=== PATIENT | male | born 1955 | race Caucasian/White ===

== ENCOUNTER 2017-02-09 19:27 | Emergency (ER) | payer BC, OTHER ==
[~2017-02-09] VITALS: Ht 180.3 cm; Wt 70.7 kg
[~2017-02-09 19:27] MED LIST: DEXL60CA4 PO; LEVO75TA5 PO; MULT-513 PO; NIFE1TAB53 PO; RANI300T2 PO
[2017-02-09 19:31] VITALS: TEMP 36.4; Ht 180.3 cm; Wt 70.7 kg
--- NOTE | 2017-02-09 20:29 | DIAGNOSTIC IMAGING REPORT ---
LEFT LOWER EXTREMITY VENOUS DOPPLER HISTORY: L leg numbness/varicosities - R/O DVT COMPARISON STUDY: None. FINDINGS: There is normal compressibility, flow, and augmentation within the left lower extremity deep venous system. IMPRESSION: No DVT within the left lower extremity. Electronically signed by: Chalino Edmondson M.D. 02/09/2017 8:27 PM Dictated Date/Time: 02/09/2017 8:27 PM
--- NOTE | 2017-02-09 20:30 | DIAGNOSTIC IMAGING REPORT ---
LUMBAR SPINE 5 VIEWS HISTORY: L leg numbness - h/o chronic back pain COMPARISON: None. FINDINGS: There is no fracture. No subluxation. Cholecystectomy. The sacrum is intact. Mild disc space are at L1-L2. Moderate disc space narrowing at L5-S1. Mild facet degenerative changes within the lower lumbar spine. IMPRESSION: No fracture or subluxation within the lumbar spine. Degenerative changes as described above. Electronically signed by: Chalino Edmondson M.D. 02/09/2017 8:29 PM Dictated Date/Time: 02/09/2017 8:27 PM
[2017-02-09] MEDS ORDERED: LEVO200T6 PO (20:47)
[2017-02-09] MEDS ORDERED: LEVO175T3 PO (20:47)
[2017-02-09] MEDS ORDERED: ACETAMINOPHEN 500 MG TAB PO STA (20:55)
[2017-02-09] MEDS ORDERED: TRAMADOL HCL 50 MG TAB PO STA (20:55)
[2017-02-09 21:11] VITALS: BP 133/81; PULSE 70; O2SAT 95
[2017-02-09 21:21] LABS: ISTAT CREATININE 1.1 mg/dl (0.6-1.3); ISTAT HEMOGLOBIN 14.6 g/dl (14.0-18.0); ISTAT IONIZED CALCIUM 1.1 mmol/l (1.12-1.32)
[2017-02-09] MEDS ORDERED: TRAMADOL HCL 50 MG HOME PACK PO ONE (21:30)
[2017-02-09] MEDS ORDERED: TRAM-10 PO (21:33)
[2017-02-09] MEDS ORDERED: METH4PAK PO (21:33)
--- NOTE | 2017-02-09 21:47 | EMERGENCY ROOM VISIT NOTE ---
History First contact with patient: 19:33 Chief Complaint: LEG PAIN,LEG INJURY Stated Complaint: L LEG NUMBNESS History of Present Illness The patient is a 61 year old male who presents to the Emergency Room with complaints of left leg numbness. He reports that the numbness started today. He denies any recent trauma to the leg. The patient reports that he has noticed larger veins in his legs. He currently denies any lower back pain, but does report a history of chronic back pain and sees a chiropractor. He has never had similar numbness in either leg, and has had no numbness of the upper extremities. With his chronic back pain, he has never had sciatica or tingling/ numbness into the lower extremities. He is under a lot of stress with the passing of his before . He is in the process of collecting all of her goods in the house. The patient is to drinking a significant amount of alcohol today. He rates his discomfort a 6 out of 10. He denies weakness of the left lower extremity or sensation like his leg is going to collapse on him. Review of Systems 10 system review was performed and was negative except for pertinent positives and negatives as indicated in history of present illness Past Medical/Surgical History Medical Problems: (1) Autoimmune Thyroiditis (2) Diverticulosis Colon (W/O Ment Of Hemorrhage) (3) Enlarged Prostate With Lower Urinary Tract Symptoms (4) Esophageal Reflux (5) Hypertension Nos (6) Hypothyroidism Nos (7) Irritable Bowel Syndrome (8) Tobacco Use Disorder Surgical Problems: (1) History of cholecystectomy Family History FH: diabetes mellitus FH: prostate cancer Social History Smoking Status: Never Smoker Alcohol Use: heavy Marital Status: Occupation Status: employed Current/Historical Medications Scheduled Levothyroxine Sodium (Levothyroxine Sodium), 175 MCG PO Q2D Levothyroxine Sodium (Levothyroxine Sodium), 200 MCG PO Q2D Methylprednisolone (Medrol Dosepak), 0 PO DAILY Scheduled PRN Tramadol (Ultram), 1-2 TAB PO Q4H PRN for Pain Allergies Coded Allergies: No Known Allergies (Unverified , 06/14/15) Physical Exam Vital Signs Date Time Temp Pulse Resp B/P (MAP) Pulse Ox O2 Delivery O2 Flow Rate FiO2 02/09/17 21:11 70 16 133/81 95 Room Air 02/09/17 19:31 36.4 67 18 127/88 97 Room Air Physical Exam CONSTITUTIONAL: Healthy and well nourished. Alert and oriented X 3 with positive affect. Strong smell of EtOH is present. The patient is somewhat confrontational on exam. HEENT: Normocephalic, atraumatic. Pupils equal, round and reactive. No scleral icterus or conjunctival injection/pallor. NECK: Full active range of motion without discomfort. RESPIRATORY: Clear to auscultation bilaterally with no wheezing, crackles, rhonchi or stridor. CARDIOVASCULAR: Regular rate and rhythm with no murmurs, rubs or gallops. GASTROINTESTINAL: Bowel sounds present in all quadrants. Soft and nontender to palpation. MUSCULOSKELETAL: Examination shows no tenderness to palpation through the central lumbar spine, paraspinous muscles or SI joints. Negative sitting straight leg raise. Negative logroll. Patient walks across the examination room without any evidence of foot drop or antalgic gait. Pedal pulses are less than 2 seconds. The patient does have mild varicosities of bilateral lower extremities. No left popliteal masses or tenderness to palpation about the knee. INTEGUMENTARY: No rash or other significant dermatologic conditions noted. NEUROLOGIC: No focal neurologic deficits noted. Left leg, foot and toes are grossly sensory intact. Deep tendon reflexes 2+ and symmetric bilaterally. Medical Decision & Procedures ER Provider Diagnostic Interpretation: My interpretation of lumbar spine x-rays shows degenerative changes at the L5- S1 level. Otherwise no acute fractures or spondylolisthesis noted. Radiologist report is as follows: LUMBAR SPINE 5 VIEWS HISTORY: L leg numbness - h/o chronic back pain COMPARISON: None. FINDINGS: There is no fracture. No subluxation. Cholecystectomy. The sacrum is intact. Mild disc space are at L1-L2. Moderate disc space narrowing at L5-S1. Mild facet degenerative changes within the lower lumbar spine. IMPRESSION: No fracture or subluxation within the lumbar spine. Degenerative changes as described above. Venous ultrasound of the left lower extremity is negative for deep vein thrombosis. Radiologist report is as follows: LEFT LOWER EXTREMITY VENOUS DOPPLER HISTORY: L leg numbness/varicosities - R/O DVT COMPARISON STUDY: None. FINDINGS: There is normal compressibility, flow, and augmentation within the left lower extremity deep venous system. IMPRESSION: No DVT within the left lower extremity. Laboratory Results Test 02/09/17 21:08 Bedside Hemoglobin 14.6 g/dl (14.0-18.0) Bedside Hematocrit 43 % (42-52) Bedside Sodium 136 mEq/L (135-144) Bedside Potassium 3.8 mEq/L (3.3-5.0) Bedside Chloride 102 mEq/L (101-112) Bedside Total CO2 20 mEq/l (24-31) Anion Gap 19.0 mmol/L (16-25) Bedside Blood Urea Nitrogen 8 mg/dl (7-18) Bedside Creatinine 1.1 mg/dl (0.6-1.3) Bedside Glucose (other) 79 mg/dl (70-99) Bedside Ionized Calcium (Lon) 1.10 mmol/l (1.12-1.32) I-STAT labs were ordered, reviewed and normal. Medications Administered Medications (Trade) Dose Ordered Sig/Genaro Route Start Time Stop Time Status Last Admin Dose Admin Acetaminophen (Tylenol Tab) 1,000 mg NOW STAT PO 02/09/17 20:55 02/09/17 20:56 DC 02/09/17 21:08 1,000 MG Tramadol HCl (Ultram Tab) 50 mg ONE STAT PO 02/09/17 20:55 02/09/17 20:56 DC 02/09/17 21:08 50 MG Prednisone (PredniSONE TAB) 50 mg ONE STAT PO 02/09/17 20:58 02/09/17 21:00 DC 02/09/17 20:58 50 MG ED Course Patient history and physical exam were performed. Nurse's notes were reviewed. Vital signs were reviewed and normal. As indicated in the physical exam section, the patient smells strongly of alcohol. He was somewhat confrontational but not belligerent. His son was also with him. The patient immediately started to complain about a $14,000 bill that he got from the hospital for his 's . He reports that he is under a lot of stress, and wants to know if that is what is causing his leg numbness. I indicated to the patient that I would expect global paresthesias instead of just isolated to one leg. I did discuss several different possibilities, including lumbar radiculitis, perineal nerve palsies, deep vein thrombosis and other such etiologies. Patient reports that his chiropractor has done an x-ray of his back likely within the past year. I did suggest that we repeat the x-ray and perform an ultrasound of the left lower extremity. The patient did not verbalize any refusal for these imaging studies. She was of the lumbar spine shows degenerative changes at L5-S1. Venous ultrasound of the left extremity was normal. Whenever back into speak with the patient, he was reporting lower back pain. He did not seem to be worsening the numbness in the left leg. He rated his pain an 8 out of 10. The patient wanted to know if this could be his kidneys. The patient denies any prior history of kidney disease, and denies any recent problems with urination. He was also getting a patient and wanting to leave the emergency department. I offer to perform an i-STAT study which would check a creatinine level, and the patient then stated "It's up to you doc". I did elect to order an i-STAT which was complete normal. I reviewed these results with the patient. The patient was advised that this is likely a nerve pain that we call lumbar radiculitis. I did suggest treatment with a corticosteroid, Tylenol, ibuprofen and Ultram as needed for breakthrough pain. He was administered prednisone 50 mg, Tylenol 1 g and Ultram 50 mg while in the emergency department. He received home packs for Ultram, and prescriptions for Ultram and a Medrol Dosepak. He was instructed to follow-up with his family doctor, Dr. Tao Benitez, for further reevaluation and management. The patient was advised that this workup today is certainly not extensive, and that additional testing such as EMG studies or CT of the back may be warranted. The patient reports that he cannot undergo MRI studies because he has a metal plate in his face. The patient was in agreement to follow-up with his family doctor, was happy with plan of care, and rated his discomfort a 7 out of 10 at the time of discharge. He just received his medications prior to leaving with his son. Medical Decision See previous section Impression Primary Impression: Left lumbar radiculitis Departure Information Prescriptions Tramadol (Ultram) 50 Mg Tab 1-2 TAB PO Q4H Y for Pain, #20 TAB For Initial Treatment Prov: Tu López PA 02/09/17 Methylprednisolone (MEDROL DOSEPAK) 4 Mg Michele 0 PO DAILY, #1 PKT Prov: Tu López PA 02/09/17 Referrals No Doctor, Assigned (PCP) Patient Instructions [facility]
== END 2017-02-09 21:41 | disposition home or self-care (01) ==
LOC: C.EDB 19:28 → C.EDC 21:41
DX: M54.16 Radiculopathy, lumbar region (principal); I10 Essential (primary) hypertension; E03.9 Hypothyroidism, unspecified; N40.0 Benign prostatic hyperplasia without lower urinary tract symptoms; K58.9 Irritable bowel syndrome, unspecified; F17.210 Nicotine dependence, cigarettes, uncomplicated; Z83.3 Family history of diabetes mellitus; Z80.42 Family history of malignant neoplasm of prostate

== ENCOUNTER 2017-04-06 18:42 | Emergency (ER) | payer OTHER ==
[~2017-04-06] VITALS: Ht 180.3 cm; Wt 79.1 kg
[~2017-04-06 18:42] MED LIST changes: -DEXL60CA4 PO; +LEVO175T3 PO; +LEVO200T6 PO; -LEVO75TA5 PO; -MULT-513 PO; -NIFE1TAB53 PO; -RANI300T2 PO; +TRAM-10 PO
[2017-04-06 18:52] VITALS: BP 144/102; PULSE 66; TEMP 36.4; O2SAT 95; Ht 180.3 cm; Wt 79.1 kg
[2017-04-06] MEDS ORDERED: XYLOCAINE 1%/SOD BICARB 20 ML VIAL INFIL ONE (18:57)
--- NOTE | 2017-04-06 19:09 | EMERGENCY ROOM VISIT NOTE ---
ED Visit Note First contact with patient: 18:56 CHIEF COMPLAINT: Finger laceration HISTORY OF PRESENT ILLNESS: This 61-year-old male patient presents to the emergency department proximally one half hours after cutting the right index finger with a steak knife. The patient states he was preparing dinner, when he cut his finger with a knife. The patient states he was unable to stop the bleeding, which is why he presents now to the ED. The bleeding has stopped at this time. Denies weakness or numbness of the finger. The patient has full range of motion of the fingers. The patient rates the pain as constant, throbbing and 8/10. The patient denies any other injuries. The patient's tetanus shot is up to date. The patient initially states he drank 2 beers prior to his arrival, however then states he drank 3 beers. The patient does not take blood thinners or aspirin. REVIEW OF SYSTEMS: A 6 system review of systems was completed with positives and pertinent negatives listed in the HPI. ALLERGIES: None MEDICATIONS: Levothyroxine PMH: Hypothyroidism SOCIAL HISTORY: She lives locally alone. The patient denies smoking or drug use. The patient admits to drinking 3 beers on the weekends. PHYSICAL EXAM: Vital Signs: Reviewed Nurse's notes, vital signs stable. GENERAL : This is a pleasant 61-year-old male, in no acute distress, well developed, well nourished. The patient is slurring his words, and is having difficulty forming sentences. He does admit to alcohol use today. SKIN: There is a 1 cm long laceration on the lateral aspect of the right second finger. The edges gape apart with traction. There is no foreign material in the wound and it looks clean. There is no active bleeding. No deep structures such as tendons, bones, or significant blood vessels are seen in the base of the wound. Extension and flexion of the finger is full and strong. Full range of motion of the wrist and other fingers. Capillary refill less than 2 seconds. Normal sensation to light and sharp touch. EMERGENCY DEPARTMENT COURSE: I examined the patient. Verbal consent was obtained to perform the procedure. Using sterile technique the wound was cleansed with Betadine. 6 ml of 1% buffered lidocaine was used to perform a digital block to anesthetize the patient. The area was sterilely draped. Once the patient was anesthetized, the wound was copiously irrigated under pressure with sterile saline. The wound was explored and there were no deep structures injured. The laceration was repaired using 4 simple interrupted 5-0 proline sutures. The patient tolerated the procedure well. Hemostasis was achieved. The area was cleaned with sterile saline and dressed with bacitracin ointment and bandage. The patient was discharged home in good condition. DIFFERENTIAL DIAGNOSIS: Finger laceration, finger fracture, contusion, and others. DIAGNOSIS: Finger laceration DISCHARGE INSTRUCTIONS & TREATMENT: You have received 4 sutures on your right index finger. These sutures are NOT dissolvable and WILL need to be removed by a health care provider in 8-10 days. You can return to the Emergency Department or contact your Primary Care Provider to have the sutures removed. You were prescribed Keflex to be taken 4 times daily. This is an antibiotic. All antibiotics have the potential to cause diarrhea. Stop this medication and contact a medical provider if you were to develop any significant adverse side effects including: wheezing, shortness of breath, passing out, vomiting, or a diffuse rash. Always take antibiotics as directed and COMPLETE the ENTIRE course regardless of the improvement of your symptoms. Proper wound care is essential for adequate wound healing and infection prevention. You can shower and clean the wound with soap and water. Do not scour over the wound, pat dry with a towel. Do not submerse the wound (i.e. bathe or dish wash) until the sutures have been removed. You can use an antibiotic ointment with a dressing over the wound for the next 3-4 days. After this time you may leave the wound dry and open to the air. If crust develops over the wound you can use a Q-tip to apply a 1:1 peroxide:water solution to clean the wound. Look for signs of infection of the wound including: increased pain, swelling, foul discharge, streaking, or increased temperature. If any of these are noticed you should return to the Emergency Department for further assessment and treatment. As with any laceration you may have received nerve damage to the surrounding tissues. This damage may or may not be permanent. You should keep the area covered with sunscreen for the first 6 months to 1 year when at risk for exposure to help minimize scarring. You can also use scar reducing creams or Vitamin E oil to help minimize scarring. For pain control, you can use the following [id number] medicines (if >12 yo): - Regular strength (325mg/tab) Tylenol (acetaminophen) 2 tabs every 4-6 hours as needed. Do not exceed 12 tablets in a 24 hour period. Avoid taking more than 4 grams (4000 mg) of Tylenol per day. This includes any other sources of acetaminophen you may take on a regular basis. - Regular strength (200 mg/tab) Advil (ibuprofen) 1-2 tabs every 4-6 hours as needed. Do not exceed a dose of 3200 mg per day. Return to the emergency department if your symptoms worsen despite treatment course outlined above. Follow-up with your PCP in 2-3 days for recheck of wound. Current/Historical Medications Scheduled Levothyroxine Sodium (Levothyroxine Sodium), 175 MCG PO Q2D Levothyroxine Sodium (Levothyroxine Sodium), 200 MCG PO Q2D Allergies Coded Allergies: No Known Allergies (Unverified , 06/14/15) Vital Signs Date Time Temp Pulse Resp B/P (MAP) Pulse Ox O2 Delivery O2 Flow Rate FiO2 04/06/17 18:52 36.4 66 16 144/102 95 Room Air Departure Information Impression Primary Impression: Laceration of finger Dispostion Home / Self-Care Condition GOOD Prescriptions Cephalexin Monohydrate (Keflex) 500 Mg Cap 500 MG PO QID for 7 Days, #28 CAP Prov: Keiry Burgos PA-C 04/06/17 Referrals No Doctor, Assigned (PCP) Patient Instructions ED Laceration Ext Sutr Stap Tape, [facility] Additional Instructions You have received 4 sutures on your right index finger. These sutures are NOT dissolvable and WILL need to be removed by a health care provider in 8-10 days. You can return to the Emergency Department or contact your Primary Care Provider to have the sutures removed. You were prescribed Keflex to be taken 4 times daily. This is an antibiotic. All antibiotics have the potential to cause diarrhea. Stop this medication and contact a medical provider if you were to develop any significant adverse side effects including: wheezing, shortness of breath, passing out, vomiting, or a diffuse rash. Always take antibiotics as directed and COMPLETE the ENTIRE course regardless of the improvement of your symptoms. Proper wound care is essential for adequate wound healing and infection prevention. You can shower and clean the wound with soap and water. Do not scour over the wound, pat dry with a towel. Do not submerse the wound (i.e. bathe or dish wash) until the sutures have been removed. You can use an antibiotic ointment with a dressing over the wound for the next 3-4 days. After this time you may leave the wound dry and open to the air. If crust develops over the wound you can use a Q-tip to apply a 1:1 peroxide:water solution to clean the wound. Look for signs of infection of the wound including: increased pain, swelling, foul discharge, streaking, or increased temperature. If any of these are noticed you should return to the Emergency Department for further assessment and treatment. As with any laceration you may have received nerve damage to the surrounding tissues. This damage may or may not be permanent. You should keep the area covered with sunscreen for the first 6 months to 1 year when at risk for exposure to help minimize scarring. You can also use scar reducing creams or Vitamin E oil to help minimize scarring. For pain control, you can use the following bjkd-hoa-dwqbkzc medicines (if >12 yo): - Regular strength (325mg/tab) Tylenol (acetaminophen) 2 tabs every 4-6 hours as needed. Do not exceed 12 tablets in a 24 hour period. Avoid taking more than 4 grams (4000 mg) of Tylenol per day. This includes any other sources of acetaminophen you may take on a regular basis. - Regular strength (200 mg/tab) Advil (ibuprofen) 1-2 tabs every 4-6 hours as needed. Do not exceed a dose of 3200 mg per day. Return to the emergency department if your symptoms worsen despite treatment course outlined above. Follow-up with your PCP in 2-3 days for recheck of wound. Problem Qualifiers Primary Impression: Laceration of finger Encounter type: initial encounter Finger: index finger Damage to nail status: without damage Foreign body presence: without foreign body Laterality: right Qualified Codes: S61.210A - Laceration without foreign body of right index finger without damage to nail, initial encounter
[2017-04-06] MEDS ORDERED: CEPH500C PO (19:44)
[2017-04-06] MEDS ORDERED: CEPHALEXIN 500MG HOME PACK 1 EA BTL PO ONE (19:45)
== END 2017-04-06 19:51 | disposition home or self-care (01) ==
LOC: C.EDB 18:44 → C.EDD 19:51
DX: S61.210A Laceration without foreign body of right index finger without damage to nail, initial encounter (principal); W26.0XXA Contact with knife, initial encounter; Y93.G1 Activity, food preparation and clean up; Y99.8 Other external cause status; E03.9 Hypothyroidism, unspecified; Z79.899 Other long term (current) drug therapy

== ENCOUNTER 2017-04-14 17:33 | Emergency (ER) | payer OTHER ==
[~2017-04-14] VITALS: Ht 175.3 cm; Wt 78.4 kg
[~2017-04-14 17:33] MED LIST changes: +CEPH500C PO; -TRAM-10 PO
[2017-04-14 18:04] VITALS: BP 157/78; PULSE 54; TEMP 36.7; O2SAT 97; Ht 175.3 cm; Wt 78.4 kg
--- NOTE | 2017-04-14 18:42 | EMERGENCY ROOM VISIT NOTE ---
ED Visit Note First contact with patient: 18:08 CHIEF COMPLAINT: Suture removal This patient returns to the ED today for removal of sutures that were placed 8 days ago. There has been no swelling, redness, or drainage from the wound. The patient feels like the laceration is healing well. REVIEW OF SYSTEMS: Head: No headache, injury or neck pain. Skin: No rash, new lesions, or masses. General: No fever or chills, fatigue, loss of appetite , or significant recent weight gain or loss. PMH: The patient is healthy; there is no significant medical or surgical history. SOCIAL HISTORY: Patient lives at home. PHYSICAL EXAM: Vital Signs: Reviewed Nurse's notes. There is a sutured wound on the right second finger with no signs of infection. There is no erythema, swelling, or tenderness. EMERGENCY DEPARTMENT COURSE: The sutures were removed without any difficulty and there was no separation of the wound edges. Current/Historical Medications Scheduled Levothyroxine Sodium (Levothyroxine Sodium), 175 MCG PO Q2D Levothyroxine Sodium (Levothyroxine Sodium), 200 MCG PO Q2D Allergies Coded Allergies: No Known Allergies (Unverified , 06/14/15) Vital Signs Date Time Temp Pulse Resp B/P (MAP) Pulse Ox O2 Delivery O2 Flow Rate FiO2 04/14/17 18:04 36.7 54 18 157/78 97 Room Air Departure Information Impression Primary Impression: Encounter for removal of sutures Dispostion Home / Self-Care Condition GOOD Referrals No Doctor, Assigned (PCP) [facility] Additional Instructions Wash any remaining crusts off of the wound today and resume your normal activities. Follow-up with your PCP as needed. Return for any signs of infection.
== END 2017-04-14 18:30 | disposition home or self-care (01) ==
LOC: C.EDB 17:34 → C.EDD 18:30
DX: Z48.02 Encounter for removal of sutures (principal)

== ENCOUNTER → 2017-09-24 | Outpatient (CLI) | payer OTHER ==
[~2017-09-24] MED LIST changes: -CEPH500C PO
== END | disposition home or self-care (01) ==
LOC: C.LABPBG 07:41
PROVIDERS: ATTEND Physician Assistant
DX: E06.3 Autoimmune thyroiditis (principal); E89.0 Postprocedural hypothyroidism

== ENCOUNTER → 2017-10-06 | Outpatient (CLI) | payer OTHER ==
[2017-10-06 13:46] LABS: ALBUMIN 3.6 gm/dl (3.4-5.0); ALT/SGPT 34 U/L (12-78); AST/SGOT 16 U/L (15-37); BLOOD UREA NITROGEN 17 mg/dl (7-18); CALCIUM 8.9 mg/dl (8.5-10.1); CARBON DIOXIDE 26 mmol/L (21-32); CREATININE 0.93 mg/dl (0.60-1.40); GLUCOSE 106 mg/dl (70-99); POTASSIUM 4.2 mmol/L (3.5-5.1); SODIUM 136 mmol/L (136-145)
[2017-10-06 13:50] LABS: ALKALINE PHOSPHATASE 84 U/L (45-117); CHOLESTEROL 187 mg/dl (0-200); LDL CHOLESTEROL CALCULATED 120 mg/dl; TOTAL PROTEIN 7.1 gm/dl (6.4-8.2)
== END | disposition home or self-care (01) ==
LOC: C.LABPBG 07:24
PROVIDERS: ATTEND Physician Assistant
DX: Z00.00 Encounter for general adult medical examination without abnormal findings (principal)

== ENCOUNTER → 2017-12-10 | Outpatient (CLI) | payer OTHER | END | disposition home or self-care (01) | LOC: C.LABPBG 13:49 | PROVIDERS: ATTEND Physician Assistant | DX: Z00.00 Encounter for general adult medical examination without abnormal findings (principal) ==

== ENCOUNTER 2021-04-30 08:55 | Inpatient (IN) ==
--- NOTE | 2021-04-30 09:36 | Emergency Department Note ---
Impression & Plan Acute pancreatitis, Abdominal pain ED Provider Note NAME: FELIPA ISABEL AGE: 65 SEX: M : 1955 ARRIVES VIA: Walk-In INFORMANT: Patient, ED PROVIDER(S): Farhan Preston MD Chief Complaint: Abdominal pain HPI: Patient does present with abdominal pain that is been intermittent in nature but progressively worse and more constant over the last 2 weeks. Patient states he was referred here 2 weeks ago and had a CAT scan of the abdomen pelvis done but the patient was not aware of his results. The patient states it is diffuse but it is more upper abdomen. Patient denies any fevers chills chest pains or shortness of breath. Patient has tried [id number] medications at home but without relief of symptoms. The patient has not had any nausea or vomiting. Patient states that his had a recent bowel movement. Patient denies any dysuria, hematuria or hematochezia. Patient denies any history of kidney stones. The patient does smoke occasional cigars but denies any additional tobacco use. Patient denies any alcohol use. ROS: See HPI for pertinent positives and negatives. A total of 10 systems were reviewed and otherwise negative. Past medical history: See below Surgical history: See below Social history: See below Physical Exam: GENERAL: NAD, wearing a mask, non-toxic. EYE EXAM: Normal conjunctiva. PERRL, no anisocoria and EOM's grossly intact w/o pain. OROPHARYNX: Moist mucus membranes. Grossly normal dentition. NECK: Supple, no nuchal rigidity, no adenopathy, non-tender. No signs of meningismus. LUNGS: Clear to auscultation. Normal chest wall mechanics. HEART: NSR, no MRG. ABDOMEN: Abdomen soft, mild upper abdominal discomfort without peritonitis, no lower abdominal pain, normo-active bowel sounds, no masses, no rebound or guarding. BACK: No CVA TTP. SKIN: No rashes and no bruising. UPPER EXTREMITIES: Upper extremities are grossly normal. LOWER EXTREMITIES: Grossly normal, no edema. NEURO EXAM: A&O x3, cranial nerves II-XII grossly intact, normal speech, moves all 4 extremities on command w/o issue. Differential diagnoses: Appendicitis, testicular torsion, infections, diverticulitis, UTI, obstruction, mesenteric ischemia, aortic pathology, inflammatory bowel disease, renal colic, PUD, pancreatitis, biliary pathology, hernia, volvulus, constipation, as well as other pathologies. Course: Patient was seen and evaluated the bedside. Full history physical exam was performed. EKG interpreted by me Normal sinus rhythm, rate of 61, normal intervals, normal axis, no ST changes or T WI. Imaging Studies: See Below Cardiac monitoring: An order was placed for continuous cardiac monitoring. The monitor shows a rate of 65 with sinus rhythm. MDM: Patient was seen due to concern for abdominal discomfort. The patient CT scan on April 06 shows concern for pancreatitis. Given this a repeat CT was ordered. Patient had received pain and nausea medication. Patient does have an elevated lipase with a CT abdomen pelvis that does show pancreatitis. I did speak with the on-call hospitalist GUILLE Ryan and the patient will be admitted by Dr. Garcia. Past Med/Surg History Medical History Anxiety and depression Environmental allergies External hemorrhoids CURRENT PROBLEM HTN (hypertension) Hyperlipidemia BORDERLINE Hypothyroidism Insomnia Irritable bowel syndrome Laryngopharyngeal reflux Multiple thyroid nodules HX Nutcracker esophagus CAUSES SOB Osteoarthritis Prediabetes Sensorineural hearing loss (SNHL) of both ears Sleep apnea NO DEVICE Surgical History History of cholecystectomy History of colonoscopy History of esophagogastroduodenoscopy (EGD) (07/2018) History of facial surgery History of oral surgery History of thyroidectomy, subtotal (2014) History of tooth extraction Nausea and vomiting after administration of anesthetic agent Family History Mother Family history of diabetes mellitus Heart murmur Brother Diabetes Family history of diabetes mellitus Arthritis Father Prostate cancer Arthritis Other No family history of adverse response to anesthesia Denies family history of Ovarian cancer Myocardial infarction Breast cancer Colorectal cancer Social History Smoking Status: Current some day smoker Tobacco Type: Cigars Age Started Using Tobacco: 15; Age Quit Using Tobacco: 49; Second Hand Exposure: No; Do You Dip or Chew Tobacco: No; Tobacco Cessation Education Requested by Patient: No Hx Alcohol Use: Yes Alcohol type: beer Alcohol Intake Frequency: 4 or More x per/Week Hx Substance Use: No Preferred Language: Ukrainian Communication Ability: Effective Visual Impairment: No Limitations Hearing Ability: Hard of Hearing Telephone Lineworker Required: No Beliefs That Will Affect Care: None marital status: / Current Living Situation: Family Current Living Situation Comment: 2 sons, son's girlfriend. 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 Other Information That Helps Us Care for You: No Feels Safe at Home: Yes Safety Concerns: Feels Safe At This Time Childhood Exposure to Second-Hand Smoke: No caffeine: Yes (Coffee x 1 per day.) during the past year weight has: remained stable Dental Care, Regularly: Yes Physical Activity Frequency: 3-4 Times per Week Seatbelt Use: always Sunscreen Use: No Assistive Devices: None Allergies Allergies Allergy/AdvReac Type Severity Reaction Status Date / Time No Known Drug Allergies Allergy Unknown Verified 04/30/21 09:58 Home Meds Home Medications Medication Instructions Recorded Confirmed multivitamin 1 tab PO QAM 07/14/18 04/30/21 omega-3 acid ethyl esters 1 gram 1 cap PO QAM cap 03/30/19 04/30/21 capsule garlic See Rx Instructions PO DAILY 04/25/20 04/30/21 hydrocortisone 2.5 % topical cream 1 applic RI BID PRN 04/30/21 04/30/21 with perineal applicator Previous Rx's Medication Instructions Recorded ketoconazole 2 % topical cream 1 appln TOP BID #30 gm 01/27/20 albuterol sulfate 90 mcg/actuation 2 inh INH Q6H PRN #18 g 04/25/20 aerosol inhaler (ProAir HFA) triamcinolone acetonide 0.5 % 1 applic TOPICAL BID PRN #60 g 08/22/20 topical cream escitalopram oxalate 20 mg tablet 20 mg PO DAILY #90 tab 09/06/20 pantoprazole 40 mg tablet,delayed 40 mg PO DAILY #90 tab 09/11/20 release (Protonix) atorvastatin 20 mg tablet 20 mg PO DAILY #90 tab 12/29/20 famotidine 40 mg tablet 40 mg PO HS #90 tab 01/12/21 trazodone 50 mg tablet 100 mg PO HS PRN #60 tab 02/01/21 losartan 100 mg tablet 100 mg PO DAILY #90 tab 02/13/21 levothyroxine 175 mcg tablet 175 mcg PO QAM #90 tab 04/23/21 benzonatate 100 mg capsule 100 mg PO .QHS PRN #14 cap 04/25/21 (Alin Crews) fluticasone propionate 50 1 spray INTRANASAL BID #16 g 04/25/21 mcg/actuation nasal spray,suspension sodium chloride 0.65 % nasal spray 1 spray INTRANASAL BID PRN #45 ml 04/25/21 aerosol (Saline Mist) Results & Data (ED) Vital Signs Vital Signs - 24 hr 04/30/21 09:06 04/30/21 12:38 Temperature 36.6 C Temperature Source Oral Pulse Rate 70 Pulse Rate [Finger] 62 Respiratory Rate 18 16 Blood Pressure 146/81 H Blood Pressure [Right Arm] 158/93 H Blood Pressure Mean 102 Blood Pressure Mean [Right Arm] 114 Pulse Oximetry 100 99 Oxygen Delivery Method Room Air Room Air Sepsis Recent Fever Within 48 Hours No Sepsis New/Unexplained Change in Mental Status No Sepsis Action Taken by Nursing No Action Required Home Medications Current Medication List: was personally reviewed by me Laboratory Data Attestation: I reviewed the patient's lab results. Result diagrams: 04/30/21 10:08 04/30/21 10:08 Lab Results 04/30/21 04/30/21 04/30/21 Range/Units 10:08 10:08 10:08 WBC 10.76 (4.8-10.8) K/uL RBC 3.82 L (4.7-6.1) M/uL Hgb 12.6 L (14.0-18.0) g/dL Hct 36.7 L (42-52) % MCV 96.1 (80-100) fL MCH 33.0 (25-34) pg MCHC 34.3 (32-36) g/dL RDW Std Deviation 45.6 (36.4-46.3) fL RDW Coeff of Marline 13.0 (11.5-14.5) % Plt Count 210 (130-400) K/uL MPV 9.7 (7.4-10.4) fL Immature Gran % (Auto) 0.3 % Neut % (Auto) 76.2 % Lymph % (Auto) 11.4 % Ferry % (Auto) 9.6 % Eos % (Auto) 2.4 % Baso % (Auto) 0.1 % Neut # (Auto) 8.20 H (1.4-6.5) K/uL Lymph # (Auto) 1.23 (1.2-3.4) K/uL Ferry # (Auto) 1.03 H (0.11-0.59) K/uL Eos # (Auto) 0.26 (0-0.5) K/uL Baso # (Auto) 0.01 (0-0.2) K/uL Immature Gran # (Auto) 0.03 H (0.00-0.02) K/uL Sodium 132 L (136-145) mmol/L Potassium 4.3 (3.5-5.1) mmol/L Chloride 102 (98-107) mmol/L Carbon Dioxide 27 (21-32) mmol/L Anion Gap 3.0 (3-11) BUN 12 (7-18) mg/dl Creatinine 0.79 (0.6-1.4) mg/dl Est Cr Clr Drug Dosing 92.0 ml/min Est GFR ( Amer) 108.5 ml/min Est GFR (Non-Af Amer) 93.6 ml/min BUN/Creatinine Ratio 15.6 (10-20) Glucose 78 (70-99) mg/dl Calcium 8.7 (8.5-10.1) mg/dl Total Bilirubin 0.6 (0.2-1) mg/dl AST 17 (15-37) U/L ALT 29 (12-78) U/L Alkaline Phosphatase 107 (45-117) U/L Troponin I 0.026 (0-0.045) ng/ml Total Protein 6.8 (6.4-8.2) gm/dl Albumin 3.3 L (3.4-5.0) gm/dl Globulin 3.5 (2.5-4.0) gm/dl Albumin/Globulin Ratio 0.9 (0.9-2) Triglycerides (0-150) mg/dl Cholesterol (0-200) mg/dl LDL Cholesterol, Calc mg/dl VLDL Cholesterol, Calc mg/dl HDL Cholesterol mg/dl Cholesterol/HDL Ratio Lipase 13981 H (73-393) U/L Urine Color Dark Yellow Urine Appearance Clear (Clear) Urine pH 7.0 (4.5-7.5) Ur Specific [place] 1.033 H (1.000-1.030) Urine Protein Trace H (Negative) Urine Glucose (UA) Negative (Negative) Urine Ketones Trace H (Negative) Urine Blood Negative (Negative) Urine Nitrite Negative (Negative) Urine Bilirubin Negative (Negative) Urine Urobilinogen Negative (Negative) Ur Leukocyte Esterase Trace H (Negative) Urine WBC (Auto) 1-5 (0-5) /hpf Urine RBC (Auto) 0-4 (0-4) /hpf U Hyaline Cast (Auto) 1-5 (0-5) /lpf U Epithel Cells (Auto) 5-10 H (0-5) /lpf Urine Bacteria (Auto) Negative (Negative) COVID-19 Eval Order SARS-CoV-2 (PCR) (Negative) 04/30/21 04/30/21 04/30/21 Range/Units 10:08 12:40 12:40 WBC (4.8-10.8) K/uL RBC (4.7-6.1) M/uL Hgb (14.0-18.0) g/dL Hct (42-52) % MCV (80-100) fL MCH (25-34) pg MCHC (32-36) g/dL RDW Std Deviation (36.4-46.3) fL RDW Coeff of Marline (11.5-14.5) % Plt Count (130-400) K/uL MPV (7.4-10.4) fL Immature Gran % (Auto) % Neut % (Auto) % Lymph % (Auto) % Ferry % (Auto) % Eos % (Auto) % Baso % (Auto) % Neut # (Auto) (1.4-6.5) K/uL Lymph # (Auto) (1.2-3.4) K/uL Ferry # (Auto) (0.11-0.59) K/uL Eos # (Auto) (0-0.5) K/uL Baso # (Auto) (0-0.2) K/uL Immature Gran # (Auto) (0.00-0.02) K/uL Sodium (136-145) mmol/L Potassium (3.5-5.1) mmol/L Chloride (98-107) mmol/L Carbon Dioxide (21-32) mmol/L Anion Gap (3-11) BUN (7-18) mg/dl Creatinine (0.6-1.4) mg/dl Est Cr Clr Drug Dosing ml/min Est GFR ( Amer) ml/min Est GFR (Non-Af Amer) ml/min BUN/Creatinine Ratio (10-20) Glucose (70-99) mg/dl Calcium (8.5-10.1) mg/dl Total Bilirubin (0.2-1) mg/dl AST (15-37) U/L ALT (12-78) U/L Alkaline Phosphatase (45-117) U/L Troponin I (0-0.045) ng/ml Total Protein (6.4-8.2) gm/dl Albumin (3.4-5.0) gm/dl Globulin (2.5-4.0) gm/dl Albumin/Globulin Ratio (0.9-2) Triglycerides 164 H (0-150) mg/dl Cholesterol 118 (0-200) mg/dl LDL Cholesterol, Calc 49 mg/dl VLDL Cholesterol, Calc 33 mg/dl HDL Cholesterol 36 mg/dl Cholesterol/HDL Ratio 3 Lipase (73-393) U/L Urine Color Urine Appearance (Clear) Urine pH (4.5-7.5) Ur Specific [place] (1.000-1.030) Urine Protein (Negative) Urine Glucose (UA) (Negative) Urine Ketones (Negative) Urine Blood (Negative) Urine Nitrite (Negative) Urine Bilirubin (Negative) Urine Urobilinogen (Negative) Ur Leukocyte Esterase (Negative) Urine WBC (Auto) (0-5) /hpf Urine RBC (Auto) (0-4) /hpf U Hyaline Cast (Auto) (0-5) /lpf U Epithel Cells (Auto) (0-5) /lpf Urine Bacteria (Auto) (Negative) COVID-19 Eval Order Covid19 at [facility] SARS-CoV-2 (PCR) NEGATIVE (Negative) Administered Medications Hydromorphone HCl (Hydromorphone Inj 0.5 Mg/0.5 Ml Syr) 0.5 mg IV Q6H PRN PRN Reason: moderate to severe pain Stop: 05/14/21 14:50 Last Admin: 04/30/21 16:59 Dose: 0.5 mg Documented by: [id number] Lactated Ringer's (Lr) 1,000 mls @ 125 mls/hr IV .Q8H SHELLY Stop: 05/30/21 14:50 Last Admin: 04/30/21 15:23 Dose: 125 mls/hr Documented by: [id number] Discontinued Medications Sodium Chloride (Nss 1000ml) 1,000 mls @ 999 mls/hr IV .Q1H1M STA Stop: 04/30/21 10:58 Last Infusion: 04/30/21 11:45 Dose: 0 mls/hr Documented by: [id number] Admin: 04/30/21 10:30 Dose: 999 mls/hr Documented by: [id number] Ioversol (Optiray 320 100ml) 94 ml IV ONCE ONE Stop: 04/30/21 11:37 Last Admin: 04/30/21 11:36 Dose: 94 ml Documented by: [id number] Morphine Sulfate (Morphine Sulfate 4 Mg/Ml 1 Ml Carp\Vial) 4 mg IV NOW STA Stop: 04/30/21 09:59 Last Admin: 04/30/21 10:30 Dose: 4 mg Documented by: [id number] Morphine Sulfate (Morphine Sulfate 4 Mg/Ml 1 Ml Carp\Vial) 4 mg IV NOW STA Stop: 04/30/21 13:05 Last Admin: 04/30/21 13:19 Dose: 4 mg Documented by: [id number] Ondansetron HCl (Ondansetron Inj 2 Mg/Ml 2 Ml Vial) 4 mg IV NOW STA Stop: 04/30/21 09:59 Last Admin: 04/30/21 10:30 Dose: 4 mg Documented by: [id number] Imaging Data Radiologist's Impression: Abdomen/Pelvis CT 04/30/21 10:16 CT SCAN OF THE ABDOMEN AND PELVIS WITH IV CONTRAST CLINICAL HISTORY: Upper abdominal pain. Recent pancreatitis. COMPARISON STUDY: Abdominal CT dated 04/06/2021 end 07/02/2016. TECHNIQUE: Following the IV administration of 94 cc of Optiray 320, CT scan of the abdomen and pelvis is performed from the lung bases to the proximal femora. Images are reviewed in the axial, sagittal, and coronal planes. IV contrast was administered without complication. A dose lowering technique was utilized adhering to the principles of ALARA. CT DOSE: 332.54 mGy.cm FINDINGS: Lung bases: The heart is enlarged and without pericardial effusion. There are coronary artery calcifications. The lung bases are clear noting bibasilar scarring/atelectasis. There is a small hiatal hernia. Liver: The contrast-enhanced liver is top normal in size and heterogeneous in attenuation. Nodularity of the hepatic surface contour suggests early change of cirrhosis. There is no intrahepatic biliary ductal dilatation. The hepatic veins and portal veins are patent. Gallbladder: Surgically absent noting clips in the gallbladder fossa. Spleen: Normal in size and attenuation. Pancreas: The pancreas appears mildly edematous. There is peripancreatic stranding and fluid, greatest around the pancreatic head. This has increased as compared 04/06/2021 and is consistent with acute pancreatitis. No organized peripancreatic fluid collection is identified. The gland enhances homogeneously. The splenic vein is patent. Adrenal glands: Unremarkable. Kidneys: The contrast enhanced kidneys are normal in size and without hydronephrosis. The kidneys enhance symmetrically. Abdominal vasculature: The abdominal aorta is normal in course and caliber noting mild to moderate atherosclerotic calcification. Bowel: The gastric mucosa appears thickened and hyperemic. There is moderate colonic diverticulosis without CT evidence of acute diverticulitis. No bowel obstruction is seen. Residual enteric contrast is suggested in the colon. Wall thickening of the duodenum is likely related to adjacent pancreatitis. The appendix is well-visualized and normal. Peritoneum: There is no intraperitoneal free air or abdominal ascites. Lymphadenopathy: Prominent peripancreatic lymph nodes measure up to 8 mm in short axis. Prominent nodes in the arley hepatis measure up to 11 mm short axis. A soft tissue structure measuring 1.9 x 1.3 cm in the gastrohepatic space on image #104 likely represents lobulated pancreatic tissue. Pelvic viscera: The prostate gland is mildly enlarged and heterogeneous noting median lobe hypertrophy. The bladder is normal as imaged. Skeletal structures: There is mild lumbosacral spondylosis. No lytic or blastic lesions are seen. IMPRESSION: 1. Findings are consistent with acute pancreatitis. This has worsened as compared 04/06/2021 and GI follow-up is recommended. 2. The gland enhances homogeneously and no organized peripancreatic fluid collection is identified. 3. Duodenal wall thickening and edema is likely related to adjacent pancreatitis. 4. The appearance of the liver suggests early change of cirrhosis. 5. The gastric mucosa appears thickened and hyperemic. Correlate clinically for evidence of gastritis. 6. There are mildly enlarged peripancreatic and upper abdominal lymph nodes. These are nonspecific, similar to prior studies, and may be reactive and/or related to chronic liver disease. 7. Additional findings as above. ACT 112: Negative or not required by law. Electronically signed by: Lauro Hills M.D. 04/30/2021 12:46 PM Discharge Plan Visit Data Chief Complaint: Abdominal Pain Stated Complaint: AB PAIN ED Provider: Farhan Preston Discharge Problem: Acute pancreatitis, Abdominal pain Patient Disposition: Admitted As Inpatient Discharge Instructions Interventions: ED Discharge Assessment Last Done: 04/30/21 14:21
[2021-04-30] MEDS ORDERED: ONDANSETRON INJ 2 MG/ML 2 ML VIAL IV STA (09:58)
[2021-04-30] MEDS ORDERED: SODIUM CHLORIDE 0.9% 1000ML 1,000 ML IV STA (09:58)
[2021-04-30] MEDS ORDERED: MoRPHine SULFATE 4 MG/ML 1 ML CARP\\VIAL IV STA ×2 (09:58→13:04)
[2021-04-30 10:28] LABS: Basophils # (auto) 0.01 K/uL (0-0.2); Basophils % (auto) 0.1 %; Eosinophils # (auto) 0.26 K/uL (0-0.5); Eosinophils % (auto) 2.4 %; Hematocrit (blood only) 36.7 % (42-52); Hemoglobin 12.6 g/dL (14.0-18.0); Immature Granulocytes # (auto) 0.03 K/uL (0.00-0.02); Immature Granulocytes % (auto) 0.3 %; Lymphocytes # (auto) 1.23 K/uL (1.2-3.4); Lymphocytes % (auto) 11.4 %; Mean Corpuscular Hgb Conc 34.3 g/dL (32-36); Mean Corpuscular Volume 96.1 fL (80-100); Mean Platelet Volume 9.7 fL (7.4-10.4); Monocytes # (auto) 1.03 K/uL (0.11-0.59); Monocytes % (auto) 9.6 %; Neutrophils % (auto) 76.2 %; Platelet Count 210 K/uL (130-400); RDW Standard Deviation 45.6 fL (36.4-46.3); Red Blood Count 3.82 M/uL (4.7-6.1); White Blood Count 10.76 K/uL (4.8-10.8)
[2021-04-30 10:29] LABS: Appearance Urine Clear (Clear); Bacteria Urine Automated Negative (Negative); Bilirubin Urine Negative (Negative); Blood Urine Negative (Negative); Color Urine Dark Yellow; Glucose Urine UA Negative (Negative); Ketones Urine Trace (Negative); Leukocyte Esterase Urine Trace (Negative); Nitrite Urine Negative (Negative); Protein Urine Trace (Negative); RBC Urine Automated 0-4 /hpf (0-4); Specific Gravity Urine 1.033 (1.000-1.030); Urobilinogen Urine Negative (Negative)
[2021-04-30 10:45] LABS: Albumin Level 3.3 gm/dl (3.4-5.0); BUN Creatinine Ratio 15.6 (10-20); Calcium 8.7 mg/dl (8.5-10.1); Est GFR (African American) 108.5 ml/min; Est GFR (Non-African American) 93.6 ml/min; Potassium 4.3 mmol/L (3.5-5.1)
[2021-04-30 10:50] LABS: Albumin Globulin Ratio 0.9 (0.9-2); Bilirubin,Total 0.6 mg/dl (0.2-1); Globulin 3.5 gm/dl (2.5-4.0); Total Protein 6.8 gm/dl (6.4-8.2); Troponin I 0.026 ng/ml (0-0.045)
[2021-04-30] MEDS ORDERED: OPTIRAY 320 100ml IV ONE (11:36)
--- NOTE | 2021-04-30 12:47 | CT Scan Report ---
CT SCAN OF THE ABDOMEN AND PELVIS WITH IV CONTRAST CLINICAL HISTORY: Upper abdominal pain. Recent pancreatitis. COMPARISON STUDY: Abdominal CT dated 04/06/2021 end 07/02/2016. TECHNIQUE: Following the IV administration of 94 cc of Optiray 320, CT scan of the abdomen and pelvi s is performed from the lung bases to the proximal femora. Images are reviewed in the axial, sagittal , and coronal planes. IV contrast was administered without complication. A dose lowering technique wa s utilized adhering to the principles of ALARA. CT DOSE: 332.54 mGy.cm FINDINGS: Lung bases: The heart is enlarged and without pericardial effusion. There are coronary artery calcifi cations. The lung bases are clear noting bibasilar scarring/atelectasis. There is a small hiatal roselyn ia. Liver: The contrast-enhanced liver is top normal in size and heterogeneous in attenuation. Nodularity of the hepatic surface contour suggests early change of cirrhosis. There is no intrahepatic biliary ductal dilatation. The hepatic veins and portal veins are patent. Gallbladder: Surgically absent noting clips in the gallbladder fossa. Spleen: Normal in size and attenuation. Pancreas: The pancreas appears mildly edematous. There is peripancreatic stranding and fluid, greates t around the pancreatic head. This has increased as compared 04/06/2021 and is consistent with acute p ancreatitis. No organized peripancreatic fluid collection is identified. The gland enhances homogeneo usly. The splenic vein is patent. Adrenal glands: Unremarkable. Kidneys: The contrast enhanced kidneys are normal in size and without hydronephrosis. The kidneys enh ance symmetrically. Abdominal vasculature: The abdominal aorta is normal in course and caliber noting mild to moderate at herosclerotic calcification. Bowel: The gastric mucosa appears thickened and hyperemic. There is moderate colonic diverticulosis w ithout CT evidence of acute diverticulitis. No bowel obstruction is seen. Residual enteric contrast i s suggested in the colon. Wall thickening of the duodenum is likely related to adjacent pancreatitis. The appendix is well-visualized and normal. Peritoneum: There is no intraperitoneal free air or abdominal ascites. Lymphadenopathy: Prominent peripancreatic lymph nodes measure up to 8 mm in short axis. Prominent nod es in the arley hepatis measure up to 11 mm short axis. A soft tissue structure measuring 1.9 x 1.3 c m in the gastrohepatic space on image #104 likely represents lobulated pancreatic tissue. Pelvic viscera: The prostate gland is mildly enlarged and heterogeneous noting median lobe hypertroph y. The bladder is normal as imaged. Skeletal structures: There is mild lumbosacral spondylosis. No lytic or blastic lesions are seen. IMPRESSION: 1. Findings are consistent with acute pancreatitis. This has worsened as compared 04/06/2021 and GI fo llow-up is recommended. 2. The gland enhances homogeneously and no organized peripancreatic fluid collection is identified. 3. Duodenal wall thickening and edema is likely related to adjacent pancreatitis. 4. The appearance of the liver suggests early change of cirrhosis. 5. The gastric mucosa appears thickened and hyperemic. Correlate clinically for evidence of gastritis . 6. There are mildly enlarged peripancreatic and upper abdominal lymph nodes. These are nonspecific, s imilar to prior studies, and may be reactive and/or related to chronic liver disease. 7. Additional findings as above. ACT 112: Negative or not required by law. Electronically signed by: Lauro Hills M.D. 04/30/2021 12:46 PM
--- NOTE | 2021-04-30 13:30 | History & Physical Report ---
Date of Service April 30, 2021 Assessment & Plan (1) Pancreatitis: Plan: Pancreatitis ? inciting event - Pain consistent with [place]itis, [place] [address] - Lipid panel- triglyceride 164 and cholesterol 118 - ETOH use 2-3 days ago -3 beers - Calcium level 8.7 - LFT normal - no further evidence of other organ dysfunction - BiSAP score 1 - WBC at 10 with NLR ~5.5:1- no fevers no further evidence of infection, no fluid collection noted - trend WBC and fever curve- if becomes more evident then will add antibiotic coverage- no need for prophylactic coverage - Continue with IVF to achieve euvolemia- mild hypovolemia and hyponatremia on labs-- LR @125 overinight - guide IVF for hemodynamics and UO support - Hold ARB at this time- can worsen pancreatitis - DIET- clears low fat- patient has no appetite but will support - Pain control- Tylenol 650 mg PO q4-6 prn mild to moderate- Dilaudid 0.5mg IV Q6 prn moderate to severe pain - GI consulted as above (2) Nasal congestion: Plan: Continue Tessalon pearls and fluticasone/nasal saline spray - Covid test - negative on admission (3) Anxiety: Plan: Continue escitalopram (4) Hypercholesterolemia: Plan: Continue atorvastatin - Lipida panel- triglyceride 164 and cholesterol 118 (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 - Will increase protonix to 40mg IV BID for gastritis (6) Gastritis: Plan: As above (7) HTN (hypertension): Plan: Follow while in house - Hold ARB for tonight and likely be able to restart in morning - unlikely to be inciting medication but will follow (8) History of thyroidectomy, subtotal: Plan: Continue synthroid 175 mcg History of Present Illness Chief Complaint: abdominal pain Primary Care Provider: Sue Gallegos, DO 65 YOM with past medical history of: HTN, HLD, Prediatbes, Hypothyroidism(s/p thyroidectomy in 2015 secondary to hyperplasia/Beatrice nodules), GERD/Nutcracker esophagus, depression/anxiety, and cholecystectomy. Patient comes to the emergency room secondary to abdominal pain and discomfort that has been on and off over the "past few months". Patient was following with his PCP regarding this and had a CT scan of the abdomen and pelvis a few weeks ago that showed mild pancreatitis at that time. He comes in today for continued symptoms that got worse last night and resulted in dry heaves last night into this morning. He has noted that loss of appetite over the past 2 days and did not eat anything yesterday except a few sips of water. He states his last drink of alcohol was 3 beers about 2-3 days ago. He states new medications have been added secondary to "cold he has had over the past 2 weeks". States he had a negative COVID test a few days ago. His pain is located in the epigastrium area and comes in waves, he has not noticed whether it gets worse or better with food, and denies any fevers or chills. Nausea he believes was secondary to the pain; he has had no vomitting. Also reports normal BM yesterday. In the EMD he had a repeat non contrasted CT scan of the abdomen that revealed worsening of his pancreatitis and inflamed gastric mucosa. Patient had and EGD performed in February that also revealed gastritis with negative biopsy and negative H.pylori. Patient will be admitted for IVF control of symptoms and [place] [id number], pain is consistent with pancreatitis and CT scan as above. GI will be consulted for evaluation of further endoscopic evaluation if warranted and following clinical course. Patient has received his COVID vaccines and his COVID adriana on admission is NEGATIVE Allergies Allergy/AdvReac Type Severity Reaction Status Date / Time No Known Drug Allergies Allergy Unknown Verified 04/30/21 09:58 Home Medications Medication Instructions Recorded Confirmed Type multivitamin 1 tab PO QAM 07/14/18 04/30/21 History omega-3 acid ethyl esters 1 gram 1 cap PO QAM cap 03/30/19 04/30/21 History capsule ketoconazole 2 % topical cream 1 appln TOP BID #30 gm 01/27/20 04/30/21 Rx albuterol sulfate 90 mcg/actuation 2 inh INH Q6H PRN #18 g 04/25/20 04/30/21 Rx aerosol inhaler (ProAir HFA) garlic See Rx Instructions PO DAILY 04/25/20 04/30/21 History triamcinolone acetonide 0.5 % 1 applic TOPICAL BID PRN #60 g 08/22/20 04/30/21 Rx topical cream escitalopram oxalate 20 mg tablet 20 mg PO DAILY #90 tab 09/06/20 04/30/21 Rx pantoprazole 40 mg tablet,delayed 40 mg PO DAILY #90 tab 09/11/20 04/30/21 Rx release (Protonix) atorvastatin 20 mg tablet 20 mg PO DAILY #90 tab 12/29/20 04/30/21 Rx famotidine 40 mg tablet 40 mg PO HS #90 tab 01/12/21 04/30/21 Rx trazodone 50 mg tablet 100 mg PO HS PRN #60 tab 02/01/21 04/30/21 Rx losartan 100 mg tablet 100 mg PO DAILY #90 tab 02/13/21 04/30/21 Rx levothyroxine 175 mcg tablet 175 mcg PO QAM #90 tab 04/23/21 04/30/21 Rx benzonatate 100 mg capsule 100 mg PO .QHS PRN #14 cap 04/25/21 04/30/21 Rx (Tessalon Perles) fluticasone propionate 50 1 spray INTRANASAL BID #16 g 04/25/21 04/30/21 Rx mcg/actuation nasal spray,suspension sodium chloride 0.65 % nasal spray 1 spray INTRANASAL BID PRN #45 ml 04/25/21 04/30/21 Rx aerosol (Saline Mist) hydrocortisone 2.5 % topical cream 1 applic PA BID PRN 04/30/21 04/30/21 History with perineal applicator Past Med/Surg History Medical History Anxiety and depression Environmental allergies External hemorrhoids CURRENT PROBLEM HTN (hypertension) Hyperlipidemia BORDERLINE Hypothyroidism Insomnia Irritable bowel syndrome Laryngopharyngeal reflux Multiple thyroid nodules HX Nutcracker esophagus CAUSES SOB Osteoarthritis Prediabetes Sensorineural hearing loss (SNHL) of both ears Sleep apnea NO DEVICE Surgical History History of cholecystectomy History of colonoscopy History of esophagogastroduodenoscopy (EGD) (07/2018) History of facial surgery History of oral surgery History of thyroidectomy, subtotal (2014) History of tooth extraction Nausea and vomiting after administration of anesthetic agent Family History Mother Family history of diabetes mellitus Heart murmur Brother Diabetes Family history of diabetes mellitus Arthritis Father Prostate cancer Arthritis Other No family history of adverse response to anesthesia Denies family history of Ovarian cancer Myocardial infarction Breast cancer Colorectal cancer Social History Smoking Status: Current some day smoker Tobacco Type: Cigars Age Started Using Tobacco: 15; Age Quit Using Tobacco: 49; Second Hand Exposure: No; Do You Dip or Chew Tobacco: No; Tobacco Cessation Education Requested by Patient: No Hx Alcohol Use: Yes Alcohol type: beer Alcohol Intake Frequency: 4 or More x per/Week Hx Substance Use: No Preferred Language: Icelandic Communication Ability: Effective Visual Impairment: No Limitations Hearing Ability: Hard of Hearing Decision Support Analyst Required: No Beliefs That Will Affect Care: None marital status: / Current Living Situation: Family Current Living Situation Comment: 2 sons, son's girlfriend. 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 Other Information That Helps Us Care for You: No Feels Safe at Home: Yes Safety Concerns: Feels Safe At This Time Childhood Exposure to Second-Hand Smoke: No caffeine: Yes (Coffee x 1 per day.) during the past year weight has: remained stable Dental Care, Regularly: Yes Physical Activity Frequency: 3-4 Times per Week Seatbelt Use: always Sunscreen Use: No Assistive Devices: None Review of Systems Review of Systems: REVIEW OF SYSTEMS: Constitutional: No fever, sweats or chills Eyes: No diplopia, no worsening or blurred vision ENT: (+) congestion and stuffiness, diffuclty hearing, no trouble swallowing Respiratory: (+) cough, no sputum, dyspnea at rest or on exertion Cardiovascular: No chest pain, tightness or palpitations Abdomen: (+) pain, nausea, NO vomiting, diarrhea or constipation Musculoskeletal: No joint pain, calf pain, swelling Neurologic: No weakness, numbness/tingling, or balance problems Psychiatric:(+) anxiety or depression Skin: (+) psoriasis rash or itch Physical Exam Physical Exam: PHYSICAL EXAM: General: awake, alert, no apparent distress Head: Normocephalic, atraumatic ENT: PERRLA, EOMI, no pharyngeal exudate, mucous membranes dry, fullness to frontal sinuses, no lymphadenopathy Neuro: AAO x 3, speech clear and appropriate, strength intact bilaterally 5/5, sensation intact and equal all extremities and dermatomes, no pronator drift Chest: equal rise and fall of the chest, no accessory muscle use, no heaves or thrills, Clear to auscultation, on room air, Cardiac: Regular rate and rhythm, telemetry reviewed-NSR, skin warm dry, cap refill <3 seconds, peripheral pulses +2 no JVD, no murmur, no JVD, no edema GI: NABS x 4 quadrants, soft, tender to palpation in bilateral upper quads, no rebound, guarding or tenderness : Spontaneously voiding, no pain, no CVA tenderness, Extremities: Normal inspection, no peripheral edema or erythema, calfs nontender to palpation Psych: Normal mood and affect Skin: silvery dry scaly rash to neck and chest Results & Data Results & Data ([facility]) Vital Signs (Past 12 Hours) Vital Signs Temp Pulse Pulse Resp BP BP Pulse Ox 04/30/21 12:38 62 16 158/93 H 99 04/30/21 09:06 36.6 C 70 18 146/81 H 100 Laboratory Results Abnormal lab results 04/30/21 04/30/21 04/30/21 Range/Units 10:08 10:08 10:08 RBC 3.82 L (4.7-6.1) M/uL Hgb 12.6 L (14.0-18.0) g/dL Hct 36.7 L (42-52) % Neut # (Auto) 8.20 H (1.4-6.5) K/uL [place] # (Auto) 1.03 H (0.11-0.59) K/uL Immature Gran # (Auto) 0.03 H (0.00-0.02) K/uL Sodium 132 L (136-145) mmol/L Albumin 3.3 L (3.4-5.0) gm/dl Lipase 98999 H (73-393) U/L Ur Specific [place] 1.033 H (1.000-1.030) Urine Protein Trace H (Negative) Urine Ketones Trace H (Negative) Ur Leukocyte Esterase Trace H (Negative) U Epithel Cells (Auto) 5-10 H (0-5) /lpf Diagnostic Findings Abdomen/Pelvis CT 04/30/21 10:16 CT SCAN OF THE ABDOMEN AND PELVIS WITH IV CONTRAST CLINICAL HISTORY: Upper abdominal pain. Recent pancreatitis. COMPARISON STUDY: Abdominal CT dated 04/06/2021 end 07/02/2016. TECHNIQUE: Following the IV administration of 94 cc of Optiray 320, CT scan of the abdomen and pelvis is performed from the lung bases to the proximal femora. Images are reviewed in the axial, sagittal, and coronal planes. IV contrast was administered without complication. A dose lowering technique was utilized adhering to the principles of ALARA. CT DOSE: 332.54 mGy.cm FINDINGS: Lung bases: The heart is enlarged and without pericardial effusion. There are coronary artery calcifications. The lung bases are clear noting bibasilar scarring/atelectasis. There is a small hiatal hernia. Liver: The contrast-enhanced liver is top normal in size and heterogeneous in attenuation. Nodularity of the hepatic surface contour suggests early change of cirrhosis. There is no intrahepatic biliary ductal dilatation. The hepatic veins and portal veins are patent. Gallbladder: Surgically absent noting clips in the gallbladder fossa. Spleen: Normal in size and attenuation. Pancreas: The pancreas appears mildly edematous. There is peripancreatic stranding and fluid, greatest around the pancreatic head. This has increased as compared 04/06/2021 and is consistent with acute pancreatitis. No organized peripancreatic fluid collection is identified. The gland enhances homogeneously. The splenic vein is patent. Adrenal glands: Unremarkable. Kidneys: The contrast enhanced kidneys are normal in size and without hydronephrosis. The kidneys enhance symmetrically. Abdominal vasculature: The abdominal aorta is normal in course and caliber noting mild to moderate atherosclerotic calcification. Bowel: The gastric mucosa appears thickened and hyperemic. There is moderate colonic diverticulosis without CT evidence of acute diverticulitis. No bowel obstruction is seen. Residual enteric contrast is suggested in the colon. Wall thickening of the duodenum is likely related to adjacent pancreatitis. The appendix is well-visualized and normal. Peritoneum: There is no intraperitoneal free air or abdominal ascites. Lymphadenopathy: Prominent peripancreatic lymph nodes measure up to 8 mm in short axis. Prominent nodes in the arley hepatis measure up to 11 mm short axis. A soft tissue structure measuring 1.9 x 1.3 cm in the gastrohepatic space on image #104 likely represents lobulated pancreatic tissue. Pelvic viscera: The prostate gland is mildly enlarged and heterogeneous noting median lobe hypertrophy. The bladder is normal as imaged. Skeletal structures: There is mild lumbosacral spondylosis. No lytic or blastic lesions are seen. IMPRESSION: 1. Findings are consistent with acute pancreatitis. This has worsened as compared 04/06/2021 and GI follow-up is recommended. 2. The gland enhances homogeneously and no organized peripancreatic fluid collection is identified. 3. Duodenal wall thickening and edema is likely related to adjacent pancreatitis. 4. The appearance of the liver suggests early change of cirrhosis. 5. The gastric mucosa appears thickened and hyperemic. Correlate clinically for evidence of gastritis. 6. There are mildly enlarged peripancreatic and upper abdominal lymph nodes. These are nonspecific, similar to prior studies, and may be reactive and/or related to chronic liver disease. 7. Additional findings as above. ACT 112: Negative or not required by law. Electronically signed by: Lauro Hills M.D. 04/30/2021 12:46 PM Medications Administered Discontinued Medications Sodium Chloride (Nss 1000ml) 1,000 mls @ 999 mls/hr IV .Q1H1M STA Stop: 04/30/21 10:58 Last Infusion: 04/30/21 11:45 Dose: 0 mls/hr Documented by: [id number] Admin: 04/30/21 10:30 Dose: 999 mls/hr Documented by: [id number] Ioversol (Optiray 320 100ml) 94 ml IV ONCE ONE Stop: 04/30/21 11:37 Last Admin: 04/30/21 11:36 Dose: 94 ml Documented by: [id number] Morphine Sulfate (Morphine Sulfate 4 Mg/Ml 1 Ml Carp\\Vial) 4 mg IV NOW STA Stop: 04/30/21 09:59 Last Admin: 04/30/21 10:30 Dose: 4 mg Documented by: [id number] Morphine Sulfate (Morphine Sulfate 4 Mg/Ml 1 Ml Carp\\Vial) 4 mg IV NOW STA Stop: 04/30/21 13:05 Last Admin: 04/30/21 13:19 Dose: 4 mg Documented by: [id number] Ondansetron HCl (Ondansetron Inj 2 Mg/Ml 2 Ml Vial) 4 mg IV NOW STA Stop: 04/30/21 09:59 Last Admin: 04/30/21 10:30 Dose: 4 mg Documented by: [id number] Home Medications multivitamin 1 tab PO QAM 07/14/18 [History Confirmed 04/30/21] omega-3 acid ethyl esters 1 gram capsule 1 cap PO QAM cap 03/30/19 [History Confirmed 04/30/21] ketoconazole 2 % topical cream 1 appln TOP BID #30 gm 01/27/20 [Rx Confirmed 04/30/21] albuterol sulfate 90 mcg/actuation aerosol inhaler (ProAir HFA) 2 inh INH Q6H PRN #18 g 04/25/20 [Rx Confirmed 04/30/21] garlic See Rx Instructions PO DAILY 04/25/20 [History Confirmed 04/30/21] triamcinolone acetonide 0.5 % topical cream 1 applic TOPICAL BID PRN #60 g 08/22/20 [Rx Confirmed 04/30/21] escitalopram oxalate 20 mg tablet 20 mg PO DAILY #90 tab 09/06/20 [Rx Confirmed 04/30/21] pantoprazole 40 mg tablet,delayed release (Protonix) 40 mg PO DAILY #90 tab 09/11/20 [Rx Confirmed 04/30/21] atorvastatin 20 mg tablet 20 mg PO DAILY #90 tab 12/29/20 [Rx Confirmed 04/30/21] famotidine 40 mg tablet 40 mg PO HS #90 tab 01/12/21 [Rx Confirmed 04/30/21] trazodone 50 mg tablet 100 mg PO HS PRN #60 tab 02/01/21 [Rx Confirmed 04/30/21] losartan 100 mg tablet 100 mg PO DAILY #90 tab 02/13/21 [Rx Confirmed 04/30/21] levothyroxine 175 mcg tablet 175 mcg PO QAM #90 tab 04/23/21 [Rx Confirmed 04/30/21] benzonatate 100 mg capsule (Tessalon Perles) 100 mg PO .QHS PRN #14 cap 04/25/21 [Rx Confirmed 04/30/21] fluticasone propionate 50 mcg/actuation nasal spray,suspension 1 spray INTRANASAL BID #16 g 04/25/21 [Rx Confirmed 04/30/21] sodium chloride 0.65 % nasal spray aerosol (Saline Mist) 1 spray INTRANASAL BID PRN #45 ml 04/25/21 [Rx Confirmed 04/30/21] hydrocortisone 2.5 % topical cream with perineal applicator 1 applic PA BID PRN 04/30/21 [History Confirmed 04/30/21] ECG Additional Comments: Normal sinus rhythm Normal ECG When compared with ECG of 23-MAR-2013 16:33, No significant change was found Code Status & VTE Plan Code Status FULL CODE VTE: SCD's, Heparin 5000 u SubQ q12 VTE Prophylaxis Plan VTE Prophylaxis will be ordered: Yes Supervising Physician Co-Signing Physician Notes During face to face encounter with patient, obtained a physical and history. My history and physcial examination did not differ from above. I reviewed above note and agree with it. I discussed plan with ANABEL Tang and the patient. All questions were answered. Patient will be admited for pancreatitis and may need an Endoscopic Ultrasound, possible ERCP. Will consult GI PG Care Time/CCT Total # of Minutes Spent Total Time Spent with Patient: Total time spent is greater than 50% in coordination of care (as documented) at patient's floor/unit and/or counseling patient: Coding Level of Care Code 26366 Initial Inpt Care Lvl 3 Diagnoses Pancreatitis K85.90 Nasal congestion R09.81 Anxiety F41.9 Hypercholesterolemia E78.00 Nutcracker esophagus K22.4 HTN (hypertension) I10 History of thyroidectomy, subtotal Z98.890 Gastritis K29.70
[2021-04-30 13:44] LABS: Chol HDL Ratio 3; Cholesterol 118 mg/dl (0-200); HDL Cholesterol 36 mg/dl; LDL Cholesterol Calculated 49 mg/dl; Triglycerides 164 mg/dl (0-150); VLDL Cholesterol 33 mg/dl
[2021-04-30] MEDS ORDERED: SODIUM CHLORIDE 0.65% NA SOLN 45 ML (OCEAN) NAE PRN (14:51)
[2021-04-30] MEDS ORDERED: TRIAMCINOLONE ACET 0.5% CR 15 GM TUBE EXT PRN (14:51)
[2021-04-30] MEDS ORDERED: HYDROmorphone INJ 0.5 MG/0.5 ML SYR IV PRN (14:51)
[2021-04-30] MEDS ORDERED: ACETAMINOPHEN 325 MG TAB PO PRN (14:51)
[2021-04-30] MEDS ORDERED: traZODone HCL 100 MG TAB PO PRN (14:51)
[2021-04-30] MEDS ORDERED: POLYETHYLENE (MIRALAX) 17 GM PACK PO PRN (14:51)
[2021-04-30] MEDS ORDERED: BENZONATATE 100 MG CAPSULE PO PRN (14:51)
[2021-04-30] MEDS ORDERED: ALBUTEROL HFA 8 GM INHALER INH PRN (14:53)
[2021-04-30] MEDS: LACTATED RINGER'S 1,000 ML IV SCH ×2 (15:23→23:35)
[2021-04-30] MEDS: KETOCONAZOLE 2% CR 15 GM TUBE EXT SCH (20:36)
[2021-04-30] MEDS: HEPARIN SOD 5,000 UNIT/0.5 ML VIAL SQ SCH (20:37)
[2021-04-30] MEDS: FLUTICASONE PROPIONATE NA SPR 16 GM BTL NAE SCH (20:37)
[2021-04-30] MEDS: FAMOTIDINE 40 MG TABLET PO SCH (20:37)
[2021-04-30] MEDS ORDERED: MoRPHine SULFATE 4 MG/ML 1 ML CARP\\VIAL ONE (20:58)
[2021-04-30] MEDS: PANTOprazole 40 MG in SYRINGE 0 ML IV SCH (21:03)
[2021-05-01] MEDS: MoRPHine SULFATE 4 MG/ML 1 ML CARP\\VIAL IV PRN ×4 (03:39→20:34)
[2021-05-01] MEDS: LEVOTHYROXINE SODIUM 175 MCG TABLET PO SCH (06:02)
[2021-05-01 06:52] LABS: Basophils # (auto) 0.01 K/uL (0-0.2); Basophils % (auto) 0.1 %; Eosinophils # (auto) 0.26 K/uL (0-0.5); Eosinophils % (auto) 2.3 %; Hematocrit (blood only) 33.2 % (42-52); Hemoglobin 11.2 g/dL (14.0-18.0); Immature Granulocytes # (auto) 0.03 K/uL (0.00-0.02); Immature Granulocytes % (auto) 0.3 %; Lymphocytes # (auto) 1.16 K/uL (1.2-3.4); Lymphocytes % (auto) 10.5 %; Mean Corpuscular Hemoglobin 32.6 pg (25-34); Mean Corpuscular Hgb Conc 33.7 g/dL (32-36); Mean Corpuscular Volume 96.5 fL (80-100); Mean Platelet Volume 9.4 fL (7.4-10.4); Monocytes # (auto) 1.09 K/uL (0.11-0.59); Monocytes % (auto) 9.8 %; Neutrophils # (auto) 8.54 K/uL (1.4-6.5); Platelet Count 198 K/uL (130-400); RDW Coefficient of Variation 13.4 % (11.5-14.5); RDW Standard Deviation 47.5 fL (36.4-46.3); Red Blood Count 3.44 M/uL (4.7-6.1); White Blood Count 11.09 K/uL (4.8-10.8)
[2021-05-01 07:24] LABS: BUN Creatinine Ratio 10.4 (10-20); Calcium 8.3 mg/dl (8.5-10.1); Creatinine Clr Calc Pharmacy 100.9 ml/min; Est GFR (African American) 112.7 ml/min; Est GFR (Non-African American) 97.2 ml/min; Potassium 3.9 mmol/L (3.5-5.1)
[2021-05-01] MEDS: LACTATED RINGER'S 1,000 ML IV SCH ×3 (07:40→23:14)
[2021-05-01 07:54] LABS: Estimated Average Glucose 111 mg/dl; Hemoglobin A1C 5.5 % (4.5-5.6)
--- NOTE | 2021-05-01 08:18 | Electrocardiogram Report ---
Test Reason : Blood Pressure : / mmHG Vent. Rate : 061 BPM Atrial Rate : 061 BPM P-R Int : 154 ms QRS Dur : 090 ms QT Int : 400 ms P-R-T Axes : 070 010 035 degrees QTc Int : 402 ms Normal sinus rhythm Normal ECG When compared with ECG of 23-MAR-2013 16:33, No significant change was found Confirmed by Dax Caceres ([id number]) on 05/01/2021 8:17:45 AM Referred By: REFERRED SELF Confirmed By:Dax Caceres
--- NOTE | 2021-05-01 08:33 | Gastrointestinal Consultation ---
Date of Consultation May 01, 2021 Assessment & Plan (1) Acute pancreatitis: Acute pancreatitis: Patient admitted due to acute pancreatitis. Imaging from about 4 weeks ago demonstrated a mild pancreatitis with imaging findings on admission demonstrating worsening pancreatitis. Patient does consume 3-4 beers daily per his report. Consulted to evaluate for need for inpatient ERCP/EUS. Normal LFTs and no evidence of ductal dilatation on imaging so ERCP is not indicated at present time. Will defer EUS at this time and reevaluate as outpatient. Patient was advised that he needs to eliminate alcohol use. Would continue current comfort measures and supportive care including IV fluids, analgesics, clear liquid diet. Case reviewed with Dr. Keith. Please refer to supervising physician addendum for further recommendations. Supervising Physician Co-Signing Physician Notes I have seen and examined the patient. I agree with note above by GUILLE Zapien except as noted below. HPI Pt with abd pain. Asked several different ways but not clear if pain better or worse today. CT and lipase consistent with pancreatitis. PE Abdomen pos bs, soft, no guarding nor rebound A/P pancreatis---continue IVF to have urine output 0.5 mg/kg/hour or better, clears until feeling better then advance as tolerated. No evidence of gallstones with normal duct and normal LFTs, lipids not explanatory. Suspect ETOH as etiology. Recommend ETOH abstinence and EUS as outpt about 6 weeks to look for pancreas lesion as etiology for completeness. History of Present Illness Reason for Consultation: Pancreaitis Attending Physician: Ney Aaron MD History of Present Illness The patient is a 65-year-old male with past medical history to include HTN, HLD, Prediatbes, Hypothyroidism(s/p thyroidectomy in 2015 secondary to hyperplasia/ Beatrice nodules), GERD/Nutcracker esophagus, depression/anxiety, and cholecystectomy. Patient presented to the emergency department with complaints of diffuse abdominal pain but worse in the upper quadrants. CT abdomen pelvis demonstrated acute pancreatitis. Subsequently admitted and GI consult due to acute pancreatitis. This morning the patient reports that his abdominal pain is well controlled as he has pain medication on board. He states prior to coming to the emergency department his pain was constant. He states he was unable to sleep for the several days up to coming to the hospital. Reports some mild nausea but no vomiting. Last bowel movement was 2 days ago. He is tolerating clear liquids. Has history of cholecystectomy. Reports he smokes an occasional cigar. Alcohol intake is 3-4 beers per day. Denies any use of recreational drugs including marijuana. He is retired. He worked for a [employer] for 32 years. He is a . He has adult children and 1 granddaughter. Allergies Allergy/AdvReac Type Severity Reaction Status Date / Time No Known Drug Allergies Allergy Unknown Verified 04/30/21 09:58 Home Medications Medication Instructions Recorded Confirmed Type multivitamin 1 tab PO QAM 07/14/18 04/30/21 History omega-3 acid ethyl esters 1 gram 1 cap PO QAM cap 03/30/19 04/30/21 History capsule ketoconazole 2 % topical cream 1 appln TOP BID #30 gm 01/27/20 04/30/21 Rx albuterol sulfate 90 mcg/actuation 2 inh INH Q6H PRN #18 g 04/25/20 04/30/21 Rx aerosol inhaler (ProAir HFA) garlic See Rx Instructions PO DAILY 04/25/20 04/30/21 History triamcinolone acetonide 0.5 % 1 applic TOPICAL BID PRN #60 g 08/22/20 04/30/21 Rx topical cream escitalopram oxalate 20 mg tablet 20 mg PO DAILY #90 tab 09/06/20 04/30/21 Rx pantoprazole 40 mg tablet,delayed 40 mg PO DAILY #90 tab 09/11/20 04/30/21 Rx release (Protonix) atorvastatin 20 mg tablet 20 mg PO DAILY #90 tab 12/29/20 04/30/21 Rx famotidine 40 mg tablet 40 mg PO HS #90 tab 01/12/21 04/30/21 Rx trazodone 50 mg tablet 100 mg PO HS PRN #60 tab 02/01/21 04/30/21 Rx losartan 100 mg tablet 100 mg PO DAILY #90 tab 02/13/21 04/30/21 Rx levothyroxine 175 mcg tablet 175 mcg PO QAM #90 tab 04/23/21 04/30/21 Rx benzonatate 100 mg capsule 100 mg PO .QHS PRN #14 cap 04/25/21 04/30/21 Rx (Tesbrain Crews) fluticasone propionate 50 1 spray INTRANASAL BID #16 g 04/25/21 04/30/21 Rx mcg/actuation nasal spray,suspension sodium chloride 0.65 % nasal spray 1 spray INTRANASAL BID PRN #45 ml 04/25/21 04/30/21 Rx aerosol (Saline Mist) hydrocortisone 2.5 % topical cream 1 applic GA BID PRN 04/30/21 04/30/21 History with perineal applicator Patient History Medical History Anxiety and depression Environmental allergies External hemorrhoids CURRENT PROBLEM HTN (hypertension) Hyperlipidemia BORDERLINE Hypothyroidism Insomnia Irritable bowel syndrome Laryngopharyngeal reflux Multiple thyroid nodules HX Nutcracker esophagus CAUSES SOB Osteoarthritis Prediabetes Sensorineural hearing loss (SNHL) of both ears Sleep apnea NO DEVICE Surgical History History of cholecystectomy History of colonoscopy History of esophagogastroduodenoscopy (EGD) (07/2018) History of facial surgery History of oral surgery History of thyroidectomy, subtotal (2014) History of tooth extraction Nausea and vomiting after administration of anesthetic agent Family History Mother Family history of diabetes mellitus Heart murmur Brother Diabetes Family history of diabetes mellitus Arthritis Father Prostate cancer Arthritis Other No family history of adverse response to anesthesia Denies family history of Ovarian cancer Myocardial infarction Breast cancer Colorectal cancer Social History Smoking Status: Current some day smoker Tobacco Type: Cigars Age Started Using Tobacco: 15; Age Quit Using Tobacco: 49; Second Hand Exposure: No; Do You Dip or Chew Tobacco: No; Tobacco Cessation Education Requested by Patient: No Hx Alcohol Use: Yes Alcohol type: beer Alcohol Intake Frequency: 4 or More x per/Week Hx Substance Use: No Preferred Language: Norwegian Communication Ability: Effective Visual Impairment: No Limitations Hearing Ability: Hard of Hearing Spareribs Trimmer Required: No Beliefs That Will Affect Care: None marital status: / Current Living Situation: Family Current Living Situation Comment: 2 sons, son's girlfriend. 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 Other Information That Helps Us Care for You: No Feels Safe at Home: Yes Safety Concerns: Feels Safe At This Time Childhood Exposure to Second-Hand Smoke: No caffeine: Yes (Coffee x 1 per day.) during the past year weight has: remained stable Dental Care, Regularly: Yes Physical Activity Frequency: 3-4 Times per Week Seatbelt Use: always Sunscreen Use: No Assistive Devices: Walker Review of Systems Review of Systems: All systems reviewed & are unremarkable except as noted in HPI & below Physical Exam Constitutional: WD/WN, vitals as above Neck: normal visual inspection and trachea midline Respiratory: normal respiratory effort, lungs clear to auscultation Cardiovascular: RRR, no murmur, no edema Gastrointestinal (Abdomen): Inspection/Auscultation: abdomen normal to inspection and normal bowel sounds Percussion/Palpation: + abdomen tender (mild upper abdominal tenderness with palpation) and abdomen soft; no guarding and abdomen not rigid Psychiatric: A+Ox3, euthymic affect Results & Data ([facility]) Vital Signs (Past 12 Hours) Vital Signs Temp Pulse Resp BP BP Pulse Ox 05/01/21 07:07 37.2 C 66 16 120/74 98 05/01/21 00:20 36.7 C 65 20 122/70 98 Laboratory Results Laboratory Results - last 24 hr 04/30/21 04/30/21 04/30/21 10:08 10:08 10:08 WBC 10.76 RBC 3.82 L Hgb 12.6 L Hct 36.7 L MCV 96.1 MCH 33.0 MCHC 34.3 RDW Std Deviation 45.6 RDW Coeff of Marline 13.0 Plt Count 210 MPV 9.7 Immature Gran % (Auto) 0.3 Neut % (Auto) 76.2 Lymph % (Auto) 11.4 [place] % (Auto) 9.6 Eos % (Auto) 2.4 Baso % (Auto) 0.1 Neut # (Auto) 8.20 H Lymph # (Auto) 1.23 Bland # (Auto) 1.03 H Eos # (Auto) 0.26 Baso # (Auto) 0.01 Immature Gran # (Auto) 0.03 H Sodium 132 L Potassium 4.3 Chloride 102 Carbon Dioxide 27 Anion Gap 3.0 BUN 12 Creatinine 0.79 Est Cr Clr Drug Dosing 92.0 Est GFR ( Amer) 108.5 Est GFR (Non-Af Amer) 93.6 BUN/Creatinine Ratio 15.6 Glucose 78 Estimat Average Glucose Hemoglobin A1c Calcium 8.7 Total Bilirubin 0.6 AST 17 ALT 29 Alkaline Phosphatase 107 Troponin I 0.026 Total Protein 6.8 Albumin 3.3 L Globulin 3.5 Albumin/Globulin Ratio 0.9 Triglycerides Cholesterol LDL Cholesterol, Calc VLDL Cholesterol, Calc HDL Cholesterol Cholesterol/HDL Ratio Lipase 90933 H Urine Color Dark Yellow Urine Appearance Clear Urine pH 7.0 Ur Specific [place] 1.033 H Urine Protein Trace H Urine Glucose (UA) Negative Urine Ketones Trace H Urine Blood Negative Urine Nitrite Negative Urine Bilirubin Negative Urine Urobilinogen Negative Ur Leukocyte Esterase Trace H Urine WBC (Auto) 1-5 Urine RBC (Auto) 0-4 U Hyaline Cast (Auto) 1-5 U Epithel Cells (Auto) 5-10 H Urine Bacteria (Auto) Negative COVID-19 Eval Order SARS-CoV-2 (PCR) 04/30/21 04/30/21 04/30/21 10:08 12:40 12:40 WBC RBC Hgb Hct MCV MCH MCHC RDW Std Deviation RDW Coeff of Marline Plt Count MPV Immature Gran % (Auto) Neut % (Auto) Lymph % (Auto) [place] % (Auto) Eos % (Auto) Baso % (Auto) Neut # (Auto) Lymph # (Auto) Bland # (Auto) Eos # (Auto) Baso # (Auto) Immature Gran # (Auto) Sodium Potassium Chloride Carbon Dioxide Anion Gap BUN Creatinine Est Cr Clr Drug Dosing Est GFR ( Amer) Est GFR (Non-Af Amer) BUN/Creatinine Ratio Glucose Estimat Average Glucose Hemoglobin A1c Calcium Total Bilirubin AST ALT Alkaline Phosphatase Troponin I Total Protein Albumin Globulin Albumin/Globulin Ratio Triglycerides 164 H Cholesterol 118 LDL Cholesterol, Calc 49 VLDL Cholesterol, Calc 33 HDL Cholesterol 36 Cholesterol/HDL Ratio 3 Lipase Urine Color Urine Appearance Urine pH Ur Specific [place] Urine Protein Urine Glucose (UA) Urine Ketones Urine Blood Urine Nitrite Urine Bilirubin Urine Urobilinogen Ur Leukocyte Esterase Urine WBC (Auto) Urine RBC (Auto) U Hyaline Cast (Auto) U Epithel Cells (Auto) Urine Bacteria (Auto) COVID-19 Eval Order Covid19 at [facility] SARS-CoV-2 (PCR) NEGATIVE 05/01/21 05/01/21 05/01/21 06:26 06:26 06:26 WBC 11.09 H RBC 3.44 L Hgb 11.2 L Hct 33.2 L MCV 96.5 MCH 32.6 MCHC 33.7 RDW Std Deviation 47.5 H RDW Coeff of Marline 13.4 Plt Count 198 MPV 9.4 Immature Gran % (Auto) 0.3 Neut % (Auto) 77.0 Lymph % (Auto) 10.5 [place]land % (Auto) 9.8 Eos % (Auto) 2.3 Baso % (Auto) 0.1 Neut # (Auto) 8.54 H Lymph # (Auto) 1.16 L [place] # (Auto) 1.09 H Eos # (Auto) 0.26 Baso # (Auto) 0.01 Immature Gran # (Auto) 0.03 H Sodium 135 L Potassium 3.9 Chloride 105 Carbon Dioxide 28 Anion Gap 2.0 L BUN 8 Creatinine 0.72 Est Cr Clr Drug Dosing 100.9 Est GFR ( Amer) 112.7 Est GFR (Non-Af Amer) 97.2 BUN/Creatinine Ratio 10.4 Glucose 57 L Estimat Average Glucose 111 Hemoglobin A1c 5.5 Calcium 8.3 L Total Bilirubin AST ALT Alkaline Phosphatase Troponin I Total Protein Albumin Globulin Albumin/Globulin Ratio Triglycerides Cholesterol LDL Cholesterol, Calc VLDL Cholesterol, Calc HDL Cholesterol Cholesterol/HDL Ratio Lipase Urine Color Urine Appearance Urine pH Ur Specific [place] Urine Protein Urine Glucose (UA) Urine Ketones Urine Blood Urine Nitrite Urine Bilirubin Urine Urobilinogen Ur Leukocyte Esterase Urine WBC (Auto) Urine RBC (Auto) U Hyaline Cast (Auto) U Epithel Cells (Auto) Urine Bacteria (Auto) COVID-19 Eval Order SARS-CoV-2 (PCR) Diagnostic Findings 04/30/2021: CT of the abdomen and pelvis with IV contrast was obtained due to upper abdominal pain and history of pancreatitis which demonstrated 1. Findings are consistent with acute pancreatitis. This has worsened as compared 04/06/2021 and GI follow-up is recommended. 2. The gland enhances homogeneously and no organized peripancreatic fluid collection is identified. 3. Duodenal wall thickening and edema is likely related to adjacent pancreatitis. 4. The appearance of the liver suggests early change of cirrhosis. 5. The gastric mucosa appears thickened and hyperemic. Correlate clinically for evidence of gastritis. 6. There are mildly enlarged peripancreatic and upper abdominal lymph nodes. These are nonspecific, similar to prior studies, and may be reactive and/or related to chronic liver disease. 04/06/2021: CT of the abdomen pelvis with IV contrast was obtained due to generalized abdominal pain which demonstrated 1. Mild peripancreatic edema most pronounced at the pancreatic head. This likely represents a mild acute pancreatitis. Recommend correlation with pancreatic enzymes. Consider follow-up nonemergent endoscopic ultrasound to exclude the less likely possibility of an underlying pancreatic lesion. 2. A few prominent peripancreatic lymph nodes which are not simply changed. 3. Prior cholecystectomy. 4. Normal caliber common bile duct. 5. Colonic diverticulosis. No evidence for acute diverticulitis. (1) Acute pancreatitis Acute pancreatitis complication: unspecified Pancreatitis type: alcohol induced Qualified Code(s): K85.20 - Alcohol induced acute pancreatitis without necrosis or infection
[2021-05-01] MEDS: FLUTICASONE PROPIONATE NA SPR 16 GM BTL NAE SCH ×2 (09:19→20:35)
[2021-05-01] MEDS: ESCITALOPRAM OXALATE 20 MG TAB PO SCH (09:19)
[2021-05-01] MEDS: ATORVASTATIN 20 MG TAB PO SCH (09:20)
[2021-05-01] MEDS: KETOCONAZOLE 2% CR 15 GM TUBE EXT SCH ×2 (09:20→20:41)
[2021-05-01] MEDS: HEPARIN SOD 5,000 UNIT/0.5 ML VIAL SQ SCH ×2 (09:20→20:35)
[2021-05-01] MEDS: PANTOprazole 40 MG in SYRINGE 0 ML IV SCH ×2 (09:21→20:41)
[2021-05-01] MEDS: ONDANSETRON INJ 2 MG/ML 2 ML VIAL IV PRN ×2 (12:28→20:34)
[2021-05-01] MEDS: MoRPHine SULFATE 2 MG/ML CARP IV PRN (12:28)
--- NOTE | 2021-05-01 18:49 | Hospitalist Progress Note ---
Date of Service May 01, 2021 Assessment & Plan (1) Pancreatitis: Plan: Pancreatitis patient typical daily alcohol user- Pain consistent with pancreatitis, [place] [address] declined to 2800 - Lipid panel- triglyceride 164 and cholesterol 118 - ETOH use no. For 4 days no signs of withdrawal - LR @125 overinight - Hold ARB at this time- can worsen pancreatitis - DIET- clears low fat- patient has no appetite but will support - Pain control- Tylenol 650 mg PO q4-6 prn mild to moderate- Dilaudid 0.5mg IV Q6 prn moderate to severe pain - GI consulted no plans of intervention at this time (2) Nasal congestion: Plan: Continue Tessalon pearls and fluticasone/nasal saline spray - Covid test - negative on admission (3) Anxiety: Plan: Continue escitalopram (4) Hypercholesterolemia: Plan: Continue atorvastatin - Lipida panel- triglyceride 164 and cholesterol 118 (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 - Will increase protonix to 40mg IV BID for gastritis (6) Gastritis: Plan: As above (7) HTN (hypertension): Plan: Follow while in house - Hold ARB (8) History of thyroidectomy, subtotal: Plan: Continue synthroid 175 mcg Admission and Anticipated Discharge Date Admission Date: April 30, 2021 Subjective Patient still with left-sided upper abdominal pain and back pain. Mild nausea. Requiring parenteral pain medications today. No evidence of alcohol withdrawal at this time Review of Systems Review of Systems: Mild distress and fatigue no headache, no visual changes no speech or swallowing issues no chest pain, pressure or palpitations no shortness of breath, cough or wheezes Stated abdominal pain mild nausea no diarrhea no dysuria, hematuria or frequency no focal joint pain or swelling no back pain, CVA tenderness or radicular pain no bruising, bleeding or rashes no focal signs of weakness or numbness or altered sensation no complaints of anxiety or depression.. Physical Exam Physical Exam: The patient appeared well nourished and normally developed. Vital signs as documented. Head exam is normocephalic atraumatic Neck is without JVD, thyromegaly, or carotid bruits. Lungs are clear to auscultation, no focal loss of breath sounds Cardiac exam, Rhythm is regular.. No murmurs, rubs or gallops. Abdominal exam reveals normal bowel sounds, only mildly uncomfortable to examination no rebound no guarding Extremities are nonedematous and both pedal pulses are present Neurologic exam is alert and oriented, no focal loss of strength or sensation Skin is without bruises or rashes no jaundice Psychologically is without concerns for anxiety or depression Results & Data Results & Data ([facility]) Vital Signs (Past 12 Hours) Vital Signs Temp Pulse Resp BP BP Pulse Ox 05/01/21 17:27 98.4 F 67 16 125/72 98 05/01/21 07:07 99.0 F 66 16 120/74 98 PG Care Time/CCT Total # of Minutes Spent Total Time Spent with Patient: Total time spent is greater than 50% in coordination of care (as documented) at patient's floor/unit and/or counseling patient: Coding Level of Care Code 21232 Subseq Hosp Care Lvl 2 Diagnoses Pancreatitis K85.90 Nasal congestion R09.81 Anxiety F41.9 Hypercholesterolemia E78.00 Nutcracker esophagus K22.4 Gastritis K29.70 HTN (hypertension) I10 History of thyroidectomy, subtotal Z98.890
[2021-05-01] MEDS: FAMOTIDINE 40 MG TABLET PO SCH (20:36)
[2021-05-02] MEDS: MoRPHine SULFATE 4 MG/ML 1 ML CARP\\VIAL IV PRN ×2 (01:43→07:29)
[2021-05-02] MEDS: ONDANSETRON INJ 2 MG/ML 2 ML VIAL IV PRN ×3 (01:44→18:41)
[2021-05-02] MEDS: LACTATED RINGER'S 1,000 ML IV SCH ×2 (06:42→14:27)
[2021-05-02] MEDS: LEVOTHYROXINE SODIUM 175 MCG TABLET PO SCH (06:42)
[2021-05-02 07:35] LABS: Basophils # (auto) 0.01 K/uL (0-0.2); Basophils % (auto) 0.1 %; Eosinophils # (auto) 0.33 K/uL (0-0.5); Eosinophils % (auto) 4.2 %; Hematocrit (blood only) 33.3 % (42-52); Hemoglobin 10.8 g/dL (14.0-18.0); Immature Granulocytes # (auto) 0.01 K/uL (0.00-0.02); Immature Granulocytes % (auto) 0.1 %; Lymphocytes # (auto) 1.09 K/uL (1.2-3.4); Mean Corpuscular Hemoglobin 32.1 pg (25-34); Mean Corpuscular Hgb Conc 32.4 g/dL (32-36); Mean Corpuscular Volume 99.1 fL (80-100); Mean Platelet Volume 9.9 fL (7.4-10.4); Monocytes % (auto) 11.5 %; Neutrophils # (auto) 5.46 K/uL (1.4-6.5); Neutrophils % (auto) 70.1 %; Platelet Count 196 K/uL (130-400); RDW Coefficient of Variation 13.6 % (11.5-14.5); RDW Standard Deviation 49.6 fL (36.4-46.3); Red Blood Count 3.36 M/uL (4.7-6.1)
[2021-05-02 08:17] LABS: BUN Creatinine Ratio 11.7 (10-20); Calcium 8.7 mg/dl (8.5-10.1); Creatinine Clr Calc Pharmacy 100.9 ml/min; Est GFR (African American) 112.7 ml/min; Est GFR (Non-African American) 97.2 ml/min; Potassium 4.1 mmol/L (3.5-5.1)
[2021-05-02] MEDS: FLUTICASONE PROPIONATE NA SPR 16 GM BTL NAE SCH ×2 (08:30→20:35)
[2021-05-02] MEDS: ATORVASTATIN 20 MG TAB PO SCH (08:30)
[2021-05-02] MEDS: KETOCONAZOLE 2% CR 15 GM TUBE EXT SCH ×2 (08:30→20:37)
[2021-05-02] MEDS: ESCITALOPRAM OXALATE 20 MG TAB PO SCH (08:30)
[2021-05-02] MEDS: PANTOprazole 40 MG in SYRINGE 0 ML IV SCH ×2 (08:31→20:35)
[2021-05-02] MEDS: HEPARIN SOD 5,000 UNIT/0.5 ML VIAL SQ SCH ×2 (08:31→20:36)
--- NOTE | 2021-05-02 12:41 | Hospitalist Progress Note ---
Date of Service May 02, 2021 Assessment & Plan (1) Pancreatitis: Plan: likely Alcohol induced acute [place] [address] declined to 660 - Lipid panel- triglyceride 164 and cholesterol 118 - ETOH use no. For 4 days no signs of withdrawal - LR @125 stops - Holding ARB at this time- can worsen pancreatitis - DIET- clears low fat- patient has no appetite but will support - Pain control- Tylenol 650 mg PO q4-6 prn mild to moderate- Dilaudid 0.5mg IV Q6 prn moderate to severe pain - GI consulted no plans of intervention at this time (2) Nasal congestion: Plan: Continue Tessalon pearls and fluticasone/nasal saline spray - Covid test - negative on admission (3) Anxiety: Plan: Continue escitalopram (4) Hypercholesterolemia: Plan: Continue atorvastatin - Lipida panel- triglyceride 164 and cholesterol 118 (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 - Will increase protonix to 40mg IV BID for gastritis (6) Gastritis: Plan: As above (7) HTN (hypertension): Plan: Follow while in house - Hold ARB (8) History of thyroidectomy, subtotal: Plan: Continue synthroid 175 mcg Admission and Anticipated Discharge Date Admission Date: April 30, 2021 Subjective pt feels much better will advance diet and see how pain is tomorrow, has improved lipase Review of Systems Review of Systems: Mild distress and fatigue no headache, no visual changes no speech or swallowing issues no chest pain, pressure or palpitations no shortness of breath, cough or wheezes Stated abdominal pain mild nausea no diarrhea no dysuria, hematuria or frequency no focal joint pain or swelling no back pain, CVA tenderness or radicular pain no bruising, bleeding or rashes no focal signs of weakness or numbness or altered sensation no complaints of anxiety or depression.. Physical Exam Physical Exam: The patient appeared well nourished and normally developed. Vital signs as documented. Head exam is normocephalic atraumatic Neck is without JVD, thyromegaly, or carotid bruits. Lungs are clear to auscultation, no focal loss of breath sounds Cardiac exam, Rhythm is regular.. No murmurs, rubs or gallops. Abdominal exam reveals normal bowel sounds, only mildly uncomfortable to examination no rebound no guarding Extremities are nonedematous and both pedal pulses are present Neurologic exam is alert and oriented, no focal loss of strength or sensation Skin is without bruises or rashes no jaundice Psychologically is without concerns for anxiety or depression Results & Data Results & Data ([facility]) Vital Signs (Past 12 Hours) Vital Signs Temp Pulse Resp BP Pulse Ox 05/02/21 07:09 99.1 F 59 L 18 135/84 98 PG Care Time/CCT Total # of Minutes Spent Total Time Spent with Patient: Total time spent is greater than 50% in coordination of care (as documented) at patient's floor/unit and/or counseling patient: Coding Level of Care Code 50734 Subseq Hosp Care Lvl 2 Diagnoses Pancreatitis K85.90 Nasal congestion R09.81 Anxiety F41.9 Hypercholesterolemia E78.00 Nutcracker esophagus K22.4 Gastritis K29.70 HTN (hypertension) I10 History of thyroidectomy, subtotal Z98.890
--- NOTE | 2021-05-02 17:08 | Gastroenterology Progress Note ---
Date of Service May 02, 2021 Assessment & Plan (1) Acute pancreatitis: Plan: Lipase down to 660 today and abd pain improved. Told him to play it by ear on the diet. If he has substantial pain on solid diet will need to go back to clears for awhile Otherwise continue on solid diet. Recommed ETOH avoidance and EUS of pancreas as outpt. Admission and Anticipated Discharge Date Admission Date: April 30, 2021 Subjective CC f/u pancreatitis HPI Abd pain overall improved. No pain meds since this am. States he did have some mild discomfort with solid meal. Review of Systems Respiratory: no dyspnea Cardiovascular: no chest pain Physical Exam Constitutional: WD/WN, vitals as above Gastrointestinal (Abdomen): pos bs, soft no guarding nor rebound, Results & Data ([facility]) Vital Signs (Past 12 Hours) Vital Signs Temp Pulse Resp BP Pulse Ox 05/02/21 15:16 37.2 C 58 L 22 106/61 94 05/02/21 07:09 37.3 C 59 L 18 135/84 98 (1) Acute pancreatitis Acute pancreatitis complication: unspecified Pancreatitis type: alcohol induced Qualified Code(s): K85.20 - Alcohol induced acute pancreatitis without necrosis or infection
[2021-05-02] MEDS: MoRPHine SULFATE 2 MG/ML CARP IV PRN (18:41)
[2021-05-02] MEDS: FAMOTIDINE 40 MG TABLET PO SCH (20:37)
[2021-05-03] MEDS: MoRPHine SULFATE 2 MG/ML CARP IV PRN (01:26)
[2021-05-03] MEDS: LEVOTHYROXINE SODIUM 175 MCG TABLET PO SCH (06:09)
[2021-05-03 06:57] LABS: Basophils # (auto) 0.02 K/uL (0-0.2); Basophils % (auto) 0.3 %; Eosinophils # (auto) 0.32 K/uL (0-0.5); Eosinophils % (auto) 4.9 %; Hematocrit (blood only) 31.9 % (42-52); Hemoglobin 10.8 g/dL (14.0-18.0); Lymphocytes # (auto) 1.05 K/uL (1.2-3.4); Mean Corpuscular Hemoglobin 32.5 pg (25-34); Mean Corpuscular Hgb Conc 33.9 g/dL (32-36); Mean Corpuscular Volume 96.1 fL (80-100); Mean Platelet Volume 9.5 fL (7.4-10.4); Monocytes # (auto) 0.75 K/uL (0.11-0.59); Monocytes % (auto) 11.5 %; Neutrophils # (auto) 4.41 K/uL (1.4-6.5); Neutrophils % (auto) 67.3 %; Platelet Count 209 K/uL (130-400); RDW Coefficient of Variation 13.3 % (11.5-14.5); RDW Standard Deviation 46.6 fL (36.4-46.3); Red Blood Count 3.32 M/uL (4.7-6.1); White Blood Count 6.55 K/uL (4.8-10.8)
[2021-05-03 07:34] LABS: BUN Creatinine Ratio 12.6 (10-20); Calcium 8.4 mg/dl (8.5-10.1); Creatinine Clr Calc Pharmacy 108.5 ml/min; Est GFR (Non-African American) 100.1 ml/min
--- NOTE | 2021-05-03 07:59 | Gastroenterology Progress Note ---
Date of Service May 03, 2021 Assessment & Plan (1) Acute pancreatitis: Plan: The patient reports that he is feeling better today. Denies any abdominal pain. He did have abdominal pain after eating lunch yesterday. States he would like to go home today if possible. He has been advised to that he needs to completely abstain from alcohol. He verbalizes understanding. We will follow- up with patient as an outpatient for EUS of the pancreas in about 6 weeks. Admission and Anticipated Discharge Date Admission Date: April 30, 2021 Supervising Physician Co-Signing Physician Notes Assessment and plan of care reviewed and discussed with Ivy Purvis. I am in full agreement with the plan as outlined, and no additional recommendations. The patient was discharged from the hospital. Subjective Patient reports that he feels pretty good this morning. He denies any current abdominal pain. He reports he did have some abdominal pain after lunch yesterday and that it went away after dinner. He did get some pain medication last night prior to going to sleep. Denies any nausea or vomiting. He states his abdomen just feels "squishy". He says this feels like liquid in there. He has not had a bowel movement since admission. He would like to go home today. He is wondering what he does if he has pain at home. Review of Systems Review of Systems: All systems reviewed & are unremarkable except as noted in Subjective Physical Exam Constitutional: WD/WN, vitals as above Gastrointestinal (Abdomen): pos bs, soft no guarding nor rebound, Results & Data ([place]) Vital Signs (Past 12 Hours) Vital Signs Temp Pulse Resp BP Pulse Ox 05/03/21 07:13 36.9 C 56 L 16 154/88 H 96 05/02/21 22:30 36.7 C 87 17 142/96 H 96 Laboratory Results Laboratory Results - last 24 hr 05/02/21 05/02/21 05/03/21 07:22 07:22 06:46 WBC 6.55 RBC 3.32 L Hgb 10.8 L Hct 31.9 L MCV 96.1 MCH 32.5 MCHC 33.9 RDW Std Deviation 46.6 H RDW Coeff of Marline 13.3 Plt Count 209 MPV 9.5 Immature Gran % (Auto) 0.0 Neut % (Auto) 67.3 Lymph % (Auto) 16.0 [place] % (Auto) 11.5 Eos % (Auto) 4.9 Baso % (Auto) 0.3 Neut # (Auto) 4.41 Lymph # (Auto) 1.05 L [place] # (Auto) 0.75 H Eos # (Auto) 0.32 Baso # (Auto) 0.02 Immature Gran # (Auto) 0.00 Sodium 136 Potassium 4.1 Chloride 103 Carbon Dioxide 28 Anion Gap 6.0 BUN 8 Creatinine 0.72 Est Cr Clr Drug Dosing 100.9 Est GFR ( Amer) 112.7 Est GFR (Non-Af Amer) 97.2 BUN/Creatinine Ratio 11.7 Glucose 60 L Calcium 8.7 Lipase 660 H 05/03/21 06:46 WBC RBC Hgb Hct MCV MCH MCHC RDW Std Deviation RDW Coeff of Marline Plt Count MPV Immature Gran % (Auto) Neut % (Auto) Lymph % (Auto) [place] % (Auto) Eos % (Auto) Baso % (Auto) Neut # (Auto) Lymph # (Auto) [place] # (Auto) Eos # (Auto) Baso # (Auto) Immature Gran # (Auto) Sodium 134 L Potassium 4.0 Chloride 103 Carbon Dioxide 26 Anion Gap 5.0 BUN 8 Creatinine 0.67 Est Cr Clr Drug Dosing 108.5 Est GFR ( Amer) 116.0 Est GFR (Non-Af Amer) 100.1 BUN/Creatinine Ratio 12.6 Glucose 79 Calcium 8.4 L Lipase (1) Acute pancreatitis Acute pancreatitis complication: unspecified Pancreatitis type: alcohol induced Qualified Code(s): K85.20 - Alcohol induced acute pancreatitis without necrosis or infection
[2021-05-03] MEDS: FLUTICASONE PROPIONATE NA SPR 16 GM BTL NAE SCH (08:00)
[2021-05-03] MEDS: PANTOprazole 40 MG in SYRINGE 0 ML IV SCH (08:01)
[2021-05-03] MEDS: ESCITALOPRAM OXALATE 20 MG TAB PO SCH (09:51)
[2021-05-03] MEDS: ATORVASTATIN 20 MG TAB PO SCH (09:52)
[2021-05-03] MEDS: HEPARIN SOD 5,000 UNIT/0.5 ML VIAL SQ SCH (09:52)
[2021-05-03] MEDS: KETOCONAZOLE 2% CR 15 GM TUBE EXT SCH (09:54)
--- NOTE | 2021-05-03 21:23 | Discharge Summary ---
Date of Service May 03, 2021 Admission HPI Per Admitting Provider 65 YOM with past medical history of: HTN, HLD, Prediatbes, Hypothyroidism(s/p thyroidectomy in 2015 secondary to hyperplasia/Beatrice nodules), GERD/Nutcracker esophagus, depression/anxiety, and cholecystectomy. Patient comes to the emergency room secondary to abdominal pain and discomfort that has been on and off over the "past few months". Patient was following with his PCP regarding this and had a CT scan of the abdomen and pelvis a few weeks ago that showed mild pancreatitis at that time. He comes in today for continued symptoms that got worse last night and resulted in dry heaves last night into this morning. He has noted that loss of appetite over the past 2 days and did not eat anything yesterday except a few sips of water. He states his last drink of alcohol was 3 beers about 2-3 days ago. He states new medications have been added secondary to "cold he has had over the past 2 weeks". States he had a negative COVID test a few days ago. His pain is located in the epigastrium area and comes in waves, he has not noticed whether it gets worse or better with food, and denies any fevers or chills. Nausea he believes was secondary to the pain; he has had no vomitting. Also reports normal BM yesterday. In the EMD he had a repeat non contrasted CT scan of the abdomen that revealed worsening of his pancreatitis and inflamed gastric mucosa. Patient had and EGD performed in February that also revealed gastritis with negative biopsy and negative H.pylori. Patient will be admitted for IVF control of symptoms and [place]. [place] [id number], pain is consistent with pancreatitis and CT scan as above. GI will be consulted for evaluation of further endoscopic evaluation if warranted and following clinical course. Patient has received his COVID vaccines and his COVID adriana on admission is NEGATIVE Principal Diagnosis Pancreatitis secondary to alcohol use Discharge Exam The patient appeared well nourished and normally developed. Vital signs as documented. Head exam is normocephalic atraumatic Neck is without JVD, thyromegaly, or carotid bruits. Lungs are clear to auscultation, no focal loss of breath sounds Cardiac exam, Rhythm is regular.. No murmurs, rubs or gallops. Abdominal exam reveals normal bowel sounds, soft non tender, no masses Extremities are nonedematous and both pedal pulses are present Neurologic exam is alert and oriented, no focal loss of strength or sensation Skin is without bruises or rashes Psychologically is without concerns for anxiety or depression Discharge Data Allergies Allergy/AdvReac Type Severity Reaction Status Date / Time No Known Drug Allergies Allergy Unknown Verified 04/30/21 09:58 Consultations 04/30/21 12:45 ED Decision to Admit Stat 04/30/21 13:15 Consult Gastroenterology Routine Ordered Studies 04/30/21 10:16 CT abd pelvis IV con only Stat Hospital Course (1) Pancreatitis: likely Alcohol induced acute pancreat[place] [address] declined to 660 - Lipid panel- triglyceride 164 and cholesterol 118 - ETOH use no. For 4 days no signs of withdrawal -Patient tolerated advancing diet lipase has been declining patient had no signs or symptoms after eating on 05/03 was discharged home will follow up with family doctor Dr. Gallegos and Erendira (2) Nasal congestion: Continue Tessalon pearls and fluticasone/nasal saline spray - Covid test - negative on admission (3) Anxiety: Continue escitalopram (4) Hypercholesterolemia: Continue atorvastatin - Lipida panel- triglyceride 164 and cholesterol 118 (5) Nutcracker esophagus: Continue Famotidine and Protonix - Will increase protonix to 40mg IV BID for gastritis Consider outpatient gastroenterology evaluation no plans for inpatient testing (6) Gastritis: As above (7) HTN (hypertension): resume angiotensin receptor sage (8) History of thyroidectomy, subtotal: Continue synthroid 175 mcg Total Time Total Time Spent Total Time Spent (In Minutes): It required greater than 30 minutes to prepare this patient for discharge Discharge Plan Discharge Items Patient Disposition: Home - Self-Care Reason For Visit: PANCREATITIS Discharge Diagnosis: pancreatitis Activity: Resume your previous activity Non-emergency contact: Primary Care Provider Call non-emergency contact if: your symptoms worsen Follow-up/Referrals: Sue Gallegos DO [Primary Care Provider] - 05/11/21 8:30 am (APPT WITH JEANETTE GUERRERO PA-C) Diet: Low Fat Addtl Attending Provider Instructions: Pancreatitis is inflammation in the pancreas. The pancreas is a long, flat gland that sits tucked behind the stomach in the upper abdomen. The pancreas produces enzymes that help digestion and hormones that help regulate the way your body processes sugar (glucose) It is important that you abstain from alcohol and eat lower fat and small but frequent meals Please follow up with Dr Cortés office next week Pending Studies at Discharge: No Stand-Alone Forms: My [facility], Smoking Cessation Medications and DC Order Prescriptions: Continued ketoconazole 2 % cream 1 appln TOP BID Qty: 30 RF: 5 albuterol sulfate [ProAir HFA] 90 mcg/actuation HFA aerosol inhaler 2 inh INH Q6H PRN (Reason: shortness of breath or wheezing) Qty: 18 RF: 0 escitalopram oxalate 20 mg tablet 20 mg PO DAILY Qty: 90 RF: 1 pantoprazole [Protonix] 40 mg tablet,delayed release (DR/EC) 40 mg PO DAILY Qty: 90 RF: 3 atorvastatin 20 mg tablet 20 mg PO DAILY Qty: 90 RF: 1 famotidine 40 mg tablet 40 mg PO HS Qty: 90 RF: 2 trazodone 50 mg tablet 100 mg PO HS PRN (Reason: sleep) Qty: 60 RF: 5 losartan 100 mg tablet 100 mg PO DAILY Qty: 90 RF: 1 levothyroxine 175 mcg tablet 175 mcg PO QAM Qty: 90 RF: 1 benzonatate [Tessalon Perles] 100 mg capsule 100 mg PO .QHS PRN (Reason: cough) Qty: 14 RF: 0 fluticasone propionate 50 mcg/actuation spray,suspension 1 spray intranasal BID Qty: 16 RF: 0 sodium chloride [Saline Mist] 0.65 % aerosol,spray 1 spray intranasal BID PRN (Reason: dry nasal passages) Qty: 45 RF: 0 garlic Tablet See Rx Instructions PO DAILY RF: 0 omega-3 acid ethyl esters 1 gram capsule 1 cap PO QAM RF: 0 triamcinolone acetonide 0.5 % cream 1 applic topical BID PRN (Reason: skin irritation) Qty: 60 RF: 1 multivitamin Tablet 1 tab PO QAM RF: 0 hydrocortisone 2.5 % cream with perineal applicator 1 applic DC BID PRN (Reason: Hemorrhoids) RF: 0 Discharge Orders: Discharge Order (Routine); Ordered 05/03/21 Ordered By: Ney Saunders/Other Patient Handouts: Understanding Pancreatitis, Discharge Instructions for Acute ... Admission Data Admit Date/Time: 04/30/21 13:10 Attending Provider: Ney Aaron Admit Provider: Luis Garcia Primary Care Provider: Sue Gallegos Other Providers: Hema Keith ; Luis Garcia Other Interventions: Discharge Summary Assessment (RN) Last Done: 05/03/21 10:22 Coding Level of Care Code D/C DAY MANAGEMENT >30 MINS Diagnoses Pancreatitis K85.90 Nasal congestion R09.81 Anxiety F41.9 Hypercholesterolemia E78.00 Nutcracker esophagus K22.4 Gastritis K29.70 HTN (hypertension) I10 History of thyroidectomy, subtotal Z98.890
== END 2021-05-03 12:17 | disposition home or self-care (01) | DRG 439 ==
LOC: ED 08:55 → SUATTDRO 13:10 → 3W 13:10

== ENCOUNTER 2022-01-20 09:00 | Observation (INO) ==
[2022-01-20] MEDS ORDERED: ONDANSETRON INJ 2 MG/ML 2 ML VIAL IV STA ×2 (09:11→10:54)
[2022-01-20] MEDS ORDERED: KETOROLAC TROMETHAMINE 15 MG/ML VIAL IV STA (09:11)
[2022-01-20] MEDS ORDERED: SODIUM CHLORIDE 0.9% 1000ML 1,000 ML IV ONE (09:11)
--- NOTE | 2022-01-20 09:23 | Emergency Department Note ---
History of Present Illness General Chief Complaint: GI Assessment Stated Complaint: STOMACH PAINS, STARTED YESTERDAY Time Seen by Provider: 01/20/22 09:11 History of Present Illness Provider Complaint: abdominal pain Onset (ago): 1 day(s) Pain Consistency: intermittent Location: epigastric Radiation: none Maximum Pain Intensity: 8 Current Pain Intensity: 8 Quality: + stabbing, + aching, + sharp and + dull Relieved By: + nothing Exacerbated By: + nothing Context: + history of similar episodes (feels like pancreatitis again); no foreign travel, no possible food poisoning, no sick contacts, no recent antibiotic use, no recent surgery/procedure or no recent injury Associated Symptoms: + nausea; no vomiting, no diarrhea, no fever, no chills, no constipation, no dysuria, no hematemesis, no hematochezia, no melena, no hematuria, no anorexia, no syncope, no headache, no neck pain, no chest pain, no weakness, no breathing difficulty and no numbness ocurred after drinking alcohol last night Home Medications Medication Instructions Recorded Confirmed Type multivitamin 1 tab PO QAM 07/14/18 01/20/22 History omega-3 acid ethyl esters 1 gram 1 cap PO QAM cap 03/30/19 01/20/22 History capsule famotidine 40 mg tablet 40 mg PO HS #90 tab 10/05/21 01/20/22 Rx trazodone 150 mg tablet 150 mg PO HS PRN #30 tab 01/08/22 01/20/22 Rx atorvastatin 20 mg tablet 20 mg PO QAM 01/20/22 01/20/22 History ibuprofen 200 mg tablet 200 mg PO Q6H PRN 01/20/22 01/20/22 History levothyroxine 175 mcg tablet 175 mcg PO DAILYBB 01/20/22 01/20/22 History losartan 100 mg tablet 100 mg PO QAM 01/20/22 01/20/22 History pantoprazole 40 mg tablet,delayed 40 mg PO QDD 01/20/22 01/20/22 History release (Protonix) Allergies Allergy/AdvReac Type Severity Reaction Status Date / Time No Known Drug Allergies Allergy Unknown Verified 01/20/22 09:55 Past Med/Surg History Medical History (Updated 01/20/22 @ 13:45 by Tank Del Castillo) Acute pancreatitis (04/2021) Anxiety and depression Environmental allergies External hemorrhoids HTN (hypertension) Hyperlipidemia BORDERLINE Hypothyroidism Insomnia Irritable bowel syndrome Laryngopharyngeal reflux Multiple thyroid nodules HX Nutcracker esophagus s/p POEM Osteoarthritis Prediabetes Sensorineural hearing loss (SNHL) of both ears Sleep apnea NO DEVICE Surgical History History of cholecystectomy History of colonoscopy History of esophagogastroduodenoscopy (EGD) (07/2018) History of facial surgery History of oral surgery History of thyroidectomy, subtotal (2014) History of tooth extraction Nausea and vomiting after administration of anesthetic agent S/P hemorrhoidectomy (05/30/21) Family History Mother Family history of diabetes mellitus Heart murmur Brother Diabetes Family history of diabetes mellitus Arthritis Father Prostate cancer Arthritis Other No family history of adverse response to anesthesia Denies family history of Ovarian cancer Myocardial infarction Breast cancer Colorectal cancer Social History Smoking Status: Current some day smoker Tobacco Type: Cigars Age Started Using Tobacco: 15; Age Quit Using Tobacco: 49; Second Hand Exposure: No; Hx Alcohol Use: Yes Alcohol type: beer Alcohol Intake Frequency: 4 or More x per/Week Hx Substance Use: No Preferred Language: Palestinian Communication Ability: Effective Visual Impairment: No Limitations Hearing Ability: Hard of Hearing Laryngologist Required: No Beliefs That Will Affect Care: None marital status: / Current Living Situation: Family Current Living Situation Comment: 2 sons, son's girlfriend. 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 Feels Safe at Home: Yes Childhood Exposure to Second-Hand Smoke: No caffeine: Yes (Coffee x 1 per day.) during the past year weight has: remained stable Dental Care, Regularly: Yes Physical Activity Frequency: 3-4 Times per Week Seatbelt Use: always Sunscreen Use: No Assistive Devices: None Review of Systems A total of 10 systems reviewed and were otherwise negative Physical Exam Vital Signs: Vital Signs - 24 hr 01/20/22 09:06 01/20/22 09:46 01/20/22 10:00 Temperature 36.4 C L Temperature Source Temporal Artery Sc an Pulse Rate 72 57 L 55 L Pulse Rate [Left A pical] 57 L Pulse Rate from Sp O2 Sensor 57 L 57 L Pulse Rhythm [Left Apical] Regular Pulse Strength [Le ft Apical] Normal Respiratory Rate 18 14 12 Respiratory Effort / Characteristics Non-Labored Sponta neous Respiratory Depth Normal Respiratory Patter n Regular Blood Pressure 138/82 134/82 Blood Pressure [Le ft Arm] 135/88 Blood Pressure Sendy n 100 99 Blood Pressure Sendy n [Left Arm] 103 Blood Pressure Pos ition [Left Arm] Lying Pulse Oximetry 99 99 99 Oxygen Delivery Me thod Room Air Room Air Oxygen Flow Rate Sepsis New/Unexpla ined Change in Men karuna Status No Sepsis Action Take n by Nursing No Action Required 01/20/22 10:42 01/20/22 10:45 01/20/22 11:29 Temperature Temperature Source Pulse Rate 62 Pulse Rate [Left A pical] 57 L Pulse Rate from Sp O2 Sensor 66 61 Pulse Rhythm [Left Apical] Regular Pulse Strength [Le ft Apical] Normal Respiratory Rate 16 14 Respiratory Effort / Characteristics Non-Labored Sponta neous Respiratory Depth Normal Respiratory Patter n Regular Blood Pressure 123/78 Blood Pressure [Le ft Arm] 123/78 Blood Pressure Sendy n 93 Blood Pressure Sendy n [Left Arm] 93 Blood Pressure Pos ition [Left Arm] Lying Pulse Oximetry 97 98 98 Oxygen Delivery Me thod Room Air Oxygen Flow Rate Sepsis New/Unexpla ined Change in Men karuna Status Sepsis Action Take n by Nursing 01/20/22 11:46 01/20/22 12:00 01/20/22 13:00 Temperature Temperature Source Pulse Rate 50 L 51 L Pulse Rate [Left A pical] Pulse Rate from Sp O2 Sensor 51 L 51 L Pulse Rhythm [Left Apical] Pulse Strength [Le ft Apical] Respiratory Rate 10 L 18 Respiratory Effort / Characteristics Respiratory Depth Respiratory Patter n Blood Pressure 113/75 Blood Pressure [Le ft Arm] Blood Pressure Sendy n 87 Blood Pressure Sendy n [Left Arm] Blood Pressure Pos ition [Left Arm] Pulse Oximetry 98 97 96 Oxygen Delivery Me thod Room Air Oxygen Flow Rate 0 Sepsis New/Unexpla ined Change in Men karuna Status Sepsis Action Take n by Nursing Physical Exam: Physical Exam GENERAL: He is oriented to person, place, and time. He appears well-developed and well-nourished. He does not appear distressed. HENT: Exam performed. - Head: Normocephalic and atraumatic. - Right Ear: External ear normal. No mastoid tenderness. - Left Ear: External ear normal. No mastoid tenderness. - Mouth/Throat: The oropharynx is clear and moist. No trismus in the jaw. No dental abscesses or uvula swelling. No oropharyngeal exudate or tonsillar abscesses. EYES: Conjunctivae and EOM are normal. Pupils are equal, round, and reactive to light. Right eye exhibits no discharge. Left eye exhibits no discharge. No scleral icterus. NECK: Normal range of motion. Neck supple. No JVD present. No spinous process tenderness present. No carotid bruit present. No rigidity. No tracheal deviation and normal range of motion present. No Brudzinski's sign and no Kernig's sign noted. CV: Normal rate, regular rhythm, normal heart sounds and intact distal pulses. There is no peripheral edema. Palpable radial pulses bue. PULM/CHEST: Effort normal and breath sounds normal. No respiratory distress. No stridor. He has no wheezes. He has no rales. - Chest Wall: He exhibits no tenderness. ABD: The abdomen is soft. Bowel sounds are normal. He has no distension. No mass is present. There is no tenderness. There is no rebound, no guarding, no Alarcon's sign and no tenderness at McBurney's point. Rovsig negative. MUSC/SKEL: Normal range of motion. There is no peripheral edema, tenderness or deformity. LYMPH: No cervical adenopathy. NEURO: He is alert and oriented to person, place, and time. He has normal strength. No cranial nerve deficit or sensory deficit. Coordination and gait normal. GCS eye subscore is 4. GCS verbal subscore is 5. GCS motor subscore is 6. Cerebellar tests wnl. SKIN: Skin is warm and dry. He is not diaphoretic. PSYCH: He has a normal mood and affect. Behavior is normal. Judgment and thought content normal. Course Course 0911: The patient was evaluated in room C11. A complete history and physical exam was performed Cardiac monitoring: An order was placed for continuous cardiac monitoring. The monitor shows a rate of 70 with sinus rhythm 1045: Vital signs stable. Labs show an elevated lipase level. Patient is suffering from pancreatitis most likely from his recent alcohol abuse. [facility]. Administered Medications Sodium Chloride (Nss 1000ml) 1,000 mls @ 125 mls/hr IV .Q8H SHELLY Stop: 02/19/22 10:59 Last Admin: 01/20/22 11:31 Dose: 125 mls/hr Documented by: [id number] Discontinued Medications Sodium Chloride (Nss 1000ml) 1,000 mls @ 999 mls/hr IV .Q1H1M ONE Stop: 01/20/22 10:11 Last Infusion: 01/20/22 10:47 Dose: 0 mls/hr Documented by: [id number] Admin: 01/20/22 09:36 Dose: 999 mls/hr Documented by: [id number] Ketorolac Tromethamine (Ketorolac Tromethamine 15 Mg/Ml Vial) 15 mg IV NOW STA Stop: 01/20/22 09:12 Last Admin: 01/20/22 09:36 Dose: 15 mg Documented by: [id number] Morphine Sulfate (Morphine Sulfate 4 Mg/Ml 1 Ml Carp\Vial) 4 mg IV NOW STA Stop: 01/20/22 10:55 Last Admin: 01/20/22 11:33 Dose: 4 mg Documented by: [id number] Ondansetron HCl (Ondansetron Inj 2 Mg/Ml 2 Ml Vial) 4 mg IV NOW STA Stop: 01/20/22 09:12 Last Admin: 01/20/22 09:36 Dose: 4 mg Documented by: [id number] Ondansetron HCl (Ondansetron Inj 2 Mg/Ml 2 Ml Vial) 4 mg IV NOW STA Stop: 01/20/22 10:55 Last Admin: 01/20/22 11:32 Dose: 4 mg Documented by: [id number] Medical Decision Making Laboratory Data Result diagrams: 01/20/22 09:30 01/20/22 09:30 Lab Results 01/20/22 01/20/22 01/20/22 Range/Units 09:30 09:30 09:30 WBC 6.50 (4.8-10.8) K/uL RBC 4.08 L (4.7-6.1) M/uL Hgb 13.2 L (14.0-18.0) g/dL Hct 37.6 L (42-52) % MCV 92.2 (80-100) fL MCH 32.4 (25-34) pg MCHC 35.1 (32-36) g/dL RDW Std Deviation 49.8 H (36.4-46.3) fL RDW Coeff of Marline 14.6 H (11.5-14.5) % Plt Count 233 (130-400) K/uL MPV 9.6 (7.4-10.4) fL Immature Gran % (Auto) 0.2 % Neut % (Auto) 69.9 % Lymph % (Auto) 18.0 % [place] % (Auto) 8.6 % Eos % (Auto) 3.1 % Baso % (Auto) 0.2 % Neut # (Auto) 4.55 (1.4-6.5) K/uL Lymph # (Auto) 1.17 L (1.2-3.4) K/uL [place] # (Auto) 0.56 (0.11-0.59) K/uL Eos # (Auto) 0.20 (0-0.5) K/uL Baso # (Auto) 0.01 (0-0.2) K/uL Immature Gran # (Auto) 0.01 (0.00-0.02) K/uL PT 10.4 (9.0-12.0) Seconds INR 1.0 (0.9-1.1) APTT 26.5 (21.0-31.0) Seconds PTT Ratio 1.0 Sodium 132 L (136-145) mmol/L Potassium 4.5 (3.5-5.1) mmol/L Chloride 100 (98-107) mmol/L Carbon Dioxide 27 (21-32) mmol/L Anion Gap 5 (3-11) BUN 16 (6-23) mg/dl Creatinine 0.94 (0.6-1.4) mg/dl Est Cr Clr Drug Dosing 73.8 ml/min Est GFR ( Amer) 96.8 ml/min Est GFR (Non-Af Amer) 83.6 ml/min BUN/Creatinine Ratio 17.0 (10-20) Glucose 92 (70-99(Fasting)) mg/dl Calcium 9.1 (8.5-10.1) mg/dl Total Bilirubin 0.7 (0.2-1.0) mg/dl Direct Bilirubin 0.1 (0-0.2) mg/dl AST 22 (13-39) U/L ALT 25 (7-52) U/L Alkaline Phosphatase 77 (34-104) U/L Total Protein 7.1 (6.0-8.3) gm/dl Albumin 4.3 (3.4-5.0) gm/dl Lipase 1022 H (11-82) U/L Urine Color Urine Appearance (Clear) Urine pH (4.5-7.5) Ur Specific [place] (1.000-1.030) Urine Protein (Negative) Urine Glucose (UA) (Negative) Urine Ketones (Negative) Urine Blood (Negative) Urine Nitrite (Negative) Urine Bilirubin (Negative) Urine Urobilinogen (Negative) Ur Leukocyte Esterase (Negative) Urine WBC (Auto) (0-5) /hpf Urine RBC (Auto) (0-4) /hpf U Hyaline Cast (Auto) (0-5) /lpf U Epithel Cells (Auto) (0-5) /lpf Urine Bacteria (Auto) (Negative) SARS-CoV-2, RNA, NAAT (NEGATIVE) 01/20/22 01/20/22 Range/Units 10:48 11:39 WBC (4.8-10.8) K/uL RBC (4.7-6.1) M/uL Hgb (14.0-18.0) g/dL Hct (42-52) % MCV (80-100) fL MCH (25-34) pg MCHC (32-36) g/dL RDW Std Deviation (36.4-46.3) fL RDW Coeff of Marline (11.5-14.5) % Plt Count (130-400) K/uL MPV (7.4-10.4) fL Immature Gran % (Auto) % Neut % (Auto) % Lymph % (Auto) % [place] % (Auto) % Eos % (Auto) % Baso % (Auto) % Neut # (Auto) (1.4-6.5) K/uL Lymph # (Auto) (1.2-3.4) K/uL [place] # (Auto) (0.11-0.59) K/uL Eos # (Auto) (0-0.5) K/uL Baso # (Auto) (0-0.2) K/uL Immature Gran # (Auto) (0.00-0.02) K/uL PT (9.0-12.0) Seconds INR (0.9-1.1) APTT (21.0-31.0) Seconds PTT Ratio Sodium (136-145) mmol/L Potassium (3.5-5.1) mmol/L Chloride (98-107) mmol/L Carbon Dioxide (21-32) mmol/L Anion Gap (3-11) BUN (6-23) mg/dl Creatinine (0.6-1.4) mg/dl Est Cr Clr Drug Dosing ml/min Est GFR ( Amer) ml/min Est GFR (Non-Af Amer) ml/min BUN/Creatinine Ratio (10-20) Glucose (70-99(Fasting)) mg/dl Calcium (8.5-10.1) mg/dl Total Bilirubin (0.2-1.0) mg/dl Direct Bilirubin (0-0.2) mg/dl AST (13-39) U/L ALT (7-52) U/L Alkaline Phosphatase (34-104) U/L Total Protein (6.0-8.3) gm/dl Albumin (3.4-5.0) gm/dl Lipase (11-82) U/L Urine Color Yellow Urine Appearance Clear (Clear) Urine pH 7.0 (4.5-7.5) Ur Specific [place] 1.006 (1.000-1.030) Urine Protein Negative (Negative) Urine Glucose (UA) Negative (Negative) Urine Ketones Negative (Negative) Urine Blood Negative (Negative) Urine Nitrite Negative (Negative) Urine Bilirubin Negative (Negative) Urine Urobilinogen Negative (Negative) Ur Leukocyte Esterase Trace H (Negative) Urine WBC (Auto) 0 (0-5) /hpf Urine RBC (Auto) 0-4 (0-4) /hpf U Hyaline Cast (Auto) 0 (0-5) /lpf U Epithel Cells (Auto) 0-5 (0-5) /lpf Urine Bacteria (Auto) Negative (Negative) SARS-CoV-2, RNA, NAAT NEGATIVE (NEGATIVE) Imaging Data Radiologist's Impression: Chest/Abdomen X-ray 01/20/22 09:23 PA CHEST WITH ABDOMINAL SERIES CLINICAL HISTORY: Generalized abdominal pain FINDINGS: A [place] chest radiograph is compared to study dated 05/18/2021. The heart is top normal for projection noting atherosclerotic calcification of the thoracic aorta. Nonspecific interstitial thickening is likely chronic. There is bibasilar scarring/atelectasis. No airspace consolidation or large pleural effusion is identified. No pneumothorax is seen. The bony thorax is grossly intact. Supine and erect abdominal radiographs compared to study dated 05/18/2021 and correlated with abdominal CT dated 10/24/2021. Cholecystectomy clips are noted in the right upper quadrant. There is a nonobstructed abdominal bowel gas pattern. Mild fecal retention is seen throughout the colon. No evidence of intraperitoneal free air is seen. There are no abnormal abdominal calcifications. Numerous phleboliths are seen in the pelvis. The lumbosacral s pine and bony pelvis appear intact. IMPRESSION: 1. No acute cardiopulmonary abnormality. 2. Nonobstructed abdominal bowel gas pattern. ACT 112: Negative or not required by law. Electronically signed by: Lauro Hills M.D. 01/20/2022 10:51 AM ECG Data Indication: abdominal pain Rate (beats per minute): 54 Rhythm: sinus bradycardia Findings: no ST depression, no ST elevation or no prolonged QT MDM Narrative Vital signs stable. Labs show an elevated lipase level. Patient is suffering from pancreatitis most likely from his recent alcohol abuse. Patient will be admitted to the [facility] hospitalist team Dr. Macdonald's team notified. Impression & Plan Pancreatitis Discharge Plan Visit Data Chief Complaint: GI Assessment Stated Complaint: STOMACH PAINS, STARTED YESTERDAY Discharge Problem: Pancreatitis Patient Disposition: Admitted As Inpatient Forms Stand Alone Forms: My [facility] Prescriptions Prescriptions: No Action trazodone 150 mg tablet 150 mg PO HS PRN (Reason: Sleep) Qty: 30 RF: 5 famotidine 40 mg tablet 40 mg PO HS Qty: 90 RF: 2 omega-3 acid ethyl esters 1 gram capsule 1 cap PO QAM RF: 0 multivitamin Tablet 1 tab PO QAM RF: 0 ibuprofen 200 mg Tablet 200 mg PO Q6H PRN (Reason: Pain) RF: 0 levothyroxine 175 mcg tablet 175 mcg PO DAILYBB RF: 0 atorvastatin 20 mg tablet 20 mg PO QAM RF: 0 pantoprazole [Protonix] 40 mg tablet,delayed release (DR/EC) 40 mg PO QDD RF: 0 losartan 100 mg tablet 100 mg PO QAM RF: 0 Referrals Referrals: Sue Gallegos DO [Primary Care Provider] -
[2022-01-20 09:54] LABS: Basophils # (auto) 0.01 K/uL (0-0.2); Basophils % (auto) 0.2 %; Eosinophils % (auto) 3.1 %; Hematocrit (blood only) 37.6 % (42-52); Hemoglobin 13.2 g/dL (14.0-18.0); Immature Granulocytes # (auto) 0.01 K/uL (0.00-0.02); Immature Granulocytes % (auto) 0.2 %; Lymphocytes # (auto) 1.17 K/uL (1.2-3.4); Mean Corpuscular Hemoglobin 32.4 pg (25-34); Mean Corpuscular Hgb Conc 35.1 g/dL (32-36); Mean Corpuscular Volume 92.2 fL (80-100); Mean Platelet Volume 9.6 fL (7.4-10.4); Monocytes # (auto) 0.56 K/uL (0.11-0.59); Monocytes % (auto) 8.6 %; Neutrophils # (auto) 4.55 K/uL (1.4-6.5); Neutrophils % (auto) 69.9 %; Platelet Count 233 K/uL (130-400); RDW Coefficient of Variation 14.6 % (11.5-14.5); RDW Standard Deviation 49.8 fL (36.4-46.3); Red Blood Count 4.08 M/uL (4.7-6.1)
[2022-01-20 10:03] LABS: Partial Thromboplastin Time 26.5 Seconds (21.0-31.0); Prothrombin Time 10.4 Seconds (9.0-12.0)
[2022-01-20 10:21] LABS: Calcium 9.1 mg/dl (8.5-10.1); Creatinine Clr Calc Pharmacy 73.8 ml/min; Est GFR (African American) 96.8 ml/min; Est GFR (Non-African American) 83.6 ml/min; Potassium 4.5 mmol/L (3.5-5.1)
[2022-01-20 10:22] LABS: Albumin Level 4.3 gm/dl (3.4-5.0); Bilirubin Direct 0.1 mg/dl (0-0.2); Bilirubin,Total 0.7 mg/dl (0.2-1.0); Total Protein 7.1 gm/dl (6.0-8.3)
--- NOTE | 2022-01-20 10:52 | XRay Report ---
PA CHEST WITH ABDOMINAL SERIES CLINICAL HISTORY: Generalized abdominal pain FINDINGS: A PA chest radiograph is compared to study dated 05/18/2021. The heart is top normal for projection n oting atherosclerotic calcification of the thoracic aorta. Nonspecific interstitial thickening is lik tanmay chronic. There is bibasilar scarring/atelectasis. No airspace consolidation or large pleural effu sarah is identified. No pneumothorax is seen. The bony thorax is grossly intact. Supine and erect abdominal radiographs compared to study dated 05/18/2021 and correlated with abdomina l CT dated 10/24/2021. Cholecystectomy clips are noted in the right upper quadrant. There is a nonobstr ucted abdominal bowel gas pattern. Mild fecal retention is seen throughout the colon. No evidence of intraperitoneal free air is seen. There are no abnormal abdominal calcifications. Numerous phlebolith s are seen in the pelvis. The lumbosacral spine and bony pelvis appear intact. IMPRESSION: 1. No acute cardiopulmonary abnormality. 2. Nonobstructed abdominal bowel gas pattern. ACT 112: Negative or not required by law. Electronically signed by: Lauro Hills M.D. 01/20/2022 10:51 AM
[2022-01-20] MEDS ORDERED: MoRPHine SULFATE 4 MG/ML 1 ML CARP\\VIAL IV STA (10:54)
[2022-01-20] MEDS ORDERED: SODIUM CHLORIDE 0.9% 1000ML 1,000 ML IV SCH (11:00)
[2022-01-20 11:01] LABS: Appearance Urine Clear (Clear); Bacteria Urine Automated Negative (Negative); Bilirubin Urine Negative (Negative); Blood Urine Negative (Negative); Cast Urine Automated 0 /lpf (0-5); Color Urine Yellow; Epithelial Cell Urine Auto 0-5 /lpf (0-5); Glucose Urine UA Negative (Negative); Ketones Urine Negative (Negative); Leukocyte Esterase Urine Trace (Negative); Nitrite Urine Negative (Negative); Protein Urine Negative (Negative); RBC Urine Automated 0-4 /hpf (0-4); Specific Gravity Urine 1.006 (1.000-1.030); Urobilinogen Urine Negative (Negative); WBC Urine Automated 0 /hpf (0-5)
--- NOTE | 2022-01-20 12:18 | History & Physical Report ---
Date of Service January 20, 2022 Assessment & Plan (1) Pancreatitis: Plan: - Suspect 2/2 alcohol intake since symptoms began shortly after consuming two smirnoff drinks. LFT wnl, Ca 9.1. s/p cholecystectomy. triglycerides recently done as an outpatient, not significantly elevated. - NPO, LRs at 150cc/hr. Can consider slowly advancing diet tomorrow. - Defer further imaging due to mildly elevated lipase, mild abdominal pain which is improving here in ED, not septic, no concern for necrotizing pancreatitis. - IV Tylenol, morphine prn for pain. - Repeat CBC/CMP/lipase in AM. - Denies regular alcohol use, will order at risk-AWSS as precaution. No withdrawal symptoms on last admission. (2) Hyponatremia: Plan: - 132, without symptoms such as n/v/weakness/confusion. - Suspect this is due to alcohol intake vs third spacing with pancreatitis. - Ordered serum/urine osm w/ urine Na to be added on to samples already collected. - Monitor on AM labs. (3) HTN (hypertension): Plan: - Hold losartan while NPO. - Will order Vasotec 0.625 mg Q8h prn for SBP > 180, DBP > 110. (4) Esophageal dysphagia: Plan: - Protonix and famotidine at home, will switch to IV dosing while NPO. - Was undergoing workup for this, has not had POEM procedure. (5) Hypothyroidism, postablative: Plan: - We will hold PO levothyroxine (175 mcg) and plan to order IV dose of 50% oral dose to start on Friday should patient still be here. (6) Hyperlipidemia: Plan: - Will hold statin while NPO. (7) BPH (benign prostatic hyperplasia): Plan: - No acute issues. - Currently being followed as outpt by urology, previously on Flomax but no longer taking. (8) Insomnia: Plan: - Will hold trazodone while NPO. Plan: - Admit to med/surg. - SCDs for DVT ppx. - Full Code. History of Present Illness Chief Complaint: Abdominal pain Primary Care Provider: Sue Gallegos DO Mr. Harris is a 66-year-old male with a past medical history significant for hypertension, hyperlipidemia, hypothyroidism, and esophageal dysphagia who presents today with abdominal pain since last evening. Patient states he does not regularly consume alcohol but last night given the holiday had two Greta pineapple mixed drinks with a vegetable spaghetti covered in chili sauce. Around 7:30 PM he began experiencing some epigastric pain, but later became quite diffuse and crampy throughout his abdomen, without radiation to back or chest. He was unable to get much sleep due to the pain, however has not been nauseous or vomiting at home. No change to bowel movements. He is s/p cholecystectomy. He was admitted 8 months ago for pancreatitis, at this time his lipase was 12,000 and was suspected this was alcohol induced; lipid panels, calcium, LFTs wnl on that admission, no complications. Recovered over 3 days with IVF, pain control. In ED, vital signs within normal stable. Labs significant for lipase 1022, sodium 132, hemoglobin 13.2 (baseline). Chest/abdominal XR without acute cardiopulmonary abnormality, with non-obstructed abdominal bowel gas pattern. Allergies Allergy/AdvReac Type Severity Reaction Status Date / Time No Known Drug Allergies Allergy Unknown Verified 01/20/22 09:55 Home Medications Medication Instructions Recorded Confirmed Type multivitamin 1 tab PO QAM 07/14/18 01/20/22 History omega-3 acid ethyl esters 1 gram 1 cap PO QAM cap 03/30/19 01/20/22 History capsule famotidine 40 mg tablet 40 mg PO HS #90 tab 10/05/21 01/20/22 Rx trazodone 150 mg tablet 150 mg PO HS PRN #30 tab 01/08/22 01/20/22 Rx atorvastatin 20 mg tablet 20 mg PO QAM 01/20/22 01/20/22 History ibuprofen 200 mg tablet 200 mg PO Q6H PRN 01/20/22 01/20/22 History levothyroxine 175 mcg tablet 175 mcg PO DAILYBB 01/20/22 01/20/22 History losartan 100 mg tablet 100 mg PO QAM 01/20/22 01/20/22 History pantoprazole 40 mg tablet,delayed 40 mg PO QDD 01/20/22 01/20/22 History release (Protonix) Past Med/Surg History Medical History (Updated 01/20/22 @ 13:45 by Lea Choi PA-C) Acute pancreatitis (04/2021) Anxiety and depression Environmental allergies External hemorrhoids HTN (hypertension) Hyperlipidemia BORDERLINE Hypothyroidism Insomnia Irritable bowel syndrome Laryngopharyngeal reflux Multiple thyroid nodules HX Nutcracker esophagus s/p POEM Osteoarthritis Prediabetes Sensorineural hearing loss (SNHL) of both ears Sleep apnea NO DEVICE Surgical History History of cholecystectomy History of colonoscopy History of esophagogastroduodenoscopy (EGD) (07/2018) History of facial surgery History of oral surgery History of thyroidectomy, subtotal (2014) History of tooth extraction Nausea and vomiting after administration of anesthetic agent S/P hemorrhoidectomy (05/30/21) Family History Mother Family history of diabetes mellitus Heart murmur Brother Diabetes Family history of diabetes mellitus Arthritis Father Prostate cancer Arthritis Other No family history of adverse response to anesthesia Denies family history of Ovarian cancer Myocardial infarction Breast cancer Colorectal cancer Social History Smoking Status: Current some day smoker Tobacco Type: Cigars Age Started Using Tobacco: 15; Age Quit Using Tobacco: 49; Second Hand Exposure: No; Hx Alcohol Use: Yes Alcohol type: beer Alcohol Intake Frequency: 4 or More x per/Week Hx Substance Use: No Preferred Language: Dominican Communication Ability: Effective Visual Impairment: No Limitations Hearing Ability: Hard of Hearing Cook Soup Required: No Beliefs That Will Affect Care: None marital status: / Current Living Situation: Family Current Living Situation Comment: 2 sons, son's girlfriend. 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 Feels Safe at Home: Yes Childhood Exposure to Second-Hand Smoke: No caffeine: Yes (Coffee x 1 per day.) during the past year weight has: remained stable Dental Care, Regularly: Yes Physical Activity Frequency: 3-4 Times per Week Seatbelt Use: always Sunscreen Use: No Assistive Devices: None Review of Systems Review of Systems: Constitutional: No fever/chills, weakness, fatigue, myalgias, anorexia, night sweats Eyes: No diplopia, no worsening or blurred vision ENT: normal hearing, no trouble swallowing Respiratory: No cough, sputum, dyspnea at rest or on exertion Cardiovascular: No chest pain, tightness or palpitations Abdomen: diffuse abdominal pain without nausea, vomiting, diarrhea or constipation : Denies dysuria, hematuria, increased urgency/frequency, urinary retention Musculoskeletal: No joint pain, calf pain, swelling Neurologic: No weakness, numbness/tingling, or balance problems Psychiatric: No anxiety or depression Skin: No rash or itch Physical Exam Physical Exam: General: awake, alert, no apparent distress Head: Normocephalic, atraumatic ENT: PERRL, EOMI, no pharyngeal exudate, mucous membranes moist Chest: Clear to auscultation, on room air, no adventitious breath sounds Cardiac: Regular rate and rhythm, no murmur, no JVD, normal peripheral pulses, good capillary refill Abdominal: NABS x 4 quadrants, soft, nontender to palpation, no rebound, guarding or tenderness Extremities: Normal inspection, no peripheral edema or erythema, calfs nontender to palpation Psych: Normal mood and affect Neuro: AAO x 3, strength intact bilaterally and rated 5/5, no motor deficits, speech is clear, no peripheral sensory deficits Skin: no rash or erythema Results & Data Results & Data ([facility]) Vital Signs (Past 12 Hours) Vital Signs Temp Pulse Pulse Resp BP BP Pulse Ox 01/20/22 11:46 98 01/20/22 11:29 62 14 98 01/20/22 10:45 57 L 16 123/78 98 01/20/22 10:42 123/78 97 01/20/22 10:00 55 L 57 L 12 134/82 135/88 99 01/20/22 09:46 57 L 14 99 01/20/22 09:06 36.4 C L 72 18 138/82 99 Laboratory Results Abnormal lab results 01/20/22 01/20/22 01/20/22 Range/Units 09:30 09:30 10:48 RBC 4.08 L (4.7-6.1) M/uL Hgb 13.2 L (14.0-18.0) g/dL Hct 37.6 L (42-52) % RDW Std Deviation 49.8 H (36.4-46.3) fL RDW Coeff of Marline 14.6 H (11.5-14.5) % Lymph # (Auto) 1.17 L (1.2-3.4) K/uL Sodium 132 L (136-145) mmol/L Lipase 1022 H (11-82) U/L Ur Leukocyte Esterase Trace H (Negative) Diagnostic Findings Chest/Abdomen X-ray 01/20/22 09:23 PA CHEST WITH ABDOMINAL SERIES CLINICAL HISTORY: Generalized abdominal pain FINDINGS: A PA chest radiograph is compared to study dated 05/18/2021. The heart is top normal for projection noting atherosclerotic calcification of the thoracic aort a. Nonspecific interstitial thickening is likely chronic. There is bibasilar scarring/atelectasis. No airspace consolidation or large pleural effusion is identified. No pneumothorax is seen. The bony thorax is grossly intact. Supine and erect abdominal radiographs compared to study dated 05/18/2021 and correlated with abdominal CT dated 10/24/2021. Cholecystectomy clips are noted in the right upper quadrant. There is a nonobstructed abdominal bowel gas pattern. Mild fecal retention is seen throughout the colon. No evidence of intraperitoneal free air is seen. There are no abnormal abdominal yamilex cifications. Numerous phleboliths are seen in the pelvis. The lumbosacral spine and bony pelvis appear intact. IMPRESSION: 1. No acute cardiopulmonary abnormality. 2. Nonobstructed abdominal bowel gas pattern. ACT 112: Negative or not required by law. Electronically signed by: Lauro Hills M.D. 01/20/2022 10:51 AM ECG Additional Comments: Sinus bradycardia Otherwise normal ECG When compared with ECG of 18-MAY-2021 19:31, No significant change was found. Code Status & VTE Plan Code Status full code. VTE Prophylaxis Plan VTE Prophylaxis will be ordered: Yes Supervising Physician Co-Signing Physician Notes PA Supervision Note: I personally saw and examined the patient. I verified all haro points and agree with AMELIA Choi with the following exceptions and/or additions: This patient is a 66-year-old male with a history of alcohol use disorder, HTN, hyperlipidemia, BPH with LUTS, hypothyroidism, achalasia, prediabetes, and NALINI not on CPAP, who presents to the ER with epigastric abdominal pain. He has had a history of alcohol induced pancreatitis in the past. He is feeling improved after receiving IV Toradol and morphine as well as IV fluids in the ER. Lipase elevated at 1000, LFTs normal, no fevers and vital signs are stable. History and ROS reviewed otherwise as above O- Vitals reviewed Gen: AAOx3, NAD HEENT: Anicteric sclerae, EOMI CV: RRR no mgr nl S1S2 Pulm: CTAB no wcr Abd: +BS soft very mild tenderness to palpation epigastric region without guarding or rebound tenderness, ND no masses or hernias Ext: No edema, 2+ DP pulses Skin: No rashes, warm/dry Neuro: Full strength throughout Labs, rads, and ECG all reviewed personally [id number] male here with likely alcohol induced acute pancreatitis. Gastritis cannot be ruled out. Does have a history of achalasia but doubt that is causing his current symptoms and elevated lipase. This is mild pancreatitis by definition, no evidence of organ dysfunction Admit for IV fluid hydration, keep n.p.o. for pancreatic rest, pain control as needed Follow labs in the morning Could likely advance to low residue low-fat soft diet tomorrow PG Care Time/CCT Total # of Minutes Spent Total Time Spent with Patient: Total time spent is greater than 50% in coordination of care (as documented) at patient's floor/unit and/or counseling patient: Coding Level of Care Code 12626 Initial Inpt Care Lvl 3 Diagnoses Pancreatitis K85.90 BPH (benign prostatic hyperplasia) N40.0 Esophageal dysphagia R13.10 Insomnia G47.00 Hypothyroidism, postablative E89.0 Hyperlipidemia E78.5 Hyponatremia E87.1 HTN (hypertension) I10
[2022-01-20] MEDS ORDERED: LORazepam 2 MG/1 ML VIAL IV PRN (14:42)
[2022-01-20] MEDS ORDERED: ACETAMINOPHEN 1000 MG/100 ML IV IV PRN (14:42)
[2022-01-20] MEDS ORDERED: ONDANSETRON INJ 2 MG/ML 2 ML VIAL IV PRN (14:42)
[2022-01-20] MEDS ORDERED: POLYETHYLENE (MIRALAX) 17 GM PACK PO PRN (14:42)
[2022-01-20] MEDS ORDERED: ENALAPRILAT 0.625 MG in SYRINGE 9.5 ML IV PRN (14:42)
[2022-01-20] MEDS ORDERED: MoRPHine SULFATE 2 MG/ML CARP IV PRN (14:42)
--- NOTE | 2022-01-20 14:46 | Electrocardiogram Report ---
Test Reason : Blood Pressure : / mmHG Vent. Rate : 054 BPM Atrial Rate : 054 BPM P-R Int : 176 ms QRS Dur : 090 ms QT Int : 404 ms P-R-T Axes : 049 034 058 degrees QTc Int : 383 ms Sinus bradycardia Otherwise normal ECG When compared with ECG of 18-MAY-2021 19:31, No significant change was found Confirmed by Dax Caceres ([id number]) on 01/20/2022 2:46:16 PM Referred By: REFERRED SELF Confirmed By:Dax Caceres
[2022-01-20] MEDS: LACTATED RINGER'S 1,000 ML IV SCH ×2 (14:49→21:22)
[2022-01-20] MEDS: MoRPHine SULFATE 4 MG/ML 1 ML CARP\\VIAL IV PRN ×2 (15:24→18:40)
[2022-01-20] MEDS ORDERED: PROCHLORPERAZINE 5 MG in SYRINGE 4 ML IV ONE (21:45)
[2022-01-21] MEDS: LACTATED RINGER'S 1,000 ML IV SCH ×2 (04:10→10:32)
[2022-01-21 06:02] LABS: Basophils # (auto) 0.02 K/uL (0-0.2); Basophils % (auto) 0.3 %; Eosinophils # (auto) 0.34 K/uL (0-0.5); Eosinophils % (auto) 5.1 %; Hemoglobin 11.4 g/dL (14.0-18.0); Immature Granulocytes # (auto) 0.01 K/uL (0.00-0.02); Immature Granulocytes % (auto) 0.2 %; Lymphocytes % (auto) 28.6 %; Mean Corpuscular Hemoglobin 31.3 pg (25-34); Mean Corpuscular Hgb Conc 33.5 g/dL (32-36); Mean Corpuscular Volume 93.4 fL (80-100); Mean Platelet Volume 9.6 fL (7.4-10.4); Monocytes # (auto) 0.55 K/uL (0.11-0.59); Monocytes % (auto) 8.3 %; Neutrophils # (auto) 3.82 K/uL (1.4-6.5); Neutrophils % (auto) 57.5 %; Platelet Count 182 K/uL (130-400); RDW Coefficient of Variation 15.2 % (11.5-14.5); RDW Standard Deviation 52.4 fL (36.4-46.3); Red Blood Count 3.64 M/uL (4.7-6.1); White Blood Count 6.64 K/uL (4.8-10.8)
[2022-01-21 06:45] LABS: Albumin Globulin Ratio 1.7 (0.9-2); Albumin Level 3.5 gm/dl (3.4-5.0); BUN Creatinine Ratio 16.5 (10-20); Bilirubin,Total 0.9 mg/dl (0.2-1.0); Calcium 8.4 mg/dl (8.5-10.1); Creatinine Clr Calc Pharmacy 81.6 ml/min; Est GFR (African American) 104.5 ml/min; Est GFR (Non-African American) 90.2 ml/min; Globulin 2.1 gm/dl (2.5-4.0); Potassium 4.4 mmol/L (3.5-5.1); Total Protein 5.6 gm/dl (6.0-8.3)
--- NOTE | 2022-01-21 08:06 | Hospitalist Progress Note ---
Date of Service January 21, 2022 Assessment & Plan (1) Pancreatitis: Plan: - Suspect 2/2 alcohol intake since symptoms began shortly after consuming two smirnoff drinks. LFT wnl, Ca 9.1. s/p cholecystectomy. triglycerides recently done as an outpatient, not significantly elevated. - NPO, LRs at 150cc/hr. Can consider slowly advancing diet tomorrow. - Defer further imaging due to mildly elevated lipase, mild abdominal pain which is improving here in ED, not septic, no concern for necrotizing pancreatitis. - IV Tylenol, morphine prn for pain. - Repeat CBC/CMP/lipase in AM. - Denies regular alcohol use, will order at risk-AWSS as precaution. No withdrawal symptoms on last admission. (2) Hyponatremia: Plan: - 132, without symptoms such as n/v/weakness/confusion. - Suspect this is due to alcohol intake vs third spacing with pancreatitis. - Ordered serum/urine osm w/ urine Na to be added on to samples already collected. - Monitor on AM labs. (3) HTN (hypertension): Plan: - Hold losartan while NPO. - Will order Vasotec 0.625 mg Q8h prn for SBP > 180, DBP > 110. (4) Esophageal dysphagia: Plan: - Protonix and famotidine at home, will switch to IV dosing while NPO. - Was undergoing workup for this, has not had POEM procedure. (5) Hypothyroidism, postablative: Plan: - We will hold PO levothyroxine (175 mcg) and plan to order IV dose of 50% oral dose to start on Friday should patient still be here. (6) Hyperlipidemia: Plan: - Will hold statin while NPO. (7) BPH (benign prostatic hyperplasia): Plan: - No acute issues. - Currently being followed as outpt by urology, previously on Flomax but no longer taking. (8) Insomnia: Plan: - Will hold trazodone while NPO. Plan: - Admit to med/surg. - SCDs for DVT ppx. - Full Code. Admission and Anticipated Discharge Date Admission Date: January 20, 2022 Subjective Patient evaluated this morning. Doing much better than day prior. Inquiring about eating. Will start clear liquids, advance for lunch/early dinner and if no further i ssues could potentially discharge later today. Results & Data Results & Data ([facility]) Vital Signs (Past 12 Hours) Vital Signs Temp Pulse Resp BP Pulse Ox 01/21/22 06:20 36.5 C 48 L 16 108/67 98 01/20/22 21:30 36.3 C L 45 L 16 117/71 97 Laboratory Results 01/21/22 01/21/22 01/21/22 Range/Units 05:25 05:25 05:25 WBC 6.64 (4.8-10.8) K/uL RBC 3.64 L (4.7-6.1) M/uL Hgb 11.4 L (14.0-18.0) g/dL Hct 34.0 L (42-52) % MCV 93.4 (80-100) fL MCH 31.3 (25-34) pg MCHC 33.5 (32-36) g/dL RDW Std Deviation 52.4 H (36.4-46.3) fL RDW Coeff of Marline 15.2 H (11.5-14.5) % Plt Count 182 (130-400) K/uL MPV 9.6 (7.4-10.4) fL Immature Gran % (Auto) 0.2 % Neut % (Auto) 57.5 % Lymph % (Auto) 28.6 % [place] % (Auto) 8.3 % Eos % (Auto) 5.1 % Baso % (Auto) 0.3 % Neut # (Auto) 3.82 (1.4-6.5) K/uL Lymph # (Auto) 1.90 (1.2-3.4) K/uL [place] # (Auto) 0.55 (0.11-0.59) K/uL Eos # (Auto) 0.34 (0-0.5) K/uL Baso # (Auto) 0.02 (0-0.2) K/uL Immature Gran # (Auto) 0.01 (0.00-0.02) K/uL PT (9.0-12.0) Seconds INR (0.9-1.1) APTT (21.0-31.0) Seconds PTT Ratio Sodium 137 (136-145) mmol/L Potassium 4.4 (3.5-5.1) mmol/L Chloride 107 (98-107) mmol/L Carbon Dioxide 28 (21-32) mmol/L Anion Gap 2 L (3-11) BUN 14 (6-23) mg/dl Creatinine 0.85 (0.6-1.4) mg/dl Est Cr Clr Drug Dosing 81.6 ml/min Est GFR ( Amer) 104.5 ml/min Est GFR (Non-Af Amer) 90.2 ml/min BUN/Creatinine Ratio 16.5 (10-20) Glucose 85 (70-99(Fasting)) mg/dl Osmolality (280-300) mOsm/kg Calcium 8.4 L (8.5-10.1) mg/dl Total Bilirubin 0.9 (0.2-1.0) mg/dl Direct Bilirubin (0-0.2) mg/dl AST 18 (13-39) U/L ALT 18 (7-52) U/L Alkaline Phosphatase 68 (34-104) U/L Total Protein 5.6 L D (6.0-8.3) gm/dl Albumin 3.5 (3.4-5.0) gm/dl Globulin 2.1 L (2.5-4.0) gm/dl Albumin/Globulin Ratio 1.7 (0.9-2) Lipase 108 H (11-82) U/L Urine Color Urine Appearance (Clear) Urine pH (4.5-7.5) Ur Specific [place] (1.000-1.030) Urine Protein (Negative) Urine Glucose (UA) (Negative) Urine Ketones (Negative) Urine Blood (Negative) Urine Nitrite (Negative) Urine Bilirubin (Negative) Urine Urobilinogen (Negative) Ur Leukocyte Esterase (Negative) Urine WBC (Auto) (0-5) /hpf Urine RBC (Auto) (0-4) /hpf U Hyaline Cast (Auto) (0-5) /lpf U Epithel Cells (Auto) (0-5) /lpf Urine Bacteria (Auto) (Negative) Urine Osmolality (500-800) mOsm/kg Ur Random Sodium mmol/L Hepatitis C Ab (EIA) Pending Hep C Ab Signal/Cutoff Pending SARS-CoV-2, RNA, NAAT (NEGATIVE) Ref Lab Test Result 01/20/22 01/20/22 01/20/22 Range/Units 13:38 11:39 10:48 WBC (4.8-10.8) K/uL RBC (4.7-6.1) M/uL Hgb (14.0-18.0) g/dL Hct (42-52) % MCV (80-100) fL MCH (25-34) pg MCHC (32-36) g/dL RDW Std Deviation (36.4-46.3) fL RDW Coeff of Marline (11.5-14.5) % Plt Count (130-400) K/uL MPV (7.4-10.4) fL Immature Gran % (Auto) % Neut % (Auto) % Lymph % (Auto) % [place] % (Auto) % Eos % (Auto) % Baso % (Auto) % Neut # (Auto) (1.4-6.5) K/uL Lymph # (Auto) (1.2-3.4) K/uL [place] # (Auto) (0.11-0.59) K/uL Eos # (Auto) (0-0.5) K/uL Baso # (Auto) (0-0.2) K/uL Immature Gran # (Auto) (0.00-0.02) K/uL PT (9.0-12.0) Seconds INR (0.9-1.1) APTT (21.0-31.0) Seconds PTT Ratio Sodium (136-145) mmol/L Potassium (3.5-5.1) mmol/L Chloride (98-107) mmol/L Carbon Dioxide (21-32) mmol/L Anion Gap (3-11) BUN (6-23) mg/dl Creatinine (0.6-1.4) mg/dl Est Cr Clr Drug Dosing ml/min Est GFR ( Amer) ml/min Est GFR (Non-Af Amer) ml/min BUN/Creatinine Ratio (10-20) Glucose (70-99(Fasting)) mg/dl Osmolality (280-300) mOsm/kg Calcium (8.5-10.1) mg/dl Total Bilirubin (0.2-1.0) mg/dl Direct Bilirubin (0-0.2) mg/dl AST (13-39) U/L ALT (7-52) U/L Alkaline Phosphatase (34-104) U/L Total Protein (6.0-8.3) gm/dl Albumin (3.4-5.0) gm/dl Globulin (2.5-4.0) gm/dl Albumin/Globulin Ratio (0.9-2) Lipase (11-82) U/L Urine Color Urine Appearance (Clear) Urine pH (4.5-7.5) Ur Specific [place] (1.000-1.030) Urine Protein (Negative) Urine Glucose (UA) (Negative) Urine Ketones (Negative) Urine Blood (Negative) Urine Nitrite (Negative) Urine Bilirubin (Negative) Urine Urobilinogen (Negative) Ur Leukocyte Esterase (Negative) Urine WBC (Auto) (0-5) /hpf Urine RBC (Auto) (0-4) /hpf U Hyaline Cast (Auto) (0-5) /lpf U Epithel Cells (Auto) (0-5) /lpf Urine Bacteria (Auto) (Negative) Urine Osmolality (500-800) mOsm/kg Ur Random Sodium mmol/L Hepatitis C Ab (EIA) Hep C Ab Signal/Cutoff SARS-CoV-2, RNA, NAAT NEGATIVE (NEGATIVE) Ref Lab Test Result Pending Pending 01/20/22 01/20/22 01/20/22 Range/Units 10:48 10:48 10:48 WBC (4.8-10.8) K/uL RBC (4.7-6.1) M/uL Hgb (14.0-18.0) g/dL Hct (42-52) % MCV (80-100) fL MCH (25-34) pg MCHC (32-36) g/dL RDW Std Deviation (36.4-46.3) fL RDW Coeff of Marline (11.5-14.5) % Plt Count (130-400) K/uL MPV (7.4-10.4) fL Immature Gran % (Auto) % Neut % (Auto) % Lymph % (Auto) % [place] % (Auto) % Eos % (Auto) % Baso % (Auto) % Neut # (Auto) (1.4-6.5) K/uL Lymph # (Auto) (1.2-3.4) K/uL [place] # (Auto) (0.11-0.59) K/uL Eos # (Auto) (0-0.5) K/uL Baso # (Auto) (0-0.2) K/uL Immature Gran # (Auto) (0.00-0.02) K/uL PT (9.0-12.0) Seconds INR (0.9-1.1) APTT (21.0-31.0) Seconds PTT Ratio Sodium (136-145) mmol/L Potassium (3.5-5.1) mmol/L Chloride (98-107) mmol/L Carbon Dioxide (21-32) mmol/L Anion Gap (3-11) BUN (6-23) mg/dl Creatinine (0.6-1.4) mg/dl Est Cr Clr Drug Dosing ml/min Est GFR ( Amer) ml/min Est GFR (Non-Af Amer) ml/min BUN/Creatinine Ratio (10-20) Glucose (70-99(Fasting)) mg/dl Osmolality (280-300) mOsm/kg Calcium (8.5-10.1) mg/dl Total Bilirubin (0.2-1.0) mg/dl Direct Bilirubin (0-0.2) mg/dl AST (13-39) U/L ALT (7-52) U/L Alkaline Phosphatase (34-104) U/L Total Protein (6.0-8.3) gm/dl Albumin (3.4-5.0) gm/dl Globulin (2.5-4.0) gm/dl Albumin/Globulin Ratio (0.9-2) Lipase (11-82) U/L Urine Color Yellow Urine Appearance Clear (Clear) Urine pH 7.0 (4.5-7.5) Ur Specific [place] 1.006 (1.000-1.030) Urine Protein Negative (Negative) Urine Glucose (UA) Negative (Negative) Urine Ketones Negative (Negative) Urine Blood Negative (Negative) Urine Nitrite Negative (Negative) Urine Bilirubin Negative (Negative) Urine Urobilinogen Negative (Negative) Ur Leukocyte Esterase Trace H (Negative) Urine WBC (Auto) 0 (0-5) /hpf Urine RBC (Auto) 0-4 (0-4) /hpf U Hyaline Cast (Auto) 0 (0-5) /lpf U Epithel Cells (Auto) 0-5 (0-5) /lpf Urine Bacteria (Auto) Negative (Negative) Urine Osmolality 212 L (500-800) mOsm/kg Ur Random Sodium 29 mmol/L Hepatitis C Ab (EIA) Hep C Ab Signal/Cutoff SARS-CoV-2, RNA, NAAT (NEGATIVE) Ref Lab Test Result 01/20/22 01/20/22 01/20/22 Range/Units 09:30 09:30 09:30 WBC (4.8-10.8) K/uL RBC (4.7-6.1) M/uL Hgb (14.0-18.0) g/dL Hct (42-52) % MCV (80-100) fL MCH (25-34) pg MCHC (32-36) g/dL RDW Std Deviation (36.4-46.3) fL RDW Coeff of Marline (11.5-14.5) % Plt Count (130-400) K/uL MPV (7.4-10.4) fL Immature Gran % (Auto) % Neut % (Auto) % Lymph % (Auto) % [place] % (Auto) % Eos % (Auto) % Baso % (Auto) % Neut # (Auto) (1.4-6.5) K/uL Lymph # (Auto) (1.2-3.4) K/uL [place] # (Auto) (0.11-0.59) K/uL Eos # (Auto) (0-0.5) K/uL Baso # (Auto) (0-0.2) K/uL Immature Gran # (Auto) (0.00-0.02) K/uL PT 10.4 (9.0-12.0) Seconds INR 1.0 (0.9-1.1) APTT 26.5 (21.0-31.0) Seconds PTT Ratio 1.0 Sodium 132 L (136-145) mmol/L Potassium 4.5 (3.5-5.1) mmol/L Chloride 100 (98-107) mmol/L Carbon Dioxide 27 (21-32) mmol/L Anion Gap 5 (3-11) BUN 16 (6-23) mg/dl Creatinine 0.94 (0.6-1.4) mg/dl Est Cr Clr Drug Dosing 73.8 ml/min Est GFR ( Amer) 96.8 ml/min Est GFR (Non-Af Amer) 83.6 ml/min BUN/Creatinine Ratio 17.0 (10-20) Glucose 92 (70-99(Fasting)) mg/dl Osmolality 282 (280-300) mOsm/kg Calcium 9.1 (8.5-10.1) mg/dl Total Bilirubin 0.7 (0.2-1.0) mg/dl Direct Bilirubin 0.1 (0-0.2) mg/dl AST 22 (13-39) U/L ALT 25 (7-52) U/L Alkaline Phosphatase 77 (34-104) U/L Total Protein 7.1 (6.0-8.3) gm/dl Albumin 4.3 (3.4-5.0) gm/dl Globulin (2.5-4.0) gm/dl Albumin/Globulin Ratio (0.9-2) Lipase 1022 H (11-82) U/L Urine Color Urine Appearance (Clear) Urine pH (4.5-7.5) Ur Specific [place] (1.000-1.030) Urine Protein (Negative) Urine Glucose (UA) (Negative) Urine Ketones (Negative) Urine Blood (Negative) Urine Nitrite (Negative) Urine Bilirubin (Negative) Urine Urobilinogen (Negative) Ur Leukocyte Esterase (Negative) Urine WBC (Auto) (0-5) /hpf Urine RBC (Auto) (0-4) /hpf U Hyaline Cast (Auto) (0-5) /lpf U Epithel Cells (Auto) (0-5) /lpf Urine Bacteria (Auto) (Negative) Urine Osmolality (500-800) mOsm/kg Ur Random Sodium mmol/L Hepatitis C Ab (EIA) Hep C Ab Signal/Cutoff SARS-CoV-2, RNA, NAAT (NEGATIVE) Ref Lab Test Result 01/20/22 Range/Units 09:30 WBC 6.50 (4.8-10.8) K/uL RBC 4.08 L (4.7-6.1) M/uL Hgb 13.2 L (14.0-18.0) g/dL Hct 37.6 L (42-52) % MCV 92.2 (80-100) fL MCH 32.4 (25-34) pg MCHC 35.1 (32-36) g/dL RDW Std Deviation 49.8 H (36.4-46.3) fL RDW Coeff of Marline 14.6 H (11.5-14.5) % Plt Count 233 (130-400) K/uL MPV 9.6 (7.4-10.4) fL Immature Gran % (Auto) 0.2 % Neut % (Auto) 69.9 % Lymph % (Auto) 18.0 % [place] % (Auto) 8.6 % Eos % (Auto) 3.1 % Baso % (Auto) 0.2 % Neut # (Auto) 4.55 (1.4-6.5) K/uL Lymph # (Auto) 1.17 L (1.2-3.4) K/uL [place] # (Auto) 0.56 (0.11-0.59) K/uL Eos # (Auto) 0.20 (0-0.5) K/uL Baso # (Auto) 0.01 (0-0.2) K/uL Immature Gran # (Auto) 0.01 (0.00-0.02) K/uL PT (9.0-12.0) Seconds INR (0.9-1.1) APTT (21.0-31.0) Seconds PTT Ratio Sodium (136-145) mmol/L Potassium (3.5-5.1) mmol/L Chloride (98-107) mmol/L Carbon Dioxide (21-32) mmol/L Anion Gap (3-11) BUN (6-23) mg/dl Creatinine (0.6-1.4) mg/dl Est Cr Clr Drug Dosing ml/min Est GFR ( Amer) ml/min Est GFR (Non-Af Amer) ml/min BUN/Creatinine Ratio (10-20) Glucose (70-99(Fasting)) mg/dl Osmolality (280-300) mOsm/kg Calcium (8.5-10.1) mg/dl Total Bilirubin (0.2-1.0) mg/dl Direct Bilirubin (0-0.2) mg/dl AST (13-39) U/L ALT (7-52) U/L Alkaline Phosphatase (34-104) U/L Total Protein (6.0-8.3) gm/dl Albumin (3.4-5.0) gm/dl Globulin (2.5-4.0) gm/dl Albumin/Globulin Ratio (0.9-2) Lipase (11-82) U/L Urine Color Urine Appearance (Clear) Urine pH (4.5-7.5) Ur Specific [place] (1.000-1.030) Urine Protein (Negative) Urine Glucose (UA) (Negative) Urine Ketones (Negative) Urine Blood (Negative) Urine Nitrite (Negative) Urine Bilirubin (Negative) Urine Urobilinogen (Negative) Ur Leukocyte Esterase (Negative) Urine WBC (Auto) (0-5) /hpf Urine RBC (Auto) (0-4) /hpf U Hyaline Cast (Auto) (0-5) /lpf U Epithel Cells (Auto) (0-5) /lpf Urine Bacteria (Auto) (Negative) Urine Osmolality (500-800) mOsm/kg Ur Random Sodium mmol/L Hepatitis C Ab (EIA) Hep C Ab Signal/Cutoff SARS-CoV-2, RNA, NAAT (NEGATIVE) Ref Lab Test Result PG Care Time/CCT Total # of Minutes Spent Total Time Spent with Patient: Total time spent is greater than 50% in coordination of care (as documented) at patient's floor/unit and/or counseling patient: Coding Diagnoses Pancreatitis K85.20 Acute pancreatitis complication: no infection or necrosis Chronicity: acute Pancreatitis type: alcohol induced Hyponatremia E87.1 HTN (hypertension) I10 Esophageal dysphagia R13.10 Hypothyroidism, postablative E89.0 Hyperlipidemia E78.5 BPH (benign prostatic hyperplasia) N40.0 Insomnia G47.00 (1) Pancreatitis Acute pancreatitis complication: no infection or necrosis Chronicity: acute Pancreatitis type: alcohol induced Qualified Code(s): K85.20 - Alcohol induced acute pancreatitis without necrosis or infection
[2022-01-21] MEDS ORDERED: FAMOTIDINE 20 MG in SYRINGE 3 ML IV SCH (09:00)
--- NOTE | 2022-01-21 10:46 | Discharge Summary ---
Date of Service January 21, 2022 Admission HPI Per Admitting Provider Mr. Harris is a 66-year-old male with a past medical history significant for hypertension, hyperlipidemia, hypothyroidism, and esophageal dysphagia who presents today with abdominal pain since last evening. Patient states he does not regularly consume alcohol but last night given the holiday had two Greta pineapple mixed drinks with a vegetable spaghetti covered in chili sauce. Around 7:30 PM he began experiencing some epigastric pain, but later became quite diffuse and crampy throughout his abdomen, without radiation to back or chest. He was unable to get much sleep due to the pain, however has not been n auseous or vomiting at home. No change to bowel movements. He is s/p cholecystectomy. He was admitted 8 months ago for pancreatitis, at this time his lipase was 12,000 and was suspected this was alcohol induced; lipid panels, calcium, LFTs wnl on that admission, no complications. Recovered over 3 days with IVF, pain control. In ED, vital signs within normal stable. Labs significant for lipase 1022, sodium 132, hemoglobin 13.2 (baseline). Chest/abdominal XR without acute cardiopulmonary abnormality, with non-obstructed abdominal bowel gas pattern. Admission Exam Per Admitting Provider General: awake, alert, no apparent distress Head: Normocephalic, atraumatic ENT: PERRL, EOMI, no pharyngeal exudate, mucous membranes moist Chest: Clear to auscultation, on room air, no adventitious breath sounds Cardiac: Regular rate and rhythm, no murmur, no JVD, normal peripheral pulses, good capillary refill Abdominal: NABS x 4 quadrants, soft, nontender to palpation, no rebound, guarding or tenderness Extremities: Normal inspection, no peripheral edema or erythema, calfs nontender to palpation Psych: Normal mood and affect Neuro: AAO x 3, strength intact bilaterally and rated 5/5, no motor deficits, speech is clear, no peripheral sensory deficits Skin: no rash or erythema Principal Diagnosis Pancreatitis Discharge Exam General: WN/WD, resting comfortably in bed, NAD HEENT: head atraumatic, normocephalic, pupils equal and reactive, EOMI, trachea midline without deviation Resp: CTAB, no w/c/r, on room air CV: bradycardic (rate 52bpm), no m/r/g, no edema, cap refill wnl GI: +BS, soft, nontender MSK/Neuro: moves all extremities, strength equal throughout follows commands, CN intact grossly, no focal deficit Psych: alert, oriented x 4, cooperative Discharge Data Allergies Allergy/AdvReac Type Severity Reaction Status Date / Time No Known Drug Allergies Allergy Unknown Verified 01/20/22 09:55 Consultations 01/20/22 10:45 ED Decision to Admit Stat Ordered Studies Chest/Abdomen X-ray 01/20/22 09:23 PA CHEST WITH ABDOMINAL SERIES CLINICAL HISTORY: Generalized abdominal pain FINDINGS: A PA chest radiograph is compared to study dated 05/18/2021. The heart is top normal for projection noting atherosclerotic calcification of the thoracic aorta. Nonspecific interstitial thickening is likely chronic. There is bibasilar scarring/atelectasis. No airspace consolidation or large pleural effusion is identified. No pneumothorax is seen. The bony thorax is grossly intact. Supine and erect abdominal radiographs compared to study dated 05/18/2021 and correlated with abdominal CT dated 10/24/2021. Cholecystectomy clips are noted in the right upper quadrant. There is a nonobstructed abdominal bowel gas pattern. Mild fecal retention is seen throughout the colon. No evidence of intraperitoneal free air is seen. There are no abnormal abdominal calcifications. Numerous phleboliths are seen in the pelvis. The lumbosacral spine and bony pelvis appear intact. IMPRESSION: 1. No acute cardiopulmonary abnormality. 2. Nonobstructed abdominal bowel gas pattern. ACT 112: Negative or not required by law. Electronically signed by: Lauro Hills M.D. 01/20/2022 10:51 AM Hospital Course (1) Pancreatitis: Suspect 2/2 alcohol intake since symptoms began shortly after consuming two smirnoff drinks. LFT wnl, Ca 9.1. s/p cholecystectomy. triglycerides recently done as an outpatient, not significantly elevated. Does also occasionally use ibuprofen -- educated to abstain IVF provided, pain control, antiemetics prn Lipase normalized from >1000 to 105 on repeat and denied any abdominal pain Advanced diet without issue and felt stable for discharge To abstain from all alcohol at discharge as well as NSAIDs (reports takes occasionally, and instructed to utilize Tylenol prn) (2) Hyponatremia: Na 132 on admit, likely 2nd to alcohol use/poor PO intake IVF provided, normalized on repeat but urine osm sent low TSH wnl (3) HTN (hypertension): Held losartan while NPO and given IVF BP stable and resumed home medications at discharge tomorrow (4) Esophageal dysphagia: Continued Protonix, famotidine No issues reported, can have outpatient follow up for achalasia and was working on POEM procedure with PCP/GI (5) Hypothyroidism, postablative: Held usual synthroid while NPO -- resumed his home medication this morning is s/p throidectomy TSH wnl on repeat (6) Hyperlipidemia: Held statin while NPO, resumed at discharge (7) BPH (benign prostatic hyperplasia): No acute issues. Currently being followed as outpt by urology, previously on Flomax but no longer taking. (8) Insomnia: On trazodone at home SCDs for DVT prophylaxis Lots of ambulation noted Total Time Total Time Spent Total Time Spent (In Minutes): 50 Discharge Plan Discharge Items Patient Disposition: Home - Self-Care Reason For Visit: ALCOHOL PANCREATITIS Discharge Diagnosis: Pancreatitis Goals: You have been hospitalized for an acute medical problem. During your stay at [facility], we have made an effort to correct the problem that brought you to the hospital while keeping you as comfortable as possible. Medications were used to bring your condition under control and your discharge instructions will include directions for any medications you should take after leaving the hospital. Please make sure you see your Primary Care Provider as part of your follow up plan. Activity: Resume your previous activity Non-emergency contact: Primary Care Provider Call non-emergency contact if: you have any medication questions, your symptoms worsen, your pain is not controlled and you have a fever Follow-up/Referrals: Sue Gallegos, [Primary Care Provider] - Diet: Low Fat Addtl Attending Provider Instructions: You have been hospitalized for pancreatitis. This is thought to be related to alcohol use as similar episode occurred after drinking last year. You were treated with bowel rest, pain control, and IV fluids. It is recommended that you AVOID alcohol to prevent recurrence of this, and if this occurs, would recommend you having referral from your PCP to Gastroenterology provider. You should also avoid NSAIDs (ibuprofen, aleve, naproxen) for the time being and utilize tylenol for pain control, as sometimes these medications can cause a pancreatitis. Continue a LOW FAT diet for next ten days, then advance as tolerated. Please continue to stay well hydrated. Follow up with your PCP in the next 7-10 days. Please return to the ER with any worsening pain, inability to keep up with oral intake, or for any other symptoms that are concerning for you. Take care! Pending Studies at Discharge: Yes Studies:: Hepatitis C panel Stand-Alone Forms: My [facility], Smoking Cessation Medications and DC Order Prescriptions: Continued trazodone 150 mg tablet 150 mg PO HS PRN (Reason: Sleep) Qty: 30 RF: 5 famotidine 40 mg tablet 40 mg PO HS Qty: 90 RF: 2 omega-3 acid ethyl esters 1 gram capsule 1 cap PO QAM RF: 0 multivitamin Tablet 1 tab PO QAM RF: 0 levothyroxine 175 mcg tablet 175 mcg PO DAILYBB RF: 0 atorvastatin 20 mg tablet 20 mg PO QAM RF: 0 pantoprazole [Protonix] 40 mg tablet,delayed release (DR/EC) 40 mg PO QDD RF: 0 losartan 100 mg tablet 100 mg PO QAM RF: 0 Discontinued ibuprofen 200 mg Tablet 200 mg PO Q6H PRN (Reason: Pain) RF: 0 Discharge Orders: Discharge Order (Routine); Ordered 01/21/22 Ordered By: Petra Aquino Admission Data Admit Date/Time: 01/20/22 12:57 Attending Provider: Andrei Matias Admit Provider: Eneida Cuenca Primary Care Provider: Sue Gallegos Other Providers: Andrei Macdonald Other Interventions: Discharge Summary Assessment (RN) Last Done: 01/21/22 14:11 Coding Level of Care Code 34734 OBS Care - Discharge Diagnoses Pancreatitis K85.20 Acute pancreatitis complication: no infection or necrosis Chronicity: acute Pancreatitis type: alcohol induced Hyponatremia E87.1 HTN (hypertension) I10 Esophageal dysphagia R13.10 Hypothyroidism, postablative E89.0 Hyperlipidemia E78.5 BPH (benign prostatic hyperplasia) N40.0 Insomnia G47.00
[2022-01-21] MEDS ORDERED: PANTOprazole 40 MG in SYRINGE 0 ML IV SCH (11:00)
[2022-01-22] MEDS ORDERED: LEVOTHYROXINE SODIUM 87.5 MCG in SYRINGE 0 ML IV SCH (09:00)
== END 2022-01-21 14:57 | disposition home or self-care (01) ==
LOC: ED 09:00 → INTOOBSV 12:57 → 3W 12:57 → SUATTDRO 12:57 → 3W 14:10

== ENCOUNTER 2023-06-20 18:20 | Inpatient (IN) ==
--- NOTE | 2023-06-20 18:31 | ED Triage Note ---
Date of Service June 20, 2023 History of Present Illness This patient was briefly evaluated while in triage. An abbreviated physical exam was performed. This patient is a 67-year-old Male who presents to the ED for evaluation of abdominal pain. He states he has been here multiple times for abdominal pain. He states pain started 2 weeks ago but he is now having severe pain today. He denies nausea or vomiting. Physical Exam VITALS: Vitals are noted on the nurse's note and reviewed by myself. GENERAL: This is a 67-year-old male, agitated, sitting upright in triage. SKIN: The skin was without rashes. HEART: Regular rate and rhythm without murmurs gallops or rubs. LUNGS: Clear to auscultation bilaterally without wheezes, rales or rhonchi. ABDOMEN: Positive bowel sounds x 4. Soft, generalized tenderness to palpation. No guarding or rebound tenderness. NEURO: Patient was alert and oriented to person place and time. Initial orders for labs and / or imaging were placed and patient was placed in the waiting area until a bed is available. Please see further documentation for the full ED course.
[2023-06-20] MEDS ORDERED: KETOROLAC TROMETHAMINE 15 MG/ML VIAL IV STA (18:32)
[2023-06-20] MEDS ORDERED: SODIUM CHLORIDE 0.9% 1,000 ML IV ONE ×2 (18:32→22:19)
[2023-06-20] MEDS ORDERED: ONDANSETRON INJ 2 MG/ML 2 ML VIAL ONE (18:52)
[2023-06-20 19:01] LABS: Basophils # (auto) 0.03 K/uL (0.00-0.20); Basophils % (auto) 0.3 %; Eosinophils # (auto) 0.15 K/uL (0.00-0.50); Eosinophils % (auto) 1.5 %; Hemoglobin 13.6 g/dl (14.0-18.0); Immature Granulocytes # (auto) 0.04 K/uL (0.01-0.20); Immature Granulocytes % (auto) 0.4 %; Lymphocytes % (auto) 19.3 %; Mean Corpuscular Hemoglobin 30.3 pg (25.0-34.0); Mean Corpuscular Hgb Conc 33.2 g/dL (32.0-36.0); Mean Corpuscular Volume 91.3 fL (80.0-100.0); Mean Platelet Volume 9.3 fL (9.4-12.4); Monocytes # (auto) 0.58 K/uL (0.11-0.59); Monocytes % (auto) 5.9 %; Neutrophils # (auto) 7.13 K/uL (1.40-6.50); Neutrophils % (auto) 72.6 %; Platelet Count 198 K/uL (130-400); RDW Coefficient of Variation 13.4 % (11.5-14.5); RDW Standard Deviation 45.6 fL (36.4-46.3); Red Blood Count 4.49 M/uL (4.70-6.10); White Blood Count 9.83 K/ul (4.8-10.8)
[2023-06-20 19:19] LABS: Anion Gap 5 (3-11); BUN Creatinine Ratio 20.2 (10-20); Blood Urea Nitrogen 20 mg/dl (6-23); Calcium 9.5 mg/dl (8.6-10.3); Carbon Dioxide 27 mmol/L (21-32); Chloride 105 mmol/L (98-107); Est GFR (African American) 90.3 ml/min; Est GFR (Non-African American) 77.9 ml/min; Glucose 119 mg/dl (70-99(Fasting)); Potassium 3.9 mmol/L (3.5-5.1); Sodium 137 mmol/L (136-145)
[2023-06-20 19:27] LABS: Alanine Aminotransferase 34 U/L (7-52); Albumin Globulin Ratio 1.4 (0.9-2); Albumin Level 4.2 gm/dl (3.4-5.0); Alkaline Phosphatase 90 U/L (34-104); Aspartate Aminotransferase 24 U/L (13-39); Bilirubin,Total 0.8 mg/dl (0.2-1.0); Globulin 2.9 gm/dl (2.5-4.0); Total Protein 7.1 gm/dl (6.0-8.3)
--- NOTE | 2023-06-20 19:53 | Emergency Department Note ---
Impression & Plan Recurrent acute pancreatitis ED Provider Note CHIEF COMPLAINT: Abdominal pain HISTORY OF PRESENTING ILLNESS: This 67-year-old male patient presents to the emergency department for evaluation of sharp and severe abdominal and flank pain for the past 2 weeks. The symptoms were intermittent until this morning when the symptoms became constant and more severe. He had an outpatient CT scan set up for June, but he does not feel that he can wait that long. The pain is all over his abdomen and radiates to his back. Has a history of 2 previous episodes of pancreatitis and is concerned he may have that again. Took Tums and Pepto-Bismol without improvement. Denies chest pain or SOB. Mild nausea, but no vomiting. No fevers. Denies urinary symptoms or problems with his BMs. His first two episode of pancreatitis were due to alcohol use. He states that he has not had any ETOH in the past 2-3 years. He denies any pain medication or opioid use in the past 2 years. No new medications or changes in his medications recently. He has a history of hyperlipidemia, but he thinks his recent blood work looked OK. He cannot figure out any trigger for his symptoms at this time. REVIEW OF SYSTEMS: See HPI for pertinent positives and pertinent negatives. ALLERGIES: NKDA MEDICATIONS: See below PAST MEDICAL HISTORY: See below PHYSICAL EXAM: VITALS: Vitals are noted on the nurse's note and reviewed by myself. GENERAL: Non toxic, no acute distress, non-diaphoretic. SKIN: Capillary refill <2 sec. EYES: PERRLA. EOMI. Conjunctivae without injection, sclerae without icterus. NOSE: Patent without discharge. MOUTH: Mucous membranes moist. Uvula midline. Airway patent. NECK: Supple without nuchal rigidity. HEART: Regular rate and rhythm without murmurs gallops or rubs. LUNGS: Clear to auscultation bilaterally without wheezes, rales or rhonchi. No retractions or accessory muscle use. ABDOMEN: Positive bowel sounds x 4. Normal tympanic percussion. Soft, diffusely tender to palpation with no maximal area of tenderness. No masses or organomegaly. No CVA tenderness. Alarcon sign negative. No guarding or rebound tenderness. No focal RLQ or LLQ tenderness. MUSCULOSKELETAL: No gross musculoskeletal defects. NEURO: Patient was alert and oriented. No focal neurological deficits. DIFFERENTIAL DIAGNOSIS: Differential diagnosis includes hepatitis, pancreatitis, cholecystitis, cholelithiasis, appendicitis, kidney stone, pyelonephritis, UTI, gastritis, gastroenteritis, mesenteric adenitis, obstruction, constipation, hernia, abdominal abscess, perforation, divert iculitis, IBD, ischemic colitis, abdominal aortic aneurysm, testicular torsion, prostatitis, or others. ED COURSE AND MEDICAL DECISION MAKING: MONITOR: Continuous property assessment monitor: Order was placed for continuous property assessment monitor. Patient was placed on the property assessment monitor and continuous pulse ox. Patient was noted to be in normal sinus rhythm at an initial rate of 60 bpm per my interpretation. EKG: EKG was interpreted by myself as normal sinus rhythm at 61 bpm with no acute ST or T wave changes and no significant change from his previous EKG. MEDICATIONS GIVEN: 1 L normal saline solution bolus. Toradol 15 mg IV, morphine 4 mg IV x2, Zofran 4 mg IV, Protonix 40 mg IV, Pepcid 20 mg IV. INTERPRETATION OF LABS: I interpreted the labs with full lab results as below in the lab section of this note. White blood cell count normal at 9.83. Hemoglobin slightly low, but stable at 13.6. Platelet count is normal. Glucose elevated 119, but CMP otherwise normal. High-sensitivity troponin initially elevated at 20.4, but 2-hour repeat was normal at 17.6. Lipase was significantly elevated at 12,650. Amylase significantly elevated at 1724. Urinalysis was negative. Medical alcohol was negative. INTERPRETATION OF IMAGING: Imaging studies were interpreted by myself and read by radiology as per the imaging section of this note. Chest x-ray negative for acute cardiopulmonary etiology. CT scan of the abdomen pelvis with IV contrast shows peripancreatic fluid which is compatible with acute pancreatitis. There is prominence of the lopez of the distal stomach and duodenum which may be secondary to gastritis and duodenitis versus reactive inflammatory changes from pancreatitis versus under distention. CONSULTATIONS: On-call hospitalist MDM SUMMARY: Due to abnormally long wait times, I initially evaluated the patient in a triage room, but then reevaluated the patient once he was taken back to room. An IV lock was placed and labs were drawn. The patient was hydrated and medicated as above. Laboratory studies and CT scan results were consistent with acute pancreatitis. He has a history of 2 previous episodes of pancreatitis that were triggered by alcohol. The patient denies any alcohol use in the past couple of years. No known trigger for his pancreatitis at this time. I had a meaningful discussion about this patient with Dr. Zazueta who agrees with my assessment and the treatment plan. The patient will require admission for further medical management of his pancreatitis. I spoke with the on-call hospitalist who agreed to admit the patient for further treatment. Please refer to their dictation for further details. The patient's care was transferred in stable condition. DIAGNOSIS: Acute pancreatitis Past Med/Surg History Medical History (Updated 06/21/23 @ 02:55 by Laquita Conklin PA-C) Acute pancreatitis (04/2021) hx-"has subsided since quit drinking alcohol" Anxiety and depression Constipation due to opioid therapy Degenerative disc disease at L5-S1 level Enlarged prostate with lower urinary tract symptoms (LUTS) Environmental allergies Gastritis History of COVID-19 08/2022, tested at clinic near home, not hosp; "didn't feel right in his head," cold all the time>resolved HTN (hypertension) Hyperlipidemia Hypothyroidism Insomnia Irritable bowel syndrome Laryngopharyngeal reflux Multiple thyroid nodules HX Nutcracker esophagus s/p POEM Osteoarthritis Prediabetes Restless leg syndrome Sensorineural hearing loss (SNHL) of both ears Surgical History History of cholecystectomy History of colonoscopy History of esophagogastroduodenoscopy (EGD) (07/2018) History of facial surgery History of oral surgery History of thyroidectomy, subtotal (2014) History of tooth extraction Nausea and vomiting after administration of anesthetic agent "rare now, has not happened recently with procedures" S/P hemorrhoidectomy (05/30/21) Family History Mother Family history of diabetes mellitus Heart murmur Brother Diabetes Family history of diabetes mellitus Arthritis Father Prostate cancer Arthritis Other No family history of adverse response to anesthesia Denies family history of Ovarian cancer Myocardial infarction Breast cancer Colorectal cancer Social History Smoking Status: Never smoker Tobacco Type: Cigars Age Started Using Tobacco: 15; Age Quit Using Tobacco: 49; Second Hand Exposure: No; Do You Dip or Chew Tobacco: No; Hx Alcohol Use: No Hx Substance Use: No Preferred Language: Namibian Communication Ability: Effective Visual Impairment: No Limitations Hearing Ability: Hard of Hearing Environmental Educator Required: 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 Feels Safe at Home: Yes Childhood Exposure to Second-Hand Smoke: No Diet: regular caffeine: Yes (Coffee x 1 per day.) during the past year weight has: remained stable Dental Care, Regularly: Yes Physical Activity Frequency: 3-4 Times per Week Seatbelt Use: always Sunscreen Use: No Assistive Devices: Other Allergies Allergies Allergy/AdvReac Type Severity Reaction Status Date / Time No Known Drug Allergies Allergy Unknown Verified 06/20/23 23:31 Home Meds Home Medications Medication Instructions Recorded Confirmed multivitamin 1 tab PO QAM 07/14/18 06/20/23 omega-3 acid ethyl esters 1 gram 1 cap PO QAM 03/30/19 06/20/23 capsule diclofenac sodium 1 % topical gel 2 g topical QID PRN Pain 06/20/23 06/20/23 (Voltaren Arthritis Pain) Previous Rx's Medication Instructions Recorded losartan 100 mg tablet 100 mg PO QAM #90 tabs 11/07/22 levothyroxine 175 mcg tablet 175 mcg PO QAM #90 tabs 11/27/22 atorvastatin 20 mg tablet 20 mg PO QAM #90 tabs 01/31/23 sildenafil (pulm.hypertension) 20 20 mg PO DAILY PRN sexual activity 02/26/23 mg tablet #20 tabs trazodone 100 mg tablet 200 mg PO HS PRN Sleep #180 tabs 04/22/23 famotidine 40 mg tablet 40 mg PO BID #180 tabs 06/17/23 pantoprazole 40 mg tablet,delayed 40 mg PO BID #180 tabs 06/17/23 release (Protonix) Results & Data (ED) Vital Signs Vital Signs - 24 hr 06/20/23 18:27 06/20/23 20:49 06/20/23 21:22 Temperature 36.3 C L Temperature Source Temporal Artery Scan Pulse Rate 64 62 Pulse Rate [Apical] 59 L Respiratory Rate 20 17 Respiratory Depth Normal Blood Pressure 139/78 Blood Pressure [Right Arm] 130/80 Blood Pressure Mean 98 Blood Pressure Mean [Right Arm] 96 Blood Pressure Position Sitting Pulse Oximetry 100 99 Oxygen Delivery Method Room Air Sepsis Recent Fever Within 48 Hours No Sepsis New/Unexplained Change in Mental Status No Sepsis Action Taken by Nursing No Action Required 06/20/23 21:21 06/20/23 21:21 Temperature Temperature Source Pulse Rate Pulse Rate [Apical] 52 L Respiratory Rate 19 Respiratory Depth Blood Pressure Blood Pressure [Right Arm] 108/70 Blood Pressure Mean Blood Pressure Mean [Right Arm] 82 Blood Pressure Position Pulse Oximetry 96 Oxygen Delivery Method Room Air Sepsis Recent Fever Within 48 Hours Sepsis New/Unexplained Change in Mental Status Sepsis Action Taken by Nursing Laboratory Data 06/20/23 18:48 06/20/23 18:48 Lab Results 06/20/23 06/20/23 06/20/23 Range/Units 18:48 18:48 19:58 WBC 9.83 (4.8-10.8) K/ul RBC 4.49 L (4.70-6.10) M/uL Hgb 13.6 L (14.0-18.0) g/dl Hct 41.0 L (42.0-52.0) % MCV 91.3 (80.0-100.0) fL MCH 30.3 (25.0-34.0) pg MCHC 33.2 (32.0-36.0) g/dL RDW Std Deviation 45.6 (36.4-46.3) fL RDW Coeff of Marline 13.4 (11.5-14.5) % Plt Count 198 (130-400) K/uL MPV 9.3 L (9.4-12.4) fL Immature Gran % (Auto) 0.4 % Neut % (Auto) 72.6 % Lymph % (Auto) 19.3 % [place] % (Auto) 5.9 % Eos % (Auto) 1.5 % Baso % (Auto) 0.3 % Neut # (Auto) 7.13 H (1.40-6.50) K/uL Lymph # (Auto) 1.90 (1.20-3.40) K/uL [place] # (Auto) 0.58 (0.11-0.59) K/uL Eos # (Auto) 0.15 (0.00-0.50) K/uL Baso # (Auto) 0.03 (0.00-0.20) K/uL Immature Gran # (Auto) 0.04 (0.01-0.20) K/uL Sodium 137 (136-145) mmol/L Potassium 3.9 (3.5-5.1) mmol/L Chloride 105 (98-107) mmol/L Carbon Dioxide 27 (21-32) mmol/L Anion Gap 5 (3-11) BUN 20 (6-23) mg/dl Creatinine 0.99 (0.6-1.4) mg/dl Est Cr Clr Drug Dosing Not Reportable Est GFR ( Amer) 90.3 ml/min Est GFR (Non-Af Amer) 77.9 ml/min BUN/Creatinine Ratio 20.2 H (10-20) Glucose 119 H (70-99(Fasting)) mg/dl Calcium 9.5 (8.6-10.3) mg/dl Total Bilirubin 0.8 (0.2-1.0) mg/dl AST 24 (13-39) U/L ALT 34 (7-52) U/L Alkaline Phosphatase 90 (34-104) U/L Troponin I High Sens (0-20) pg/ml Total Protein 7.1 (6.0-8.3) gm/dl Albumin 4.2 (3.4-5.0) gm/dl Globulin 2.9 (2.5-4.0) gm/dl Albumin/Globulin Ratio 1.4 (0.9-2) Amylase (25-115) U/L Lipase 22058 H (11-82) U/L Urine Color Yellow Urine Appearance Clear (Clear) Urine pH 5.0 (4.5-7.5) Ur Specific [place] 1.016 (1.000-1.030) Urine Protein Negative (Negative) Urine Glucose (UA) Negative (Negative) Urine Ketones Negative (Negative) Urine Blood Negative (Negative) Urine Nitrite Negative (Negative) Urine Bilirubin Negative (Negative) Urine Urobilinogen Negative (Negative) Ur Leukocyte Esterase Negative (Negative) 06/20/23 06/20/23 Range/Units 20:53 20:53 WBC (4.8-10.8) K/ul RBC (4.70-6.10) M/uL Hgb (14.0-18.0) g/dl Hct (42.0-52.0) % MCV (80.0-100.0) fL MCH (25.0-34.0) pg MCHC (32.0-36.0) g/dL RDW Std Deviation (36.4-46.3) fL RDW Coeff of Marline (11.5-14.5) % Plt Count (130-400) K/uL MPV (9.4-12.4) fL Immature Gran % (Auto) % Neut % (Auto) % Lymph % (Auto) % [place] % (Auto) % Eos % (Auto) % Baso % (Auto) % Neut # (Auto) (1.40-6.50) K/uL Lymph # (Auto) (1.20-3.40) K/uL [place] # (Auto) (0.11-0.59) K/uL Eos # (Auto) (0.00-0.50) K/uL Baso # (Auto) (0.00-0.20) K/uL Immature Gran # (Auto) (0.01-0.20) K/uL Sodium (136-145) mmol/L Potassium (3.5-5.1) mmol/L Chloride (98-107) mmol/L Carbon Dioxide (21-32) mmol/L Anion Gap (3-11) BUN (6-23) mg/dl Creatinine (0.6-1.4) mg/dl Est Cr Clr Drug Dosing Est GFR ( Amer) ml/min Est GFR (Non-Af Amer) ml/min BUN/Creatinine Ratio (10-20) Glucose (70-99(Fasting)) mg/dl Calcium (8.6-10.3) mg/dl Total Bilirubin (0.2-1.0) mg/dl AST (13-39) U/L ALT (7-52) U/L Alkaline Phosphatase (34-104) U/L Troponin I High Sens 20.4 H (0-20) pg/ml Total Protein (6.0-8.3) gm/dl Albumin (3.4-5.0) gm/dl Globulin (2.5-4.0) gm/dl Albumin/Globulin Ratio (0.9-2) Amylase 1724 H (25-115) U/L Lipase (11-82) U/L Urine Color Urine Appearance (Clear) Urine pH (4.5-7.5) Ur Specific [place] (1.000-1.030) Urine Protein (Negative) Urine Glucose (UA) (Negative) Urine Ketones (Negative) Urine Blood (Negative) Urine Nitrite (Negative) Urine Bilirubin (Negative) Urine Urobilinogen (Negative) Ur Leukocyte Esterase (Negative) Administered Medications Morphine Sulfate (Morphine Sulfate 4 Mg/Ml 1 Ml Carp\\Vial) 4 mg IV Q3H PRN PRN Reason: Mod-Sev Pain (Scale 4-10) Stop: 07/05/23 01:01 Last Admin: 06/21/23 01:18 Dose: 4 mg Documented By: CATARINA Ondansetron HCl (Ondansetron Inj 2 Mg/Ml 2 Ml Vial) 4 mg IV Q6H PRN PRN Reason: Nausea Stop: 07/21/23 01:01 Last Admin: 06/21/23 01:18 Dose: 4 mg Documented By: CATARINA Discontinued Medications Sodium Chloride (Nss) 1,000 mls @ 999 mls/hr IV .Q1H1M ONE Stop: 06/20/23 19:32 Last Infusion: 06/20/23 22:03 Dose: 0 mls/hr Documented By: Admin: 06/20/23 20:46 Dose: 999 mls/hr Documented By: CATARINA Pantoprazole Sodium 40 mg/ (Syringe) 10 mls @ 5 mls/min IV NOW ONE Stop: 06/20/23 20:24 Last Admin: 06/20/23 22:28 Dose: 5 mls/min Documented By: CATARINA Famotidine (Pepcid 20mg Iv Push) 20 mg in 5 mls @ 2.5 mls/min IV NOW STA Stop: 06/20/23 20:24 Last Admin: 06/20/23 20:46 Dose: 2.5 mls/min Documented By: CATARINA Sodium Chloride (Nss) 1,000 mls @ 999 mls/hr IV .Q1H1M ONE Stop: 06/20/23 23:19 Last Infusion: 06/20/23 23:50 Dose: 0 mls/hr Documented By: Admin: 06/20/23 22:45 Dose: 999 mls/hr Documented By: CATARINA Ioversol (Optiray 320 100ml) 89 ml IV ONCE ONE Stop: 06/20/23 20:18 Last Admin: 06/20/23 20:18 Dose: 89 ml Documented By: KENZIE Ketorolac Tromethamine (Ketorolac Tromethamine 15 Mg/Ml Vial) 15 mg IV NOW STA Stop: 06/20/23 18:33 Last Admin: 06/20/23 18:55 Dose: 15 mg Documented By: MEGAN Morphine Sulfate (Morphine Sulfate 4 Mg/Ml 1 Ml Carp\\Vial) 4 mg IV NOW STA Stop: 06/20/23 19:58 Last Admin: 06/20/23 20:46 Dose: 4 mg Documented By: CATARINA Morphine Sulfate (Morphine Sulfate 4 Mg/Ml 1 Ml Carp\\Vial) 4 mg IV NOW STA Stop: 06/20/23 22:40 Last Admin: 06/20/23 22:43 Dose: 4 mg Documented By: CATARINA Morphine Sulfate (Morphine Sulfate 4 Mg/Ml 1 Ml Carp\\Vial) Confirm Administered Dose 4 mg .ROUTE .STK-MED ONE Stop: 06/21/23 01:10 Last Admin: 06/21/23 01:38 Dose: Not Given Documented By: CATARINA Ondansetron HCl (Ondansetron Inj 2 Mg/Ml 2 Ml Vial) Confirm Administered Dose 4 mg .ROUTE .STK-MED ONE Stop: 06/20/23 18:53 Last Admin: 06/20/23 18:55 Dose: 4 mg Documented By: MEGAN Ondansetron HCl (Ondansetron Inj 2 Mg/Ml 2 Ml Vial) Confirm Administered Dose 4 mg .ROUTE .STK-MED ONE Stop: 06/21/23 01:10 Last Admin: 06/21/23 01:38 Dose: Not Given Documented By: CATARINA Imaging Data Radiologist's Impression: Abdomen/Pelvis CT 06/20/23 18:33 Exam(s): CT ABDOMEN + PELVIS With Contrast IV Amt: 89ml EXAM: CT Abdomen and Pelvis With Intravenous Contrast CLINICAL HISTORY: Reason for exam: Abdominal pain. TECHNIQUE: Axial computed tomography images of the abdomen and pelvis with intravenous contrast. CTDI is 19.93 mGy and DLP is 933.53 mGy-cm. Automated exposure control was utilized for the study. A dose lowering technique was utilized adhering to the principles of ALARA. CONTRAST: Patient received 89ml of IV contrast COMPARISON: CT abdomen/pelvis on 10/24/2021 FINDINGS: Lung bases: Unremarkable. No mass. No consolidation. Mediastinum: Mild prominence of the wall of the distal esophagus is concerning for esophagitis. ABDOMEN: Liver: Unremarkable. No mass. Gallbladder and bile ducts: Prior cholecystectomy. Probable postcholecystectomy ductal ectasia. Pancreas: Prominence of the lopez of the distal stomach and duodenum may be secondary to gastritis and duodenitis versus reactive inflammatory changes from pancreatitis versus underdistention. Peripancreatic fluid is compatible with acute pancreatitis. Calcifications in the region of the pancreatic head may represent component of chronic pancreatitis. Spleen: Unremarkable. No splenomegaly. Adrenals: Unremarkable. No mass. Kidneys and ureters: Small left renal cyst. No hydronephrosis or obstructing stone. Stomach and bowel: Diverticulosis without evidence of diverticulitis. No small bowel obstruction. PELVIS: Appendix: Normal appendix. Bladder: Underdistended bladder limits evaluation. Reproductive: Calcifications of the prostate. ABDOMEN and PELVIS: Intraperitoneal space: Unremarkable. No free air. No significant fluid collection. Bones/joints: Degenerative changes of the spine. No acute fracture. No dislocation. Soft tissues: Unremarkable. Vasculature: Phleboliths in the pelvis. Atherosclerotic changes of the vasculature. No aortic aneurysm or dissection. Lymph nodes: Unremarkable. No enlarged lymph nodes. IMPRESSION: 1. Peripancreatic fluid is compatible with acute pancreatitis. 2. Prominence of the lopez of the distal stomach and duodenum may be secondary to gastritis and duodenitis versus reactive inflammatory changes from pancreatitis versus underdistention. Electronically signed by: Humphrey Mccurdy M.D. 06/20/23 20:38 PM Chest X-Ray 06/20/23 19:57 XR chest 1V not portable HISTORY: 67 years-old Male abdominal pain acute chest and abdominal pain COMPARISON: CT abdomen and pelvis of same day, chest 01/20/2022 TECHNIQUE: AP view of the chest FINDINGS: Cardiac silhouette is mildly enlarged. No pneumothorax, pleural effusion, airspace consolidation or pulmonary edema. Degenerative changes of the shoulders and spine. IMPRESSION: No acute process. ACT 112: Negative or not required by law. The above report was generated using voice recognition software. It may contain grammatical, syntax or spelling errors. Electronically signed by: Alexis Vann M.D. 06/20/2023 9:14 PM Discharge Plan Visit Data Chief Complaint: Abdominal Pain Stated Complaint: CHEST, ABD, FLANK PAIN ED Provider: Monty Zazueta ED Midlevel Provider: Laquita Conklin Discharge Problem: Recurrent acute pancreatitis Patient Disposition: Admitted As Inpatient Condition: Good Discharge Instructions Interventions: ED Discharge Assessment Last Done: 06/21/23 01:03
[2023-06-20] MEDS ORDERED: MoRPHine SULFATE 4 MG/ML 1 ML CARP\\VIAL IV STA ×2 (19:57→22:39)
[2023-06-20 20:15] LABS: Appearance Urine Clear (Clear); Bilirubin Urine Negative (Negative); Blood Urine Negative (Negative); Color Urine Yellow; Glucose Urine UA Negative (Negative); Ketones Urine Negative (Negative); Leukocyte Esterase Urine Negative (Negative); Nitrite Urine Negative (Negative); Protein Urine Negative (Negative); Specific Gravity Urine 1.016 (1.000-1.030); Urobilinogen Urine Negative (Negative)
[2023-06-20] MEDS ORDERED: OPTIRAY 320 100ml IV ONE (20:17)
[2023-06-20 20:18] LABS: Lipase 12650 U/L (11-82)
[2023-06-20] MEDS ORDERED: PANTOprazole 40 MG in SYRINGE 0 ML IV ONE (20:23)
[2023-06-20] MEDS ORDERED: FAMOTIDINE 20MG IV PUSH 20 MG/5 ML SYR IV STA (20:23)
--- NOTE | 2023-06-20 20:39 | CT Scan Report ---
Exam(s): CT ABDOMEN + PELVIS With Contrast IV Amt: 89ml EXAM: CT Abdomen and Pelvis With Intravenous Contrast CLINICAL HISTORY: Reason for exam: Abdominal pain. TECHNIQUE: Axial computed tomography images of the abdomen and pelvis with intravenous contrast. CTDI is 19.93 mGy and DLP is 933.53 mGy-cm. Automated exposure control was utilized for the study. A dose lowering technique was utilized adhering to the principles of ALARA. CONTRAST: Patient received 89ml of IV contrast COMPARISON: CT abdomen/pelvis on 10/24/2021 FINDINGS: Lung bases: Unremarkable. No mass. No consolidation. Mediastinum: Mild prominence of the wall of the distal esophagus is concerning for esophagitis. ABDOMEN: Liver: Unremarkable. No mass. Gallbladder and bile ducts: Prior cholecystectomy. Probable postcholecystectomy ductal ectasia. Pancreas: Prominence of the lopez of the distal stomach and duodenum may be secondary to gastritis and duodenitis versus reactive inflammatory changes from pancreatitis versus underdistention. Peripancreatic fluid is compatible with acute pancreatitis. Calcifications in the region of the pancreatic head may represent component of chronic pancreatitis. Spleen: Unremarkable. No splenomegaly. Adrenals: Unremarkable. No mass. Kidneys and ureters: Small left renal cyst. No hydronephrosis or obstructing stone. Stomach and bowel: Diverticulosis without evidence of diverticulitis. No small bowel obstruction. PELVIS: Appendix: Normal appendix. Bladder: Underdistended bladder limits evaluation. Reproductive: Calcifications of the prostate. ABDOMEN and PELVIS: Intraperitoneal space: Unremarkable. No free air. No significant fluid collection. Bones/joints: Degenerative changes of the spine. No acute fracture. No dislocation. Soft tissues: Unremarkable. Vasculature: Phleboliths in the pelvis. Atherosclerotic changes of the vasculature. No aortic aneurysm or dissection. Lymph nodes: Unremarkable. No enlarged lymph nodes. IMPRESSION: 1. Peripancreatic fluid is compatible with acute pancreatitis. 2. Prominence of the lopez of the distal stomach and duodenum may be secondary to gastritis and duodenitis versus reactive inflammatory changes from pancreatitis versus underdistention. Electronically signed by: Humphrey Mccurdy M.D. 06/20/23 20:38 PM
--- NOTE | 2023-06-20 21:15 | XRay Report ---
XR chest 1V not portable HISTORY: 67 years-old Male abdominal pain acute chest and abdominal pain COMPARISON: CT abdomen and pelvis of same day, chest 01/20/2022 TECHNIQUE: AP view of the chest FINDINGS: Cardiac silhouette is mildly enlarged. No pneumothorax, pleural effusion, airspace consolidation or p ulmonary edema. Degenerative changes of the shoulders and spine. IMPRESSION: No acute process. ACT 112: Negative or not required by law. The above report was generated using voice recognition software. It may contain grammatical, syntax o r spelling errors. Electronically signed by: Alexis Vann M.D. 06/20/2023 9:14 PM
--- NOTE | 2023-06-20 21:19 | Emergency Department Note ---
ED Visit Note Staff note: I have reviewed the Patients chart and have discussed this case with my PA. I generally agree with the ED note and findings. .
--- NOTE | 2023-06-20 22:46 | History & Physical Report ---
Date of Service June 20, 2023 Assessment & Plan (1) Recurrent acute pancreatitis: (2) Gastritis and duodenitis: (3) Hypothyroidism, postablative: (4) Enlarged prostate with lower urinary tract symptoms (LUTS): (5) Nutcracker esophagus: (6) HTN (hypertension): (7) Hiatal hernia: (8) Esophageal stricture: (9) Esophageal spasm: (10) Elevated troponin: Plan Recurrent acute pancreatitis/gastritis and duodenitis/esophageal spasm/nutcracker esophagus status post POEM- Admit to [facility] with telemetry due to borderline blood pressure likely associated with decreased oral intake NPO Change Protonix 40 mg p.o. twice daily to 40 mg IV twice daily Acetaminophen 1 g IV every 8 hours as needed for mild pain or fever Morphine sulfate 4 mg IV every 3 hours as needed for moderate to severe pain Zofran 4 mg IV every 6 hours as needed Patient is received 1 L normal saline from the ED. We will give additional 1 L bolus of normal saline, and then placed on normal saline plus KCl 20 mill equivalents at 100 mils per hour Initial lipase level 12,650 Follow serial CBC with differential, chemistry profile, magnesium and lipase levels Patient reports that he has not had any alcohol intake for a long while Patient is status post EGD on 02/04/2023 which was normal Patient is also status post colonoscopy on 02/04/2023 which showed a few small mouth diverticula and nonbleeding internal hemorrhoids Elevated troponin/hypertension/hypotension while in the ED- Blood pressure in ED was as low as 92/60 Fluid boluses as noted above Admit to medical telemetry Troponin 20.4, will repeat serially, but likely type II supply/demand mismatch Hold losartan History of Present Illness Chief Complaint: The patient presents to the emergency department with report of generalized abdominal pain that began about 3 weeks ago, that then decreased, has intermittently returned, and then today got severe accompanied by some nausea without vomiting, which made him present Primary Care Provider: Sue Gallegos DO The patient is a 67-year-old male with a past medical history including pancreatitis, BPH with LUTS, RLS, esophageal dysphagia, esophageal spasm, esophageal stricture, hyperlipidemia, SNHL bilaterally and hiatal hernia. The patient was most recently admitted from 04/30-05/01/2022 for pancreatitis which at that time a have been due to alcohol. He reports he has not had any alcohol intake recently. He reports no change in his dietary intake that may have precipitated this, but has had decreased intake recently due to burning in his epigastric area to esophagus and the abdominal pain he is noted CT scan of abdomen pelvis is consistent with acute pancreatitis, and probable gastritis with duodenitis Allergies Allergy/AdvReac Type Severity Reaction Status Date / Time No Known Drug Allergies Allergy Unknown Verified 06/17/23 11:17 Home Medications Medication Instructions Recorded Confirmed Type multivitamin 1 tab PO QAM 07/14/18 06/17/23 History omega-3 acid ethyl esters 1 gram 1 cap PO QAM 03/30/19 06/17/23 History capsule losartan 100 mg tablet 100 mg PO QAM #90 tabs 11/07/22 06/17/23 Rx levothyroxine 175 mcg tablet 175 mcg PO QAM #90 tabs 11/27/22 06/17/23 Rx atorvastatin 20 mg tablet 20 mg PO QAM #90 tabs 01/31/23 06/17/23 Rx sildenafil (pulm.hypertension) 20 20 mg PO DAILY PRN sexual activity 02/26/23 06/17/23 Rx mg tablet #20 tabs diclofenac sodium 1 % topical gel 2 g topical QID #100 grams 04/22/23 06/17/23 Rx (Voltaren Arthritis Pain) trazodone 100 mg tablet 200 mg PO HS PRN Sleep #180 tabs 04/22/23 06/17/23 Rx famotidine 40 mg tablet 40 mg PO BID #180 tabs 06/17/23 06/17/23 Rx pantoprazole 40 mg tablet,delayed 40 mg PO BID #180 tabs 06/17/23 06/17/23 Rx release (Protonix) Past Med/Surg History Medical History (Updated 06/20/23 @ 22:45 by Justin Amos MD) Acute pancreatitis (04/2021) hx-"has subsided since quit drinking alcohol" Anxiety and depression Constipation due to opioid therapy Degenerative disc disease at L5-S1 level Enlarged prostate with lower urinary tract symptoms (LUTS) Environmental allergies Gastritis History of COVID-19 08/2022, tested at clinic near home, not hosp; "didn't feel right in his head," cold all the time>resolved HTN (hypertension) Hyperlipidemia Hypothyroidism Insomnia Irritable bowel syndrome Laryngopharyngeal reflux Multiple thyroid nodules HX Nutcracker esophagus s/p POEM Osteoarthritis Prediabetes Restless leg syndrome Sensorineural hearing loss (SNHL) of both ears Surgical History History of cholecystectomy History of colonoscopy History of esophagogastroduodenoscopy (EGD) (07/2018) History of facial surgery History of oral surgery History of thyroidectomy, subtotal (2014) History of tooth extraction Nausea and vomiting after administration of anesthetic agent "rare now, has not happened recently with procedures" S/P hemorrhoidectomy (05/30/21) Family History Mother Family history of diabetes mellitus Heart murmur Brother Diabetes Family history of diabetes mellitus Arthritis Father Prostate cancer Arthritis Other No family history of adverse response to anesthesia Denies family history of Ovarian cancer Myocardial infarction Breast cancer Colorectal cancer Social History Smoking Status: Never smoker Tobacco Type: Cigars Age Started Using Tobacco: 15; Age Quit Using Tobacco: 49; Second Hand Exposure: No; Do You Dip or Chew Tobacco: No; Hx Alcohol Use: Yes Alcohol type: other Alcohol Intake Frequency: 4 or More x per/Week Hx Substance Use: No Preferred Language: Mongolian Communication Ability: Effective Visual Impairment: No Limitations Hearing Ability: Hard of Hearing Site Safety Representative Required: No Beliefs That Will Affect Care: None marital status: / Current Living Situation: Family Current Living Situation Comment: 2 sons, son's girlfriend. 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 Feels Safe at Home: Yes Childhood Exposure to Second-Hand Smoke: No Diet: regular caffeine: Yes (Coffee x 1 per day.) during the past year weight has: remained stable Dental Care, Regularly: Yes Physical Activity Frequency: 3-4 Times per Week Seatbelt Use: always Sunscreen Use: No Assistive Devices: Other Review of Systems Review of Systems: The patient denies chest pain, palpitations, shortness of breath, dyspnea on exertion, cough, lower extremity swelling, chills, sweats, weight change, fatigue, vomiting, diarrhea , constipation, blood in urine or stool, dysuria, urinary frequency or urgency, lightheadedness, dizziness, headache, memory loss, loss of consciousness, rash, abnormal bruising or bleeding, imbalance, focal or generalized weakness, numbness or tingling in arms or legs, generalized arthralgias or myalgias, neck pain, or night sweats. The review of systems is otherwise negative other than for that already noted above, and at least 10 systems have been reviewed. Physical Exam Physical Exam: The patient is awake, alert and oriented 3, well developed and well nourished, normocephalic and atraumatic, lying in bed and in no acute distress. HEENT--PERRL, EOMI, mucous membranes and oropharynx dry. Neck--supple. No JVD. No bruits. Thyroid normal, trachea midline, no adenopathy. Heart--normal S1 and S2. No murmurs, rubs or gallops. Lungs--clear bilaterally, no respiratory distress, no accessory muscle use. Abdomen--normal bowel sounds and soft. Mild generalized pain on palpation. Nondistended Extremities--no cyanosis or clubbing. No edema. Dermatologic--normal skin turgor, normal color, no abnormal lymph nodes, no rash. Neurologic--cranial nerves II through XII grossly intact. Rheumatologic--normal range of motion. Psychiatric--normal affect. Results & Data Results & Data Vital Signs (Past 12 Hours) Vital Signs Temp Pulse Pulse Resp BP BP Pulse Ox 06/20/23 21:21 52 L 19 108/70 96 06/20/23 21:21 06/20/23 21:22 62 06/20/23 20:49 59 L 17 130/80 99 06/20/23 18:27 36.3 C L 64 20 139/78 100 O2 Del Method 06/20/23 21:21 06/20/23 21:21 Room Air 06/20/23 21:22 06/20/23 20:49 06/20/23 18:27 Room Air Laboratory Results Laboratory Results WBC 9.83 K/ul (4.8-10.8) 06/20/23 18:48 RBC 4.49 M/uL (4.70-6.10) L 06/20/23 18:48 Hgb 13.6 g/dl (14.0-18.0) L 06/20/23 18:48 Hct 41.0 % (42.0-52.0) L 06/20/23 18:48 MCV 91.3 fL (80.0-100.0) 06/20/23 18:48 MCH 30.3 pg (25.0-34.0) 06/20/23 18:48 MCHC 33.2 g/dL (32.0-36.0) 06/20/23 18:48 RDW Std Deviation 45.6 fL (36.4-46.3) 06/20/23 18:48 RDW Coeff of [place] 13.4 % (11.5-14.5) 06/20/23 18:48 Plt Count 198 K/uL (130-400) 06/20/23 18:48 MPV 9.3 fL (9.4-12.4) L 06/20/23 18:48 Immature Gran % (Auto) 0.4 % 06/20/23 18:48 Neut % (Auto) 72.6 % 06/20/23 18:48 Lymph % (Auto) 19.3 % 06/20/23 18:48 [place] % (Auto) 5.9 % 06/20/23 18:48 Eos % (Auto) 1.5 % 06/20/23 18:48 Baso % (Auto) 0.3 % 06/20/23 18:48 Neut # (Auto) 7.13 K/uL (1.40-6.50) H 06/20/23 18:48 Lymph # (Auto) 1.90 K/uL (1.20-3.40) 06/20/23 18:48 [place] # (Auto) 0.58 K/uL (0.11-0.59) 06/20/23 18:48 Eos # (Auto) 0.15 K/uL (0.00-0.50) 06/20/23 18:48 Baso # (Auto) 0.03 K/uL (0.00-0.20) 06/20/23 18:48 Immature Gran # (Auto) 0.04 K/uL (0.01-0.20) 06/20/23 18:48 Sodium 137 mmol/L (136-145) 06/20/23 18:48 Potassium 3.9 mmol/L (3.5-5.1) 06/20/23 18:48 Chloride 105 mmol/L (98-107) 06/20/23 18:48 Carbon Dioxide 27 mmol/L (21-32) 06/20/23 18:48 Anion Gap 5 (3-11) 06/20/23 18:48 BUN 20 mg/dl (6-23) 06/20/23 18:48 Creatinine 0.99 mg/dl (0.6-1.4) 06/20/23 18:48 Est Cr Clr Drug Dosing Not Reportable 06/20/23 18:48 Est GFR ( Amer) 90.3 ml/min 06/20/23 18:48 Est GFR (Non-Af Amer) 77.9 ml/min 06/20/23 18:48 BUN/Creatinine Ratio 20.2 (10-20) H 06/20/23 18:48 Glucose 119 mg/dl (70-99(Fasting)) H 06/20/23 18:48 Calcium 9.5 mg/dl (8.6-10.3) 06/20/23 18:48 Total Bilirubin 0.8 mg/dl (0.2-1.0) 06/20/23 18:48 AST 24 U/L (13-39) 06/20/23 18:48 ALT 34 U/L (7-52) 06/20/23 18:48 Alkaline Phosphatase 90 U/L (34-104) 06/20/23 18:48 Troponin I High Sens 20.4 pg/ml (0-20) H 06/20/23 20:53 Total Protein 7.1 gm/dl (6.0-8.3) 06/20/23 18:48 Albumin 4.2 gm/dl (3.4-5.0) 06/20/23 18:48 Globulin 2.9 gm/dl (2.5-4.0) 06/20/23 18:48 Albumin/Globulin Ratio 1.4 (0.9-2) 06/20/23 18:48 Amylase 1724 U/L (25-115) H 06/20/23 20:53 Lipase 15693 U/L (11-82) H 06/20/23 18:48 Urine Color Yellow 06/20/23 19:58 Urine Appearance Clear (Clear) 06/20/23 19:58 Urine pH 5.0 (4.5-7.5) 06/20/23 19:58 Ur Specific [place] 1.016 (1.000-1.030) 06/20/23 19:58 Urine Protein Negative (Negative) 06/20/23 19:58 Urine Glucose (UA) Negative (Negative) 06/20/23 19:58 Urine Ketones Negative (Negative) 06/20/23 19:58 Urine Blood Negative (Negative) 06/20/23 19:58 Urine Nitrite Negative (Negative) 06/20/23 19:58 Urine Bilirubin Negative (Negative) 06/20/23 19:58 Urine Urobilinogen Negative (Negative) 06/20/23 19:58 Ur Leukocyte Esterase Negative (Negative) 06/20/23 19:58 Impressions Abdomen/Pelvis CT 06/20/23 18:33 Exam(s): CT ABDOMEN + PELVIS With Contrast IV Amt: 89ml EXAM: CT Abdomen and Pelvis With Intravenous Contrast CLINICAL HISTORY: Reason for exam: Abdominal pain. TECHNIQUE: Axial computed tomography images of the abdomen and pelvis with intravenous contrast. CTDI is 19.93 mGy and DLP is 933.53 mGy-cm. Automated exposure control was utilized for the study. A dose lowering technique was utilized adhering to the principles of ALARA. CONTRAST: Patient received 89ml of IV contrast COMPARISON: CT abdomen/pelvis on 10/24/2021 FINDINGS: Lung bases: Unremarkable. No mass. No consolidation. Mediastinum: Mild prominence of the wall of the distal esophagus is concerning for esophagitis. ABDOMEN: Liver: Unremarkable. No mass. Gallbladder and bile ducts: Prior cholecystectomy. Probable postcholecystectomy ductal ectasia. Pancreas: Prominence of the lopez of the distal stomach and duodenum may be secondary to gastritis and duodenitis versus reactive inflammatory changes from pancreatitis versus underdistention. Peripancreatic fluid is compatible with acute pancreatitis. Calcifications in the region of the pancreatic head may represent component of chronic pancreatitis. Spleen: Unremarkable. No splenomegaly. Adrenals: Unremarkable. No mass. Kidneys and ureters: Small left renal cyst. No hydronephrosis or obstructing stone. Stomach and bowel: Diverticulosis without evidence of diverticulitis. No small bowel obstruction. PELVIS: Appendix: Normal appendix. Bladder: Underdistended bladder limits evaluation. Reproductive: Calcifications of the prostate. ABDOMEN and PELVIS: Intraperitoneal space: Unremarkable. No free air. No significant fluid collection. Bones/joints: Degenerative changes of the spine. No acute fracture. No dislocation. Soft tissues: Unremarkable. Vasculature: Phleboliths in the pelvis. Atherosclerotic changes of the vasculature. No aortic aneurysm or dissection. Lymph nodes: Unremarkable. No enlarged lymph nodes. IMPRESSION: 1. Peripancreatic fluid is compatible with acute pancreatitis. 2. Prominence of the lopez of the distal stomach and duodenum may be secondary to gastritis and duodenitis versus reactive inflammatory changes from pancreatitis versus underdistention. Electronically signed by: Humphrey Mccurdy M.D. 06/20/23 20:38 PM Chest X-Ray 06/20/23 19:57 XR chest 1V not portable HISTORY: 67 years-old Male abdominal pain acute chest and abdominal pain COMPARISON: CT abdomen and pelvis of same day, chest 01/20/2022 TECHNIQUE: AP view of the chest FINDINGS: Cardiac silhouette is mildly enlarged. No pneumothorax, pleural effusion, airspace consolidation or pulmonary edema. Degenerative changes of the shoulders and spine. IMPRESSION: No acute process. ACT 112: Negative or not required by law. The above report was generated using voice recognition software. It may contain grammatical, syntax or spelling errors. Electronically signed by: Alexis Vann M.D. 06/20/2023 9:14 PM Code Status & VTE Plan Code Status Full code VTE Prophylaxis Plan VTE Prophylaxis will be ordered: Yes PG Care Time/CCT Total # of Minutes Spent Total Time Spent with Patient: Total time spent is greater than 50% in coordination of care (as documented) at patient's floor/unit and/or counseling patient: Coding Level of Care Code 17579 INT INP/OBS CARE 3/75MIN Diagnoses Recurrent acute pancreatitis K85.90 Gastritis and duodenitis K29.90 Hypothyroidism, postablative E89.0 Enlarged prostate with lower urinary tract symptoms (LUTS) N40.1 Nutcracker esophagus K22.4 HTN (hypertension) I10 Hiatal hernia K44.9 Esophageal stricture K22.2 Esophageal spasm K22.4 Elevated troponin R79.89
[2023-06-21] MEDS ORDERED: ACETAMINOPHEN 1,000 MG/100 ML VIAL IV PRN (01:02)
[2023-06-21] MEDS ORDERED: MoRPHine SULFATE 4 MG/ML 1 ML CARP\\VIAL ONE (01:09)
[2023-06-21] MEDS ORDERED: ONDANSETRON INJ 2 MG/ML 2 ML VIAL ONE (01:09)
[2023-06-21] MEDS: MoRPHine SULFATE 4 MG/ML 1 ML CARP\\VIAL IV PRN ×2 (01:18→05:36)
[2023-06-21] MEDS: ONDANSETRON INJ 2 MG/ML 2 ML VIAL IV PRN ×4 (01:18→21:07)
[2023-06-21] MEDS: LEVOTHYROXINE SODIUM 175 MCG TABLET PO SCH (05:41)
[2023-06-21 06:02] LABS: Basophils # (auto) 0.01 K/uL (0.00-0.20); Basophils % (auto) 0.1 %; Eosinophils % (auto) 1.3 %; Hematocrit (blood only) 35.5 % (42.0-52.0); Hemoglobin 11.6 g/dl (14.0-18.0); Immature Granulocytes # (auto) 0.03 K/uL (0.01-0.20); Immature Granulocytes % (auto) 0.4 %; Lymphocytes # (auto) 1.33 K/uL (1.20-3.40); Lymphocytes % (auto) 16.8 %; Mean Corpuscular Hemoglobin 30.4 pg (25.0-34.0); Mean Corpuscular Hgb Conc 32.7 g/dL (32.0-36.0); Mean Corpuscular Volume 92.9 fL (80.0-100.0); Mean Platelet Volume 9.6 fL (9.4-12.4); Monocytes # (auto) 0.35 K/uL (0.11-0.59); Monocytes % (auto) 4.4 %; Neutrophils # (auto) 6.11 K/uL (1.40-6.50); Platelet Count 169 K/uL (130-400); RDW Coefficient of Variation 13.7 % (11.5-14.5); Red Blood Count 3.82 M/uL (4.70-6.10); White Blood Count 7.93 K/ul (4.8-10.8)
[2023-06-21 06:12] LABS: Calcium 7.9 mg/dl (8.6-10.3); Creatinine Clr Calc Pharmacy 81.3 ml/min; Est GFR (African American) 102.8 ml/min; Est GFR (Non-African American) 88.7 ml/min
[2023-06-21] MEDS ORDERED: HYDROmorphone INJ 1 MG/ML SYRINGE IV PRN (07:39)
--- NOTE | 2023-06-21 07:44 | Electrocardiogram Report ---
Test Reason : Blood Pressure : / mmHG Vent. Rate : 061 BPM Atrial Rate : 061 BPM P-R Int : 164 ms QRS Dur : 088 ms QT Int : 386 ms P-R-T Axes : 048 014 060 degrees QTc Int : 388 ms Normal sinus rhythm Low voltage QRS Borderline ECG When compared with ECG of 20-JAN-2022 09:44, No significant change was found Confirmed by Augustine Franklin ([id number]) on 06/21/2023 7:44:09 AM Referred By: REFERRED SELF Confirmed By:Lev Franklin
[2023-06-21 08:18] LABS: Albumin Globulin Ratio 1.5 (0.9-2); Albumin Level 3.4 gm/dl (3.4-5.0); Bilirubin,Total 0.6 mg/dl (0.2-1.0); Globulin 2.3 gm/dl (2.5-4.0); Total Protein 5.7 gm/dl (6.0-8.3)
[2023-06-21] MEDS: PANTOprazole 40 MG in SYRINGE 0 ML IV SCH ×2 (08:31→21:14)
[2023-06-21] MEDS: SODIUM CHLORIDE 0.9% 1,000 ML IV SCH ×3 (08:31→21:08)
[2023-06-21] MEDS ORDERED: METOCLOPRAMIDE HCL INJ 5 MG/ML 2 ML VIAL ONE (09:16)
[2023-06-21] MEDS: ENOXAPARIN INJ 40 MG/0.4 ML SYR SQ SCH (12:07)
--- NOTE | 2023-06-21 12:52 | Hospitalist Progress Note ---
Date of Service June 21, 2023 Assessment & Plan (1) Recurrent acute pancreatitis: (2) Gastritis and duodenitis: (3) Hypothyroidism, postablative: (4) Enlarged prostate with lower urinary tract symptoms (LUTS): (5) Nutcracker esophagus: (6) HTN (hypertension): (7) Hiatal hernia: (8) Esophageal stricture: (9) Esophageal spasm: (10) Elevated troponin: Plan Patient has a history of Recurrent acute pancreatitis/gastritis and duodenitis/esophageal spasm/nutcracker esophagus status post POEM- Presents to the hospital with nausea, vomting and abdominal pain Lipase 12,600. No recent alcohol intake, no gall stones hx CT abdomen and pelvis shows peripancreatic fluid compatible with acute pancreatitis Keep NPO Change Protonix 40 mg p.o. twice daily to 40 mg IV twice daily Acetaminophen 1 g IV every 8 hours as needed for mild pain or fever Could not tolerate Morphine, will change to Dilaudid Zofran 4 mg IV every 6 hours as needed Continue IV saline 125cc/hr Patient is status post EGD on 02/04/2023 which was normal Patient is also status post colonoscopy on 02/04/2023 which showed a few small mouth diverticula and nonbleeding internal hemorrhoids Elevated troponin/hypertension/hypotension while in the ED- Blood pressure in ED was as low as 92/60 Fluid boluses as noted above Admit to medical telemetry Troponin 20.4, will repeat serially, but likely type II supply/demand mismatch Hold losartan Admission and Anticipated Discharge Date Admission Date: June 20, 2023 Subjective patient seen and examined, still having bouts of nausea and vomiting and abdominal pain Review of Systems Review of Systems: All systems reviewed are negative, apart from the ones contained in the history. Physical Exam Physical Exam: The patient is awake, alert and oriented 3, well developed and well nourished, normocephalic and atraumatic, lying in bed and in no acute distress. HEENT--PERRL, EOMI, mucous membranes and oropharynx mildly dry Neck--supple. No JVD. No bruits. Thyroid normal, trachea midline, no adenopathy. Heart--normal S1 and S2. No murmurs, rubs or gallops. Lungs--clear bilaterally, no respiratory distress, no accessory muscle use. Abdomen--normal bowel sounds and soft. Mild epigastric abdominal pain Extremities--no cyanosis or clubbing. No edema. Dermatologic--normal skin turgor, normal color, no abnormal lymph nodes, no rash. Neurologic--cranial nerves II through XII grossly intact. Rheumatologic--normal range of motion. Psychiatric--normal affect. Results & Data Results & Data Vital Signs (Past 12 Hours) Vital Signs Pulse Pulse Resp BP Pulse Ox O2 Del Method 06/21/23 07:01 48 L 06/21/23 01:00 48 L 06/21/23 03:00 51 L 16 103/61 95 Room Air 06/21/23 01:02 52 L 20 101/65 96 Room Air PG Care Time/CCT Total # of Minutes Spent Total Time Spent with Patient: Total time spent is greater than 50% in coordination of care (as documented) at patient's floor/unit and/or counseling patient: Coding Level of Care Code 52166 SUB INP/OBS CARE 2/35MIN Diagnoses Recurrent acute pancreatitis K85.90 Gastritis and duodenitis K29.90 Hypothyroidism, postablative E89.0 Enlarged prostate with lower urinary tract symptoms (LUTS) N40.1 Nutcracker esophagus K22.4 HTN (hypertension) I10 Hiatal hernia K44.9 Esophageal stricture K22.2 Esophageal spasm K22.4 Elevated troponin R79.89 Time Spent (min) 35
[2023-06-21] MEDS ORDERED: METOCLOPRAMIDE HCL INJ 5 MG/ML 2 ML VIAL IV ONE (15:44)
[2023-06-21] MEDS: oxyCODONE/ACETAMINOPHEN 5mg/325mg TAB PO PRN (21:07)
[2023-06-22] MEDS: oxyCODONE/ACETAMINOPHEN 5mg/325mg TAB PO PRN ×4 (03:57→19:55)
[2023-06-22] MEDS: LEVOTHYROXINE SODIUM 175 MCG TABLET PO SCH (05:36)
[2023-06-22 07:44] LABS: Basophils # (auto) 0.02 K/uL (0.00-0.20); Basophils % (auto) 0.3 %; Eosinophils # (auto) 0.13 K/uL (0.00-0.50); Eosinophils % (auto) 1.7 %; Hematocrit (blood only) 33.5 % (42.0-52.0); Hemoglobin 10.8 g/dl (14.0-18.0); Immature Granulocytes # (auto) 0.02 K/uL (0.01-0.20); Immature Granulocytes % (auto) 0.3 %; Lymphocytes % (auto) 19.8 %; Mean Corpuscular Hemoglobin 29.9 pg (25.0-34.0); Mean Corpuscular Hgb Conc 32.2 g/dL (32.0-36.0); Mean Corpuscular Volume 92.8 fL (80.0-100.0); Monocytes # (auto) 0.48 K/uL (0.11-0.59); Monocytes % (auto) 6.3 %; Neutrophils # (auto) 5.42 K/uL (1.40-6.50); Neutrophils % (auto) 71.6 %; Platelet Count 152 K/uL (130-400); RDW Coefficient of Variation 13.9 % (11.5-14.5); RDW Standard Deviation 48.1 fL (36.4-46.3); Red Blood Count 3.61 M/uL (4.70-6.10); White Blood Count 7.57 K/ul (4.8-10.8)
[2023-06-22 08:09] LABS: Albumin Globulin Ratio 1.5 (0.9-2); Albumin Level 3.3 gm/dl (3.4-5.0); BUN Creatinine Ratio 20.5 (10-20); Bilirubin,Total 0.9 mg/dl (0.2-1.0); Calcium 8.2 mg/dl (8.6-10.3); Creatinine Clr Calc Pharmacy 90.6 ml/min; Est GFR (African American) 107.5 ml/min; Est GFR (Non-African American) 92.8 ml/min; Globulin 2.2 gm/dl (2.5-4.0); Magnesium 1.9 mg/dl (1.7-2.4); Potassium 4.3 mmol/L (3.5-5.1); Total Protein 5.5 gm/dl (6.0-8.3)
[2023-06-22] MEDS: SODIUM CHLORIDE 0.9% 1,000 ML IV SCH ×2 (08:10→18:59)
[2023-06-22] MEDS: PANTOprazole 40 MG in SYRINGE 0 ML IV SCH ×2 (08:11→19:56)
[2023-06-22] MEDS: ENOXAPARIN INJ 40 MG/0.4 ML SYR SQ SCH (08:11)
[2023-06-22] MEDS: ONDANSETRON INJ 2 MG/ML 2 ML VIAL IV PRN (11:29)
--- NOTE | 2023-06-22 12:14 | Hospitalist Progress Note ---
Date of Service June 22, 2023 Assessment & Plan (1) Recurrent acute pancreatitis: (2) Gastritis and duodenitis: (3) Hypothyroidism, postablative: (4) Enlarged prostate with lower urinary tract symptoms (LUTS): (5) Nutcracker esophagus: (6) HTN (hypertension): (7) Hiatal hernia: (8) Esophageal stricture: (9) Esophageal spasm: (10) Elevated troponin: Plan Patient has a history of Recurrent acute pancreatitis/gastritis and duodenitis/esophageal spasm/nutcracker esophagus status post POEM- Presents to the hospital with nausea, vomting and abdominal pain Lipase 12,600. No recent alcohol intake, no gall stones hx CT abdomen and pelvis shows peripancreatic fluid compatible with acute pancreatitis Change Protonix 40 mg p.o. twice daily to 40 mg IV twice daily Acetaminophen 1 g IV every 8 hours as needed for mild pain or fever Could not tolerate Morphine, will change to Dilaudid Zofran 4 mg IV every 6 hours as needed Continue IV saline 125cc/hr Patient is status post EGD on 02/04/2023 which was normal Patient is also status post colonoscopy on 02/04/2023 which showed a few small mouth diverticula and nonbleeding internal hemorrhoids Abdominal pain is better, so is nausea Patient willing to try clear liquid diet Elevated troponin/hypertension/hypotension while in the ED- Blood pressure in ED was as low as 92/60 Fluid boluses as noted above Admit to medical telemetry Troponin 20.4, will repeat serially, but likely type II supply/demand mismatch Hold losartan Admission and Anticipated Discharge Date Admission Date: June 20, 2023 Subjective patient seen and examined, nausea and vomiting resolved, abdominal pain much better, willing to try clears Review of Systems Review of Systems: All systems reviewed are negative, apart from the ones contained in the history. Physical Exam Physical Exam: The patient is awake, alert and oriented 3, well developed and well nourished, normocephalic and atraumatic, lying in bed and in no acute distress. HEENT--PERRL, EOMI, mucous membranes and oropharynx mildly dry Neck--supple. No JVD. No bruits. Thyroid normal, trachea midline, no adenopathy. Heart--normal S1 and S2. No murmurs, rubs or gallops. Lungs--clear bilaterally, no respiratory distress, no accessory muscle use. Abdomen--normal bowel sounds and soft. Mild epigastric abdominal pain Extremities--no cyanosis or clubbing. No edema. Dermatologic--normal skin turgor, normal color, no abnormal lymph nodes, no rash. Neurologic--cranial nerves II through XII grossly intact. Rheumatologic--normal range of motion. Psychiatric--normal affect. Results & Data Results & Data Vital Signs (Past 12 Hours) Vital Signs Temp Pulse Pulse Resp BP Pulse Ox O2 Del Method 06/22/23 11:41 98.1 F 55 L 16 115/66 96 Room Air 06/22/23 07:28 98.1 F 52 L 18 111/61 95 Room Air 06/22/23 07:13 50 L 06/22/23 03:50 98.2 F 60 18 130/77 96 Room Air 06/22/23 02:00 97.9 F 56 L 18 122/77 97 Room Air PG Care Time/CCT Total # of Minutes Spent Total Time Spent with Patient: Total time spent is greater than 50% in coordination of care (as documented) at patient's floor/unit and/or counseling patient: Coding Level of Care Code 24654 SUB INP/OBS CARE 2/35MIN Diagnoses Recurrent acute pancreatitis K85.90 Gastritis and duodenitis K29.90 Hypothyroidism, postablative E89.0 Enlarged prostate with lower urinary tract symptoms (LUTS) N40.1 Nutcracker esophagus K22.4 HTN (hypertension) I10 Hiatal hernia K44.9 Esophageal stricture K22.2 Esophageal spasm K22.4 Elevated troponin R79.89 Time Spent (min) 35
[2023-06-23] MEDS: SODIUM CHLORIDE 0.9% 1,000 ML IV SCH ×4 (01:02→23:39)
[2023-06-23] MEDS: oxyCODONE/ACETAMINOPHEN 5mg/325mg TAB PO PRN ×4 (02:33→23:37)
[2023-06-23] MEDS: LEVOTHYROXINE SODIUM 175 MCG TABLET PO SCH (05:39)
[2023-06-23 07:07] LABS: Basophils # (auto) 0.02 K/uL (0.00-0.20); Basophils % (auto) 0.3 %; Eosinophils # (auto) 0.17 K/uL (0.00-0.50); Eosinophils % (auto) 2.5 %; Hematocrit (blood only) 31.5 % (42.0-52.0); Hemoglobin 10.5 g/dl (14.0-18.0); Immature Granulocytes # (auto) 0.01 K/uL (0.01-0.20); Immature Granulocytes % (auto) 0.1 %; Lymphocytes # (auto) 1.43 K/uL (1.20-3.40); Mean Corpuscular Hemoglobin 30.3 pg (25.0-34.0); Mean Corpuscular Hgb Conc 33.3 g/dL (32.0-36.0); Mean Platelet Volume 9.3 fL (9.4-12.4); Monocytes # (auto) 0.49 K/uL (0.11-0.59); Monocytes % (auto) 7.2 %; Neutrophils # (auto) 4.68 K/uL (1.40-6.50); Neutrophils % (auto) 68.9 %; Platelet Count 147 K/uL (130-400); RDW Coefficient of Variation 14.1 % (11.5-14.5); RDW Standard Deviation 46.7 fL (36.4-46.3); Red Blood Count 3.46 M/uL (4.70-6.10)
[2023-06-23 07:29] LABS: Albumin Globulin Ratio 1.4 (0.9-2); Albumin Level 3.2 gm/dl (3.4-5.0); BUN Creatinine Ratio 13.7 (10-20); Bilirubin,Total 1.1 mg/dl (0.2-1.0); Calcium 8.1 mg/dl (8.6-10.3); Creatinine Clr Calc Pharmacy 96.8 ml/min; Est GFR (African American) 110.5 ml/min; Est GFR (Non-African American) 95.3 ml/min; Globulin 2.3 gm/dl (2.5-4.0); Magnesium 1.8 mg/dl (1.7-2.4); Potassium 3.9 mmol/L (3.5-5.1); Total Protein 5.5 gm/dl (6.0-8.3)
[2023-06-23] MEDS: PANTOprazole 40 MG in SYRINGE 0 ML IV SCH ×2 (09:40→20:38)
[2023-06-23] MEDS: ENOXAPARIN INJ 40 MG/0.4 ML SYR SQ SCH (09:41)
--- NOTE | 2023-06-23 12:18 | Hospitalist Progress Note ---
Date of Service June 23, 2023 Assessment & Plan (1) Recurrent acute pancreatitis: (2) Gastritis and duodenitis: (3) Hypothyroidism, postablative: (4) Enlarged prostate with lower urinary tract symptoms (LUTS): (5) Nutcracker esophagus: (6) HTN (hypertension): (7) Hiatal hernia: (8) Esophageal stricture: (9) Esophageal spasm: (10) Elevated troponin: Plan Patient has a history of Recurrent acute pancreatitis/gastritis and duodenitis/esophageal spasm/nutcracker esophagus status post POEM- Presents to the hospital with nausea, vomting and abdominal pain Lipase 12,600. No recent alcohol intake, no gall stones hx CT abdomen and pelvis shows peripancreatic fluid compatible with acute pancreatitis Change Protonix 40 mg p.o. twice daily to 40 mg IV twice daily Acetaminophen 1 g IV every 8 hours as needed for mild pain or fever Could not tolerate Morphine, will change to Dilaudid Zofran 4 mg IV every 6 hours as needed Continue IV saline 125cc/hr Patient is status post EGD on 02/04/2023 which was normal Patient is also status post colonoscopy on 02/04/2023 which showed a few small mouth diverticula and nonbleeding internal hemorrhoids Abdominal pain is better, so is nausea patient tolerated clears, will advance Elevated troponin/hypertension/hypotension while in the ED- Most likely due to demand ischemia Blood pressure in ED was as low as 92/60 Fluid boluses as noted above Admit to medical telemetry Troponin 20.4, on admission. Trend Hold losartan Discharge in the next 24 hrs if he tolerated regular diet Admission and Anticipated Discharge Date Admission Date: June 20, 2023 Subjective patient seen and examined, nausea and vomiting resolved, abdominal pain much better, tolerated clear liquid diet, will advance as tolerated Review of Systems Review of Systems: All systems reviewed are negative, apart from the ones contained in the history. Physical Exam Physical Exam: The patient is awake, alert and oriented 3, well developed and well nourished, normocephalic and atraumatic, lying in bed and in no acute distress. HEENT--PERRL, EOMI, mucous membranes and oropharynx mildly dry Neck--supple. No JVD. No bruits. Thyroid normal, trachea midline, no adenopathy. Heart--normal S1 and S2. No murmurs, rubs or gallops. Lungs--clear bilaterally, no respiratory distress, no accessory muscle use. Abdomen--normal bowel sounds and soft. Mild epigastric abdominal pain Extremities--no cyanosis or clubbing. No edema. Dermatologic--normal skin turgor, normal color, no abnormal lymph nodes, no rash. Neurologic--cranial nerves II through XII grossly intact. Rheumatologic--normal range of motion. Psychiatric--normal affect. Results & Data Results & Data Vital Signs (Past 12 Hours) Vital Signs Temp Pulse Pulse Resp BP Pulse Ox O2 Del Method 06/23/23 11:48 98.1 F 51 L 18 119/76 94 Room Air 06/23/23 11:44 52 L 06/23/23 07:32 97.7 F 64 17 136/67 94 Room Air 06/23/23 02:00 98.6 F 50 L 20 119/71 93 Room Air PG Care Time/CCT Total # of Minutes Spent Total Time Spent with Patient: Total time spent is greater than 50% in coordination of care (as documented) at patient's floor/unit and/or counseling patient: Coding Level of Care Code 44253 SUB INP/OBS CARE 2/35MIN Diagnoses Recurrent acute pancreatitis K85.90 Gastritis and duodenitis K29.90 Hypothyroidism, postablative E89.0 Enlarged prostate with lower urinary tract symptoms (LUTS) N40.1 Nutcracker esophagus K22.4 HTN (hypertension) I10 Hiatal hernia K44.9 Esophageal stricture K22.2 Esophageal spasm K22.4 Elevated troponin R79.89 Time Spent (min) 35
[2023-06-23] MEDS: POLYETHYLENE (MIRALAX) 17 GM PACK PO PRN (17:17)
[2023-06-24] MEDS: LEVOTHYROXINE SODIUM 175 MCG TABLET PO SCH (06:30)
[2023-06-24] MEDS: oxyCODONE/ACETAMINOPHEN 5mg/325mg TAB PO PRN (07:42)
[2023-06-24] MEDS: POLYETHYLENE (MIRALAX) 17 GM PACK PO PRN (07:42)
[2023-06-24] MEDS: ENOXAPARIN INJ 40 MG/0.4 ML SYR SQ SCH (07:43)
[2023-06-24] MEDS: PANTOprazole 40 MG in SYRINGE 0 ML IV SCH ×2 (07:44→21:56)
[2023-06-24] MEDS: SODIUM CHLORIDE 0.9% 1,000 ML IV SCH (07:50)
[2023-06-24 08:16] LABS: BUN Creatinine Ratio 12.7 (10-20); Calcium 8.3 mg/dl (8.6-10.3); Creatinine Clr Calc Pharmacy 89.5 ml/min; Est GFR (African American) 106.9 ml/min; Est GFR (Non-African American) 92.3 ml/min
--- NOTE | 2023-06-24 10:27 | Discharge Summary ---
Date of Service June 24, 2023 Admission HPI Per Admitting Provider The patient is a 67-year-old male with a past medical history including pancreatitis, BPH with LUTS, RLS, esophageal dysphagia, esophageal spasm, esophageal stricture, hyperlipidemia, SNHL bilaterally and hiatal hernia. The patient was most recently admitted from 04/30-05/01/2022 for pancreatitis which at that time a have been due to alcohol. He reports he has not had any alcohol intake recently. He reports no change in his dietary intake that may have precipitated this, but has had decreased intake recently due to burning in his epigastric area to esophagus and the abdominal pain he is noted CT scan of abdomen pelvis is consistent with acute pancreatitis, and probable gastritis with duodenitis Discharge Data Allergies Allergy/AdvReac Type Severity Reaction Status Date / Time No Known Drug Allergies Allergy Unknown Verified 06/20/23 23:31 Consultations 06/20/23 21:18 ED Decision to Admit Stat Ordered Studies 06/20/23 18:33 CT abd pelvis IV con only Stat Hospital Course (1) Recurrent acute pancreatitis: (2) Gastritis and duodenitis: (3) Hypothyroidism, postablative: (4) Enlarged prostate with lower urinary tract symptoms (LUTS): (5) Nutcracker esophagus: (6) HTN (hypertension): (7) Hiatal hernia: (8) Esophageal stricture: (9) Esophageal spasm: (10) Elevated troponin: Plan Patient has a history of Recurrent acute pancreatitis/gastritis and duodenitis/esophageal spasm/nutcracker esophagus status post POEM- Presents to the hospital with nausea, vomting and abdominal pain Lipase 12,600. No recent alcohol intake, no gall stones hx CT abdomen and pelvis shows peripancreatic fluid compatible with acute pancreatitis Change Protonix 40 mg p.o. twice daily to 40 mg IV twice daily Acetaminophen 1 g IV every 8 hours as needed for mild pain or fever Could not tolerate Morphine, will change to Dilaudid Zofran 4 mg IV every 6 hours as needed Continue IV saline 125cc/hr Patient is status post EGD on 02/04/2023 which was normal Patient is also status post colonoscopy on 02/04/2023 which showed a few small mouth diverticula and nonbleeding internal hemorrhoids Abdominal pain is better, so is nausea patient tolerated clears, will advance Elevated troponin/hypertension/hypotension while in the ED- Most likely due to demand ischemia Blood pressure in ED was as low as 92/60 Fluid boluses as noted above Admit to medical telemetry Troponin 20.4, on admission. Trend Hold losartan Discharge in the next 24 hrs if he tolerated regular diet Discharge Plan Discharge Items Patient Disposition: Home - Self-Care Reason For Visit: PANCREATITIS, DUODENTIS, GASTRITIS Discharge Diagnosis: Acute pancreatitis Condition on Discharge: Good Activity: Resume your previous activity Non-emergency contact: Primary Care Provider Call non-emergency contact if: you have any medication questions and your symptoms worsen Follow-up/Referrals: Sue Gallegos, [Primary Care Provider] - Diet: Regular Addtl Attending Provider Instructions: Advised to follow-up with primary care physician within 1 week Advised to quit alcohol Pending Studies at Discharge: No Stand-Alone Forms: My [facility] Medications and DC Order Prescriptions: Continued losartan 100 mg tablet 100 mg PO QAM Qty: 90 2RF atorvastatin 20 mg tablet 20 mg PO QAM Qty: 90 1RF sildenafil (pulm.hypertension) 20 mg tablet 20 mg PO DAILY PRN (Reason: sexual activity) Qty: 20 2RF Rx Instructions: Take 1 tablet to 5 tablets 1 to 2 hours prior to need famotidine 40 mg tablet 40 mg PO BID Qty: 180 1RF pantoprazole [Protonix] 40 mg tablet,delayed release (DR/EC) 40 mg PO BID Qty: 180 3RF levothyroxine 175 mcg tablet 175 mcg PO QAM Qty: 90 2RF omega-3 acid ethyl esters 1 gram capsule 1 cap PO QAM trazodone 100 mg tablet 200 mg PO HS PRN (Reason: Sleep) Qty: 180 1RF multivitamin Tablet 1 tab PO QAM diclofenac sodium [Voltaren Arthritis Pain] 1 % gel 2 g topical QID PRN (Reason: Pain) Rx Instructions: apply to right knee Discharge Orders: Discharge Order (Routine); Ordered 06/24/23 Ordered By: Nehal Campbell Admission Data Admit Date/Time: 06/20/23 22:30 Attending Provider: Nehal Campbell Admit Provider: Justin Amos Primary Care Provider: Sue Gallegos Other Providers: Justin Amos Coding Diagnoses Recurrent acute pancreatitis K85.90 Gastritis and duodenitis K29.90 Hypothyroidism, postablative E89.0 Enlarged prostate with lower urinary tract symptoms (LUTS) N40.1 Nutcracker esophagus K22.4 HTN (hypertension) I10 Hiatal hernia K44.9 Esophageal stricture K22.2 Esophageal spasm K22.4 Elevated troponin R79.89
--- NOTE | 2023-06-24 10:54 | Hospitalist Progress Note ---
Date of Service June 24, 2023 Assessment & Plan (1) Recurrent acute pancreatitis: (2) Gastritis and duodenitis: (3) Hypothyroidism, postablative: (4) Enlarged prostate with lower urinary tract symptoms (LUTS): (5) Nutcracker esophagus: (6) HTN (hypertension): (7) Hiatal hernia: (8) Esophageal stricture: (9) Esophageal spasm: (10) Elevated troponin: Plan Patient has a history of Recurrent acute pancreatitis/gastritis and duodenitis/esophageal spasm/nutcracker esophagus status post POEM- Presents to the hospital with nausea, vomting and abdominal pain Lipase 12,600. No recent alcohol intake, no gall stones hx CT abdomen and pelvis shows peripancreatic fluid compatible with acute pancreatitis Changed Protonix 40 mg p.o. twice daily to 40 mg IV twice daily Acetaminophen 1 g IV every 8 hours as needed for mild pain or fever patient is fairly pain-free. Discontinue all IV and oralNarcotics. Discontinue IV fluids Advised the patient to ambulate He says that he feels bloated as he is constipated Treat constipation Elevated troponin/hypertension/hypotension while in the ED- Most likely due to demand ischemia Blood pressure in ED was as low as 92/60 was given fluid boluses Hold losartan Discharge in the next 24 hrs if he tolerated regular diet, has a bowel movement Admission and Anticipated Discharge Date Admission Date: June 20, 2023 Subjective Patient is tolerating his diet. However he has not had a bowel movement and is feeling bloated. He wishes to stay for another day in the hospital. Review of Systems Review of Systems: All systems reviewed & are unremarkable except as noted in Subjective Physical Exam Physical Exam: General: Awake, conversant Heart: S1, S2/regular rate and rhythm, no murmur rubs or gallops Lungs: Clear to auscultation bilaterally. Normal effort Abdomen: Soft/nontender/nondistended. No hepatosplenomegaly Extremities: No clubbing/cyanosis. No edema Behavior: Appropriate, cooperative Results & Data Results & Data Vital Signs (Past 12 Hours) Vital Signs Temp Pulse Pulse Pulse Resp BP BP 06/24/23 10:37 36.6 C 63 59 L 16 115/64 158/96 H 06/24/23 08:35 36.6 C 59 L 16 158/96 H 06/24/23 07:24 48 L 06/24/23 03:28 36.6 C 76 18 112/68 06/23/23 23:49 36.9 C 54 L 18 115/64 Pulse Ox O2 Del Method 06/24/23 10:37 96 06/24/23 08:35 96 Room Air 06/24/23 07:24 06/24/23 03:28 06/23/23 23:49 95 Room Air Laboratory Results Abnormal lab results 06/24/23 Range/Units 07:35 Chloride 109 H (98-107) mmol/L Glucose 101 H (70-99(Fasting)) mg/dl Calcium 8.3 L (8.6-10.3) mg/dl PG Care Time/CCT Total # of Minutes Spent Total Time Spent with Patient: Total time spent is greater than 50% in coordination of care (as documented) at patient's floor/unit and/or counseling patient: Coding Level of Care Code 92533 SUB INP/OBS CARE 235MIN Diagnoses Recurrent acute pancreatitis K85.90 Gastritis and duodenitis K29.90 Hypothyroidism, postablative E89.0 Enlarged prostate with lower urinary tract symptoms (LUTS) N40.1 Nutcracker esophagus K22.4 HTN (hypertension) I10 Hiatal hernia K44.9 Esophageal stricture K22.2 Esophageal spasm K22.4 Elevated troponin R79.89
[2023-06-24] MEDS ORDERED: bisacodyL 10 MG SUPP PR STA (15:49)
[2023-06-25] MEDS ORDERED: METOPROLOL TARTRATE 1 MG/ML VIAL IV STA (04:24)
[2023-06-25] MEDS ORDERED: METOPROLOL TARTRATE 1 MG/ML VIAL IV ONE (04:28)
[2023-06-25] MEDS ORDERED: AMIODARONE IV BOLUS & DRIP IV STA (04:43)
[2023-06-25] MEDS ORDERED: STAT IV Infusion **Titration per Protocol STA ×2 (04:43→08:21)
[2023-06-25] MEDS ORDERED: 0.2 MICRON FILTER SET 1 EACH IV STA (04:43)
[2023-06-25] MEDS ORDERED: AMIODARONE / D5W 150 MG/100 ML BAG IV STA (04:47)
[2023-06-25] MEDS ORDERED: AMIODARONE / D5W 360 MG/200 ML BAG IV ONE (04:56)
--- NOTE | 2023-06-25 05:21 | Communication Note ---
Date of Service: June 25, 2023 Notified around 0400 the patient was in new onset a fib with RVR. Heart rates ranging anywhere from 130s to 160s. EKG was performed confirming diagnosis. When seen at bedside patient says he feels a little "weird" but denies any significant chest pain nor shortness of breath. He is on Lovenox for DVT prophylaxis. No previous diagnosis of this but he does mention that a long time ago he could feel his heart beating in his ears. Patient appears to be baseline bradycardic so was cautious with Lopressor. Did attempt one dose IV Lopressor 5 mg without resolve. Patient was then transferred to PCU and started on amnio bolus/drip. Blood pressure was reasonable for this approach. Resident Activity Tracking Resident Involvement: Resident Care Provided Care Provided: Adult Hospital Medicine
[2023-06-25] MEDS: LEVOTHYROXINE SODIUM 175 MCG TABLET PO SCH (05:30)
[2023-06-25] MEDS ORDERED: dilTIAZem HCl 5 MG/ML 5 ML VIAL IV STA (07:26)
[2023-06-25] MEDS ORDERED: ENOXAPARIN 1 MG/KG SC SCH (07:30)
[2023-06-25] MEDS ORDERED: ENOXAPARIN 80 MG/0.8 ML SYR SQ SCH (07:30)
[2023-06-25] MEDS: dilTIAZem HCL 125 MG in DEXTROSE 5% 100 ML IV SCH (08:45)
[2023-06-25] MEDS: PANTOprazole 40 MG in SYRINGE 0 ML IV SCH ×2 (08:50→22:00)
--- NOTE | 2023-06-25 08:54 | Electrocardiogram Report ---
Test Reason : Blood Pressure : / mmHG Vent. Rate : 155 BPM Atrial Rate : 170 BPM P-R Int : 000 ms QRS Dur : 086 ms QT Int : 262 ms P-R-T Axes : 000 045 077 degrees QTc Int : 420 ms Atrial fibrillation with rapid ventricular response Abnormal ECG When compared with ECG of 20-JUN-2023 18:59, Atrial fibrillation has replaced Sinus rhythm Vent. rate has increased BY [address] now depressed in Inferior leads ST now depressed in Anterior leads Confirmed by Augustine Franklin ([id number]) on 06/25/2023 8:53:52 AM Referred By: REFERRED SELF Confirmed By:Lev Franklin
--- NOTE | 2023-06-25 08:56 | Electrocardiogram Report ---
Test Reason : Blood Pressure : / mmHG Vent. Rate : 159 BPM Atrial Rate : 087 BPM P-R Int : 000 ms QRS Dur : 082 ms QT Int : 288 ms P-R-T Axes : 000 013 062 degrees QTc Int : 468 ms Atrial fibrillation with rapid ventricular response with premature ventricular or aberrantly conducte d complexes Nonspecific ST and T wave abnormality Abnormal ECG When compared with ECG of 25-JUN-2023 04:14, (unconfirmed) No significant change was found Confirmed by Augustine Franklin ([id number]) on 06/25/2023 8:55:36 AM Referred By: REFERRED SELF Confirmed By:Lev Franklin
[2023-06-25] MEDS ORDERED: AMIODARONE / D5W 360 MG/200 ML BAG IV SCH (10:55)
--- NOTE | 2023-06-25 11:13 | Cardiology Consultation ---
Date of Consultation June 25, 2023 Assessment & Plan (1) Atrial fibrillation: Plan 1. Atrial fibrillation: Patient has minimal symptoms associated with arrhythmia. Ventricular rates are high. It is very possible he has had atrial fibrillation in the past there was another short in duration or occurred while he was asleep. His risk factors for atrial fibrillation could his age, hypertension and mild sleep apnea. It is very likely that he will convert back to sinus rhythm on his own within the next 24-48 hours. At that point he can certainly discharge. I would continue the diltiazem infusion. I would discontinue the amiodarone infusion. At time of discharge he can be placed on a dose of diltiazem for rate control provided his blood pressure allows. Alternatively his losartan can be discontinued in favor of diltiazem. His risk factors for thromboembolic events include his age and hypertension. As such, I advised him to start systemic anticoagulation. This could be achieved either with Xarelto 20 mg daily or Eliquis 5 mg twice daily. I will order echocardiogram while he is here in the hospital. History of Present Illness Reason for Consultation: Atrial fibrillation Requesting Physician: Shannan Attending Physician: Nehal Campbell MD History of Present Illness The patient is a 67-year-old gentleman without a known history of cardiac disease who was admitted to the hospital for recurrent pancreatitis. Patient's initial complaints included severe abdominal discomfort. The symptoms appear to have improved and he was anticipating discharge yesterday when he was noted on telemetry to have an elevated heart rate. This was eventually diagnosis atrial fibrillation with associated faster ventricular response. He was transferred to the telemetry unit in amiodarone infusion was initiated. The patient states he was unaware of any increase in his heart rate or palpitations. He states that over the years he has noted some occasional flutters or brief episodes of palpitation. He has never been aware of any prolonged high heart rates. He does not monitor his heart rate or blood pressure at home routinely. His main complaint over the past few days has simply been constipation which has improved. He was previously ambulatory but has been told to stay in bed now that he is in atrial fibrillation. In general he is an active individual. He does not perform routine exercise, but is comfortable doing routine activities such as walking, carrying items and going up and down stairs. He has not report significant limitations associated with this activity. No exertional dyspnea or chest pain. No episodes of dizziness or prior history of syncope. Allergies Allergy/AdvReac Type Severity Reaction Status Date / Time No Known Drug Allergies Allergy Unknown Verified 06/20/23 23:31 Home Medications Medication Instructions Recorded Confirmed Type multivitamin 1 tab PO QAM 07/14/18 06/20/23 History omega-3 acid ethyl esters 1 gram 1 cap PO QAM 03/30/19 06/20/23 History capsule losartan 100 mg tablet 100 mg PO QAM #90 tabs 11/07/22 06/20/23 Rx levothyroxine 175 mcg tablet 175 mcg PO QAM #90 tabs 11/27/22 06/20/23 Rx atorvastatin 20 mg tablet 20 mg PO QAM #90 tabs 01/31/23 06/20/23 Rx sildenafil (pulm.hypertension) 20 20 mg PO DAILY PRN sexual activity 02/26/23 06/20/23 Rx mg tablet #20 tabs trazodone 100 mg tablet 200 mg PO HS PRN Sleep #180 tabs 04/22/23 06/20/23 Rx famotidine 40 mg tablet 40 mg PO BID #180 tabs 06/17/23 06/20/23 Rx pantoprazole 40 mg tablet,delayed 40 mg PO BID #180 tabs 06/17/23 06/20/23 Rx release (Protonix) diclofenac sodium 1 % topical gel 2 g topical QID PRN Pain 06/20/23 06/20/23 History (Voltaren Arthritis Pain) Patient History Medical History (Updated 06/25/23 @ 11:10 by Augustine Franklin MD) Acute pancreatitis (04/2021) hx-"has subsided since quit drinking alcohol" Anxiety and depression Constipation due to opioid therapy Degenerative disc disease at L5-S1 level Enlarged prostate with lower urinary tract symptoms (LUTS) Environmental allergies Gastritis History of COVID-19 08/2022, tested at clinic near home, not hosp; "didn't feel right in his head," cold all the time>resolved HTN (hypertension) Hyperlipidemia Hypothyroidism Insomnia Irritable bowel syndrome Laryngopharyngeal reflux Multiple thyroid nodules HX Nutcracker esophagus s/p POEM Osteoarthritis Prediabetes Restless leg syndrome Sensorineural hearing loss (SNHL) of both ears Surgical History History of cholecystectomy History of colonoscopy History of esophagogastroduodenoscopy (EGD) (07/2018) History of facial surgery History of oral surgery History of thyroidectomy, subtotal (2014) History of tooth extraction Nausea and vomiting after administration of anesthetic agent "rare now, has not happened recently with procedures" S/P hemorrhoidectomy (05/30/21) Family History Mother Family history of diabetes mellitus Heart murmur Brother Diabetes Family history of diabetes mellitus Arthritis Father Prostate cancer Arthritis Other No family history of adverse response to anesthesia Denies family history of Ovarian cancer Myocardial infarction Breast cancer Colorectal cancer Social History Smoking Status: Never smoker Tobacco Type: Cigars Age Started Using Tobacco: 15; Age Quit Using Tobacco: 49; Second Hand Exposure: No; Do You Dip or Chew Tobacco: No; Hx Alcohol Use: No Hx Substance Use: No Preferred Language: Estonian Communication Ability: Effective Communication Tools: Facial Expression and Lip Movement/Reading Visual Impairment: No Limitations Hearing Ability: 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 Minimal abdominal pain. Physical Exam Physical Exam: The patient is alert and oriented. Mood and affect appeared normal. He answered all questions appropriately. HEENT: Pupils are equal and reactive to light and accommodation. Extraocular movements are intact. The sclerae are anicteric. Neuro: Cranial nerves intact Lungs: Clear to auscultation bilaterally. He has good air movement without use of accessory muscles. No rales wheezes or rhonchi. Cardiac: Heart demonstrates an irregular rhythm and fast rate. Normal S1 and S2. No murmurs on examination. Pulses: The patient has palpable radial pulses bilaterally that are equal in intensity Extremities: There was no evidence of hypoperfusion. There is no cyanosis or clubbing. There is no edema. Skin: I did not appreciate any rashes on examination today. Results & Data Vital Signs (Past 12 Hours) Vital Signs Temp Pulse Pulse Pulse Resp BP BP 06/25/23 07:31 136 H 112/89 06/25/23 05:31 138 H 23 06/25/23 05:31 140/105 H 06/25/23 05:30 143 H 16 06/25/23 05:20 157 H 15 06/25/23 05:17 112/87 06/25/23 05:17 130 H 19 06/25/23 05:13 152 H 23 06/25/23 05:10 149 H 13 06/25/23 05:00 139 H 14 06/25/23 04:57 113/83 06/25/23 04:57 155 H 18 06/25/23 04:55 98/76 L 06/25/23 04:55 154 H 20 06/25/23 04:54 162 H 13 06/25/23 04:40 160 H 16 06/25/23 04:30 156 H 24 06/25/23 05:00 154 H 06/25/23 04:00 141 H 06/25/23 03:34 37.1 C 56 L 18 145/82 H 06/25/23 00:02 37.0 C 55 L 18 140/84 Pulse Ox O2 Del Method 06/25/23 07:31 06/25/23 05:31 06/25/23 05:31 06/25/23 05:30 06/25/23 05:20 95 06/25/23 05:17 06/25/23 05:17 06/25/23 05:13 06/25/23 05:10 95 06/25/23 05:00 97 06/25/23 04:57 06/25/23 04:57 95 06/25/23 04:55 06/25/23 04:55 95 06/25/23 04:54 95 06/25/23 04:40 06/25/23 04:30 06/25/23 05:00 06/25/23 04:00 06/25/23 03:34 95 Room Air 06/25/23 00:02 94 Room Air Diagnostic Findings Cardiac perfusion study performed 06/19/2018: No evidence inducible ischemia. Patient exercised for nearly 8 minutes. Gated ejection fraction 62%. Outpatient Holter monitor dated 02/27/2022: Sinus bradycardia. Average heart rate 69 beats per minute PG Care Time/CCT Total # of Minutes Spent Total Time Spent with Patient: Total time spent is greater than 50% in coordination of care (as documented) at patient's floor/unit and/or counseling patient: Coding Level of Care Code 65146 INT INP/OBS CARE 3/75MIN Diagnoses Atrial fibrillation I48.91
--- NOTE | 2023-06-25 12:58 | XCELERA ---
[id number] \\[id number]
--- NOTE | 2023-06-25 14:41 | Hospitalist Progress Note ---
Date of Service June 25, 2023 Assessment & Plan (1) Recurrent acute pancreatitis: (2) Gastritis and duodenitis: (3) Hypothyroidism, postablative: (4) Enlarged prostate with lower urinary tract symptoms (LUTS): (5) Nutcracker esophagus: (6) HTN (hypertension): (7) Hiatal hernia: (8) Esophageal stricture: (9) Esophageal spasm: (10) Elevated troponin: Plan Patient has a history of Recurrent acute pancreatitis/gastritis and duodenitis/esophageal spasm/nutcracker esophagus status post POEM- Presents to the hospital with nausea, vomting and abdominal pain Lipase 12,600. No recent alcohol intake, no gall stones hx CT abdomen and pelvis shows peripancreatic fluid compatible with acute pancreatitis Changed Protonix 40 mg p.o. twice daily to 40 mg IV twice daily Acetaminophen 1 g IV every 8 hours as needed for mild pain or fever patient is fairly pain-free. Discontinue all IV and oralNarcotics. Discontinue IV fluids constipation is treated. Patient has had 3 bowel movements since yesterday Rapid atrial fibrillation New diagnosis for the patient [id number] score of 2 Started on Lovenox therapeutic dose we will switch him to p.o. Eliquis Cardiology on board Hoping for spontaneous cardioversion On IV Cardizem drip. May switch to p.o. Cardizem soon echocardiogram reviewed. Unremarkable. Elevated troponin/hypertension/hypotension while in the ED- Most likely due to demand ischemia Blood pressure in ED was as low as 92/60 was given fluid boluses Hold losartan Discharge in the next 24 hrs if he tolerated regular diet, has a bowel movement Admission and Anticipated Discharge Date Admission Date: June 20, 2023 Subjective patient went into a rapid A-fib overnight. He stated that he has had palpitations in the past but never was diagnosed with atrial fibrillation. He was started on amiodarone drip overnight. Was then started on Cardizem drip. Cardiology was consulted. The patient was feeling well at this time. Denies any palpitations at this time. He had 3 bowel movements overnight. No belly pain today. Tolerating meals. Review of Systems Review of Systems: All systems reviewed & are unremarkable except as noted in Subjective Physical Exam Physical Exam: General: Awake, conversant Heart: S1, S2/ Irregular rhythm fast rate, no murmur rubs or gallops Lungs: Clear to auscultation bilaterally. Normal effort Abdomen: Soft/nontender/nondistended. No hepatosplenomegaly Extremities: No clubbing/cyanosis. No edema Behavior: Appropriate, cooperative Results & Data Results & Data Vital Signs (Past 12 Hours) Vital Signs Temp Pulse Pulse Pulse Resp BP BP 06/25/23 12:28 36.7 C 72 22 116/64 06/25/23 07:30 128 H 06/25/23 07:31 136 H 112/89 06/25/23 05:31 138 H 23 06/25/23 05:31 140/105 H 06/25/23 05:30 143 H 16 06/25/23 05:20 157 H 15 06/25/23 05:17 112/87 06/25/23 05:17 130 H 19 06/25/23 05:13 152 H 23 06/25/23 05:10 149 H 13 06/25/23 05:00 139 H 14 06/25/23 04:57 113/83 06/25/23 04:57 155 H 18 06/25/23 04:55 98/76 L 06/25/23 04:55 154 H 20 06/25/23 04:54 162 H 13 06/25/23 04:40 160 H 16 06/25/23 04:30 156 H 24 06/25/23 05:00 154 H 06/25/23 04:00 141 H 06/25/23 03:34 37.1 C 56 L 18 145/82 H Pulse Ox O2 Del Method 06/25/23 12:28 95 Room Air 06/25/23 07:30 06/25/23 07:31 06/25/23 05:31 06/25/23 05:31 06/25/23 05:30 06/25/23 05:20 95 06/25/23 05:17 06/25/23 05:17 06/25/23 05:13 06/25/23 05:10 95 06/25/23 05:00 97 06/25/23 04:57 06/25/23 04:57 95 06/25/23 04:55 06/25/23 04:55 95 06/25/23 04:54 95 06/25/23 04:40 06/25/23 04:30 06/25/23 05:00 06/25/23 04:00 06/25/23 03:34 95 Room Air PG Care Time/CCT Total # of Minutes Spent Total Time Spent with Patient: Total time spent is greater than 50% in coordination of care (as documented) at patient's floor/unit and/or counseling patient: Coding Level of Care Code 28143 SUB INP/OBS CARE 2/35MIN Diagnoses Recurrent acute pancreatitis K85.90 Gastritis and duodenitis K29.90 Hypothyroidism, postablative E89.0 Enlarged prostate with lower urinary tract symptoms (LUTS) N40.1 Nutcracker esophagus K22.4 HTN (hypertension) I10 Hiatal hernia K44.9 Esophageal stricture K22.2 Esophageal spasm K22.4 Elevated troponin R79.89
[2023-06-25] MEDS: APIXABAN 5 MG TABLET PO SCH (20:54)
[2023-06-26] MEDS: dilTIAZem HCL 125 MG in DEXTROSE 5% 100 ML IV SCH ×3 (04:08→08:04)
[2023-06-26] MEDS: LEVOTHYROXINE SODIUM 175 MCG TABLET PO SCH (06:12)
[2023-06-26] MEDS: PANTOprazole 40 MG in SYRINGE 0 ML IV SCH (09:04)
[2023-06-26] MEDS: APIXABAN 5 MG TABLET PO SCH ×2 (09:04→20:00)
[2023-06-26] MEDS: dilTIAZem HCL 120 MG CAPCR PO SCH (09:04)
--- NOTE | 2023-06-26 12:56 | Hospitalist Progress Note ---
Date of Service June 26, 2023 Assessment & Plan (1) Recurrent acute pancreatitis: (2) Gastritis and duodenitis: (3) Hypothyroidism, postablative: (4) Enlarged prostate with lower urinary tract symptoms (LUTS): (5) Nutcracker esophagus: (6) HTN (hypertension): (7) Hiatal hernia: (8) Esophageal stricture: (9) Esophageal spasm: (10) Elevated troponin: Plan Patient has a history of Recurrent acute pancreatitis/gastritis and duodenitis/esophageal spasm/nutcracker esophagus status post POEM- Presents to the hospital with nausea, vomting and abdominal pain Lipase 12,600. No recent alcohol intake, no gall stones hx CT abdomen and pelvis shows peripancreatic fluid compatible with acute pancreatitis Protonix 40 mg p.o. once daily Acetaminophen 1 g IV every 8 hours as needed for mild pain or fever patient is fairly pain-free. Discontinue all IV and oralNarcotics. Discontinue IV fluids constipation is treated. Rapid atrial fibrillation New diagnosis for the patient [id number] score of 2 Started on Lovenox therapeutic dose. Switched to p.o. Eliquis. We will d ischarge him on p.o. Eliquis spontaneously cardioverted to sinus IV Cardizem drip discontinued P.o. Cardizem 120 mg extended release started echocardiogram reviewed. Unremarkable. Elevated troponin/hypertension/hypotension while in the ED- Most likely due to demand ischemia Blood pressure in ED was as low as 92/60 was given fluid boluses Hold losartan Discharge tomorrow likely Admission and Anticipated Discharge Date Admission Date: June 20, 2023 Subjective patient has spontaneously converted to a sinus rhythm this morning. Has been off of the Cardizem drip since this morning. Patient was started on p.o. Cardizem 120 mg once daily. Also started on p.o. Eliquis. Review of Systems Review of Systems: All systems reviewed & are unremarkable except as noted in Subjective Physical Exam Physical Exam: General: Awake, conversant Heart: S1, S2/ Regular rate and rhythm, no murmur rubs or gallops Lungs: Clear to auscultation bilaterally. Normal effort Abdomen: Soft/nontender/nondistended. No hepatosplenomegaly Extremities: No clubbing/cyanosis. No edema Behavior: Appropriate, cooperative Results & Data Results & Data Vital Signs (Past 12 Hours) Vital Signs Temp Pulse Pulse Resp BP BP Pulse Ox 06/26/23 11:14 36.7 C 56 L 18 125/78 96 06/26/23 09:00 61 06/26/23 07:49 36.7 C 60 18 122/77 96 06/26/23 03:00 36.8 C 82 19 128/76 94 O2 Del Method 06/26/23 11:14 Room Air 06/26/23 09:00 06/26/23 07:49 Room Air 06/26/23 03:00 Room Air PG Care Time/CCT Total # of Minutes Spent Total Time Spent with Patient: Total time spent is greater than 50% in coordination of care (as documented) at patient's floor/unit and/or counseling patient: Coding Level of Care Code 50993 SUB INP/OBS CARE 2/35MIN Diagnoses Recurrent acute pancreatitis K85.90 Gastritis and duodenitis K29.90 Hypothyroidism, postablative E89.0 Enlarged prostate with lower urinary tract symptoms (LUTS) N40.1 Nutcracker esophagus K22.4 HTN (hypertension) I10 Hiatal hernia K44.9 Esophageal stricture K22.2 Esophageal spasm K22.4 Elevated troponin R79.89
--- NOTE | 2023-06-26 17:48 | Cardiology Progress Note ---
Date of Service June 26, 2023 Assessment & Plan (1) Atrial fibrillation: Plan 1. Atrial fibrillation: He converted to sinus rhythm. I agree with daily diltiazem, probably 180mg. If his BP is normal, this could replace his losartan. Continue anticoagulation. Admission and Anticipated Discharge Date Admission Date: June 20, 2023 Subjective This afternoon the patient was feeling well. Ambulating all around the [place]. He reports feeling better since he returned to a sinus rhythm. No dizziness. No dyspnea. No abdominal pain Review of Systems Review of Systems: Per HPI. Physical Exam Physical Exam: The patient is alert and oriented. Mood and affect appeared normal. He answered all questions appropriately. HEENT: Pupils are equal and reactive to light and accommodation. Extraocular movements are intact. The sclerae are anicteric. Neuro: Cranial nerves intact Lungs: Normal respiratory effort Extremities: There was no evidence of hypoperfusion. There is no cyanosis or clubbing. There is no edema. Skin: I did not appreciate any rashes on examination today. Results & Data Vital Signs (Past 12 Hours) Vital Signs Temp Pulse Pulse Resp BP Pulse Ox O2 Del Method 06/26/23 15:59 59 L 06/26/23 15:23 36.8 C 54 L 18 119/72 97 Room Air 06/26/23 11:14 36.7 C 56 L 18 125/78 96 Room Air 06/26/23 09:00 61 06/26/23 07:49 36.7 C 60 18 122/77 96 Room Air Laboratory Results Echocardiogram performed today. Normal LV function. No significant valve disease PG Care Time/CCT Total # of Minutes Spent Total Time Spent with Patient: Total time spent is greater than 50% in coordination of care (as documented) at patient's floor/unit and/or counseling patient: Coding Level of Care Code 49742 SUB INP/OBS CARE 2/35MIN Diagnoses Atrial fibrillation I48.91
[2023-06-27] MEDS: LEVOTHYROXINE SODIUM 175 MCG TABLET PO SCH (06:13)
[2023-06-27] MEDS: dilTIAZem HCL 120 MG CAPCR PO SCH (08:48)
[2023-06-27] MEDS: APIXABAN 5 MG TABLET PO SCH (08:48)
[2023-06-27] MEDS ORDERED: PANTOprazole 40 MG TAB PO SCH (09:00)
--- NOTE | 2023-06-27 09:33 | Discharge Summary ---
Date of Service June 27, 2023 Admission HPI Per Admitting Provider Chief Complaint: The patient presents to the emergency department with report of generalized abdominal pain that began about 3 weeks ago, that then decreased, has intermittently returned, and then today got severe accompanied by some nausea without vomiting, which made him present Primary Care Provider: Sue Gallegos DO The patient is a 67-year-old male with a past medical history including pancreatitis, BPH with LUTS, RLS, esophageal dysphagia, esophageal spasm, esophageal stricture, hyperlipidemia, SNHL bilaterally and hiatal hernia. The patient was most recently admitted from 04/30-05/01/2022 for pancreatitis which at that time a have been due to alcohol. He reports he has not had any alcohol intake recently. He reports no change in his dietary intake that may have precipitated this, but has had decreased intake recently due to burning in his epigastric area to esophagus and the abdominal pain he is noted CT scan of abdomen pelvis is consistent with acute pancreatitis, and probable gastritis with duodenitis Admission Exam Per Admitting Provider The patient is awake, alert and oriented 3, well developed and well nourished, normocephalic and atraumatic, lying in bed and in no acute distress. HEENT--PERRL, EOMI, mucous membranes and oropharynx dry. Neck--supple. No JVD. No bruits. Thyroid normal, trachea midline, no adenopathy. Heart--normal S1 and S2. No murmurs, rubs or gallops. Lungs--clear bilaterally, no respiratory distress, no accessory muscle use. Abdomen--normal bowel sounds and soft. Mild generalized pain on palpation. Nondistended Extremities--no cyanosis or clubbing. No edema. Dermatologic--normal skin turgor, normal color, no abnormal lymph nodes, no rash. Neurologic--cranial nerves II through XII grossly intact. Rheumatologic--normal range of motion. Psychiatric--normal affect. Principal Diagnosis Acute Recurrent pancreatitis likely related to alcohol use Atrial fibrillation with rapid ventricular response Discharge Exam General: Awake, conversant Heart: S1, S2/ Regular rate and rhythm, no murmur rubs or gallops Lungs: Clear to auscultation bilaterally. Normal effort Abdomen: Soft/nontender/nondistended. No hepatosplenomegaly Extremities: No clubbing/cyanosis. No edema Behavior: Appropriate, cooperative Discharge Data Allergies Allergy/AdvReac Type Severity Reaction Status Date / Time No Known Drug Allergies Allergy Unknown Verified 06/20/23 23:31 Consultations 06/20/23 21:18 ED Decision to Admit Stat 06/25/23 07:24 Consult Cardiology Routine Ordered Studies 06/20/23 18:33 CT abd pelvis IV con only Stat Hospital Course (1) Recurrent acute pancreatitis: (2) Gastritis and duodenitis: (3) Hypothyroidism, postablative: (4) Enlarged prostate with lower urinary tract symptoms (LUTS): (5) Nutcracker esophagus: (6) HTN (hypertension): (7) Hiatal hernia: (8) Esophageal stricture: (9) Esophageal spasm: (10) Elevated troponin: Plan Patient has a history of Recurrent acute pancreatitis/gastritis and duodenitis/esophageal spasm/nutcracker esophagus status post POEM- Presents to the hospital with nausea, vomting and abdominal pain Lipase 12,600. No recent alcohol intake, no gall stones hx CT abdomen and pelvis shows peripancreatic fluid compatible with acute pancreatitis Patient was treated conservatively with no analgesics, IV fluids, bowel rest Resolved Tolerating solid meals Advised patient to quit drinking alcohol completely. He states that he is not actively drinking currently but was an alcoholic before. continue PPI constipation is treated. Rapid atrial fibrillation New diagnosis for the patient [id number] score of 2 Started on Lovenox therapeutic dose. Switched to p.o. Eliquis. We will discharge him on p.o. Eliquis spontaneously cardioverted to sinus Was initially treated with IV Cardizem, now switched to p.o. extended release Cardizem 120 mg echocardiogram reviewed. Unremarkable. Discharge on p.o. Eliquis and p.o. Cardizem Currently in sinus rhythm Elevated troponin/hypertension/hypotension while in the ED- Most likely due to demand ischemia Blood pressure in ED was as low as 92/60 was given fluid boluses losartan was discontinued to allow room for p.o. Cardizem discharge today Total Time Total Time Spent Total Time Spent (In Minutes): 35 Discharge Plan Discharge Items Patient Disposition: Home - Self-Care Reason For Visit: PANCREATITIS, DUODENTIS, GASTRITIS Discharge Diagnosis: Acute pancreatitis Atrial fibrillation (Afib) Condition on Discharge: Good Activity: Resume your previous activity Non-emergency contact: Primary Care Provider Call non-emergency contact if: you have any medication questions and your symptoms worsen Follow-up/Referrals: Sue Gallegos DO [Primary Care Provider] - 07/01/23 9:20 am Diet: Regular Addtl Attending Provider Instructions: Advised to follow-up with primary care physician within 1 week Advised to quit alcohol Pending Studies at Discharge: No Stand-Alone Forms: My [facility] Medications and DC Order Prescriptions: Continued atorvastatin 20 mg tablet 20 mg PO QAM Qty: 90 1RF sildenafil (pulm.hypertension) 20 mg tablet 20 mg PO DAILY PRN (Reason: sexual activity) Qty: 20 2RF Rx Instructions: Take 1 tablet to 5 tablets 1 to 2 hours prior to need famotidine 40 mg tablet 40 mg PO BID Qty: 180 1RF pantoprazole [Protonix] 40 mg tablet,delayed release (DR/EC) 40 mg PO BID Qty: 180 3RF levothyroxine 175 mcg tablet 175 mcg PO QAM Qty: 90 2RF omega-3 acid ethyl esters 1 gram capsule 1 cap PO QAM trazodone 100 mg tablet 200 mg PO HS PRN (Reason: Sleep) Qty: 180 1RF multivitamin Tablet 1 tab PO QAM diclofenac sodium [Voltaren Arthritis Pain] 1 % gel 2 g topical QID PRN (Reason: Pain) Rx Instructions: apply to right knee Discontinued losartan 100 mg tablet 100 mg PO QAM Qty: 90 2RF No Action Eliquis 5 mg tablet 5 mg PO BID Qty: 180 1RF diltiazem HCl [Cardizem CD] 120 mg capsule,extended release 24hr 120 mg PO QAM Qty: 90 1RF Discharge Orders: Discharge Order (Routine); Ordered 06/27/23 Ordered By: Nehal Campbell Admission Data Admit Date/Time: 06/20/23 22:30 Attending Provider: Nehal Campbell Admit Provider: Justin Amos Primary Care Provider: Sue Gallegos Other Providers: Justin Amos; Mani Caballero Other Interventions: Discharge Summary Assessment (RN) Last Done: 06/27/23 10:22 Coding Level of Care Code 49403 INP/OBS DISCH >30 MIN Diagnoses Recurrent acute pancreatitis K85.90 Gastritis and duodenitis K29.90 Hypothyroidism, postablative E89.0 Enlarged prostate with lower urinary tract symptoms (LUTS) N40.1 Nutcracker esophagus K22.4 HTN (hypertension) I10 Hiatal hernia K44.9 Esophageal stricture K22.2 Esophageal spasm K22.4 Elevated troponin R79.89
== END 2023-06-27 10:45 | disposition home or self-care (01) | DRG 439 ==
LOC: ED 18:20 → EDINP 22:30 → SUATTDRO 22:30 → EDINP 06-21 01:03 → 2W 06-21 13:50 → 2E 06-25 04:55
DX: K29.70 Gastritis, unspecified, without bleeding; K29.80 Duodenitis without bleeding; E89.0 Postprocedural hypothyroidism; I48.91 Unspecified atrial fibrillation; N40.1 Benign prostatic hyperplasia with lower urinary tract symptoms; Z79.890 Hormone replacement therapy; I10 Essential (primary) hypertension; Z87.891 Personal history of nicotine dependence; K85.20 Alcohol induced acute pancreatitis without necrosis or infection; K22.4 Dyskinesia of esophagus; Z79.899 Other long term (current) drug therapy; I24.89 Other forms of acute ischemic heart disease

== ENCOUNTER 2023-12-28 17:04 | Inpatient (IN) ==
[2023-12-28] MEDS: HYDROmorphone INJ 0.5 MG/0.5 ML SYR IV PRN ×2 (17:30→23:49)
[2023-12-28] MEDS: LACTATED RINGER'S 1,000 ML IV SCH (17:35)
[2023-12-28] MEDS: ONDANSETRON INJ 2 MG/ML 2 ML VIAL IV STA (17:36)
[2023-12-28 17:43] LABS: Appearance Urine Clear (Clear); Basophils # (auto) 0.04 K/uL (0.00-0.20); Basophils % (auto) 0.3 %; Bilirubin Urine Negative (Negative); Blood Urine Negative (Negative); Color Urine Yellow; Eosinophils # (auto) 0.29 K/uL (0.00-0.50); Glucose Urine UA Negative (Negative); Hematocrit (blood only) 35.2 % (42.0-52.0); Hemoglobin 11.3 g/dl (14.0-18.0); Immature Granulocytes # (auto) 0.13 K/uL (0.01-0.20); Immature Granulocytes % (auto) 0.9 %; Ketones Urine Negative (Negative); Leukocyte Esterase Urine Negative (Negative); Lymphocytes # (auto) 0.58 K/uL (1.20-3.40); Lymphocytes % (auto) 3.9 %; Mean Corpuscular Hemoglobin 30.2 pg (25.0-34.0); Mean Corpuscular Hgb Conc 32.1 g/dL (32.0-36.0); Mean Corpuscular Volume 94.1 fL (80.0-100.0); Mean Platelet Volume 8.9 fL (9.4-12.4); Monocytes # (auto) 0.66 K/uL (0.11-0.59); Monocytes % (auto) 4.4 %; Neutrophils # (auto) 13.15 K/uL (1.40-6.50); Neutrophils % (auto) 88.5 %; Nitrite Urine Negative (Negative); Platelet Count 399 K/uL (130-400); Protein Urine Negative (Negative); RDW Coefficient of Variation 15.7 % (11.5-14.5); RDW Standard Deviation 53.9 fL (36.4-46.3); Red Blood Count 3.74 M/uL (4.70-6.10); Specific Gravity Urine 1.014 (1.000-1.030); Urobilinogen Urine Negative (Negative); White Blood Count 14.85 K/ul (4.8-10.8)
--- NOTE | 2023-12-28 17:57 | Emergency Department Note ---
Impression & Plan Abdominal pain, acute ED Provider Note NAME: FELIPA ISABEL AGE: 68 SEX: Male INFORMANT: Patient ED PROVIDER(S): Augustine Loomis MD CHIEF COMPLAINT: Abdominal pain PLAN: Disposition: Admitted Outpatient prescription management: none Referral: None MEDICAL DECISION MAKING: Patient presented because of acute abdominal pain. He was concerned due to his history of pancreatitis. Patient also had endoscopy 2 weeks ago. He had an IV established. He was given Dilaudid, Zofran and started on LR at 200 mL an hour. Blood work and CT imaging ordered. Patient did require a second dose of Dilaudid. CT imaging was concerning for acute on chronic pancreatitis. Patient does have mild elevation of lipase and amylase. ECG did not reveal any acute ischemia. Patient had a borderline cardiac troponin which was not significantly different than prior. He does not have any chest pain. Further management in the hospital will be necessary. Consultation was made with Dr. Justin Amos of the [facility] service. Medicine did request a GI consultation. I discussed the case with Dr. Maynard. He recommended treatment of pancreatitis in the standard fashion and did not recommend any intervention or ERCP at this time. Patient was evaluated in the ER by internal medicine for further management. Care/management discussed with: industrial relations manager Level of care consideration(s): After review of the information above and other included data, I feel the patient requires escalation of care to admission Triage Nursing notes: reviewed and agree them. Vital Signs: reviewed and remarkable for no significant abnormalities Additional History obtained from: none Chronic Medical/Social Conditions affecting care: Recurrent pancreatitis Prior/ Outside/ External records reviewed: none Differential Diagnosis: Etiologies such as pancreatitis gastroenteritis, food borne illness, infections, appendicitis, diverticulitis, inflammatory bowel disease, GI bleed, biliary pathology, as well as others were entertained. Diagnostics, independently interpreted by me: EC Lead ECG performed and revealed Normal sinus rhythm at 86, normal [place], QRS normal. No elevation or depression. No PACs or PVCs Cardiac Monitoring: Cardiac monitoring ordered by me: The patient was placed on continuous cardiac monitoring and observed. It revealed a normal sinus rhythm at 80 beats per minute without ectopy or evidence of dysrhythmia. Medical decision rules: none Imaging studies: CT scan reveals acute pancreatitis. Chronic changes also noted. I refer you to the EMR for further details. HPI: 68 year old Male arrives for evaluation of acute upper abdominal pain. This started this morning and is worsening. The patient also notes the following associated symptoms, none. The patient has found no relieving factors. Current pain is rated as 10/10. Patient is concerned as he has a history of pancreatitis. He has been admitted before for the same. He states 2 weeks ago he had an endoscopy performed by Dr. Shantel Forbes and was "cleaned out". He thought that he was going to need a stent in his pancreas but this was not done. He states right after procedure he had some dark stool but that resolved. Pt denies LOC, headache, fevers, chills, diaphoresis, visual changes, neck pain, chest pain, breathing difficulties, nausea, vomiting, back pain, melena, hematochezia, urinary symptoms, numbness, weakness, lymphadenopathy, rash, or other complaints. PAST MEDICAL HISTORY: See Below, pancreatitis PAST SURGICAL HISTORY: See Below, SOCIAL HISTORY: See Below, denies alcohol use HOME MEDICATIONS: See Below ALLERGIES: See Below VITALS: See Below PHYSICAL EXAMINATION: GENERAL: Awake, alert, uncomfortable-appearing, in no distress HENT: Normocephalic, atraumatic. Oropharynx unremarkable. EYES: Normal conjunctiva. Sclera non-icteric. NECK: Inspection normal. Non-tender. Supple. No nuchal rigidity. FROM. No masses. RESPIRATORY: Clear to auscultation. No wheezes. No rales. Normal respiratory effort. CARDIAC: Normal rate. Normal rhythm. No murmurs. No rubs. Extremities warm and well perfused. Pulses equal. No JVD. GI: Soft, non-distended. Epigastric tenderness to palpation. No rebound or guarding. No masses. RECTAL: Deferred. MUSCULOSKELETAL: Atraumatic. Chest examination reveals no tenderness. The back is symmetrical on inspection without obvious abnormality. There is no CVA tenderness to palpation. No joint edema. LOWER EXTREMITIES: Calves are equal size bilaterally and non-tender. No edema. No discoloration. NEURO: Normal sensorium. No sensory or motor deficits noted. SKIN: No rash or jaundice noted. PROCEDURES: none CRITICAL CARE: none OBSERVATION NOTE: none Past Med/Surg History Medical History (Updated 12/28/23 @ 20:11 by Jay Guerin PA-C) Gastritis History of pancreatitis Pancreatitis Restless leg syndrome History of COVID-19 08/2022, tested at clinic near home, not hosp; "didn't feel right in his head," cold all the time>resolved Constipation due to opioid therapy Degenerative disc disease at L5-S1 level Nutcracker esophagus s/p POEM Acute pancreatitis (04/2021) hx-"has subsided since quit drinking alcohol" Hypothyroidism Anxiety and depression Environmental allergies Prediabetes Enlarged prostate with lower urinary tract symptoms (LUTS) Irritable bowel syndrome Multiple thyroid nodules HX HTN (hypertension) Insomnia Laryngopharyngeal reflux Sensorineural hearing loss (SNHL) of both ears Osteoarthritis Hyperlipidemia Surgical History S/P hemorrhoidectomy (05/30/21) History of colonoscopy History of oral surgery History of facial surgery History of cholecystectomy History of esophagogastroduodenoscopy (EGD) (07/2018) History of thyroidectomy, subtotal (2014) Nausea and vomiting after administration of anesthetic agent "rare now, has not happened recently with procedures" History of tooth extraction Family History Mother Family history of diabetes mellitus Heart murmur Brother Diabetes Family history of diabetes mellitus Arthritis Father Prostate cancer Arthritis Other No family history of adverse response to anesthesia Denies family history of Ovarian cancer Myocardial infarction Breast cancer Colorectal cancer Social History Smoking Status: Never smoker Tobacco Type: Cigarettes Age Started Using Tobacco: 15; Age Quit Using Tobacco: 49; Second Hand Exposure: No; Do You Dip or Chew Tobacco: No; Hx Alcohol Use: No Hx Substance Use: No Preferred Language: Amharic Communication Ability: Effective Communication Tools: Facial Expression and Lip Movement/Reading Visual Impairment: No Limitations Hearing Ability: Hard of Hearing Audit Spec Required: No Beliefs That Will Affect Care: None marital status: / Current Living Situation: Family Current Living Situation Comment: with son 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 occupational status: 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 Safe at Home: Yes Childhood Exposure to Second-Hand Smoke: No Diet: regular caffeine: Yes (Coffee x 1 per day.) during the past year weight has: remained stable Dental Care, Regularly: Yes Physical Activity Frequency: 3-4 Times per Week Seatbelt Use: always Sunscreen Use: No Assistive Devices: None Allergies Allergies Allergy/AdvReac Type Severity Reaction Status Date / Time No Known Drug Allergies Allergy Unknown Verified 12/23/23 10:37 Home Meds Home Medications Medication Instructions Recorded Confirmed multivitamin 1 tab PO QAM 07/14/18 12/28/23 bisacodyl 5 mg tablet 10 mg PO DAILY PRN constipation 11/04/23 12/28/23 oxycodone 5 mg tablet 5 mg PO Q4H PRN Pain 11/04/23 12/28/23 polyethylene glycol 3350 17 17 g PO DAILY PRN constipation 11/04/23 12/28/23 gram/dose oral powder (Miralax) pramipexole 0.125 mg tablet 0.125 mg PO DAILY 11/04/23 12/28/23 sennosides 8.6 mg-docusate sodium 1 tab-cap PO BID PRN Constipation 11/04/23 12/28/23 50 mg capsule (Senna Plus) sildenafil 100 mg tablet 100 mg PO DAILY PRN Erectile 11/04/23 12/28/23 Dysfunction deucravacitinib 6 mg tablet 6 mg PO DAILY 12/23/23 12/28/23 (Sotyktu) Previous Rx's Medication Instructions Recorded levothyroxine 175 mcg tablet 175 mcg PO QAM #90 tabs 09/08/23 cetirizine 10 mg tablet 10 mg PO BID allergy symptoms #60 09/25/23 tabs famotidine 40 mg tablet 40 mg PO BID #180 tabs 09/25/23 pantoprazole 40 mg tablet,delayed 40 mg PO BID #180 tabs 09/25/23 release (Protonix) betamethasone dipropionate 0.05 % 1 applic topical BID PRN skin 11/04/23 topical cream irritation #45 grams diltiazem HCl 120 mg 120 mg PO QAM #90 caps 11/19/23 capsule,extended release 24 hr (Cardizem CD) apixaban 5 mg tablet (Eliquis) 5 mg PO BID #180 tabs 12/23/23 hydroxyzine HCl 25 mg tablet 25 mg PO Q8H PRN itching #90 tabs 12/23/23 zolpidem 10 mg tablet 10 mg PO HS #30 tabs 12/23/23 Results & Data (ED) Vital Signs Vital Signs - 24 hr 12/28/23 17:07 12/28/23 17:45 12/28/23 17:54 Temperature 36.4 C L Temperature Source Temporal Artery Scan Pulse Rate 91 H 88 87 Pulse Rate from SpO2 Sensor 89 Pulse Rhythm Regular Pulse Strength Normal Respiratory Rate 20 22 Respiratory Effort / Characteristics Non-Labored Spontaneous Respiratory Depth Normal Respiratory Pattern Regular Blood Pressure 147/85 H Blood Pressure Mean 105 Blood Pressure Position Sitting Pulse Oximetry 100 98 Oxygen Delivery Method Room Air Sepsis Recent Fever Within 48 Hours No Sepsis New/Unexplained Change in Mental Status No Sepsis Action Taken by Nursing No Action Required 12/28/23 18:03 12/28/23 18:30 Temperature Temperature Source Pulse Rate 88 96 H Pulse Rate from SpO2 Sensor 89 98 H Pulse Rhythm Pulse Strength Respiratory Rate 15 21 Respiratory Effort / Characteristics Respiratory Depth Respiratory Pattern Blood Pressure Blood Pressure Mean Blood Pressure Position Pulse Oximetry 97 97 Oxygen Delivery Method Sepsis Recent Fever Within 48 Hours Sepsis New/Unexplained Change in Mental Status Sepsis Action Taken by Nursing Laboratory Data 12/28/23 17:27 12/28/23 17:27 Lab Results 12/28/23 Range/Units 17:27 WBC 14.85 H (4.8-10.8) K/ul RBC 3.74 L (4.70-6.10) M/uL Hgb 11.3 L (14.0-18.0) g/dl Hct 35.2 L (42.0-52.0) % MCV 94.1 (80.0-100.0) fL MCH 30.2 (25.0-34.0) pg MCHC 32.1 (32.0-36.0) g/dL RDW Std Deviation 53.9 H (36.4-46.3) fL RDW Coeff of Marline 15.7 H (11.5-14.5) % Plt Count 399 (130-400) K/uL MPV 8.9 L (9.4-12.4) fL Immature Gran % (Auto) 0.9 % Neut % (Auto) 88.5 % Lymph % (Auto) 3.9 % [place] % (Auto) 4.4 % Eos % (Auto) 2.0 % Baso % (Auto) 0.3 % Neut # (Auto) 13.15 H (1.40-6.50) K/uL Lymph # (Auto) 0.58 L (1.20-3.40) K/uL [place] # (Auto) 0.66 H (0.11-0.59) K/uL Eos # (Auto) 0.29 (0.00-0.50) K/uL Baso # (Auto) 0.04 (0.00-0.20) K/uL Immature Gran # (Auto) 0.13 (0.01-0.20) K/uL Sodium 134 L (136-145) mmol/L Potassium 4.3 (3.5-5.1) mmol/L Chloride 101 (98-107) mmol/L Carbon Dioxide 26 (21-32) mmol/L Anion Gap 7 (3-11) BUN 15 (6-23) mg/dl Creatinine 0.95 (0.6-1.4) mg/dl Est Cr Clr Drug Dosing 73.4 ml/min Est GFR ( Amer) 94.3 ml/min Est GFR (Non-Af Amer) 81.3 ml/min BUN/Creatinine Ratio 15.8 (10-20) Glucose 147 H (70-99(Fasting)) mg/dl Calcium 8.8 (8.6-10.3) mg/dl Total Bilirubin 0.4 (0.2-1.0) mg/dl AST 20 (13-39) U/L ALT 24 (7-52) U/L Alkaline Phosphatase 72 (34-104) U/L Troponin I High Sens 26.3 H (0-20) pg/ml Total Protein 6.4 (6.0-8.3) gm/dl Albumin 3.7 (3.4-5.0) gm/dl Globulin 2.7 (2.5-4.0) gm/dl Albumin/Globulin Ratio 1.4 (0.9-2) Amylase 128 H (25-115) U/L Lipase 170 H (11-82) U/L Urine Color Yellow Urine Appearance Clear (Clear) Urine pH 7.0 (4.5-7.5) Ur Specific [place] 1.014 (1.000-1.030) Urine Protein Negative (Negative) Urine Glucose (UA) Negative (Negative) Urine Ketones Negative (Negative) Urine Blood Negative (Negative) Urine Nitrite Negative (Negative) Urine Bilirubin Negative (Negative) Urine Urobilinogen Negative (Negative) Ur Leukocyte Esterase Negative (Negative) Administered Medications Lactated Ringer's (Lr) 1,000 mls @ 150 mls/hr IV .Q6H40M SHELLY Stop: 12/29/23 12:41 Last Admin: 12/28/23 17:35 Dose: 200 mls/hr Documented By: HS Discontinued Medications Hydromorphone HCl (Hydromorphone Inj 0.5 Mg/0.5 Ml Syr) 0.5 mg IV Q15M PRN PRN Reason: Pain Stop: 01/11/24 17:19 Last Admin: 12/28/23 17:30 Dose: 0.5 mg Documented By: HS Ioversol (Optiray 320 100ml) 95 ml IV ONCE ONE Stop: 12/28/23 18:39 Last Admin: 12/28/23 18:38 Dose: 95 ml Documented By: GARTHK Ondansetron HCl (Ondansetron Inj 2 Mg/Ml 2 Ml Vial) 4 mg IV NOW STA Stop: 12/28/23 17:21 Last Admin: 12/28/23 17:36 Dose: Not Given Documented By: ELIESER Imaging Data Radiologist's Impression: Abdomen/Pelvis CT 12/28/23 17:[address] WITH IV CONTRAST CT DOSE: 956.44 mGy.cm HISTORY: upper abd pain, hx of pancreatitis TECHNIQUE: Multiaxial CT images of the abdomen and pelvis were performed following the use of intravenous contrast. A dose lowering technique was utilized adhering to the principles of ALARA. COMPARISON STUDY: Abdomen and pelvis CT 10/14/2023 FINDINGS: The lung bases are clear. No pneumoperitoneum. No pneumatosis. No acute fractures. Prior cholecystectomy. Mild central hepatic bile duct dilatation, unchanged. No hepatic or splenic masses. The adrenal glands unremarkable. Normal right kidney. Stable left renal hypodense lesions which favor cysts. No hydronephrosis. Calcified plaque within the normal caliber abdominal aorta. The main portal vein is patent. A few prominent peripancreatic lymph nodes which are likely reactive. No pelvic lymphadenopathy or pelvic free fluid. The prostate gland is mildly enlarged. No bladder wall thickening with adjacent fat stranding. This may be due to chronic outlet obstruction from the enlarged prostate gland. Colonic diverticulosis. No evidence for acute diverticulitis. No dilated loops of bowel to suggest an obstruction. Normal appendix. Scattered pancreatic calcifications consistent with chronic pancreatitis. There is also extensive edema and a small amount of fluid surrounding the pancreatic head consistent with acute pancreatitis. Edema is also noted within the pancreatic head without evidence for pancreatic necrosis at this time. This has progressed in the interval. Stable prominence of the common bile duct. Thickening of the adjacent duodenum is likely reactive. There is severe submucosal edema within the third portion of the duodenum. This is likely reactive. No perforation or abscess identified. IMPRESSION: 1. Above findings consistent with acute on chronic pancreatitis which has progressed in the interval. There is extensive edema both within and surrounding the pancreatic head without evidence for pancreatic necrosis or loculated fluid collections. 2. Thickening and severe submucosal edema within the duodenum is likely reactive to the acute pancreatitis. 3. Additional findings as described above. ACT 112: Negative or not required by law. Electronically signed by: Chalino Edmondson M.D. 12/28/2023 7:03 PM Discharge Plan Visit Data Chief Complaint: Abdominal Pain Stated Complaint: ABD PAIN ED Provider: Augustine Loomis Discharge Problem: Abdominal pain, acute Forms Stand Alone Forms: [place] Prescriptions Prescriptions: No Action levothyroxine 175 mcg tablet 175 mcg PO QAM Qty: 90 2RF diltiazem HCl [Cardizem CD] 120 mg capsule,extended release 24hr 120 mg PO QAM Qty: 90 3RF cetirizine 10 mg tablet 10 mg PO BID Qty: 60 5RF pantoprazole [Protonix] 40 mg tablet,delayed release (DR/EC) 40 mg PO BID Qty: 180 3RF famotidine 40 mg tablet 40 mg PO BID Qty: 180 2RF Sotyktu 6 mg tablet 6 mg PO DAILY Patient Comments: has not started as of 12/23/23 hydroxyzine HCl 25 mg tablet 25 mg PO Q8H PRN (Reason: itching) Qty: 90 1RF Eliquis 5 mg tablet 5 mg PO BID Qty: 180 1RF zolpidem 10 mg tablet 10 mg PO HS Qty: 30 0RF sildenafil 100 mg tablet 100 mg PO DAILY PRN (Reason: Erectile Dysfunction) Rx Instructions: administer 30 minutes to 4 hours before activity pramipexole 0.125 mg tablet 0.125 mg PO DAILY polyethylene glycol 3350 [Miralax] 17 gram/dose powder 17 g PO DAILY PRN (Reason: constipation) oxycodone 5 mg tablet 5 mg PO Q4H PRN (Reason: Pain) bisacodyl 5 mg tablet 10 mg PO DAILY PRN (Reason: constipation) Senna Plus 8.6-50 mg capsule 1 tab-cap PO BID PRN (Reason: Constipation) betamethasone dipropionate 0.05 % cream 1 applic topical BID PRN (Reason: skin irritation) Qty: 45 5RF multivitamin Tablet 1 tab PO QAM Referrals Referrals: Sue Gallegos DO [Primary Care Provider] -
[2023-12-28 18:00] LABS: Albumin Level 3.7 gm/dl (3.4-5.0); Bilirubin,Total 0.4 mg/dl (0.2-1.0); Calcium 8.8 mg/dl (8.6-10.3); Potassium 4.3 mmol/L (3.5-5.1)
[2023-12-28 18:06] LABS: Albumin Globulin Ratio 1.4 (0.9-2); BUN Creatinine Ratio 15.8 (10-20); Creatinine Clr Calc Pharmacy 73.4 ml/min; Est GFR (African American) 94.3 ml/min; Est GFR (Non-African American) 81.3 ml/min; Globulin 2.7 gm/dl (2.5-4.0); Total Protein 6.4 gm/dl (6.0-8.3)
[2023-12-28 18:11] LABS: Troponin I High Sensitivity 26.3 pg/ml (0-20)
[2023-12-28] MEDS: OPTIRAY 320 100ml IV ONE (18:38)
--- NOTE | 2023-12-28 19:05 | CT Scan Report ---
ABDOMEN AND PELVIS CT WITH IV CONTRAST CT DOSE: 956.44 mGy.cm HISTORY: upper abd pain, hx of pancreatitis TECHNIQUE: Multiaxial CT images of the abdomen and pelvis were performed following the use of intrave nous contrast. A dose lowering technique was utilized adhering to the principles of ALARA. COMPARISON STUDY: Abdomen and pelvis CT 10/14/2023 FINDINGS: The lung bases are clear. No pneumoperitoneum. No pneumatosis. No acute fractures. Prior ch olecystectomy. Mild central hepatic bile duct dilatation, unchanged. No hepatic or splenic masses. Th e adrenal glands unremarkable. Normal right kidney. Stable left renal hypodense lesions which favor c ysts. No hydronephrosis. Calcified plaque within the normal caliber abdominal aorta. The main portal vein is patent. A few prominent peripancreatic lymph nodes which are likely reactive. No pelvic lymph adenopathy or pelvic free fluid. The prostate gland is mildly enlarged. No bladder wall thickening wi th adjacent fat stranding. This may be due to chronic outlet obstruction from the enlarged prostate g land. Colonic diverticulosis. No evidence for acute diverticulitis. No dilated loops of bowel to sugg est an obstruction. Normal appendix. Scattered pancreatic calcifications consistent with chronic panc reatitis. There is also extensive edema and a small amount of fluid surrounding the pancreatic head c onsistent with acute pancreatitis. Edema is also noted within the pancreatic head without evidence fo r pancreatic necrosis at this time. This has progressed in the interval. Stable prominence of the com mon bile duct. Thickening of the adjacent duodenum is likely reactive. There is severe submucosal augusto ma within the third portion of the duodenum. This is likely reactive. No perforation or abscess ident ified. IMPRESSION: 1. Above findings consistent with acute on chronic pancreatitis which has progressed in the interval. There is extensive edema both within and surrounding the pancreatic head without evidence for pancre atic necrosis or loculated fluid collections. 2. Thickening and severe submucosal edema within the duodenum is likely reactive to the acute pancrea titis. 3. Additional findings as described above. ACT 112: Negative or not required by law. Electronically signed by: Chalino Edmondson M.D. 12/28/2023 7:03 PM
[2023-12-28] MEDS ORDERED: ONDANSETRON INJ 2 MG/ML 2 ML VIAL IV PRN (19:53)
--- NOTE | 2023-12-28 19:58 | History & Physical Report ---
Date of Service December 28, 2023 Assessment & Plan (1) Acute on chronic pancreatitis: Plan: -Admit to med/tele -Currently stable and non-toxic appearing -Presented to the ED with worsening abdominal pain consistent with his previous episodes of pancreatitis -Amylase and lipase mildly elevated -CT of the abd/pelvis w/IV con shows acute on chronic pancreatitis >Notes extensive edema both within and surrounding the Pancrease but negative for signs of necrosis -ED spoke with GI and they are comfortable with the patient staying at our facility -GI consult placed -Will continue LR at 150 mL/hr x 3 bags overnight for now while NPO -PRN Dilaudid for pain -PRN zofran for nausea/vomiting -BL SCD's for DVT PPX -Strict NPO -AM CBC,CMP, mag, PT/INR (2) Black stool: Plan: -Patient reports multiple episodes of dark, black diarrhea since his ERCP -Was also taking advil PM at times for pain since his last ERCP on 12/15 -On Elqiuis for hx of Afib -Hgb is stable, BP has been stable, no acute GI bleed noted on CT of the abd/pelvis w/IV con -Was noted to have significant Thickening and severe submucosal edema within the duodenum -Hold Eliquis for now as he is currently in NSR -Start BID IV pantoprazole and famotidine for now -GI consult placed (3) Atrial fibrillation: Plan: -Currently in NSR -Hold Eliquis for now with possible upper GI bleed -Will hold PO diltiazem for now as he is in NSR at this time (4) Hypothyroidism, postablative: Plan: -Continue Levothyroxine when able (5) Gastritis: Plan: -IV pantoprazole and famotidine for now Plan The patient was discussed with Dr. Amos at the time of the admission History of Present Illness Chief Complaint: Abdominal pain Primary Care Provider: DO Isaac Lentz is a 68-year-old male with PMH of recurrent acute pancreatitis, insomnia, IBS, prediabetes, HLD, HTN, hypothyroidism, depression, BPH, atrial fibrillation (on eliquis) who presented to the [facility] ED on 12/28/23 with complaints of recurrent abdominal pain consistent with his previous episodes of pancreatitis. Of Note, the patient recently underwent ERCP with Dr. Alvarez on 12/16/23. Per the operative report, a biliary sphincterotomy was performed, the biliary tree was swept and sludge was found. He also had a vental pancreatic sphincterotomy with ventral pancreatic duct swept with further debris found. No stents were placed during the procedure. The patient was noted to be tachycardic with HR in the 90s on arrival but was otherwise stable. Labs were significant for a leukocytosis of 14 with neutrophil predominance of 13, sodium of 134, initial high sen trop of 26, lipase of 170, amylase of 170, and clean UA. CT of the abd/pelvis w/IV con was read as 1. Above findings consistent with acute on chronic pancreatitis which has progressed in the interval. There is extensive edema both within and surrounding the pancreatic head without evidence for pancreatic necrosis or loculated fluid collections.2. Thickening and severe submucosal edema within the duodenum is likely reactive to the acute pancreatitis. 3. Additional findings as described above.The patient was given 1L LR and one dose of 0.5 mg IV dilaudid in the ED. Prior to admission we requested the ED staff speak with GI to determine if repeat ERCP and pancreatic stent placement would be required as we do not current have ERCP capability at our facility. GI confirmed the patient was appropriate to stay at our facility. At the time of the exam the patient was lying in bed in no acute distress. States that he has had mild-moderate abdominal pain since his ERCP. When asked about pain medications he was using at home he noted his chronic oxycodone and advil PM. He denies alcohol or tobacco use. States that his pain significantly increased this am while in [facility]. Has been unable to tolerate consistent PO intake since but denies recent vomiting. When asked, he denies fever, chills, chest pain, cough, dysuria, hematuria, bloody BM's, LE swelling, and recent trauma. He does note multiple episodes of black diarrhea over the past 2 weeks. He is a full code and his Daughter is his POA. Please refer to Dr. Amos's attestation for any changes to the treatment plan Allergies Allergy/AdvReac Type Severity Reaction Status Date / Time No Known Drug Allergies Allergy Unknown Verified 12/23/23 10:37 Home Medications Medication Instructions Recorded Confirmed Type multivitamin 1 tab PO QAM 07/14/18 12/28/23 History levothyroxine 175 mcg tablet 175 mcg PO QAM #90 tabs 09/08/23 12/28/23 Rx cetirizine 10 mg tablet 10 mg PO BID allergy symptoms #60 09/25/23 12/28/23 Rx tabs famotidine 40 mg tablet 40 mg PO BID #180 tabs 09/25/23 12/28/23 Rx pantoprazole 40 mg tablet,delayed 40 mg PO BID #180 tabs 09/25/23 12/28/23 Rx release (Protonix) betamethasone dipropionate 0.05 % 1 applic topical BID PRN skin 11/04/23 12/28/23 Rx topical cream irritation #45 grams bisacodyl 5 mg tablet 10 mg PO DAILY PRN constipation 11/04/23 12/28/23 History oxycodone 5 mg tablet 5 mg PO Q4H PRN Pain 11/04/23 12/28/23 History polyethylene glycol 3350 17 17 g PO DAILY PRN constipation 11/04/23 12/28/23 History gram/dose oral powder (Miralax) pramipexole 0.125 mg tablet 0.125 mg PO DAILY 11/04/23 12/28/23 History sennosides 8.6 mg-docusate sodium 1 tab-cap PO BID PRN Constipation 11/04/23 12/28/23 History 50 mg capsule (Senna Plus) sildenafil 100 mg tablet 100 mg PO DAILY PRN Erectile 11/04/23 12/28/23 History Dysfunction diltiazem HCl 120 mg 120 mg PO QAM #90 caps 11/19/23 12/28/23 Rx capsule,extended release 24 hr (Cardizem CD) apixaban 5 mg tablet (Eliquis) 5 mg PO BID #180 tabs 12/23/23 12/28/23 Rx deucravacitinib 6 mg tablet 6 mg PO DAILY 12/23/23 12/28/23 History (Sotyktu) hydroxyzine HCl 25 mg tablet 25 mg PO Q8H PRN itching #90 tabs 12/23/23 12/28/23 Rx zolpidem 10 mg tablet 10 mg PO HS #30 tabs 12/23/23 12/28/23 Rx Past Med/Surg History Medical History (Updated 12/28/23 @ 20:11 by Jay M. Peno, PA-C) Gastritis History of pancreatitis Pancreatitis Restless leg syndrome History of COVID-19 08/2022, tested at clinic near home, not hosp; "didn't feel right in his head," cold all the time>resolved Constipation due to opioid therapy Degenerative disc disease at L5-S1 level Nutcracker esophagus s/p POEM Acute pancreatitis (04/2021) hx-"has subsided since quit drinking alcohol" Hypothyroidism Anxiety and depression Environmental allergies Prediabetes Enlarged prostate with lower urinary tract symptoms (LUTS) Irritable bowel syndrome Multiple thyroid nodules HX HTN (hypertension) Insomnia Laryngopharyngeal reflux Sensorineural hearing loss (SNHL) of both ears Osteoarthritis Hyperlipidemia Surgical History S/P hemorrhoidectomy (05/30/21) History of colonoscopy History of oral surgery History of facial surgery History of cholecystectomy History of esophagogastroduodenoscopy (EGD) (07/2018) History of thyroidectomy, subtotal (2014) Nausea and vomiting after administration of anesthetic agent "rare now, has not happened recently with procedures" History of tooth extraction Family History Mother Family history of diabetes mellitus Heart murmur Brother Diabetes Family history of diabetes mellitus Arthritis Father Prostate cancer Arthritis Other No family history of adverse response to anesthesia Denies family history of Ovarian cancer Myocardial infarction Breast cancer Colorectal cancer Social History Smoking Status: Former smoker Tobacco Type: Cigarettes Age Started Using Tobacco: 15; Age Quit Using Tobacco: 49; Second Hand Exposure: No; Do You Dip or Chew Tobacco: No; Tobacco Cessation Education Requested by Patient: No Hx Alcohol Use: No Hx Substance Use: No Preferred Language: Persian Communication Ability: Effective Communication Tools: Facial Expression and Lip Movement/Reading Visual Impairment: No Limitations Hearing Ability: Hard of Hearing Rat Breeder Required: No Beliefs That Will Affect Care: None marital status: / Current Living Situation: Family Current Living Situation Comment: with son 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 occupational status: 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 Other Information That Helps Us Care for You: No Feels Safe at Home: Yes Safety Concerns: Feels Safe At This Time Childhood Exposure to Second-Hand Smoke: No Diet: regular caffeine: Yes (Coffee x 1 per day.) during the past year weight has: remained stable Dental Care, Regularly: Yes Physical Activity Frequency: 3-4 Times per Week Seatbelt Use: always Sunscreen Use: No Assistive Devices: None Physical Exam Physical Exam: Physical Exam: General: In no acute distress, stated age, well-nourished, non-toxic appearing HEENT: Normocephalic, atraumatic, no scleral icterus, pupils around round, symmetrical, and reactive to light, moist mucus membranes, trachea midline, no thyromegaly Chest/Pulm: No respiratory distress, symmetrical chest expansion, clear breath sounds throughout Cardiac: RRR, no murmurs noted Abdomen: Negative for ascites and bruising, normoactive bowel sounds, soft, tender to palpation in the entire upper abdomen and central abdomen, no rebound tenderness noted Musculoskeletal: Symmetrical and without signs of acute trauma, upper and lower extremities with full ROM, no atrophy, spasticity, or flaccidity Extremities: Radial, dorsalis pedis, and posterior tibial pulses are intact and symmetrical, no edema noted in the BL LE's Skin: Warm, dry, no rashes , lesions, or scars noted Neuro: Alert and oriented to person, place, month, year, and president, no focal defects, no tremors noted Psych: No acute distress, calm and cooperative during the exam Results & Data Results & Data Vital Signs (Past 12 Hours) Vital Signs Temp Pulse Resp BP Pulse Ox O2 Del Method 12/28/23 18:30 96 H 21 97 12/28/23 18:03 88 15 97 12/28/23 17:54 87 12/28/23 17:45 88 22 98 12/28/23 17:07 36.4 C L 91 H 20 147/85 H 100 Room Air Laboratory Results Abnormal lab results 12/28/23 Range/Units 17:27 WBC 14.85 H (4.8-10.8) K/ul RBC 3.74 L (4.70-6.10) M/uL Hgb 11.3 L (14.0-18.0) g/dl Hct 35.2 L (42.0-52.0) % RDW Std Deviation 53.9 H (36.4-46.3) fL RDW Coeff of Marline 15.7 H (11.5-14.5) % MPV 8.9 L (9.4-12.4) fL Neut # (Auto) 13.15 H (1.40-6.50) K/uL Lymph # (Auto) 0.58 L (1.20-3.40) K/uL [place] # (Auto) 0.66 H (0.11-0.59) K/uL Sodium 134 L (136-145) mmol/L Glucose 147 H (70-99(Fasting)) mg/dl Troponin I High Sens 26.3 H (0-20) pg/ml Amylase 128 H (25-115) U/L Lipase 170 H (11-82) U/L Diagnostic Findings Abdomen/Pelvis CT 12/28/23 17:[address] WITH IV CONTRAST CT DOSE: 956.44 mGy.cm HISTORY: upper abd pain, hx of pancreatitis TECHNIQUE: Multiaxial CT images of the abdomen and pelvis were performed following the use of intravenous contrast. A dose lowering technique was utilized adhering to the principles of ALARA. COMPARISON STUDY: Abdomen and pelvis CT 10/14/2023 FINDINGS: The lung bases are clear. No pneumoperitoneum. No pneumatosis. No acute fractures. Prior cholecystectomy. Mild central hepatic bile duct dilatation, unchanged. No hepatic or splenic masses. The adrenal glands unremarkable. Normal right kidney. Stable left renal hypodense lesions which favor cysts. No hydronephrosis. Calcified plaque within the normal caliber abdominal aorta. The main portal vein is patent. A few prominent peripancreatic lymph nodes which are likely reactive. No pelvic lymphadenopathy or pelvic free fluid. The prostate gland is mildly enlarged. No bladder wall thickening with adjacent fat stranding. This may be due to chronic outlet obstruction from the enlarged prostate gland. Colonic diverticulosis. No evidence for acute divertic ulitis. No dilated loops of bowel to suggest an obstruction. Normal appendix. Scattered pancreatic calcifications consistent with chronic pancreatitis. There is also extensive edema and a small amount of fluid surrounding the pancreatic head consistent with acute pancreatitis. Edema is also noted within the pancreatic head without evidence for pancreatic necrosis at this time. This has progressed in the interval. Stable prominence of the common bile duct. Thickening of the adjacent duodenum is likely reactive. There is severe submucosal edema within the third portion of the duodenum. This is likely reactive. No perforation or abscess identified. IMPRESSION: 1. Above findings consistent with acute on chronic pancreatitis which has progressed in the interval. There is extensive edema both within and surrounding the pancreatic head without evidence for pancreatic necrosis or loculated fluid collections. 2. Thickening and severe submucosal edema within the duodenum is likely reactive to the acute pancreatitis. 3. Additional findings as described above. ACT 112: Negative or not required by law. Electronically signed by: Chalino Edmondson M.D. 12/28/2023 7:03 PM ECG Additional Comments: Normal sinus rhythm Normal ECG When compared with ECG of 22-OCT-2023 16:52, Vent. rate has increased BY 28 BPM Code Status & VTE Plan Code Status Full code VTE Prophylaxis Plan VTE Prophylaxis will be ordered: Yes Supervising Physician Co-Signing Physician Notes Attending addendum: I have physically seen this patient, have supervised the THU's activities, and agree with the H&P unless as otherwise noted. Assessment and Plan: Acute on chronic pancreatitis/duodenitis/gastritis- CT of the abdomen pelvis shows extensive edema both within and surrounding the pancreas head with no signs of necrosis Calcifications in the pancreas suggest chronic changes Patient is status post ERCP 2 weeks ago at [facility], with report of sphincterotomy and no stent need to be placed at that time. Amylase 128, lipase 170 on admission NPO Zofran 4 mg IV every 6 hours as needed Pantoprazole 40 mg IV twice daily Dilaudid as noted for pain Dark stool- Patient reports present since ERCP 2 weeks ago Patient has been taking Advil PM intermittently since ERCP on 12/15 Holding Eliquis for now Hemoglobin 11.3, with range from 11.7-12.7 Type and screen Metoprolol 40 mg IV twice daily Famotidine 20 mg IV twice daily Consult to gastroenterology Atrial fibrillation- Temporarily holding Eliquis as noted above In normal sinus rhythm Holding oral diltiazem for now PG Care Time/CCT Total # of Minutes Spent Total Time Spent with Patient: Total time spent is greater than 50% in coordination of care (as documented) at patient's floor/unit and/or counseling patient: Coding [place] [address] INT INP/OBS CARE 3/75MIN Patient Type Established Medical Decision Making High Complexity Diagnoses Acute on chronic pancreatitis K85.90; K86.1 Black stool K92.1 Atrial fibrillation I48.91 Hypothyroidism, postablative E89.0 Gastritis K29.70
[2023-12-28] MEDS ORDERED: LORazepam 0.5 MG in SYRINGE 0.25 ML IV PRN (20:19)
[2023-12-28] MEDS: FAMOTIDINE 20MG IV PUSH 20 MG/5 ML SYR IV STA (20:39)
[2023-12-28] MEDS: PANTOprazole 40 MG in SYRINGE 0 ML IV ONE (20:39)
[2023-12-28] MEDS: ACETAMINOPHEN 1,000 MG/100 ML VIAL IV STA (20:39)
[2023-12-29 04:48] LABS: Basophils # (auto) 0.03 K/uL (0.00-0.20); Basophils % (auto) 0.2 %; Eosinophils # (auto) 0.13 K/uL (0.00-0.50); Eosinophils % (auto) 0.9 %; Hematocrit (blood only) 33.8 % (42.0-52.0); Immature Granulocytes # (auto) 0.12 K/uL (0.01-0.20); Immature Granulocytes % (auto) 0.8 %; Lymphocytes # (auto) 0.61 K/uL (1.20-3.40); Lymphocytes % (auto) 4.2 %; Mean Corpuscular Hemoglobin 30.2 pg (25.0-34.0); Mean Corpuscular Hgb Conc 32.5 g/dL (32.0-36.0); Mean Corpuscular Volume 92.9 fL (80.0-100.0); Mean Platelet Volume 9.1 fL (9.4-12.4); Monocytes # (auto) 1.01 K/uL (0.11-0.59); Neutrophils # (auto) 12.49 K/uL (1.40-6.50); Neutrophils % (auto) 86.9 %; Platelet Count 365 K/uL (130-400); RDW Coefficient of Variation 15.8 % (11.5-14.5); RDW Standard Deviation 53.7 fL (36.4-46.3); Red Blood Count 3.64 M/uL (4.70-6.10); White Blood Count 14.39 K/ul (4.8-10.8)
[2023-12-29 04:52] LABS: Prothrombin Time 10.7 Seconds (9.0-12.0)
[2023-12-29 05:51] LABS: Albumin Globulin Ratio 1.4 (0.9-2); Albumin Level 3.5 gm/dl (3.4-5.0); BUN Creatinine Ratio 12.4 (10-20); Bilirubin,Total 1.3 mg/dl (0.2-1.0); Calcium 8.4 mg/dl (8.6-10.3); Creatinine Clr Calc Pharmacy 78.3 ml/min; Est GFR (African American) 101.1 ml/min; Est GFR (Non-African American) 87.2 ml/min; Globulin 2.5 gm/dl (2.5-4.0); Magnesium 1.9 mg/dl (1.7-2.4); Potassium 4.5 mmol/L (3.5-5.1)
[2023-12-29] MEDS: PANTOprazole 40 MG in SYRINGE 0 ML IV SCH (08:42)
[2023-12-29] MEDS: FAMOTIDINE 20MG IV PUSH 20 MG/5 ML SYR IV SCH (08:43)
--- NOTE | 2023-12-29 10:26 | Gastrointestinal Consultation ---
Date of Consultation December 29, 2023 Assessment & Plan (1) Recurrent acute pancreatitis: (2) Chronic pancreatitis: Plan Patient is a 68 y.o. male with a history of recurrent acute on chronic pancreatitis s/p ERCP with sphincterotomy on 12/16/23 admitted with epigastric pain and labs/imaging consistent with recurrent acute on chronic pancreatitis. 1. NPO. 2. IV fluid resuscitation at 250 ml/hr. 3. Supportive care IV antiemetics/analgesics PRN. 4. Diet can be advanced to low fat with resumption of Creon 2 caps with meals and 1 with snacks (not previously prescribed) as symptoms improve. Start Protonix 40 mg PO BID with Creon. 5. Outpatient office follow up with Dr. Polanco upon discharge to discuss ongoing medical management. Thank you for allowing us to participate in the care of this patient. If you have any questions or concerns, please do not hesitate to contact us. Supervising Physician Co-Signing Physician Notes Agree with GUILLE Austin as above Interviewed and examined patient and agree with above. Abd: Soft, tender, ND, +BS Continue current therapy and supportive care Add Creon and PPI History of Present Illness Reason for Consultation: Acute on chronic pancreatitis Requesting Physician: Jay Guerin PA-C Attending Physician: Marcle June MD History of Present Illness Patient is a 68 y.o. male with a history of recurrent acute on chronic pancreatitis last hospitalized in September for acute pancreatitis. He was treated supportively at that time and was scheduled for outpatient ERCP with po ssible stent placement by Dr. Polanco. Testing was performed on 12/15. He was found to have biliary sludge which was swept and subsequent ventral pancreatic sphincterotomy as well as minor and major papillary sphincterotomy as well. Post procedure, he states he was doing well other than passing black stools which eventually subsided. Yesterday morning, however, he developed returning, sharp epigastric pain consistent with "my pancreas pain". States he took some OTC antacids which reduced the intensity only slightly. Due to ongoing abdominal pain, presented to the ER last night for further evaluation. On arrival, he was noted to have a mild leukocytosis of 14.39. Liver panel was normal. Today, however, his liver panel was slightly elevated as follows: TB 1.3, AST 221, ALT 231, and ALP 225. Amylase and lipase were mildly elevated at [address] a/p with findings of acute on chronic pancreatitis with associated edema surrounding the duodenum without pancreatic necrosis or fluid collections. At present, he rates the pain as 8/10. No fevers or chills. No nausea or vomiting or other complaints. Allergies Allergy/AdvReac Type Severity Reaction Status Date / Time No Known Drug Allergies Allergy Unknown Verified 12/23/23 10:37 Home Medications Medication Instructions Recorded Confirmed Type multivitamin 1 tab PO QAM 07/14/18 12/28/23 History levothyroxine 175 mcg tablet 175 mcg PO QAM #90 tabs 09/08/23 12/28/23 Rx cetirizine 10 mg tablet 10 mg PO BID allergy symptoms #60 09/25/23 12/28/23 Rx tabs famotidine 40 mg tablet 40 mg PO BID #180 tabs 09/25/23 12/28/23 Rx pantoprazole 40 mg tablet,delayed 40 mg PO BID #180 tabs 09/25/23 12/28/23 Rx release (Protonix) betamethasone dipropionate 0.05 % 1 applic topical BID PRN skin 11/04/23 12/28/23 Rx topical cream irritation #45 grams bisacodyl 5 mg tablet 10 mg PO DAILY PRN constipation 11/04/23 12/28/23 History oxycodone 5 mg tablet 5 mg PO Q4H PRN Pain 11/04/23 12/28/23 History polyethylene glycol 3350 17 17 g PO DAILY PRN constipation 11/04/23 12/28/23 History gram/dose oral powder (Miralax) pramipexole 0.125 mg tablet 0.125 mg PO DAILY 11/04/23 12/28/23 History sennosides 8.6 mg-docusate sodium 1 tab-cap PO BID PRN Constipation 11/04/23 12/28/23 History 50 mg capsule (Senna Plus) sildenafil 100 mg tablet 100 mg PO DAILY PRN Erectile 11/04/23 12/28/23 History Dysfunction diltiazem HCl 120 mg 120 mg PO QAM #90 caps 11/19/23 12/28/23 Rx capsule,extended release 24 hr (Cardizem CD) apixaban 5 mg tablet (Eliquis) 5 mg PO BID #180 tabs 12/23/23 12/28/23 Rx deucravacitinib 6 mg tablet 6 mg PO DAILY 12/23/23 12/28/23 History (Sotyktu) hydroxyzine HCl 25 mg tablet 25 mg PO Q8H PRN itching #90 tabs 12/23/23 12/28/23 Rx zolpidem 10 mg tablet 10 mg PO HS #30 tabs 12/23/23 12/28/23 Rx Patient History Medical History Gastritis History of pancreatitis Pancreatitis Restless leg syndrome History of COVID-19 08/2022, tested at clinic near home, not hosp; "didn't feel right in his head," cold all the time>resolved Constipation due to opioid therapy Degenerative disc disease at L5-S1 level Nutcracker esophagus s/p POEM Acute pancreatitis (04/2021) hx-"has subsided since quit drinking alcohol" Hypothyroidism Anxiety and depression Environmental allergies Prediabetes Enlarged prostate with lower urinary tract symptoms (LUTS) Irritable bowel syndrome Multiple thyroid nodules HX HTN (hypertension) Insomnia Laryngopharyngeal reflux Sensorineural hearing loss (SNHL) of both ears Osteoarthritis Hyperlipidemia Surgical History S/P hemorrhoidectomy (05/30/21) History of colonoscopy History of oral surgery History of facial surgery History of cholecystectomy History of esophagogastroduodenoscopy (EGD) (07/2018) History of thyroidectomy, subtotal (2014) Nausea and vomiting after administration of anesthetic agent "rare now, has not happened recently with procedures" History of tooth extraction Family History Mother Family history of diabetes mellitus Heart murmur Brother Diabetes Family history of diabetes mellitus Arthritis Father Prostate cancer Arthritis Other No family history of adverse response to anesthesia Denies family history of Ovarian cancer Myocardial infarction Breast cancer Colorectal cancer Social History Smoking Status: Former smoker Tobacco Type: Cigarettes Age Started Using Tobacco: 15; Age Quit Using Tobacco: 49; Second Hand Exposure: No; Do You Dip or Chew Tobacco: No; Tobacco Cessation Education Requested by Patient: No Hx Alcohol Use: No Hx Substance Use: No Preferred Language: Mongolian Communication Ability: Effective Communication Tools: Facial Expression and Lip Movement/Reading Visual Impairment: No Limitations Hearing Ability: Hard of Hearing File Drawer Finisher Required: No Beliefs That Will Affect Care: None marital status: / Current Living Situation: Family Current Living Situation Comment: with son current occupational status: 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 Other Information That Helps Us Care for You: No Feels Safe at Home: Yes Safety Concerns: Feels Safe At This Time Childhood Exposure to Second-Hand Smoke: No Diet: regular caffeine: Yes (Coffee x 1 per day.) during the past year weight has: remained stable Dental Care, Regularly: Yes Physical Activity Frequency: 3-4 Times per Week Seatbelt Use: always Sunscreen Use: No Assistive Devices: None Review of Systems Constitutional: as per Subjective / HPI Respiratory: no cough and no dyspnea Cardiovascular: no chest pain and no palpitations Gastrointestinal: as per Subjective / HPI Physical Exam Constitutional: WD/WN, vitals as above Eyes: EOM intact bilaterally Neck: normal appearance Respiratory: normal respiratory effort, lungs clear to auscultation Cardiovascular: Rate/Rhythm: regular rate and regular rhythm Heart Sounds: no gallop and no murmur Gastrointestinal (Abdomen): Inspection/Auscultation: normal bowel sounds Percussion/Palpation: + abdomen tender (epigastric) and abdomen soft; no guarding and abdomen not rigid Musculoskeletal: Extremities: no cyanosis no lower extremity edema Skin: no rashes, warm and dry Neurologic: moves all extremities Psychiatric: A+Ox3, euthymic affect Results & Data Vital Signs (Past 12 Hours) Vital Signs Pulse Pulse Resp BP Pulse Ox O2 Del Method 12/29/23 07:11 78 12/29/23 06:00 82 23 121/77 93 Room Air 12/29/23 05:00 83 18 115/71 96 Room Air 12/29/23 05:00 83 18 115/71 96 Room Air 12/29/23 04:00 96 H 20 99/72 L 97 Room Air 12/29/23 03:00 81 18 99/69 L 93 Room Air 12/29/23 02:00 79 23 93/57 L 94 Room Air 12/29/23 00:00 81 21 111/66 95 Room Air Diagnostic Findings Laboratory Results WBC 14.39 K/ul (4.8-10.8) H 12/29/23 04:16 RBC 3.64 M/uL (4.70-6.10) L 12/29/23 04:16 Hgb 11.0 g/dl (14.0-18.0) L 12/29/23 04:16 Hct 33.8 % (42.0-52.0) L 12/29/23 04:16 MCV 92.9 fL (80.0-100.0) 12/29/23 04:16 MCH 30.2 pg (25.0-34.0) 12/29/23 04:16 MCHC 32.5 g/dL (32.0-36.0) 12/29/23 04:16 RDW Std Deviation 53.7 fL (36.4-46.3) H 12/29/23 04:16 RDW Coeff of Marline 15.8 % (11.5-14.5) H 12/29/23 04:16 Plt Count 365 K/uL (130-400) 12/29/23 04:16 MPV 9.1 fL (9.4-12.4) L 12/29/23 04:16 Immature Gran % (Auto) 0.8 % 12/29/23 04:16 Neut % (Auto) 86.9 % 12/29/23 04:16 Lymph % (Auto) 4.2 % 12/29/23 04:16 [place] % (Auto) 7.0 % 12/29/23 04:16 Eos % (Auto) 0.9 % 12/29/23 04:16 Baso % (Auto) 0.2 % 12/29/23 04:16 Neut # (Auto) 12.49 K/uL (1.40-6.50) H 12/29/23 04:16 Lymph # (Auto) 0.61 K/uL (1.20-3.40) L 12/29/23 04:16 [place] # (Auto) 1.01 K/uL (0.11-0.59) H 12/29/23 04:16 Eos # (Auto) 0.13 K/uL (0.00-0.50) 12/29/23 04:16 Baso # (Auto) 0.03 K/uL (0.00-0.20) 12/29/23 04:16 Immature Gran # (Auto) 0.12 K/uL (0.01-0.20) 12/29/23 04:16 PT 10.7 Seconds (9.0-12.0) 12/29/23 04:16 INR 1.0 (0.9-1.1) 12/29/23 04:16 Sodium 132 mmol/L (136-145) L 12/29/23 04:16 Potassium 4.5 mmol/L (3.5-5.1) 12/29/23 04:16 Chloride 100 mmol/L (98-107) 12/29/23 04:16 Carbon Dioxide 25 mmol/L (21-32) 12/29/23 04:16 Anion Gap 7 (3-11) 12/29/23 04:16 BUN 11 mg/dl (6-23) 12/29/23 04:16 Creatinine 0.89 mg/dl (0.6-1.4) 12/29/23 04:16 Est Cr Clr Drug Dosing 78.3 ml/min 12/29/23 04:16 Est GFR ( Amer) 101.1 ml/min 12/29/23 04:16 Est GFR (Non-Af Amer) 87.2 ml/min 12/29/23 04:16 BUN/Creatinine Ratio 12.4 (10-20) 12/29/23 04:16 Glucose 115 mg/dl (70-99(Fasting)) H 12/29/23 04:16 Calcium 8.4 mg/dl (8.6-10.3) L 12/29/23 04:16 Magnesium 1.9 mg/dl (1.7-2.4) 12/29/23 04:16 Total Bilirubin 1.3 mg/dl (0.2-1.0) H D 12/29/23 04:16 AST 221 U/L (13-39) H 12/29/23 04:16 ALT 231 U/L (7-52) H 12/29/23 04:16 Alkaline Phosphatase 225 U/L (34-104) H D 12/29/23 04:16 Troponin I High Sens 27.0 pg/ml (0-20) H 12/28/23 19:50 Total Protein 6.0 gm/dl (6.0-8.3) 12/29/23 04:16 Albumin 3.5 gm/dl (3.4-5.0) 12/29/23 04:16 Globulin 2.5 gm/dl (2.5-4.0) 12/29/23 04:16 Albumin/Globulin Ratio 1.4 (0.9-2) 12/29/23 04:16 Amylase 128 U/L (25-115) H 12/28/23 17:27 Lipase 170 U/L (11-82) H 12/28/23 17:27 Urine Color Yellow 12/28/23 17:27 Urine Appearance Clear (Clear) 12/28/23 17:27 Urine pH 7.0 (4.5-7.5) 12/28/23 17:27 Ur Specific Kellogg 1.014 (1.000-1.030) 12/28/23 17:27 Urine Protein Negative (Negative) 12/28/23 17: Urine Glucose (UA) Negative (Negative) 12/28/23 17: Urine Ketones Negative (Negative) 12/28/23 17: Urine Blood Negative (Negative) 12/28/23 17: Urine Nitrite Negative (Negative) 12/28/23 17: Urine Bilirubin Negative (Negative) 12/28/23 17:27 Urine Urobilinogen Negative (Negative) 12/28/23 17: Ur Leukocyte Esterase Negative (Negative) 12/28/23 17: Impressions Abdomen/Pelvis CT 12/28/23 17:[address] WITH IV CONTRAST CT DOSE: 956.44 mGy.cm HISTORY: upper abd pain, hx of pancreatitis TECHNIQUE: Multiaxial CT images of the abdomen and pelvis were performed following the use of intravenous contrast. A dose lowering technique was utilized adhering to the principles of ALARA. COMPARISON STUDY: Abdomen and pelvis CT 10/14/2023 FINDINGS: The lung bases are clear. No pneumoperitoneum. No pneumatosis. No acute fractures. Prior cholecystectomy. Mild central hepatic bile duct dilatation, unchanged. No hepatic or splenic masses. The adrenal glands unremarkable. Normal right kidney. Stable left renal hypodense lesions which favor cysts. No hydronephrosis. Calcified plaque within the normal caliber abdominal aorta. The main portal vein is patent. A few prominent peripancreatic lymph nodes which are likely reactive. No pelvic lymphadenopathy or pelvic free fluid. The prostate gland is mildly enlarged. No bladder wall thickening with adjacent fat stranding. This may be due to chronic outlet obstruction from the enlarged prostate gland. Colonic diverticulosis. No evidence for acute diverticulitis. No dilated loops of bowel to suggest an obstruction. Normal appendix. Scattered pancreatic calcifications consistent with chronic pancreatitis. There is also extensive edema and a small amount of fluid surrounding the pancreatic head consistent with acute pancreatitis. Edema is also noted within the pancreatic head without evidence for pancreatic necrosis at this time. This has progressed in the interval. Stable prominence of the common bile duct. Thickening of the adjacent duodenum is likely reactive. There is severe submucosal edema within the third portion of the duodenum. This is likely reactive. No perforation or abscess identified. IMPRESSION: 1. Above findings consistent with acute on chronic pancreatitis which has progressed in the interval. There is extensive edema both within and surrounding the pancreatic head without evidence for pancreatic necrosis or loculated fluid collections. 2. Thickening and severe submucosal edema within the duodenum is likely reactive to the acute pancreatitis. 3. Additional findings as described above. ACT 112: Negative or not required by law. Electronically signed by: Chalino Edmondson M.D. 12/28/2023 7:03 PM PG Care Time/CCT Total # of Minutes Spent Total Time Spent with Patient: Total time spent is greater than 50% in coordination of care (as documented) at patient's floor/unit and/or counseling patient: Coding Level of Care Code 49867 INT INP/OBS CARE 3/75MIN Diagnoses Recurrent acute pancreatitis K85.90 Chronic pancreatitis K86.1
--- NOTE | 2023-12-29 15:18 | Electrocardiogram Report ---
Test Reason : Blood Pressure : / mmHG Vent. Rate : 086 BPM Atrial Rate : 086 BPM P-R Int : 156 ms QRS Dur : 080 ms QT Int : 340 ms P-R-T Axes : 060 037 060 degrees QTc Int : 406 ms Normal sinus rhythm Normal ECG When compared with ECG of 22-OCT-2023 16:52, Vent. rate has increased BY 28 BPM Confirmed by Rashawn Santiago ([id number]) on 12/29/2023 3:18:11 PM Referred By: REFERRED SELF Confirmed By:Rashawn Santiago
[2023-12-29] MEDS: ACETAMINOPHEN 1,000 MG/100 ML VIAL IV PRN (16:12)
--- NOTE | 2023-12-29 17:14 | Hospitalist Progress Note ---
Date of Service December 29, 2023 Assessment & Plan (1) Acute on chronic pancreatitis: Plan: -Presented to the ED with worsening abdominal pain consistent with his previous episodes of pancreatitis -Amylase and lipase mildly elevated on admission -CT of the abd/pelvis w/IV con shows acute on chronic pancreatitis >Notes extensive edema both within and surrounding the Pancrease but negative for signs of necrosis -GI consult placed - continue IVF while NPO - when resume diet - advance to low fat with Creon 2 piano case maker with meals and 1 with snack. Start protonix 40mg BID with creon - follow up out outpatient with Dr. Polanco -PRN Dilaudid for pain -PRN zofran for nausea/vomiting Continue NPO. Patient still painful on exam, will not advance diet yet. -AM CBC,CMP, (2) Black stool: Plan: -Patient reports multiple episodes of dark, black diarrhea since his ERCP but has also been taking advil PM since -On Elqiuis for hx of Afib -Hgb is stable, BP has been stable, no acute GI bleed noted on CT of the abd/pelvis w/IV con -Was noted to have significant Thickening and severe submucosal edema within the duodenum - likely reactive to pancreatitis -Hold Eliquis for now as he is currently in NSR, -Start BID IV pantoprazole and famotidine for now (3) Atrial fibrillation: Plan: -Currently in NSR -Hold Eliquis for now with possible upper GI bleed -Will cotninue hold PO diltiazem for now as he is in NSR at this time (4) Hypothyroidism, postablative: Plan: -Continue Levothyroxine when able (5) Gastritis: Plan: -IV pantoprazole and famotidine for now Plan Dispo: continued inpatient stay, remaining NPO DVt proh: SCDs, eliquis on Hold with NPO status and possible GI bleed Admission and Anticipated Discharge Date Admission Date: December 28, 2023 Subjective Patient seen earlier this afternoon while in ED C4. States that overall he is feeling better than when he came in but still with episodes of pain - lasting 15- 20 minutes instead of all day. Hungry but scared to eat as he does not want the pain to get worse. Feels like he needs to have a BM but has not been able to. Review of Systems Review of Systems: All systems reviewed & are unremarkable except as noted in Subjective Physical Exam Physical Exam: General: NAD, VS as above Resp: normal respiratory effort, lungs clear to auscultation CV: RRR, no murmur, Abd: normal bowel sounds, + RUQ pain Extremities: Moves all extremities, no edema Neuro: A&O x3, Results & Data Results & Data Vital Signs (Past 12 Hours) Vital Signs Pulse Pulse Resp BP Pulse Ox O2 Del Method 12/29/23 13:16 82 20 114/72 95 Room Air 12/29/23 09:00 82 19 110/68 95 Room Air 12/29/23 07:11 78 12/29/23 06:00 82 23 121/77 93 Room Air Laboratory Results CBC and chemistry reviewed PG Care Time/CCT Total # of Minutes Spent Total Time Spent with Patient: Total time spent is greater than 50% in coordination of care (as documented) at patient's floor/unit and/or counseling patient: Coding Level of Care Code 60232 SUB INP/OBS CARE 2/35MIN Diagnoses Acute on chronic pancreatitis K85.90; K86.1 Black stool K92.1 Atrial fibrillation I48.91 Hypothyroidism, postablative E89.0 Gastritis K29.70
[2023-12-29] MEDS: LACTATED RINGER'S 1,000 ML IV SCH (17:36)
[2023-12-29] MEDS: HYDROmorphone INJ 0.5 MG/0.5 ML SYR IV STA (21:00)
[2023-12-30 06:15] LABS: Basophils # (auto) 0.03 K/uL (0.00-0.20); Basophils % (auto) 0.3 %; Eosinophils # (auto) 0.19 K/uL (0.00-0.50); Eosinophils % (auto) 1.7 %; Hematocrit (blood only) 28.8 % (42.0-52.0); Hemoglobin 9.4 g/dl (14.0-18.0); Immature Granulocytes # (auto) 0.09 K/uL (0.01-0.20); Immature Granulocytes % (auto) 0.8 %; Lymphocytes # (auto) 0.72 K/uL (1.20-3.40); Lymphocytes % (auto) 6.4 %; Mean Corpuscular Hemoglobin 30.6 pg (25.0-34.0); Mean Corpuscular Hgb Conc 32.6 g/dL (32.0-36.0); Mean Corpuscular Volume 93.8 fL (80.0-100.0); Monocytes # (auto) 1.06 K/uL (0.11-0.59); Monocytes % (auto) 9.4 %; Neutrophils # (auto) 9.15 K/uL (1.40-6.50); Neutrophils % (auto) 81.4 %; Platelet Count 303 K/uL (130-400); RDW Coefficient of Variation 15.6 % (11.5-14.5); RDW Standard Deviation 53.1 fL (36.4-46.3); Red Blood Count 3.07 M/uL (4.70-6.10); White Blood Count 11.24 K/ul (4.8-10.8)
[2023-12-30 06:37] LABS: Albumin Globulin Ratio 1.3 (0.9-2); Albumin Level 3.1 gm/dl (3.4-5.0); BUN Creatinine Ratio 13.3 (10-20); Bilirubin,Total 1.6 mg/dl (0.2-1.0); Est GFR (African American) 104.1 ml/min; Est GFR (Non-African American) 89.8 ml/min; Globulin 2.4 gm/dl (2.5-4.0); Potassium 4.2 mmol/L (3.5-5.1); Total Protein 5.5 gm/dl (6.0-8.3)
--- NOTE | 2023-12-30 10:18 | Gastroenterology Progress Note ---
Date of Service December 30, 2023 Assessment & Plan (1) Recurrent acute pancreatitis: (2) Chronic pancreatitis: Plan Patient is a 68 y.o. male with a history of recurrent acute on chronic pancreatitis s/p ERCP with sphincterotomy on 12/16/23 admitted with epigastric pain and labs/imaging consistent with recurrent acute on chronic pancreatitis. 1. NPO for now. If pain improves today, can advance to clear liquids then further advancement to low fat as tolerated. 2. IV fluid resuscitation at 150 ml/hr. 3. Supportive care IV antiemetics/analgesics PRN. 4. Once patient is started on solid food, start Creon 2 caps with meals and 1 with snacks (not previously prescribed). Start Protonix 40 mg PO BID with Creon. 5. Outpatient office follow up with Dr. Polanco upon discharge to discuss ongoing medical management. Thank you for allowing us to participate in the care of this patient. If you have any questions or concerns, please do not hesitate to contact us. Admission and Anticipated Discharge Date Admission Date: December 28, 2023 Supervising Physician Co-Signing Physician Notes Agree with GUILLE Austin as above Interviewed and Examined patient as above Abd: Soft, Tender, ND Continue current therapy and supportive care Subjective Patient reports abdominal pain is improving. Rates the pain as 7/10 at present. Intermittent sharp pains persist, however. No n/v/f. WBC count is improving. AST/ALT improving. Remains NPO and with IV fluids. Review of Systems Constitutional: as per Subjective / HPI Gastrointestinal: as per Subjective / HPI Physical Exam Constitutional: WD/WN, vitals as above Respiratory: normal respiratory effort, lungs clear to auscultation Cardiovascular: Rate/Rhythm: regular rate and regular rhythm Heart Sounds: no gallop and no murmur Gastrointestinal (Abdomen): Inspection/Auscultation: normal bowel sounds Percussion/Palpation: abdomen soft; abdomen nontender, no guarding and abdomen not rigid Results & Data Results & Data Vital Signs (Past 12 Hours) Vital Signs Temp Pulse Pulse Resp BP Pulse Ox O2 Del Method 12/30/23 07:33 37.0 C 73 20 121/75 97 Room Air 12/30/23 07:06 76 12/30/23 03:11 37 C 83 20 107/64 94 Room Air 12/30/23 00:23 82 12/29/23 23:21 37.3 C 80 18 117/77 96 Room Air Diagnostic Findings Laboratory Results WBC 11.24 K/ul (4.8-10.8) H 12/30/23 05:34 RBC 3.07 M/uL (4.70-6.10) L 12/30/23 05:34 Hgb 9.4 g/dl (14.0-18.0) L 12/30/23 05:34 Hct 28.8 % (42.0-52.0) L 12/30/23 05:34 MCV 93.8 fL (80.0-100.0) 12/30/23 05:34 MCH 30.6 pg (25.0-34.0) 12/30/23 05:34 MCHC 32.6 g/dL (32.0-36.0) 12/30/23 05:34 RDW Std Deviation 53.1 fL (36.4-46.3) H 12/30/23 05:34 RDW Coeff of Marline 15.6 % (11.5-14.5) H 12/30/23 05:34 Plt Count 303 K/uL (130-400) 12/30/23 05:34 MPV 9.0 fL (9.4-12.4) L 12/30/23 05:34 Immature Gran % (Auto) 0.8 % 12/30/23 05:34 Neut % (Auto) 81.4 % 12/30/23 05:34 Lymph % (Auto) 6.4 % 12/30/23 05:34 Weston % (Auto) 9.4 % 12/30/23 05:34 Eos % (Auto) 1.7 % 12/30/23 05:34 Baso % (Auto) 0.3 % 12/30/23 05:34 Neut # (Auto) 9.15 K/uL (1.40-6.50) H 12/30/23 05:34 Lymph # (Auto) 0.72 K/uL (1.20-3.40) L 12/30/23 05:34 Weston # (Auto) 1.06 K/uL (0.11-0.59) H 12/30/23 05:34 Eos # (Auto) 0.19 K/uL (0.00-0.50) 12/30/23 05:34 Baso # (Auto) 0.03 K/uL (0.00-0.20) 12/30/23 05:34 Immature Gran # (Auto) 0.09 K/uL (0.01-0.20) 12/30/23 05:34 PT 10.7 Seconds (9.0-12.0) 12/29/23 04:16 INR 1.0 (0.9-1.1) 12/29/23 04:16 Sodium 133 mmol/L (136-145) L 12/30/23 05:34 Potassium 4.2 mmol/L (3.5-5.1) 12/30/23 05:34 Chloride 100 mmol/L (98-107) 12/30/23 05:34 Carbon Dioxide 25 mmol/L (21-32) 12/30/23 05:34 Anion Gap 8 (3-11) 12/30/23 05:34 BUN 11 mg/dl (6-23) 12/30/23 05:34 Creatinine 0.83 mg/dl (0.6-1.4) 12/30/23 05:34 Est Cr Clr Drug Dosing 84.0 ml/min 12/30/23 05:34 Est GFR ( Amer) 104.1 ml/min 12/30/23 05:34 Est GFR (Non-Af Amer) 89.8 ml/min 12/30/23 05:34 BUN/Creatinine Ratio 13.3 (10-20) 12/30/23 05:34 Glucose 84 mg/dl (70-99(Fasting)) 12/30/23 05:34 Calcium 8.0 mg/dl (8.6-10.3) L 12/30/23 05:34 Magnesium 2.0 mg/dl (1.7-2.4) 12/30/23 05:34 Total Bilirubin 1.6 mg/dl (0.2-1.0) H 12/30/23 05:34 AST 49 U/L (13-39) H 12/30/23 05:34 ALT 122 U/L (7-52) H 12/30/23 05:34 Alkaline Phosphatase 164 U/L (34-104) H 12/30/23 05:34 Troponin I High Sens 27.0 pg/ml (0-20) H 12/28/23 19:50 Total Protein 5.5 gm/dl (6.0-8.3) L 12/30/23 05:34 Albumin 3.1 gm/dl (3.4-5.0) L 12/30/23 05:34 Globulin 2.4 gm/dl (2.5-4.0) L 12/30/23 05:34 Albumin/Globulin Ratio 1.3 (0.9-2) 12/30/23 05:34 Amylase 128 U/L (25-115) H 12/28/23 17:27 Lipase 170 U/L (11-82) H 12/28/23 17:27 Urine Color Yellow 12/28/23 17:27 Urine Appearance Clear (Clear) 12/28/23 17: Urine pH 7.0 (4.5-7.5) 12/28/23 17:27 Ur Specific [place] 1.014 (1.000-1.030) 12/28/23 17:27 Urine Protein Negative (Negative) 12/28/23 17:27 Urine Glucose (UA) Negative (Negative) 12/28/23 17:27 Urine Ketones Negative (Negative) 12/28/23 17:27 Urine Blood Negative (Negative) 12/28/23 17:27 Urine Nitrite Negative (Negative) 12/28/23 17:27 Urine Bilirubin Negative (Negative) 12/28/23 17:27 Urine Urobilinogen Negative (Negative) 12/28/23 17:27 Ur Leukocyte Esterase Negative (Negative) 12/28/23 17:27 Impressions Abdomen/Pelvis CT 12/28/23 17:[address] WITH IV CONTRAST CT DOSE: 956.44 mGy.cm HISTORY: upper abd pain, hx of pancreatitis TECHNIQUE: Multiaxial CT images of the abdomen and pelvis were performed following the use of intravenous contrast. A dose lowering technique was utilized adhering to the principles of ALARA. COMPARISON STUDY: Abdomen and pelvis CT 10/14/2023 FINDINGS: The lung bases are clear. No pneumoperitoneum. No pneumatosis. No acute fractures. Prior cholecystectomy. Mild central hepatic bile duct dilatation, unchanged. No hepatic or splenic masses. The adrenal glands unremarkable. Normal right kidney. Stable left renal hypodense lesions which favor cysts. No hydronephrosis. Calcified plaque within the normal caliber abdominal aorta. The main portal vein is patent. A few prominent peripancreatic lymph nodes which are likely reactive. No pelvic lymphadenopathy or pelvic free fluid. The prostate gland is mildly enlarged. No bladder wall thickening with adjacent fat stranding. This may be due to chronic outlet obstruction from the enlarged prostate gland. Colonic diverticulosis. No evidence for acute diverticulitis. No dilated loops of bowel to suggest an obstruction. Normal appendix. Scattered pancreatic calcifications consistent with chronic pancreatitis. There is also extensive edema and a small amount of fluid surrounding the pancreatic head consistent with acute pancreatitis. Edema is also noted within the pancreatic head without evidence for pancreatic necrosis at this time. This has progressed in the interval. Stable prominence of the common bile duct. Thickening of the adjacent duodenum is likely reactive. There is severe submucosal edema within the third portion of the duodenum. This is likely reactive. No perforation or abscess identified. IMPRESSION: 1. Above findings consistent with acute on chronic pancreatitis which has progressed in the interval. There is extensive edema both within and surrounding the pancreatic head without evidence for pancreatic necrosis or loculated fluid collections. 2. Thickening and severe submucosal edema within the duodenum is likely reactive to the acute pancreatitis. 3. Additional findings as described above. ACT 112: Negative or not required by law. Electronically signed by: Chalino Edmondson M.D. 12/28/2023 7:03 PM PG Care Time/CCT Total # of Minutes Spent Total Time Spent with Patient: Total time spent is greater than 50% in coordination of care (as documented) at patient's floor/unit and/or counseling patient: Coding Level of Care Code 41468 SUB INP/OBS CARE 3/50MIN Diagnoses Recurrent acute pancreatitis K85.90 Chronic pancreatitis K86.1
--- NOTE | 2023-12-30 11:01 | Hospitalist Progress Note ---
Date of Service December 30, 2023 Assessment & Plan (1) Acute on chronic pancreatitis: Plan: -Presented to the ED with worsening abdominal pain consistent with his previous episodes of pancreatitis -Amylase and lipase mildly elevated on admission -CT of the abd/pelvis w/IV con shows acute on chronic pancreatitis >Notes extensive edema both within and surrounding the Pancrease but negative for signs of necrosis -GI consult placed - continue IVF while NPO - when resume diet - advance to low fat with Creon 2 caps with meals and 1 with snack. Start protonix 40mg BID with creon - follow up out outpatient with Dr. Polanco -PRN Dilaudid for pain -PRN zofran for nausea/vomiting Continue NPO. Patient still painful on exam, will allow ice chips. per RN this afternoon still painful Updated by RN this evening - willing to try broth. clear liquid diet ordered. Creon ordered. -AM CBC,CMP, (2) Black stool: Plan: -Patient reports multiple episodes of dark, black diarrhea since his ERCP but has also been taking advil PM since -On Elqiuis for hx of Afib -Hgb is stable, BP has been stable, no acute GI bleed noted on CT of the abd/pelvis w/IV con -Was noted to have significant Thickening and severe submucosal edema within the duodenum - likely reactive to pancreatitis -Start BID IV pantoprazole and famotidine for now No further dark stool since admission plan to resume eliquis 12/30 (3) Atrial fibrillation: Plan: -Currently in NSR Resume cardizem and Eliquis 12/30 (4) Hypothyroidism, postablative: Plan: -Continue Levothyroxine (5) Gastritis: Plan: -IV pantoprazole and famotidine for now Plan Dispo: continued inpatient stay, remaining NPO DVt proh: SCDs, plan to resume elqiuis 12/30 Admission and Anticipated Discharge Date Admission Date: December 28, 2023 Supervising Physician Co-Signing Physician Notes Attending Attestation - Chart reviewed, care plan d/w AMELIA Mayberry. I agree w/ the haro components of her documentation. Andrei Matias MD Subjective Patient lying in bed - still having pain, but improving since admission. Can be 30-60+minutes between bouts of pain. no bowel movement Tele - SR 70s Review of Systems Review of Systems: All systems reviewed & are unremarkable except as noted in Subjective Physical Exam Physical Exam: General: NAD, VS as above Resp: normal respiratory effort, lungs clear to auscultation CV: RRR, no murmur, Abd: normal bowel sounds, + mild generalized pain Extremities: Moves all extremities, no edema Neuro: A&O x3, Results & Data Results & Data Vital Signs (Past 12 Hours) Vital Signs Temp Pulse Pulse Resp BP Pulse Ox O2 Del Method 12/30/23 08:45 Room Air 12/30/23 07:33 37.0 C 73 20 121/75 97 Room Air 12/30/23 07:06 76 12/30/23 03:11 37 C 83 20 107/64 94 Room Air 12/30/23 00:23 82 12/29/23 23:21 37.3 C 80 18 117/77 96 Room Air Laboratory Results CBC and chemistry reviewed PG Care Time/CCT Total # of Minutes Spent Total Time Spent with Patient: Total time spent is greater than 50% in coordination of care (as documented) at patient's floor/unit and/or counseling patient: Coding Level of Care Code 12770 SUB INP/OBS CARE 3/50MIN Diagnoses Acute on chronic pancreatitis K85.90; K86.1 Black stool K92.1 Atrial fibrillation I48.91 Hypothyroidism, postablative E89.0 Gastritis K29.70
[2023-12-30] MEDS ORDERED: PANCREAZE (LIPASE 10,500U) CAP PO PRN (18:13)
[2023-12-30] MEDS ORDERED: TRIAMCINOLONE ACET 0.5% CR 15 GM TUBE EXT PRN (18:23)
[2023-12-30] MEDS: APIXABAN 5 MG TABLET PO SCH (19:55)
[2023-12-30] MEDS: PANCREAZE (LIPASE 10,500U) CAP PO SCH (19:56)
[2023-12-31] MEDS: dilTIAZem HCL 120 MG CAPCR PO SCH (07:54)
[2023-12-31] MEDS: LEVOTHYROXINE SODIUM 175 MCG TABLET PO SCH (07:54)
[2023-12-31 08:23] LABS: Basophils # (auto) 0.03 K/uL (0.00-0.20); Basophils % (auto) 0.4 %; Eosinophils # (auto) 0.24 K/uL (0.00-0.50); Eosinophils % (auto) 3.4 %; Hematocrit (blood only) 28.6 % (42.0-52.0); Hemoglobin 9.2 g/dl (14.0-18.0); Immature Granulocytes # (auto) 0.05 K/uL (0.01-0.20); Immature Granulocytes % (auto) 0.7 %; Lymphocytes # (auto) 0.68 K/uL (1.20-3.40); Lymphocytes % (auto) 9.7 %; Mean Corpuscular Hemoglobin 30.5 pg (25.0-34.0); Mean Corpuscular Hgb Conc 32.2 g/dL (32.0-36.0); Mean Corpuscular Volume 94.7 fL (80.0-100.0); Mean Platelet Volume 9.2 fL (9.4-12.4); Monocytes % (auto) 8.6 %; Neutrophils # (auto) 5.39 K/uL (1.40-6.50); Neutrophils % (auto) 77.2 %; Platelet Count 306 K/uL (130-400); RDW Coefficient of Variation 14.9 % (11.5-14.5); Red Blood Count 3.02 M/uL (4.70-6.10); White Blood Count 6.99 K/ul (4.8-10.8)
[2023-12-31 08:51] LABS: Albumin Globulin Ratio 1.2 (0.9-2); Albumin Level 3.1 gm/dl (3.4-5.0); BUN Creatinine Ratio 11.8 (10-20); Bilirubin,Total 1.2 mg/dl (0.2-1.0); Creatinine Clr Calc Pharmacy 91.7 ml/min; Est GFR (African American) 107.9 ml/min; Est GFR (Non-African American) 93.1 ml/min; Globulin 2.5 gm/dl (2.5-4.0); Potassium 3.8 mmol/L (3.5-5.1); Total Protein 5.6 gm/dl (6.0-8.3)
[2023-12-31] MEDS: HYDROmorphone INJ 0.5 MG/0.5 ML SYR IV PRN ×2 (11:30→21:51)
--- NOTE | 2023-12-31 16:12 | Hospitalist Progress Note ---
Date of Service December 31, 2023 Assessment & Plan (1) Acute on chronic pancreatitis: Plan: -Presented to the ED with worsening abdominal pain consistent with his previous episodes of pancreatitis -Amylase and lipase mildly elevated on admission -CT of the abd/pelvis w/IV con shows acute on chronic pancreatitis >Notes extensive edema both within and surrounding the Pancrease but negative for signs of necrosis -GI consult placed - continue IVF while NPO - when resume diet - advance to low fat with Creon 2 caps with meals and 1 with snack. Start protonix 40mg BID with creon - follow up out outpatient with Dr. Polanco -PRN Dilaudid for pain -PRN zofran for nausea/vomiting continue to advance diet, tolerated full liquids for lunch, will advance to low-fat -AM CMP, (2) Black stool: Plan: -Patient reports multiple episodes of dark, black diarrhea since his ERCP but has also been taking advil PM since -On Elqiuis for hx of Afib -Hgb is stable, BP has been stable, no acute GI bleed noted on CT of the abd/pelvis w/IV con -Was noted to have significant Thickening and severe submucosal edema within the duodenum - likely reactive to pancreatitis -Start BID IV pantoprazole and famotidine for now No further dark stool since admission plan to resume eliquis 12/30 (3) Atrial fibrillation: Plan: -Currently in NSR Resume cardizem and Eliquis 12/30 (4) Hypothyroidism, postablative: Plan: -Continue Levothyroxine (5) Gastritis: Plan: -IV pantoprazole and famotidine for now Plan Dispo: continued inpatient stay, hopeful discharge tomorrow if he continues to tolerate diet DVt proh: Eliquis Admission and Anticipated Discharge Date Admission Date: December 28, 2023 Subjective patient seen earlier this morning, shortly after breakfast. States that he has been tolerating clear liquids without issue but then is having random bouts of pain. Pain is not as severe as when he came in on admission. Pain does not seem to correlate with meals. Is anxious to go home but also does not want to have to return promptly to the hospital overall frustrated with the chronic nature of his pancreatitis did move his bowels yesterday, no bleeding no EtOH use telemetry sinus rhythm 60s and 70s Review of Systems Review of Systems: All systems reviewed & are unremarkable except as noted in Subjective Physical Exam Physical Exam: General: NAD, VS as above Resp: normal respiratory effort, lungs clear to auscultation CV: RRR, no murmur, Abd: normal bowel sounds, + mild generalized pain- improved from previous Extremities: Moves all extremities, no edema Neuro: A&O x3, Results & Data Results & Data Vital Signs (Past 12 Hours) Vital Signs Temp Pulse Resp BP Pulse Ox O2 Del Method 12/31/23 15:25 36.7 C 60 18 135/74 96 Room Air 12/31/23 11:29 36.6 C 68 20 152/78 H 95 Room Air 12/31/23 07:24 36.8 C 69 18 129/71 96 Room Air Laboratory Results CBC and chemistry reviewed PG Care Time/CCT Total # of Minutes Spent Total Time Spent with Patient: Total time spent is greater than 50% in coordination of care (as documented) at patient's floor/unit and/or counseling patient: Coding Level of Care Code 67954 SUB INP/OBS CARE 2/35MIN Diagnoses Acute on chronic pancreatitis K85.90; K86.1 Black stool K92.1 Atrial fibrillation I48.91 Hypothyroidism, postablative E89.0 Gastritis K29.70
[2023-12-31] MEDS: ACETAMINOPHEN 325 MG TAB PO PRN (19:49)
[2024-01-01 07:34] LABS: Albumin Globulin Ratio 1.2 (0.9-2); Albumin Level 3.1 gm/dl (3.4-5.0); Bilirubin,Total 0.4 mg/dl (0.2-1.0); Calcium 8.1 mg/dl (8.6-10.3); Est GFR (African American) 108.5 ml/min; Est GFR (Non-African American) 93.6 ml/min; Globulin 2.5 gm/dl (2.5-4.0); Potassium 3.9 mmol/L (3.5-5.1); Total Protein 5.6 gm/dl (6.0-8.3)
[2024-01-01] MEDS: POLYETHYLENE (MIRALAX) 17 GM PACK PO PRN (11:15)
--- NOTE | 2024-01-01 12:32 | Discharge Summary ---
Discharge Summary Date of Service January 01, 2024 Notes For Next Care Provider Patient admitted for acute on chronic pancreatitis. Resolved with gut rest and IVF. Discussed importance of low fat diet. Needs GI follow up. CBC for next week to ensure HGb stable before resuming Eliquis Medication Changes From Visit Eliquis on Hold Creon - 2 tablets with meals, 1 with snacks patient using oxycodone at home for chronic pancreatitis pain - 6 additional tabs given Admission HPI Per Admitting Provider Isaac is a 68-year-old male with PMH of recurrent acute pancreatitis, insomnia, IBS, prediabetes, HLD, HTN, hypothyroidism, depression, BPH, atrial fibrillation (on eliquis) who presented to the [facility] ED on 12/28/23 with complaints of recurrent abdominal pain consistent with his previous episodes of pancreatitis. Of Note, the patient recently underwent ERCP with Dr. Alvarez on 12/16/23. Per the operative report, a biliary sphincterotomy was performed, the biliary tree was swept and sludge was found. He also had a vental pancreatic sphincterotomy with ventral pancreatic duct swept with further debris found. No stents were placed during the procedure. The patient was noted to be tachycardic with HR in the 90s on arrival but was otherwise stable. Labs were significant for a leukocytosis of 14 with neutrophil predominance of 13, sodium of 134, initial high sen trop of 26, lipase of 170, amylase of 170, and clean UA. CT of the abd/pelvis w/IV con was read as 1. Above findings consistent with acute on chronic pancreatitis which has progressed in the interval. There is extensive edema both within and surrounding the pancreatic head without evidence for pancreatic necrosis or loculated fluid collections.2. Thickening and severe submucosal edema within the duodenum is likely reactive to the acute pancreatitis. 3. Additional findings as described above.The patient was given 1L LR and one dose of 0.5 mg IV dilaudid in the ED. Prior to admission we requested the ED staff speak with GI to determine if repeat ERCP and pancreatic stent placement would be required as we do not current have ERCP capability at our facility. GI confirmed the patient was appropriate to stay at our facility. At the time of the exam the patient was lying in bed in no acute distress. States that he has had mild-moderate abdominal pain since his ERCP. When asked about pain medications he was using at home he noted his chronic oxycodone and advil PM. He denies alcohol or tobacco use. States that his pain significantly increased this am while in [employer]. Has been unable to tolerate consistent PO intake since but denies recent vomiting. When asked, he denies fever, chills, chest pain, cough, dysuria, hematuria, bloody BM's, LE swelling, and recent trauma. He does note multiple episodes of black diarrhea over the past 2 weeks. He is a full code and his Daughter is his POA. Please refer to Dr. Amos's attestation for any changes to the treatment plan Principal Dx & Hospital Course #1 = Principal Diagnosis (1) Acute on chronic pancreatitis: -Presented to the ED with worsening abdominal pain consistent with his previous episodes of pancreatitis -Amylase and lipase mildly elevated on admission -CT of the abd/pelvis w/IV con shows acute on chronic pancreatitis >Notes extensive edema both within and surrounding the Pancrease but negative for signs of necrosis -GI consult placed -Continue low fat with Creon 2 caps with meals and 1 with snack. Start protonix 40mg BID with creon - follow up out outpatient with Dr. Polanco LFTs improving (2) Black stool: -Patient reports multiple episodes of dark, black diarrhea since his ERCP but has also been taking advil PM since -On Elqiuis for hx of Afib -Hgb is stable, BP has been stable, no acute GI bleed noted on CT of the abd/pelvis w/IV con -Was noted to have significant Thickening and severe submucosal edema within the duodenum - likely reactive to pancreatitis -Cotninue PO BID pantoprazole and famotidine at discharge No further dark stool since admission - plan to hold Eliquis until repeat CBC outpatient to ensure hgb stability (3) Atrial fibrillation: -Currently in NSR Resume cardizem Eliquis on hold as above (4) Hypothyroidism, postablative: -Continue Levothyroxine (5) Gastritis: -pantoprazole and famotidine as above Plan Dispo: discharge to home with outpatient GI followup Discharge Exam General: NAD, VS as above Resp: normal respiratory effort, lungs clear to auscultation CV: RRR, no murmur, Abd: normal bowel sounds, non tender Extremities: Moves all extremities, no edema Neuro: A&O x3, Updated Medication List Medication Instructions Recorded Confirmed Type multivitamin 1 tab PO QAM 07/14/18 12/28/23 History levothyroxine 175 mcg tablet 175 mcg PO QAM #90 tabs 09/08/23 12/28/23 Rx cetirizine 10 mg tablet 10 mg PO BID allergy symptoms #60 09/25/23 12/28/23 Rx tabs famotidine 40 mg tablet 40 mg PO BID #180 tabs 09/25/23 12/28/23 Rx pantoprazole 40 mg tablet,delayed 40 mg PO BID #180 tabs 09/25/23 12/28/23 Rx release (Protonix) betamethasone dipropionate 0.05 % 1 applic topical BID PRN skin 11/04/23 12/28/23 Rx topical cream irritation #45 grams bisacodyl 5 mg tablet 10 mg PO DAILY PRN constipation 11/04/23 12/28/23 History polyethylene glycol 3350 17 17 g PO DAILY PRN constipation 11/04/23 12/28/23 History gram/dose oral powder (Miralax) pramipexole 0.125 mg tablet 0.125 mg PO DAILY 11/04/23 12/28/23 History sennosides 8.6 mg-docusate sodium 1 tab-cap PO BID PRN Constipation 11/04/23 12/28/23 History 50 mg capsule (Senna Plus) sildenafil 100 mg tablet 100 mg PO DAILY PRN Erectile 11/04/23 12/28/23 History Dysfunction diltiazem HCl 120 mg 120 mg PO QAM #90 caps 11/19/23 12/28/23 Rx capsule,extended release 24 hr (Cardizem CD) apixaban 5 mg tablet (Eliquis) 5 mg PO BID #180 tabs 12/23/23 12/28/23 Rx deucravacitinib 6 mg tablet 6 mg PO DAILY 12/23/23 12/28/23 History (Sotyktu) hydroxyzine HCl 25 mg tablet 25 mg PO Q8H PRN itching #90 tabs 12/23/23 12/28/23 Rx zolpidem 10 mg tablet 10 mg PO HS #30 tabs 12/23/23 12/28/23 Rx rosuvastatin 10 mg tablet (Crestor) 10 mg PO DAILY #90 tabs 12/29/23 Rx rrsgqa-gdbeidod-uphneex 1 cap PO TID PRN with snacks #90 01/01/24 Rx 36,000-114,000-180,000 unit caps capsule,delay rel (Creon) gktury-jasmizct-vcstihr 2 cap PO TID 30 days #180 caps 01/01/24 Rx 36,000-114,000-180,000 unit capsule,delay rel (Creon) oxycodone 5 mg tablet 5 mg PO Q4H PRN Pain #6 tabs 01/01/24 Rx Hospital Stay Data Consultations 12/28/23 19:15 ED Decision to Admit Stat 12/28/23 19:53 Consult Gastroenterology Routine Diagnostic Imagining Performed Abdomen/Pelvis CT 12/28/23 17:[address] WITH IV CONTRAST CT DOSE: 956.44 mGy.cm HISTORY: upper abd pain, hx of pancreatitis TECHNIQUE: Multiaxial CT images of the abdomen and pelvis were performed following the use of intravenous contrast. A dose lowering technique was utilized adhering to the principles of ALARA. COMPARISON STUDY: Abdomen and pelvis CT 10/14/2023 FINDINGS: The lung bases are clear. No pneumoperitoneum. No pneumatosis. No acute fractures. Prior cholecystectomy. Mild central hepatic bile duct dilatation, unchanged. No hepatic or splenic masses. The adrenal glands unremarkable. Normal right kidney. Stable left renal hypodense lesions which favor cysts. No hydronephrosis. Calcified plaque within the normal caliber abdominal aorta. The main portal vein is patent. A few prominent peripancreatic lymph nodes which are likely reactive. No pelvic lymphadenopathy or pelvic free fluid. The prostate gland is mildly enlarged. No bladder wall thickening with adjacent fat stranding. This may be due to chronic outlet obstruction from the enlarged prostate gland. Colonic diverticulosis. No evidence for acute diverticulitis. No dilated loops of bowel to suggest an obstruction. Normal appendix. Scattered pancreatic calcifications consistent with chronic pancreatitis. There is also extensive edema and a small amount of fluid surrounding the pancreatic head consistent with acute pancreatitis. Edema is also noted within the pancreatic head without evidence for pancreatic necrosis at this time. This has progressed in the interval. Stable prominence of the common bile duct. Thickening of the adjacent duodenum is likely reactive. There is severe submucosal edema within the third portion of the duodenum. This is likely reactive. No perforation or abscess identified. IMPRESSION: 1. Above findings consistent with acute on chronic pancreatitis which has progressed in the interval. There is extensive edema both within and surrounding the pancreatic head without evidence for pancreatic necrosis or loculated fluid collections. 2. Thickening and severe submucosal edema within the duodenum is likely reactive to the acute pancreatitis. 3. Additional findings as described above. ACT 112: Negative or not required by law. Electronically signed by: Chalino Edmondson M.D. 12/28/2023 7:03 PM Pending Results Patient Have Any Pending Studies at Discharge: No Discharge Instructions Given to Patient (Per Discharging Provider) Mr. Harris, you were hospitalized after having increased abdominal pain, this was found to be a flare of your pancreatitis. This improved with IV pain medications and IV fluids. During the hospital stay you were able to increase your diet and tolera te this with minimal pain. You were seen by the GI team who did not recommend any surgical intervention, they did add Creon (pancreatic enzyme supplement) to your regimen. and because of this you need to take a proton pump inhibitor, this is for gut protection. Creon: Take 2 tabs with every meal, 1 tablet every snack Protonix: 40 mg tablet twice a day you also had dark tarry stools prior to admission, this did not continue during your stay. I am going to hold your Eliquis until next week. I ordered lab work (a CBC) to have done on Friday or friday. The results will go to your PCP. This is to make sure you are not having continued GI bleeding. Your PCP will get in touch with you about results and then you can resume the Eliquis. You should not take any NSAIDs including naproxen, ibuprofen, Aleve, or Advil as this also increases your risk for GI bleeding. Tylenol is okay. Do not resume Advil PM. If you have any questions about what is safe to take with your Eliquis you could always ask the pharmacist or your primary care provider. You should continue a low-fat diet at home to help prevent further pancreatitis flares. Do not drink alcohol. Would recommend continued follow-up with your PCP regarding your cholesterol, take the medicine that they recommend. Activity: You can do normal everyday activities as your body allows. Take rest breaks if you feel tired. Do not overexert. Stop activity if you have pain, shortness of breath or feel dizzy. Follow-up appointments: * Make an appointment with your primary care physician within one week of discharge. A copy of this summary will be sent to them. Every time you see your primary care physician, or any other doctor, bring your medication list, and a list of questions. * You also need to follow up with Dr. Polanco in the next 1-2 weeks. CONTACT YOUR PRIMARY CARE PROVIDER if you experience any of the following: Shortness of breath or difficulty breathing Fevers or chills Feeling tired with normal activity or experiencing dizziness or fainting Difficulty following your treatment plan, or difficulty taking medications CALL 911 OR GO TO THE EMERGENCY DEPARTMENT if you experience any of the following: Severe abdominal pain or nausea/vomiting Severe chest pain, or chest pain that radiates (moves) to your jaw or arm Sudden, severe shortness of breath or difficulty breathing Thank you for allowing us to participate in your care. Total Time Total Time Spent Total Time Spent (In Minutes): Time spend day of discharge 35 minutes including direct patient care, medication reconciliation, documentation, review of labs and images, and coordination of care. Coding Level of Care Code 00061 INP/OBS DISCH >30 MIN Diagnoses Acute on chronic pancreatitis K85.90; K86.1 Black stool K92.1 Atrial fibrillation I48.91 Hypothyroidism, postablative E89.0 Gastritis K29.70
== END 2024-01-01 13:35 | disposition home or self-care (01) | DRG 438 ==
LOC: ED 17:04 → SUATTDRO 19:51 → EDINP 19:51 → 2N 21:50

== ENCOUNTER 2024-01-14 00:42 | Inpatient (IN) ==
--- NOTE | 2024-01-14 01:37 | Emergency Department Note ---
History of Present Illness General Chief complaint: Abdominal Pain Stated complaint: SEVERE ABDOMINAL PAIN Time Seen by Provider: 01/14/24 01:29 History of Present Illness Maximum Pain Intensity: 10 This 68-year-old male with history of pancreatitis presents to the ER complaining abdominal pain with concerns for recurrent pancreatitis. No alcohol use. Patient denies chest pain, dyspnea, fevers, cough, congestion, flulike illness. Home Medications Medication Instructions Recorded Confirmed Type multivitamin 1 tab PO QAM 07/14/18 01/14/24 History levothyroxine 175 mcg tablet 175 mcg PO QAM #90 tabs 09/08/23 01/14/24 Rx cetirizine 10 mg tablet 10 mg PO BID allergy symptoms #60 09/25/23 01/14/24 Rx tabs famotidine 40 mg tablet 40 mg PO BID #180 tabs 09/25/23 01/14/24 Rx pantoprazole 40 mg tablet,delayed 40 mg PO BID #180 tabs 09/25/23 01/14/24 Rx release (Protonix) polyethylene glycol 3350 17 17 g PO DAILY PRN constipation 11/04/23 01/14/24 History gram/dose oral powder (Miralax) pramipexole 0.125 mg tablet 0.125 mg PO DAILY 11/04/23 01/14/24 History sennosides 8.6 mg-docusate sodium 1 tab-cap PO BID PRN Constipation 11/04/23 01/14/24 History 50 mg capsule (Senna Plus) sildenafil 100 mg tablet 100 mg PO DAILY PRN Erectile 11/04/23 01/14/24 History Dysfunction diltiazem HCl 120 mg 120 mg PO QAM #90 caps 11/19/23 01/14/24 Rx capsule,extended release 24 hr (Cardizem CD) apixaban 5 mg tablet (Eliquis) 5 mg PO BID #180 tabs 12/23/23 01/14/24 Rx deucravacitinib 6 mg tablet 6 mg PO DAILY 12/23/23 01/14/24 History (Sotyktu) hydroxyzine HCl 25 mg tablet 25 mg PO Q8H PRN itching #90 tabs 12/23/23 01/14/24 Rx zolpidem 10 mg tablet 10 mg PO HS #30 tabs 12/23/23 01/14/24 Rx rosuvastatin 10 mg tablet (Crestor) 10 mg PO DAILY #90 tabs 12/29/23 01/14/24 Rx otpumk-npkrdjzl-lihbfsi 1 cap PO TID PRN with snacks #90 01/13/24 01/14/24 Rx 36,000-114,000-180,000 unit caps capsule,delay rel (Creon) oxycodone 5 mg tablet 5 mg PO Q4H PRN Pain #6 tabs 01/13/24 01/14/24 Rx triamcinolone acetonide 0.1 % 1 applic topical BID #454 grams 01/13/24 01/14/24 Rx topical cream Allergies Allergy/AdvReac Type Severity Reaction Status Date / Time No Known Allergies Allergy Verified 01/14/24 02:16 Past Med/Surg History Problem List (Updated 01/14/24 @ 02:04 by Zulema Urbina PA-C) Chronic pancreatitis Psoriasiform dermatitis Atrial fibrillation Recurrent acute pancreatitis (Acute) Patellofemoral arthrosis Hyperplastic colon polyp Incomplete emptying of bladder BPH associated with nocturia Erectile dysfunction Restless leg syndrome Enlarged prostate with lower urinary tract symptoms (LUTS) Depression (Chronic) Esophageal dysphagia (Chronic) History of colon polyps (Chronic) Tinnitus of both ears (Chronic) Hypothyroidism, postablative (Chronic) Beatrice's thyroiditis Deviated nasal septum (Chronic) Chronic pharyngitis (Chronic) Hoarseness (Chronic) Former smoker (Acute) Diverticulosis (Acute) Esophageal stricture Hiatal hernia Constipation due to opioid therapy Degenerative disc disease at L5-S1 level HTN (hypertension) Hyperlipidemia Nutcracker esophagus s/p POEM Prediabetes Irritable bowel syndrome Insomnia (Chronic) Laryngopharyngeal reflux (Chronic) Sensorineural hearing loss (SNHL) of both ears (Chronic) Medical History Gastritis and duodenitis Esophageal spasm History of COVID-19 08/2022, tested at clinic near home, not hosp; "didn't feel right in his head," cold all the time>resolved Acute pancreatitis (04/2021) hx-"has subsided since quit drinking alcohol" Anxiety and depression Environmental allergies Multiple thyroid nodules HX Osteoarthritis Surgical History S/P hemorrhoidectomy (05/30/21) History of colonoscopy History of oral surgery History of facial surgery History of cholecystectomy History of esophagogastroduodenoscopy (EGD) (07/2018) History of thyroidectomy, subtotal (2014) Nausea and vomiting after administration of anesthetic agent "rare now, has not happened recently with procedures" History of tooth extraction Family History Mother Family history of diabetes mellitus Heart murmur Brother Diabetes Family history of diabetes mellitus Arthritis Father Prostate cancer Arthritis Other No family history of adverse response to anesthesia Denies family history of Ovarian cancer Myocardial infarction Breast cancer Colorectal cancer Social History Smoking Status: Never smoker Tobacco Type: Cigarettes Age Started Using Tobacco: 15; Age Quit Using Tobacco: 49; Second Hand Exposure: No; Do You Dip or Chew Tobacco: No; Hx Alcohol Use: No Hx Substance Use: No Preferred Language: Chinese Communication Ability: Effective Communication Tools: Facial Expression and Lip Movement/Reading Visual Impairment: No Limitations Hearing Ability: Hard of Hearing Ball Holder Required: No Beliefs That Will Affect Care: None marital status: / Current Living Situation: Family Current Living Situation Comment: with son current occupational status: 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 Feels Safe at Home: Yes Childhood Exposure to Second-Hand Smoke: No Diet: regular caffeine: Yes (Coffee x 1 per day.) during the past year weight has: remained stable Dental Care, Regularly: Yes Physical Activity Frequency: 3-4 Times per Week Seatbelt Use: always Sunscreen Use: No Assistive Devices: None Review of Systems A total of 10 systems reviewed and were otherwise negative Physical Exam Vital Signs Vital Signs - 24 hr 01/14/24 01:03 01/14/24 01:51 01/14/24 01:51 Temperature 37.3 C Temperature Source Oral Pulse Rate 80 83 86 Pulse Rate from SpO2 Sensor 78 Pulse Rhythm Regular Pulse Strength Normal Respiratory Rate 18 23 Respiratory Effort / Characteristics Non-Labored Spontaneous Respiratory Depth Normal Respiratory Pattern Regular Blood Pressure 115/72 Blood Pressure [Left Arm] Blood Pressure Mean 86 Blood Pressure Mean [Left Arm] Blood Pressure Position Sitting Pulse Oximetry 99 98 Oxygen Delivery Method Room Air Sepsis Recent Fever Within 48 Hours No Sepsis New/Unexplained Change in Mental Status No Sepsis Action Taken by Nursing No Action Required 01/14/24 01:51 01/14/24 01:57 01/14/24 02:00 Temperature Temperature Source Pulse Rate 76 Pulse Rate from SpO2 Sensor 73 Pulse Rhythm Pulse Strength Respiratory Rate 24 Respiratory Effort / Characteristics Respiratory Depth Respiratory Pattern Blood Pressure 125/82 Blood Pressure [Left Arm] Blood Pressure Mean 96 Blood Pressure Mean [Left Arm] Blood Pressure Position Pulse Oximetry 97 Oxygen Delivery Method Room Air Sepsis Recent Fever Within 48 Hours Sepsis New/Unexplained Change in Mental Status Sepsis Action Taken by Nursing 01/14/24 02:00 01/14/24 02:10 01/14/24 02:31 Temperature Temperature Source Pulse Rate 72 77 Pulse Rate from SpO2 Sensor 72 77 Pulse Rhythm Pulse Strength Respiratory Rate 20 14 Respiratory Effort / Characteristics Respiratory Depth Respiratory Pattern Blood Pressure 129/82 Blood Pressure [Left Arm] Blood Pressure Mean 94 Blood Pressure Mean [Left Arm] Blood Pressure Position Pulse Oximetry 94 97 Oxygen Delivery Method Sepsis Recent Fever Within 48 Hours Sepsis New/Unexplained Change in Mental Status Sepsis Action Taken by Nursing 01/14/24 02:40 01/14/24 02:42 01/14/24 02:53 Temperature Temperature Source Pulse Rate 70 70 Pulse Rate from SpO2 Sensor 70 68 Pulse Rhythm Pulse Strength Respiratory Rate 20 16 Respiratory Effort / Characteristics Respiratory Depth Respiratory Pattern Blood Pressure Blood Pressure [Left Arm] 117/72 Blood Pressure Mean Blood Pressure Mean [Left Arm] 87 Blood Pressure Position Pulse Oximetry 95 95 Oxygen Delivery Method Sepsis Recent Fever Within 48 Hours Sepsis New/Unexplained Change in Mental Status Sepsis Action Taken by Nursing VITALS: Vitals are noted on the nurse's note and reviewed by myself. Vital signs stable. GENERAL: Pleasant male, in no acute distress, nondiaphoretic, well-developed well-nourished. SKIN: Capillary reflex less than 2 seconds. HEENT: Normocephalic. PERRLA. EOMI. Nares patent. Mucous membranes moist. Neck is supple without nuchal rigidity. HEART: Regular rate and rhythm LUNGS: Clear to auscultation bilaterally without wheezes, rales or rhonchi. No retractions or accessory muscle use. ABDOMEN: Positive bowel sounds x 4. Normal tympanic percussion. Soft, tender mid abdomen, without masses or organomegaly. Alarcon sign negative. No guarding or rebound tenderness. no CVA tenderness MUSCULOSKELETAL: No gross musculoskeletal defects. NEURO: Patient was alert and oriented to person place and time. No focal neurological deficits. Course Administered Medications Discontinued Medications Sodium Chloride (Nss) 500 mls @ 999 mls/hr IV .Q31M STA Stop: 01/14/24 01:22 Last Infusion: 01/14/24 02:32 Dose: Infused Documented By: Admin: 01/14/24 01:57 Dose: 999 mls/hr Documented By: RHONDA Famotidine (Pepcid 20mg Iv Push) 20 mg in 5 mls @ 2.5 mls/min IV NOW STA Stop: 01/14/24 01:36 Last Admin: 01/14/24 01:56 Dose: 2.5 mls/min Documented By: RHONDA Ioversol (Optiray 320 100ml) 100 ml IV ONCE ONE Stop: 01/14/24 02:24 Last Admin: 01/14/24 02:23 Dose: 85 ml Documented By: LYNNE Ketorolac Tromethamine (Ketorolac Tromethamine 15 Mg/Ml Vial) 15 mg IV NOW STA Stop: 01/14/24 00:53 Last Admin: 01/14/24 01:57 Dose: 15 mg Documented By: RHONDA Morphine Sulfate (Morphine Sulfate 4 Mg/Ml 1 Ml Carp\\Vial) 4 mg IV NOW STA Stop: 01/14/24 00:53 Last Admin: 01/14/24 01:56 Dose: 4 mg Documented By: RHONDA Medical Decision Making Medical Records Attestation: I reviewed the patient's medical records. Home Medications Current Medication List: was personally reviewed by nm Laboratory Data Attestation: I reviewed the patient's lab results. 01/14/24 01:24 01/14/24 01:24 Lab Results 01/14/24 Range/Units 01:24 WBC 12.67 H (4.8-10.8) K/ul RBC 3.75 L (4.70-6.10) M/uL Hgb 11.4 L (14.0-18.0) g/dl Hct 34.6 L (42.0-52.0) % MCV 92.3 (80.0-100.0) fL MCH 30.4 (25.0-34.0) pg MCHC 32.9 (32.0-36.0) g/dL RDW Std Deviation 49.1 H (36.4-46.3) fL RDW Coeff of Marline 14.5 (11.5-14.5) % Plt Count 449 H (130-400) K/uL MPV 9.2 L (9.4-12.4) fL Immature Gran % (Auto) 0.4 % Neut % (Auto) 86.0 % Lymph % (Auto) 4.5 % Peach % (Auto) 7.5 % Eos % (Auto) 1.4 % Baso % (Auto) 0.2 % Neut # (Auto) 10.89 H (1.40-6.50) K/uL Lymph # (Auto) 0.57 L (1.20-3.40) K/uL Peach # (Auto) 0.95 H (0.11-0.59) K/uL Eos # (Auto) 0.18 (0.00-0.50) K/uL Baso # (Auto) 0.03 (0.00-0.20) K/uL Immature Gran # (Auto) 0.05 (0.01-0.20) K/uL Sodium 137 (136-145) mmol/L Potassium 4.1 (3.5-5.1) mmol/L Chloride 103 (98-107) mmol/L Carbon Dioxide 26 (21-32) mmol/L Anion Gap 8 (3-11) BUN 17 (6-23) mg/dl Creatinine 1.09 (0.6-1.4) mg/dl Est Cr Clr Drug Dosing 61.9 ml/min Est GFR ( Amer) 79.8 ml/min Est GFR (Non-Af Amer) 68.9 ml/min BUN/Creatinine Ratio 15.6 (10-20) Glucose 167 H (70-99(Fasting)) mg/dl Calcium 9.2 (8.6-10.3) mg/dl Total Bilirubin 0.7 (0.2-1.0) mg/dl AST 212 H (13-39) U/L ALT 114 H (7-52) U/L Alkaline Phosphatase 172 H (34-104) U/L Troponin I High Sens 27.0 H (0-20) pg/ml Total Protein 6.9 (6.0-8.3) gm/dl Albumin 4.0 (3.4-5.0) gm/dl Globulin 2.9 (2.5-4.0) gm/dl Albumin/Globulin Ratio 1.4 (0.9-2) Lipase 144 H (11-82) U/L Urine Color Yellow Urine Appearance Clear (Clear) Urine pH 6.5 (4.5-7.5) Ur Specific [place] 1.024 (1.000-1.030) Urine Protein Negative (Negative) Urine Glucose (UA) Negative (Negative) Urine Ketones Negative (Negative) Urine Blood Negative (Negative) Urine Nitrite Negative (Negative) Urine Bilirubin Negative (Negative) Urine Urobilinogen Negative (Negative) Ur Leukocyte Esterase Negative (Negative) Imaging Data Attestation: I personally reviewed and interpreted this imaging study as follows: Radiologist's Impression: Abdomen/Pelvis CT 01/14/24 01:29 Exam(s): CT ABDOMEN + PELVIS With Contrast IV Amt: 85 ML OPTIRAY 320 EXAM: CT Abdomen and Pelvis With Intravenous Contrast CLINICAL HISTORY: mid abd pain, hx pancreatitis. TECHNIQUE: Axial computed tomography images of the abdomen and pelvis with intravenous contrast. CTDI is 22.17 mGy and DLP is 989.48 mGy-cm. Automated exposure control was utilized for the study. A dose lowering technique was utilized adhering to the principles of ALARA. CONTRAST: Patient received 85 ML OPTIRAY 320 of IV contrast COMPARISON: No relevant prior studies available. FINDINGS: Lung bases: Unremarkable. No mass. No consolidation. ABDOMEN: Liver: Unremarkable. No mass. Gallbladder and bile ducts: Cholecystectomy. Minimal central intrahepatic biliary ectasia. Ectasia of the common bile duct, measuring 11 mm. No definitive calcified choledocholithiasis. Pancreas: Prominent fat stranding noted about the pancreatic head and distal descending and transverse portion of the duodenum. Edema and fluid extends to the right anterior pararenal retroperitoneal fascia. Scattered subcentimeter calcifications noted in the uncinate process and posterior head of the pancreas. On coronal reformatted imaging, there is a branching fluid density tubular structure in the head of the pancreas which abuts a 4 mm calcification (series 300; images 76-78). Spleen: Unremarkable. No splenomegaly. Adrenals: Unremarkable. No mass. Kidneys and ureters: Unremarkable. No solid mass. No hydronephrosis. Stomach and bowel: Moderate distention of the stomach with retained fluid and gas. No gastric mucosal thickening or retrograde distention of the distal thoracic esophagus. No bowel obstruction. No asymmetric bowel mucosal abnormality. Mild to moderate stool burden. PELVIS: Appendix: The appendix demonstrates a variant funneling appearance proximally. The mid to distal appendix are unremarkable. Bladder: Unremarkable. No mass. Reproductive: Unremarkable as visualized. ABDOMEN and PELVIS: Intraperitoneal space: Unremarkable. No free air. No significant fluid collection. Bones/joints: No acute fracture. No dislocation. Soft tissues: Unremarkable. Vasculature: Unremarkable. No abdominal aortic aneurysm. Lymph nodes: Unremarkable. No enlarged lymph nodes. IMPRESSION: 1. Prominent fat stranding noted about the pancreatic head and distal descending and transverse portion of the duodenum. Edema and fluid extends to the right anterior pararenal retroperitoneal fascia. Statistically favor acute pancreatitis over duodenitis. Please correlate with laboratory findings. 2. Scattered subcentimeter calcifications noted in the uncinate process and posterior head of the pancreas. On coronal reformatted imaging, there is a branching fluid density tubular structure in the head of the pancreas which abuts a 4 mm calcification (series 300; images 76-78). This may represent an obstructive accessory pancreatic duct. No definitive calcifications in the main pancreatic duct. 3. Cholecystectomy. Minimal central intrahepatic biliary ectasia. Ectasia of the common bile duct, measuring 11 mm. No definitive calcified choledocholithiasis. Suspect atelectasis changes postcholecystectomy. However, if there is concern for biliary obstruction, recommend MRCP or endoscopic evaluation. Electronically signed by: Jorge Luis Lafleur MD 01/14/24 03:19 AM MDM Narrative Prior records/ancillary studies reviewed. Triage Nursing notes reviewed. Additional history obtained from nursing. The patient's history was concerning for abdominal pain. Differential diagnosis: Etiologies such as appendicitis, diverticulitis, PUD, biliary pathology, UTI, pancreatitis, obstruction, mesenteric ischemia, aortic pathology, infections, inflammatory bowel disease, renal colic, as well as others were entertained. Physical examination findings: As above. ER treatment provided: An order was placed for continuous cardiac monitoring. The monitor shows a rate of 60-100 with a sinus rhythm per my Independent interpretation. IV fluids, morphine, Toradol, Pepcid was ordered On reassessment the patient felt better. Diagnostics interpreted by me: ECG: Ordered for upper abdominal pain EKG: Normal sinus, normal was, no acute ST-T wave changes. Impression normal sinus rhythm independent interpreted by myself The labs Independently Interpreted by myself revealed mild LFT elevation stable per chart review. Mild elevated lipase. Minimally elevated troponin, stable per chart review. Repeat was ordered Imaging studies: Chest x-ray with no acute consolidation, pneumothorax or free air per my independent interpretation CTA as above Consultation: A consultation was placed with the hospitalist. The case was discussed and diagnostics were reviewed. The patient was evaluated in the ER for further treatment. Exam and history seem consistent with acute on chronic pancreatitis. Medicine is consulted case discussed. Patient be readmitted. By the evaluation outlined above emergent etiologies such as appendicitis, diverticulitis, PUD, UTI, obstruction, mesenteric ischemia, aortic pathology, infections, inflammatory bowel disease, renal colic, as well as others were deemed relatively unlikely. The pt informed about the findings as listed above. All questions were answered and pleased with the treatment. The chart was completed utilizing [employer] Speech voice recognition software. Grammatical errors, random word insertions, pronoun errors, and incomplete sentences are an occassional consequence of this system due to software limitations, ambient noise, and hardware issues. Any formal questions or concerns about the content, text, or information contained within the body of this dictation should be directly addressed to the physician endodontic assistant for clarification. Impression & Plan Recurrent acute pancreatitis Discharge Plan Visit Data Chief Complaint: Abdominal Pain Stated Complaint: SEVERE ABDOMINAL PAIN ED Provider: Lauro Christensen ED Midlevel Provider: Zulema Urbina Discharge Problem: Recurrent acute pancreatitis Patient Disposition: Admitted As Inpatient Condition: Good Forms Stand Alone Forms: My [facility] [place] Prescriptions Prescriptions: No Action levothyroxine 175 mcg tablet 175 mcg PO QAM Qty: 90 2RF rosuvastatin [Crestor] 10 mg tablet 10 mg PO DAILY Qty: 90 0RF diltiazem HCl [Cardizem CD] 120 mg capsule,extended release 24hr 120 mg PO QAM Qty: 90 3RF cetirizine 10 mg tablet 10 mg PO BID Qty: 60 5RF pantoprazole [Protonix] 40 mg tablet,delayed release (DR/EC) 40 mg PO BID Qty: 180 3RF famotidine 40 mg tablet 40 mg PO BID Qty: 180 2RF Sotyktu 6 mg tablet 6 mg PO DAILY hydroxyzine HCl 25 mg tablet 25 mg PO Q8H PRN (Reason: itching) Qty: 90 1RF Eliquis 5 mg tablet 5 mg PO BID Qty: 180 1RF Hold Instructions: Resume on 01/07/24. zolpidem 10 mg tablet 10 mg PO HS Qty: 30 0RF Creon 36,000-114,000- 180,000 unit capsule,delayed release(DR/EC) 1 cap PO TID PRN (Reason: with snacks ) Qty: 90 1RF oxycodone 5 mg tablet 5 mg PO Q4H PRN (Reason: Pain) Qty: 6 0RF triamcinolone acetonide 0.1 % cream 1 applic topical BID Qty: 454 0RF Rx Instructions: Rx by Dr. Maury Hankins of [facility]. "apply BID to affected area Friday through Friday, off weekends" sildenafil 100 mg tablet 100 mg PO DAILY PRN (Reason: Erectile Dysfunction) Rx Instructions: administer 30 minutes to 4 hours before activity pramipexole 0.125 mg tablet 0.125 mg PO DAILY polyethylene glycol 3350 [Miralax] 17 gram/dose powder 17 g PO DAILY PRN (Reason: constipation) Senna Plus 8.6-50 mg capsule 1 tab-cap PO BID PRN (Reason: Constipation) multivitamin Tablet 1 tab PO QAM Referrals Referrals: Sue Gallegos DO [Primary Care Provider] -
[2024-01-14 01:44] LABS: Appearance Urine Clear (Clear); Bilirubin Urine Negative (Negative); Blood Urine Negative (Negative); Color Urine Yellow; Glucose Urine UA Negative (Negative); Ketones Urine Negative (Negative); Leukocyte Esterase Urine Negative (Negative); Nitrite Urine Negative (Negative); Protein Urine Negative (Negative); Specific Gravity Urine 1.024 (1.000-1.030); Urobilinogen Urine Negative (Negative); pH Urine 6.5 (4.5-7.5)
[2024-01-14 01:52] LABS: Basophils # (auto) 0.03 K/uL (0.00-0.20); Basophils % (auto) 0.2 %; Eosinophils # (auto) 0.18 K/uL (0.00-0.50); Eosinophils % (auto) 1.4 %; Hematocrit (blood only) 34.6 % (42.0-52.0); Hemoglobin 11.4 g/dl (14.0-18.0); Immature Granulocytes # (auto) 0.05 K/uL (0.01-0.20); Immature Granulocytes % (auto) 0.4 %; Lymphocytes # (auto) 0.57 K/uL (1.20-3.40); Lymphocytes % (auto) 4.5 %; Mean Corpuscular Hemoglobin 30.4 pg (25.0-34.0); Mean Corpuscular Hgb Conc 32.9 g/dL (32.0-36.0); Mean Corpuscular Volume 92.3 fL (80.0-100.0); Mean Platelet Volume 9.2 fL (9.4-12.4); Monocytes # (auto) 0.95 K/uL (0.11-0.59); Monocytes % (auto) 7.5 %; Neutrophils # (auto) 10.89 K/uL (1.40-6.50); Platelet Count 449 K/uL (130-400); RDW Coefficient of Variation 14.5 % (11.5-14.5); RDW Standard Deviation 49.1 fL (36.4-46.3); Red Blood Count 3.75 M/uL (4.70-6.10); White Blood Count 12.67 K/ul (4.8-10.8)
[2024-01-14] MEDS: MoRPHine SULFATE 4 MG/ML 1 ML CARP\\VIAL IV STA (01:56)
[2024-01-14] MEDS: FAMOTIDINE 20MG IV PUSH 20 MG/5 ML SYR IV STA (01:56)
[2024-01-14] MEDS: SODIUM CHLORIDE 0.9% 500 ML IV STA (01:57)
[2024-01-14] MEDS: KETOROLAC TROMETHAMINE 15 MG/ML VIAL IV STA (01:57)
[2024-01-14 01:59] LABS: Albumin Globulin Ratio 1.4 (0.9-2); BUN Creatinine Ratio 15.6 (10-20); Bilirubin,Total 0.7 mg/dl (0.2-1.0); Calcium 9.2 mg/dl (8.6-10.3); Creatinine Clr Calc Pharmacy 61.9 ml/min; Est GFR (African American) 79.8 ml/min; Est GFR (Non-African American) 68.9 ml/min; Globulin 2.9 gm/dl (2.5-4.0); Potassium 4.1 mmol/L (3.5-5.1); Total Protein 6.9 gm/dl (6.0-8.3)
[2024-01-14] MEDS: OPTIRAY 320 100ml IV ONE (02:23)
--- NOTE | 2024-01-14 03:20 | CT Scan Report ---
Exam(s): CT ABDOMEN + PELVIS With Contrast IV Amt: 85 ML OPTIRAY 320 EXAM: CT Abdomen and Pelvis With Intravenous Contrast CLINICAL HISTORY: mid abd pain, hx pancreatitis. TECHNIQUE: Axial computed tomography images of the abdomen and pelvis with intravenous contrast. CTDI is 22.17 mGy and DLP is 989.48 mGy-cm. Automated exposure control was utilized for the study. A dose lowering technique was utilized adhering to the principles of ALARA. CONTRAST: Patient received 85 ML OPTIRAY 320 of IV contrast COMPARISON: No relevant prior studies available. FINDINGS: Lung bases: Unremarkable. No mass. No consolidation. ABDOMEN: Liver: Unremarkable. No mass. Gallbladder and bile ducts: Cholecystectomy. Minimal central intrahepatic biliary ectasia. Ectasia of the common bile duct, measuring 11 mm. No definitive calcified choledocholithiasis. Pancreas: Prominent fat stranding noted about the pancreatic head and distal descending and transverse portion of the duodenum. Edema and fluid extends to the right anterior pararenal retroperitoneal fascia. Scattered subcentimeter calcifications noted in the uncinate process and posterior head of the pancreas. On coronal reformatted imaging, there is a branching fluid density tubular structure in the head of the pancreas which abuts a 4 mm calcification (series 300; images 76-78). Spleen: Unremarkable. No splenomegaly. Adrenals: Unremarkable. No mass. Kidneys and ureters: Unremarkable. No solid mass. No hydronephrosis. Stomach and bowel: Moderate distention of the stomach with retained fluid and gas. No gastric mucosal thickening or retrograde distention of the distal thoracic esophagus. No bowel obstruction. No asymmetric bowel mucosal abnormality. Mild to moderate stool burden. PELVIS: Appendix: The appendix demonstrates a variant funneling appearance proximally. The mid to distal appendix are unremarkable. Bladder: Unremarkable. No mass. Reproductive: Unremarkable as visualized. ABDOMEN and PELVIS: Intraperitoneal space: Unremarkable. No free air. No significant fluid collection. Bones/joints: No acute fracture. No dislocation. Soft tissues: Unremarkable. Vasculature: Unremarkable. No abdominal aortic aneurysm. Lymph nodes: Unremarkable. No enlarged lymph nodes. IMPRESSION: 1. Prominent fat stranding noted about the pancreatic head and distal descending and transverse portion of the duodenum. Edema and fluid extends to the right anterior pararenal retroperitoneal fascia. Statistically favor acute pancreatitis over duodenitis. Please correlate with laboratory findings. 2. Scattered subcentimeter calcifications noted in the uncinate process and posterior head of the pancreas. On coronal reformatted imaging, there is a branching fluid density tubular structure in the head of the pancreas which abuts a 4 mm calcification (series 300; images 76-78). This may represent an obstructive accessory pancreatic duct. No definitive calcifications in the main pancreatic duct. 3. Cholecystectomy. Minimal central intrahepatic biliary ectasia. Ectasia of the common bile duct, measuring 11 mm. No definitive calcified choledocholithiasis. Suspect atelectasis changes postcholecystectomy. However, if there is concern for biliary obstruction, recommend MRCP or endoscopic evaluation. Electronically signed by: Jorge Luis Lafleur MD 01/14/24 03:19 AM
--- NOTE | 2024-01-14 03:35 | Emergency Department Note ---
ED Visit Note I was consulted by the Advanced Practice Provider. The case was discussed at length. I personally made/approved the management plan and take responsibility for the patient management. I performed a substantive portion of the visit. This includes the aspects of: [-I independently interpreted the following studies:][Chest x-ray shows what appears to be atelectasis at both bases. No free air.] Patient presents with abdominal pain. He has a history of pancreatitis. Workup today suggest recurrent pancreatitis. Given the circumstances, the patient will be hospitalized. Patient did receive IV saline and IV morphine as well as some IV Pepcid. He was given IV Toradol. .
[2024-01-14 03:42] LABS: Troponin I High Sensitivity 23.6 pg/ml (0-20)
--- NOTE | 2024-01-14 03:50 | History & Physical Report ---
Date of Service January 14, 2024 Assessment & Plan (1) Acute on chronic pancreatitis: Plan: Isaac is a 68M with PMH of chronic pancreatitis, reflux, esophageal dysphagia, IBS, prediabetes, HLD, HTN, hypothyroidism (postablative), depression, BPH w/ LUTS, ED, and A Fib who presents for acutely worsened abdominal pain. patient was recently admitted 12/28/23 for acute on chronic pancreatitis. This is patient's 4th admission in 2023 for pancreatitis. Acute on Chronic Pancreatitis - Patient diagnosed with pancreatitis 20+ years ago For many years patient's symptoms were infrequent, but over last 2-3 years have been becoming increasingly more frequent Now on 4th admission in 2023 for acute on chronic pancreatitis - Lipase elevated on admission, CT AP indicative of acute pancreatitis - Leukocytosis to 12, CMP unremarkable - Prior Lipid profile and hepatitis panels non-contributory Repeat lipid profile ordered - No current or historical alcohol, tobacco, or illicit substance use - Patient with inconsistent nutrient intake from diet and < 16 ounces of water daily + high tea intake Patient educated on the importance of consuming 64 ounces of water a day and broad/balanced diet Dehydration potential contributor to increasing frequency of episodes - Patient made NPO on admission In absence of ileus, nausea, and vomiting; PO intake can resume in 24 hours as tolerated if pain is controlled and inflammatory markers downtrending - CRP/ESR ordered - Pain control LFTs elevated, avoid Tylenol Oxycodone 5 mg q4h PRN - Pain 1-10 (Home medication) Dilaudid 0.25 Q6h PRN - Breakthrough Miralax ordered as patient developed constipation from opiates last admission - Continue Fluid Resuscitation w/ LR at 175 cc/hr (s/p 500 cc in ED) Elevated LFTs - CTAP w/ Ectasia of the common bile duct, measuring 11 mm. No definitive calcified choledocholithiasis. Suspect atelectasis changes postcholecystectomy. - Patient recently started statin therapy this week - Statin placed on hold - Repeat LFTs Chronic Conditions: - Reflux: Continue PPI and antihistamine - Prediabetes: No outpatient management - HLD: Continue statin - Hypothyroidism: Continue Levothyroxine - Depression: No current medical management - Insomnia: Continue Zolpidem - A Fib: Continue Diltiazem and Eliquis FEN: NPO Code status: Full Code DVT ppx: Therapeutic Eliquis Isolation: None Dispo:Med/Surg (2) Atrial fibrillation: (3) Erectile dysfunction: (4) Enlarged prostate with lower urinary tract symptoms (LUTS): (5) Depression: (6) Esophageal dysphagia: (7) Hypothyroidism, postablative: (8) HTN (hypertension): (9) Hyperlipidemia: (10) Prediabetes: (11) Irritable bowel syndrome: (12) Insomnia: (13) Laryngopharyngeal reflux: History of Present Illness Chief Complaint: Abdominal Pain Primary Care Provider: Sue Gallegos DO Isaac is a 68M with PMH of chronic pancreatitis, reflux, esophageal dysphagia, IBS, prediabetes, HLD, HTN, hypothyroidism (postablative), depression, BPH w/ LUTS, ED, and A Fib who presents for acutely worsened abdominal pain. patient was recently admitted 12/28/23 for acute on chronic pancreatitis. This is patient's 4th admission in 2023 for pancreatitis. Patient notes that he has been having episodes of pancreatitis for the last 20 years, they used to occur every 5-6 years, but over the last few years have been becoming more frequent. Patient presented this evening due to worsening epigastric cramping which prevented him from sleeping. He endorses development of nausea while driving here, but denies emesis or additional bowel changes. Patient denies fevers or chills. He is not experiencing headaches, lightheadedness, or dizziness. Patient continues to urinate as normal. Patient expresses distress about the increasing frequency of his pancreas related hospital visits, notes that he recently retired and wants to enjoy his time. Patient endorses poor dietary habits and PO fluid intake (detailed below). He denies any alcohol, tobacco, or illicit substance use. Dietary History Breakfast: 2 eggs, bagel, tater tots Snack: None (occasional protein bar) Lunch: Perogies Snack: None Dinner: Perogies and spinach Diet Iced Tea (2-3), Water (8-16 ounces), Chocolate Milk/Ovaltine Snack: Soladoro cookies Patient notes he started statin therapy this week. Allergies Allergy/AdvReac Type Severity Reaction Status Date / Time No Known Allergies Allergy Verified 01/14/24 02:16 Home Medications Medication Instructions Recorded Confirmed Type multivitamin 1 tab PO QAM 07/14/18 01/14/24 History levothyroxine 175 mcg tablet 175 mcg PO QAM #90 tabs 09/08/23 01/14/24 Rx cetirizine 10 mg tablet 10 mg PO BID allergy symptoms #60 09/25/23 01/14/24 Rx tabs famotidine 40 mg tablet 40 mg PO BID #180 tabs 09/25/23 01/14/24 Rx pantoprazole 40 mg tablet,delayed 40 mg PO BID #180 tabs 09/25/23 01/14/24 Rx release (Protonix) polyethylene glycol 3350 17 17 g PO DAILY PRN constipation 11/04/23 01/14/24 History gram/dose oral powder (Miralax) pramipexole 0.125 mg tablet 0.125 mg PO DAILY 11/04/23 01/14/24 History sennosides 8.6 mg-docusate sodium 1 tab-cap PO BID PRN Constipation 11/04/23 01/14/24 History 50 mg capsule (Senna Plus) sildenafil 100 mg tablet 100 mg PO DAILY PRN Erectile 11/04/23 01/14/24 History Dysfunction diltiazem HCl 120 mg 120 mg PO QAM #90 caps 11/19/23 01/14/24 Rx capsule,extended release 24 hr (Cardizem CD) apixaban 5 mg tablet (Eliquis) 5 mg PO BID #180 tabs 12/23/23 01/14/24 Rx deucravacitinib 6 mg tablet 6 mg PO DAILY 12/23/23 01/14/24 History (Sotyktu) hydroxyzine HCl 25 mg tablet 25 mg PO Q8H PRN itching #90 tabs 12/23/23 01/14/24 Rx zolpidem 10 mg tablet 10 mg PO HS #30 tabs 12/23/23 01/14/24 Rx rosuvastatin 10 mg tablet (Crestor) 10 mg PO DAILY #90 tabs 12/29/23 01/14/24 Rx nlafhd-brtaxmms-wsafvmt 1 cap PO TID PRN with snacks #90 01/13/24 01/14/24 Rx 36,000-114,000-180,000 unit caps capsule,delay rel (Creon) oxycodone 5 mg tablet 5 mg PO Q4H PRN Pain #6 tabs 01/13/24 01/14/24 Rx triamcinolone acetonide 0.1 % 1 applic topical BID #454 grams 01/13/24 01/14/24 Rx topical cream Past Med/Surg History Problem List (Updated 01/14/24 @ 03:46 by Maynor Huynh DO) Acute on chronic pancreatitis Chronic pancreatitis Psoriasiform dermatitis Atrial fibrillation Recurrent acute pancreatitis (Acute) Patellofemoral arthrosis Hyperplastic colon polyp Incomplete emptying of bladder BPH associated with nocturia Erectile dysfunction Restless leg syndrome Enlarged prostate with lower urinary tract symptoms (LUTS) Depression (Chronic) Esophageal dysphagia (Chronic) History of colon polyps (Chronic) Tinnitus of both ears (Chronic) Hypothyroidism, postablative (Chronic) Beatrice's thyroiditis Deviated nasal septum (Chronic) Chronic pharyngitis (Chronic) Hoarseness (Chronic) Former smoker (Acute) Diverticulosis (Acute) Esophageal stricture Hiatal hernia Constipation due to opioid therapy Degenerative disc disease at L5-S1 level HTN (hypertension) Hyperlipidemia Nutcracker esophagus s/p POEM Prediabetes Irritable bowel syndrome Insomnia (Chronic) Laryngopharyngeal reflux (Chronic) Sensorineural hearing loss (SNHL) of both ears (Chronic) Medical History Gastritis and duodenitis Esophageal spasm History of COVID-19 08/2022, tested at clinic near home, not hosp; "didn't feel right in his head," cold all the time>resolved Acute pancreatitis (04/2021) hx-"has subsided since quit drinking alcohol" Anxiety and depression Environmental allergies Multiple thyroid nodules HX Osteoarthritis Surgical History S/P hemorrhoidectomy (05/30/21) History of colonoscopy History of oral surgery History of facial surgery History of cholecystectomy History of esophagogastroduodenoscopy (EGD) (07/2018) History of thyroidectomy, subtotal (2014) Nausea and vomiting after administration of anesthetic agent "rare now, has not happened recently with procedures" History of tooth extraction Family History Mother Family history of diabetes mellitus Heart murmur Brother Diabetes Family history of diabetes mellitus Arthritis Father Prostate cancer Arthritis Other No family history of adverse response to anesthesia Denies family history of Ovarian cancer Myocardial infarction Breast cancer Colorectal cancer Social History Smoking Status: Never smoker Tobacco Type: Cigarettes Age Started Using Tobacco: 15; Age Quit Using Tobacco: 49; Second Hand Exposure: No; Do You Dip or Chew Tobacco: No; Tobacco Cessation Education Requested by Patient: No Hx Alcohol Use: No Hx Substance Use: No Preferred Language: Marshallese Communication Ability: Effective Communication Ability Comment: completed 11th grade Communication Tools: Facial Expression and Lip Movement/Reading Visual Impairment: No Limitations Hearing Ability: Hard of Hearing Hat Mender Required: No Beliefs That Will Affect Care: None marital status: / Current Living Situation: Family Current Living Situation Comment: lives with son current occupational status: 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 Other Information That Helps Us Care for You: No Feels Safe at Home: Yes Safety Concerns: Feels Safe At This Time Childhood Exposure to Second-Hand Smoke: No Diet: regular caffeine: Yes (Coffee x 1 per day.) during the past year weight has: remained stable Dental Care, Regularly: Yes Physical Activity Frequency: 3-4 Times per Week Seatbelt Use: always Sunscreen Use: No Assistive Devices: Hearing Aid - Right Physical Exam Physical Exam: Gen: NAD, alert, interactive HEENT: Supple, no LAD, no thyromegaly, no JVD, dry mucous membranes Resp:Non-labored, no wheezing/rhonchi/rales, CTAB CV:RRR, normal S1/S2, no M/R/G Abd: Soft, non-distended, generalized TTP worse in epigastrium, normoactive bowels, no masses Extr: 2+ dp bilaterally, no edema Skin: No rashes lesions or erythema Results & Data Results & Data Vital Signs (Past 12 Hours) Vital Signs Temp Pulse Resp BP BP Pulse Ox O2 Del Method 01/14/24 02:53 70 16 95 01/14/24 02:42 117/72 01/14/24 02:40 70 20 95 01/14/24 02:31 77 14 97 01/14/24 02:10 72 20 94 01/14/24 02:00 129/82 01/14/24 02:00 76 24 97 01/14/24 01:57 Room Air 01/14/24 01:51 125/82 01/14/24 01:51 86 23 98 01/14/24 01:51 83 01/14/24 01:03 37.3 C 80 18 115/72 99 Room Air Supervising Physician Co-Signing Physician Notes Patient seen and examined, chart reviewed, case discussed with Dr. Huynh and I agree with the assessment and plan as above. In brief, patient is a 68yo male with history of chronic pancreatitis, reflux, IBS presenting with acute abdominal pain. Patient was recently admitted 12/28/23 for chronic pancreatitis. On exam patient is resting comfortably, report pain is just starting to come back now Skin - no rash or jaundice HEENT - MMM, Neck supple Heart - +S1/S2, regular, no m/r/g Lungs - CTA, no rales/rhonchi/wheezes Abd - +BS, soft, tedner in the mid abdomen and left mid abdomen, no rebound/guarding/peritonitis Ext - warm, well perfused Labs and images reviewed Assessment/Plan - Acute on chronic pancreatitis with ongoing severe pain -Pain control with Dilaudid, Oxycodone PRN -Continue IVF -Repeat lipid panel -Remainder as above Resident Activity Tracking Resident Involvement: Resident Care Provided Care Provided: Adult [facility]
[2024-01-14 05:04] LABS: C Reactive Protein 0.65 mg/dl (0-0.5)
[2024-01-14] MEDS ORDERED: MoRPHine SULFATE 2 MG/ML CARP IV PRN (05:56)
[2024-01-14] MEDS: MoRPHine SULFATE 4 MG/ML 1 ML CARP\\VIAL IV PRN (06:10)
--- NOTE | 2024-01-14 08:27 | XRay Report ---
XR chest 1V portable CLINICAL HISTORY: upper abd pain TECHNIQUE: Single frontal radiograph of the chest was obtained. Comparison: Comparison is made to chest radiograph 10/22/2023 FINDINGS: No lines and tubes are seen. Cardiomegaly is noted. Mild atelectasis is seen. No evidence of pleural effusion or pneumothorax. IMPRESSION: No acute chest disease. ACT 112: Negative or not required by law. Electronically signed by: Tone Murillo M.D. 01/14/2024 8:26 AM
[2024-01-14] MEDS ORDERED: POLYETHYLENE (MIRALAX) 17 GM PACK PO PRN (08:34)
[2024-01-14] MEDS ORDERED: PANCREAZE (LIPASE 10,500U) CAP PO PRN (08:34)
[2024-01-14] MEDS: ONDANSETRON INJ 2 MG/ML 2 ML VIAL IV PRN (09:29)
[2024-01-14] MEDS: LACTATED RINGER'S 1,000 ML IV SCH (09:46)
[2024-01-14] MEDS: PANTOprazole 40 MG TAB PO SCH (10:53)
[2024-01-14 11:06] LABS: Chol HDL Ratio 3.1 (0-5)
[2024-01-14] MEDS: LEVOTHYROXINE SODIUM 175 MCG TABLET PO SCH (11:06)
[2024-01-14] MEDS: PRAMIPEXOLE DIHYDROCHLO 0.25 MG TAB PO SCH (11:06)
[2024-01-14] MEDS: CETIRIZINE HCL 10 MG TABLET PO SCH (11:06)
[2024-01-14] MEDS: APIXABAN 5 MG TABLET PO SCH (11:07)
[2024-01-14] MEDS: dilTIAZem HCL 120 MG CAPCR PO SCH (11:08)
[2024-01-14] MEDS: TRIAMCINOLONE ACET 0.1% CR 15 GM TUBE TOP SCH (11:13)
[2024-01-14] MEDS: FAMOTIDINE 40 MG TABLET PO SCH (11:14)
--- NOTE | 2024-01-14 12:11 | Gastrointestinal Consultation ---
Date of Consultation January 14, 2024 Assessment & Plan (1) Acute on chronic pancreatitis: Plan Patient with his 4th admission this year for pancreatitis. He is feeling better already with IVF and pain medications. Hospitalist team was concerned with findings on imaging suggestive of possible obstructive accessory pancreatic duct and biliary ectasia and reached out to GI for evaluation given some rise in LFTs. MRCP was ordered but patient tells me he has concerns with this given metal plate in face. - I reached out to Dr. Matias via tiger to let patient know the concerns of the patient. If he is unable to have an MRCP, he may require EUS/ERCP to further evaluate findings on CT. We do not have biliary coverage here and as such this would require a transfer to a center that does. - he should start pancreatic enzymes as an outpatient. He tells me that he had issues with getting creon covered. He should reach out to his primary GI team on discharge to see if an authorization can be done or see about alternatives. - continue with pantoprazole 40mg po BID. - recommend continued supportive care of pancreatitis. Supervising Physician Co-Signing Physician Notes Agree with RAMIRO Elliott as above Interviewed and examined patient and agree with above Abd: Soft, tender, ND Continue current therapy and supportive care Patient admits to not starting on Creon therapy as outpatient due to cost F/U with Dr. Polanco as previously scheduled. History of Present Illness Reason for Consultation: acute on chronic pancreatitis, elevated LFTs, abnormal imaging. Requesting Physician: Andrei Schuler MD Attending Physician: Tory Silver DO History of Present Illness Patient is a 68 year old male with a past medical history of chronic pancreatitis, reflux, esophageal dysphagia, IBS, prediabetes, HLD, HTN, hypothyroidism (postablative), depression, BPH w/ LUTS, ED, and A Fib who presents for acutely worsened abdominal pain. patient was recently admitted 12/28/23 for acute on chronic pancreatitis. This is patient's 4th admission in 2023 for pancreatitis. he tells me that his current episode of pain started suddenly yesterday. he denies any drug, etoh, or tobacco use. He has had episodes of pancreatitis for over twenty years. After his most recent admission he was supposed to start creon but tells me he never did due to cost. He had a follow up scheduled with his primary GI team at [facility] but he is not sure when it is. Patient tells me that sicne admission his pain is much improved. currently rated 3/10 on pain scale. he does report some nausea but not emesis. acid reflux is controlled with protonix 40mg bid. no changes in bowels. I spoke with Dr. Matias about concerns with abnormalities with the patient's imaging (see below) and he tells me an MRCP is going to be ordered as suggested on imaging. Patient tells me that he has concerns with having an MRI as he has a metal plate in his face from prior imaging and he tells me he was advised to a void MRI. He had ERCP with [facility] in November 2023 with sphincterotomy. 01/13 Lipase 144. AST 212, ALT 114, Alk phos 172, t bili 0.7. CT 01/14/24 : 1. Prominent fat stranding noted about the pancreatic head and distal descending and transverse portion of the duodenum. Edema and fluid extends to the right anterior pararenal retroperitoneal fascia. Statistically favor acute pancreatitis over duodenitis. Please correlate with laboratory findings. 2. Scattered subcentimeter calcifications noted in the uncinate process and posterior head of the pancreas. On coronal reformatted imaging, there is a branching fluid density tubular structure in the head of the pancreas which abuts a 4 mm calcification (series 300; images 76-78). This may represent an obstructive accessory pancreatic duct. No definitive calcifications in the main pancreatic duct. 3. Cholecystectomy. Minimal central intrahepatic biliary ectasia. Ectasia of the common bile duct, measuring 11 mm. No definitive calcified choledocholithiasis. Suspect atelectasis changes postcholecystectomy. However, if there is concern for biliary obstruction, recommend MRCP or endoscopic evaluation Allergies Allergy/AdvReac Type Severity Reaction Status Date / Time No Known Allergies Allergy Verified 01/14/24 02:16 Home Medications Medication Instructions Recorded Confirmed Type multivitamin 1 tab PO QAM 07/14/18 01/14/24 History levothyroxine 175 mcg tablet 175 mcg PO QAM #90 tabs 09/08/23 01/14/24 Rx cetirizine 10 mg tablet 10 mg PO BID allergy symptoms #60 09/25/23 01/14/24 Rx tabs famotidine 40 mg tablet 40 mg PO BID #180 tabs 09/25/23 01/14/24 Rx pantoprazole 40 mg tablet,delayed 40 mg PO BID #180 tabs 09/25/23 01/14/24 Rx release (Protonix) polyethylene glycol 3350 17 17 g PO DAILY PRN constipation 11/04/23 01/14/24 History gram/dose oral powder (Miralax) pramipexole 0.125 mg tablet 0.125 mg PO DAILY 11/04/23 01/14/24 History sennosides 8.6 mg-docusate sodium 1 tab-cap PO BID PRN Constipation 11/04/23 01/14/24 History 50 mg capsule (Senna Plus) sildenafil 100 mg tablet 100 mg PO DAILY PRN Erectile 11/04/23 01/14/24 History Dysfunction diltiazem HCl 120 mg 120 mg PO QAM #90 caps 11/19/23 01/14/24 Rx capsule,extended release 24 hr (Cardizem CD) apixaban 5 mg tablet (Eliquis) 5 mg PO BID #180 tabs 12/23/23 01/14/24 Rx deucravacitinib 6 mg tablet 6 mg PO DAILY 12/23/23 01/14/24 History (Sotyktu) hydroxyzine HCl 25 mg tablet 25 mg PO Q8H PRN itching #90 tabs 12/23/23 01/14/24 Rx zolpidem 10 mg tablet 10 mg PO HS #30 tabs 12/23/23 01/14/24 Rx rosuvastatin 10 mg tablet (Crestor) 10 mg PO DAILY #90 tabs 12/29/23 01/14/24 Rx igutpi-jutmfwkg-qzpjkuc 1 cap PO TID PRN with snacks #90 01/13/24 01/14/24 Rx 36,000-114,000-180,000 unit caps capsule,delay rel (Creon) oxycodone 5 mg tablet 5 mg PO Q4H PRN Pain #6 tabs 01/13/24 01/14/24 Rx triamcinolone acetonide 0.1 % 1 applic topical BID #454 grams 01/13/24 01/14/24 Rx topical cream Patient History Medical History Gastritis and duodenitis Esophageal spasm History of COVID-19 08/2022, tested at clinic near home, not hosp; "didn't feel right in his head," cold all the time>resolved Acute pancreatitis (04/2021) hx-"has subsided since quit drinking alcohol" Anxiety and depression Environmental allergies Multiple thyroid nodules HX Osteoarthritis Surgical History S/P hemorrhoidectomy (05/30/21) History of colonoscopy History of oral surgery History of facial surgery History of cholecystectomy History of esophagogastroduodenoscopy (EGD) (07/2018) History of thyroidectomy, subtotal (2014) Nausea and vomiting after administration of anesthetic agent "rare now, has not happened recently with procedures" History of tooth extraction Family History Mother Family history of diabetes mellitus Heart murmur Brother Diabetes Family history of diabetes mellitus Arthritis Father Prostate cancer Arthritis Other No family history of adverse response to anesthesia Denies family history of Ovarian cancer Myocardial infarction Breast cancer Colorectal cancer Social History Smoking Status: Never smoker Tobacco Type: Cigarettes Age Started Using Tobacco: 15; Age Quit Using Tobacco: 49; Second Hand Exposure: No; Do You Dip or Chew Tobacco: No; Tobacco Cessation Education Requested by Patient: No Hx Alcohol Use: No Hx Substance Use: No Preferred Language: Cape Verdean Communication Ability: Effective Communication Ability Comment: completed 11th grade Communication Tools: Facial Expression and Lip Movement/Reading Visual Impairment: No Limitations Hearing Ability: Hard of Hearing Can Filler Required: No Beliefs That Will Affect Care: None marital status: / Current Living Situation: Family Current Living Situation Comment: lives with son 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 occupational status: 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 Other Information That Helps Us Care for You: No Feels Safe at Home: Yes Safety Concerns: Feels Safe At This Time Childhood Exposure to Second-Hand Smoke: No Diet: regular caffeine: Yes (Coffee x 1 per day.) during the past year weight has: remained stable Dental Care, Regularly: Yes Physical Activity Frequency: 3-4 Times per Week Seatbelt Use: always Sunscreen Use: No Assistive Devices: Hearing Aid - Right Review of Systems Review of Systems: All systems reviewed & are unremarkable except as noted in HPI & below Physical Exam Constitutional: WD/WN, vitals as above Respiratory: normal respiratory effort, lungs clear to auscultation Cardiovascular: RRR, no murmur, no edema Gastrointestinal (Abdomen): RUQ tenderness, no guarding, soft, normal bowel sounds. Psychiatric: Orientation: alert and oriented x 3 Affect: euthymic affect Results & Data Vital Signs (Past 12 Hours) Vital Signs Temp Pulse Pulse Resp BP BP Pulse Ox 01/14/24 11:33 98.0 F 73 19 136/86 96 01/14/24 09:06 78 16 134/60 97 01/14/24 08:26 74 01/14/24 07:22 68 97 01/14/24 07:18 98.7 F 78 15 110/66 98 01/14/24 06:15 72 16 98 01/14/24 06:01 68 18 96 01/14/24 06:00 112/70 01/14/24 05:59 72 13 97 01/14/24 05:48 66 01/14/24 05:45 68 15 97 01/14/24 05:30 70 15 97 01/14/24 05:30 107/79 01/14/24 05:15 67 14 97 01/14/24 05:00 122/73 01/14/24 05:00 72 19 99 01/14/24 04:45 70 17 94 01/14/24 04:31 113/87 01/14/24 04:30 67 15 97 01/14/24 04:15 71 20 93 01/14/24 04:00 65 21 98 01/14/24 04:00 130/77 01/14/24 03:45 70 17 93 01/14/24 03:30 69 18 93 01/14/24 03:30 103/64 01/14/24 03:15 71 16 92 01/14/24 03:00 117/72 01/14/24 03:00 70 18 92 01/14/24 02:53 70 16 95 01/14/24 02:42 117/72 01/14/24 02:40 70 20 95 01/14/24 02:31 77 14 97 01/14/24 02:10 72 20 94 01/14/24 02:00 129/82 01/14/24 02:00 76 24 97 01/14/24 01:57 01/14/24 01:51 125/82 01/14/24 01:51 86 23 98 01/14/24 01:51 83 01/14/24 01:03 99.1 F 80 18 115/72 99 O2 Del Method 01/14/24 11:33 Room Air 01/14/24 09:06 Room Air 01/14/24 08:26 01/14/24 07:22 Room Air 01/14/24 07:18 Room Air 01/14/24 06:15 Room Air 01/14/24 06:01 01/14/24 06:00 01/14/24 05:59 01/14/24 05:48 01/14/24 05:45 01/14/24 05:30 01/14/24 05:30 01/14/24 05:15 01/14/24 05:00 01/14/24 05:00 01/14/24 04:45 01/14/24 04:31 01/14/24 04:30 01/14/24 04:15 01/14/24 04:00 01/14/24 04:00 01/14/24 03:45 01/14/24 03:30 01/14/24 03:30 01/14/24 03:15 01/14/24 03:00 01/14/24 03:00 01/14/24 02:53 01/14/24 02:42 01/14/24 02:40 01/14/24 02:31 01/14/24 02:10 01/14/24 02:00 01/14/24 02:00 01/14/24 01:57 Room Air 01/14/24 01:51 01/14/24 01:51 01/14/24 01:51 01/14/24 01:03 Room Air Coding Level of Care Code 89265 INT INP/OBS CARE 2/55MIN Diagnoses Acute on chronic pancreatitis K85.90; K86.1
--- NOTE | 2024-01-14 13:47 | Magnetic Resonance Report ---
MR MRCP CLINICAL HISTORY: acute/chronic pancreatitis; elevated LFTs TECHNIQUE: Multiplanar multisequence MR images of the abdomen were obtained, as per MRCP protocol. . COMPARISON: Comparison is made to CT abdomen pelvis 01/14/2024 FINDINGS: Lower chest: No acute abnormality Liver: Unremarkable. No focal lesions are seen. Gallbladder and biliary tree: Patient is status post cholecystectomy. No intra- or extrahepatic bilia ry ductal dilation. Pancreas: Edema and fat stranding is seen about the pancreatic head and body. Hepatic duct is without filling defect on MRCP sequences. Spleen: Unremarkable. Adrenals: Unremarkable. Kidneys and ureters: Unremarkable. Bowel: Unremarkable. Lymph nodes Retroperitoneal: Unremarkable. Mesenteric: Unremarkable. Peritoneum: Fat stranding seen about the pancreatic head. No fluid collections are seen. Vessels: Unremarkable. Abdominal wall: Unremarkable. Bones: Unremarkable. IMPRESSION: Findings are compatible with acute pancreatitis without evidence of pancreatic duct dilation. ACT 112: Negative or not required by law. Electronically signed by: Tone Murillo M.D. 01/14/2024 1:45 PM
[2024-01-14] MEDS: hydrOXYzine HCl 25 MG TAB PO PRN (13:59)
[2024-01-14] MEDS: HYDROmorphone INJ 0.5 MG/0.5 ML SYR IV PRN ×2 (13:59→19:02)
--- NOTE | 2024-01-14 16:33 | Electrocardiogram Report ---
Test Reason : Blood Pressure : / mmHG Vent. Rate : 083 BPM Atrial Rate : 083 BPM P-R Int : 164 ms QRS Dur : 086 ms QT Int : 354 ms P-R-T Axes : 041 011 057 degrees QTc Int : 415 ms Normal sinus rhythm Normal ECG When compared with ECG of 28-DEC-2023 17:41, No significant change was found Confirmed by Lowell Lopez ([id number]) on 01/14/2024 4:32:48 PM Referred By: REFERRED SELF Confirmed By:Lowell Lopez
[2024-01-14] MEDS: D5W AND LACTATED RINGERS 1,000 ML IV SCH (19:03)
--- NOTE | 2024-01-14 19:42 | Billing Data ---
Date of Service January 14, 2024 Coding Level of Care Code 28440 INT INP/OBS CARE
[2024-01-14] MEDS: oxyCODONE HCL IR 5 MG TAB (IMMEDIATE RELEASE) PO PRN (20:05)
[2024-01-14] MEDS: ZOLPIDEM TARTRATE 5 MG TAB PO SCH (20:14)
--- OUTSIDE RECORDS SUMMARY | 2024-01-14 21:46 | External Medical Summary | Summary of Care ---
Author Name Unknown Organization [facility] Address [address] [facility] [place] [address] Phone [phone] Care Team Providers Care Associate Software Developer Name Role Phone Sue Gallegos Primary Care Provider [phone]- [phone] Reason for Visit * Reason Onset Date Comments Appointment 01/08/2024 Encounter Details Date Type Department Care Team (Late st Contact Info) Description 01/08/2024 Telephone Dermat[address] [place] [id number] Petra Gonzalez PA-C [address] [place] [address] [place] [phone] Appointment Allergies Active Allergy Reactions Criticality Noted Date Comments Apixaban Hives,Itching 09/30/2023 documented as of this encounter (statuses as of 01/13/2024) Medications Medication Sig Dispensed Refills Start Date End Date Status DEXILANT 60 MG PO CPDR 1 CAPSULE DAILY 30 Cap 0 01/06/2013 Active Multi-Vitamins Oral Tablet Take 1 Tablet by mouth daily at noon. Active Levothyroxine Sodium 175 MCG Oral Tablet (Levoxyl) Take 1 Tablet by mouth daily first thing in the morning. (at least 30 min prior to breakfast or other meds) Active traZODone HCl 100 MG Oral Tablet (Desyrel) Take 1 Tablet by mouth at bedtime. As needed Active Famotidine 40 MG Oral Tablet (Pepcid) Take 1 Tablet by mouth in the morning and 1 Tablet before bedtime. Active Pantoprazole Sodium 40 MG Oral Tablet Delayed Release (Protonix) Take 1 Tablet by mouth in the morning and 1 Tablet before bedtime. Active Cetirizine HCl 10 MG Oral Tablet (ZyrTEC Allergy) Take 1 Tablet by mouth in the morning and 1 Tablet before bedtime. Active Rivaroxaban 20 MG Oral Tablet (Xarelto) Take 1 Tablet by mouth daily at noon. Active dilTIAZem HCl 120 MG Oral Tablet Take 1 Tablet by mouth daily at noon. Active hydrOXYzine 5 MG OR TABS Take 2.5 Tablets by mouth 3 times a day as needed for Itching. Active Sildenafil Citrate 100 MG Oral Tablet (Viagra) Take 1 Tablet by mouth daily as needed for Erectile Dysfunction. Active rOPINIRole HCl 0.5 MG Oral Tablet (Requip) Take 1 Tablet by mouth at bedtime. 09/25/2023 Active Polyethylene Glycol 3350 17 GM Oral Packet (Miralax) Take 1 Packet by mouth in the morning. 14 Each 10/31/2023 Active Additional Information Patient not taking.Reported on 12/16/2023 Polyethylene Glycol 3350 17 GM Oral Packet (Miralax) Mix 1 Packet in 4 to 8 ounces of any beverage and drink by mouth in the morning and 1 Packet before bedtime. 28 Each 10/30/2023 Active Additional Information Patient not taking.Reported on 12/16/2023 Sennosides-Docusa te Sodium 8.6-50 MG Oral Tablet (Senokot-S) Take 1 Tablet by mouth 2 times a day as needed for Constipation. 60 Tablet 3 10/30/2023 Active Additional Information Patient not taking.Reported on 12/16/2023 Bisacodyl 5 MG Oral Tablet Delayed Release (Dulcolax) Take 1 Tablet by mouth daily as needed for Constipation. Do not start before October 31, 2023. 30 Tablet 10/31/2023 Active Additional Information Patient not taking.Reported on 12/16/2023 Bisacodyl 10 MG Rectal Suppository (Dulcolax) Unwrap & administer 1 Suppository into the rectum daily as needed for Constipation. 12 Suppository 10/30/2023 Active Additional Information Patient not taking.Reported on 12/16/2023 oxyCODONE HCl 5 MG Oral Tablet (Oxy IR) Take 1 Tablet by mouth every 4 hours as needed for Pain, Moderate OR Take 2 tablets by mouth every 4 hours as needed for SEVERE pain. 60 Tablet 10/30/2023 Active Additional Information Patient not taking.Reported on 12/10/2023 documented as of this encounter (statuses as of 01/13/2024) Active Problems Problem Noted Date Diagnosed Date Acute pancreatitis 10/30/2023 Malnutrition of moderate degree 10/29/2023 Transaminitis 10/29/2023 Acute pancreatitis without infection or necrosis 10/28/2023 HTN (hypertension) 10/28/2023 Elevated liver enzymes 10/28/2023 A-fib 10/28/2023 Hypercholesterolemia 10/28/2023 Hypothyroidism 10/28/2023 GERD (gastroesophageal reflux disease) Non-toxic multinodular goiter 08/01/2011 documented as of this encounter (statuses as of 01/13/2024) Resolved Problems Problem Noted Date Diagnosed Date Resolved Date Skin rash 10/28/2023 10/30/2023 documented as of this encounter (statuses as of 01/13/2024) Social History Tobacco Use Types Packs/Day Years Used Date Smoking Tobacco: Former Cigarettes Smokeless Tobacco: Never Alcohol Use Standard Drinks/Week Comments Not Currently 0 (1 standard drink = 0.6 oz pur e alcohol) weekends- beer Sex and Gender Information Value Date Recorded Sex Assigned at Not on file Gender Identity Not on file Sexual Orientation Not on file Job Start Date Occupation Industry Not on file Not on file Not on file documented as of this encounter Functional Status Functional Status Response Date of Assess ment Are you deaf or do you have serious difficulty hearing? Yes-hard of hearing 10/28/2023 Are you blind or do you have serious difficulty seeing, even when wearing glasses? No 10/28/19 Do you have serious difficul ty walking or climbing stairs? (5 years old or older) No 10/28/2023 Do you have difficulty dress ing or bathing? (5 years old or older) No 10/28/2023 Because of a physical, menta l, or emotional condition, do you have difficulty doing errands alone such as visiting a doctor s office or shopping? (15 years old or older) No 10/28/19 24 Cognitive Status Response Date of Assessm ent Because of a physical, menta l, or emotional condition, do you have serious difficulty concentrating, remembering, or making decisions? (5 years old or older) No 10/28/2023 documented as of this encounter Miscellaneous Notes * Telephone Encounter - Sue Holt LPN - 01/13/2024 9:28 AM EDT Called pt and left VM advising he give us a call back in order to get this apt scheduled. * Telephone Encounter - Sue Holt LPN - 01/12/2024 9:52 AM EDT Called pt and left VM advising he give us a call back in order to get this apt scheduled. * Telephone Encounter - Renae Denny PA-C - 01/08/2024 3:59 PM EDT Spoke with pt he was diagnosed with psoriasis from a [employer] [facility] [employer] in [place]. He forgot to mentionto Petra at his last appointment about the rash because it was better but now worsening and would like to be seen by Petra. Advised pt to continue seeing [employer] in [place] he has an appt with them in March since Petra's next appointment is several months out. Please call pt to schedule appt for Petra's first available. Pt advised to see urgent care if condition worsens prior. Renae Denny PA-C * Telephone Encounter - Mouna Guzman OSA - 01/08/2024 12:34 PM EDT Pt has a rash he would like looked at [facility] in [place]. Please advise documented in this encounter Plan of Treatment Health Maintenance Due Date Last Done Comments Depression Screening 1966 Albumin/Creatinine Ratio 1972 Hepatitis C Screening 1972 Cologuard 1999 Colonoscopy 1999 Colorectal Cancer Screening 1999 Fecal Occult Blood Test 1999 Sigmoidoscopy 1999 DTaP,Tdap,and Td Vaccines (1 - Tdap) 08/26/2013 08/25/2013 TSH 02/12/2018 02/12/2017, 100 03/2016, 05/09/2016, Additional history exists AAA Screening 2019 Lipid Panel 06/01/2021 06/01/2016, 05/28/2014 COVID-19 Vaccine (2022- season) 2023 05/19/2023, 05/19/2023, 05/03/2022, Additional history exists GFR 10/29/2024 10/30/2023, 01/2024, 06/01/2016, Additional history exists Diabetes Screening 10/29/2026 10/30/2023, 0 10/29/2023, 10/29/2023, Additional history exists Pneumococcal Vaccine: 65+ Years Completed 12/12/2021, 04/25/2020 Influenza Vaccine (FLU shot) Completed , 05/11/2021, 04/24/2020 Zoster Vaccines Completed 05/09/2023, 04/25, 01/29/2021 GARDASIL-HPV IMMUNIZATION SERIES Aged Out No longer eligible based on patient's age to complete this topic Hepatitis B Aged Out No longer eligi ble based on patient's age to complete this topic MENINGOCOCCAL (MENACTRA/MENVEO) Aged Out No longer eligible based on patient's age to complete this topic documented as of this encounter Medical Devices Not on filedocumented as of this encounter Advance Directives * Full Code (Latest Code Status on File) Date Activated Date Inactivated Comments 10/28/2023 1:41 PM 10/30/2023 5:12 PM This order ref lects the patients wishes and were consensually agreed upon. Question Answer Comments Discussion of Advance Direct augusto occurred with: Not Discussed due to patient's condition Care Teams Associate Software Developer Relationship Specialty Start Date End Date Sue Gallegos DO [address] [facility] [address] [place] [address] PCP - General Family Medicine 07/10/23 documented as of this encounter
[2024-01-14] MEDS: TRIAMCINOLONE ACET 0.1% CR 80 GM TUBE TOP SCH (21:54)
[2024-01-15 08:12] LABS: Albumin Globulin Ratio 1.3 (0.9-2); Albumin Level 3.2 gm/dl (3.4-5.0); BUN Creatinine Ratio 10.8 (10-20); Bilirubin,Total 1.6 mg/dl (0.2-1.0); Calcium 8.7 mg/dl (8.6-10.3); Creatinine Clr Calc Pharmacy 91.1 ml/min; Est GFR (African American) 109.1 ml/min; Est GFR (Non-African American) 94.1 ml/min; Globulin 2.5 gm/dl (2.5-4.0); Potassium 4.1 mmol/L (3.5-5.1); Total Protein 5.7 gm/dl (6.0-8.3)
--- NOTE | 2024-01-15 20:30 | Hospitalist Progress Note ---
Date of Service January 15, 2024 Assessment & Plan (1) Acute on chronic pancreatitis: Plan: presentation c/w acute on chronic pancreatitis imaging with acute pancreatitis of the head/body CT and MRCP confirm such lipase was 144 at presentation, now normal today despite biochemical normalization of lipase he continues with severe abd pain would keep NPO today cont IVF but lower rate from 150cc/hr to 75cc/hr allow dilaudid q3h prn recheck LFTs am appreciate [facility] consult they advise customary Rx of his pancreatitis as above I corresponded with Dr Polanco from [facility] yesterday who knows Mr Harris well no indication for transfer to tertiary care at this time Dr Polanco did state he would need repeat ERCP in about 1 month of note - the pt's Sotyktu for his psoriasis is not associated with pancreatitis (abnl LFTs, but not pancreatitis) recent triglycerides were <150 he consistently denies etoh use he does not have a gall bladder no recent viral infections with respect to Creon capsules - pt states that at his pharmacy he was to pay $600 for 30-day supply social work is looking into this to figure out cheaper alternative (2) Atrial fibrillation: Plan: paroxysmal cont Eliquis cont diltiazem (3) Enlarged prostate with lower urinary tract symptoms (LUTS): Plan: not on meds for such (4) Depression: (5) Esophageal dysphagia: (6) Hypothyroidism, postablative: Plan: TSH 1.2 in 08/2023 cont synthroid (7) HTN (hypertension): Plan: BPs controlled (8) Hyperlipidemia: Plan: recently initiated on crestor as outpatient?? acute rise in LFTs could be due to such thus, HOLD crestor (9) Prediabetes: Plan: a1c 6.1% in 08/2023 repeat a1c am (10) Irritable bowel syndrome: Plan: noted could be contributing to pain follow (11) Laryngopharyngeal reflux: Plan: cont PPI twice daily Plan Admission and Anticipated Discharge Date Admission Date: January 14, 2024 Subjective continues with severe abd pain - today is it periumbilical or in the lower quadrants the pain is always there in the background, but the pain increases in intensity intermittently the dilaudid helps but only lasts about 2 hours is able to get some rest in between pain shots no vomiting pain does feel similar to previous pancreatitis episodes denies any dyspnea or chest pain Review of Systems Review of Systems: gen - no fevers or chills cv - no chest pain pulm - no cough or dyspnea Physical Exam Physical Exam: gen - lying in bed flat, NAD eyes - no icterus mouth - MMM neck - no JVD heart - RRR, s1 s2, no murmur lungs - CTA b/l abd - tender periumbilical region and also inferior to mid-abdomen; BS+; no peritoneal signs; no HSM; soft ext - no edema, pulses 2+ b/l skin - areas of inflamed, erythematous skin on abdominal wall, limbs (attributes this to psoriasis) psych - a/o x 3 Results & Data Results & Data Vital Signs (Past 12 Hours) Vital Signs Temp Pulse Resp BP Pulse Ox O2 Del Method 01/15/24 15:20 36.8 C 65 16 146/84 H 98 Room Air Laboratory Results Laboratory Results - last 24 hr 01/15/24 01/15/24 01/15/24 00:04 06:14 06:48 Sodium 135 L Potassium 4.1 Chloride 104 Carbon Dioxide 27 Anion Gap 4 BUN 8 Creatinine 0.74 D Est Cr Clr Drug Dosing 91.1 Est GFR ( Amer) 109.1 Est GFR (Non-Af Amer) 94.1 BUN/Creatinine Ratio 10.8 Glucose 138 H POC Glucose 102 H 142 H Calcium 8.7 Total Bilirubin 1.6 H D AST 104 H ALT 139 H Alkaline Phosphatase 229 H Total Protein 5.7 L Albumin 3.2 L Globulin 2.5 Albumin/Globulin Ratio 1.3 Lipase 01/15/24 01/15/24 11:28 17:37 Sodium Potassium Chloride Carbon Dioxide Anion Gap BUN Creatinine Est Cr Clr Drug Dosing Est GFR ( Amer) Est GFR (Non-Af Amer) BUN/Creatinine Ratio Glucose POC Glucose 123 H 116 H Calcium Total Bilirubin AST ALT Alkaline Phosphatase Total Protein Albumin Globulin Albumin/Globulin Ratio Lipase PG Care Time/CCT Total # of Minutes Spent Total Time Spent with Patient: Total time spent is greater than 50% in coordination of care (as documented) at patient's floor/unit and/or counseling patient: Coding Level of Care Code 37969 SUB INP/OBS CARE 2/35MIN Diagnoses Acute on chronic pancreatitis K85.90; K86.1 Atrial fibrillation I48.91 Enlarged prostate with lower urinary tract symptoms (LUTS) N40.1 Depression F32.9 Esophageal dysphagia R13.10 Hypothyroidism, postablative E89.0 HTN (hypertension) I10 Hyperlipidemia E78.5 Prediabetes R73.03 Irritable bowel syndrome K58.9 Laryngopharyngeal reflux K21.9
[2024-01-15] MEDS: MELATONIN 3 MG TAB PO PRN (20:48)
[2024-01-16] MEDS: HYDROmorphone INJ 0.5 MG/0.5 ML SYR IV PRN (03:21)
[2024-01-16 07:49] LABS: Albumin Globulin Ratio 1.2 (0.9-2); Albumin Level 3.2 gm/dl (3.4-5.0); BUN Creatinine Ratio 7.5 (10-20); Bilirubin,Total 2.2 mg/dl (0.2-1.0); Calcium 8.6 mg/dl (8.6-10.3); Creatinine Clr Calc Pharmacy 84.3 ml/min; Est GFR (African American) 105.6 ml/min; Est GFR (Non-African American) 91.1 ml/min; Globulin 2.6 gm/dl (2.5-4.0); Magnesium 1.9 mg/dl (1.7-2.4); Potassium 4.2 mmol/L (3.5-5.1); Total Protein 5.8 gm/dl (6.0-8.3)
[2024-01-16 07:50] LABS: Estimated Average Glucose 117 mg/dl; Hemoglobin A1C 5.7 % (4.5-5.6)
--- NOTE | 2024-01-16 09:58 | Hospitalist Progress Note ---
Date of Service January 16, 2024 Assessment & Plan (1) Acute on chronic pancreatitis: Plan: presentation c/w acute on chronic pancreatitis imaging with acute pancreatitis of the head/body CT and MRCP confirm such lipase was 144 at presentation and normalized as of yesterday abdominal pain is improved overnight he is nontoxic and overall stable allow clear liquids lower IV fluid rate to 50cc/hr dilaudid q3h prn appreciate [facility] consult they advise customary Rx of his pancreatitis as above I corresponded with Dr Polanco from [facility] on day of admission who knows Mr Harris well transfer to tertiary care not advised Dr Polanco did state he would need repeat ERCP in about 1 month of note - the pt's Sotyktu for his psoriasis is not associated with pancreatitis (abnl LFTs, but not pancreatitis) recent triglycerides were <150 he consistently denies etoh use he does not have a gall bladder no recent viral infections with respect to Creon capsules - pt states that at his pharmacy he was to pay $600 for 30-day supply social work is looking into this to figure out cheaper alternative I also found that with [facility] we can get him a 30-day supply of Pancreaze for about $200 at [facility] locally gave him this information (2) Atrial fibrillation: Plan: paroxysmal cont Eliquis cont diltiazem (3) Enlarged prostate with lower urinary tract symptoms (LUTS): Plan: not on meds for such (4) Depression: (5) Esophageal dysphagia: Plan: no recent issues w/ such (6) Hypothyroidism, postablative: Plan: TSH 1.2 in 08/2023 cont synthroid (7) HTN (hypertension): Plan: BPs controlled (8) Hyperlipidemia: Plan: recently initiated on crestor as outpatient on 12/29/23 acute rise in LFTs could be due to such thus, HOLD crestor and cont to trend LFTs (9) Prediabetes: Plan: a1c 6.1% in 08/2023 repeat a1c this admission 5.7% no Rx needed (10) Irritable bowel syndrome: Plan: noted could be contributing to pain follow could consider bentyl if he has refractory pain (11) Laryngopharyngeal reflux: Plan: cont PPI twice daily Admission and Anticipated Discharge Date Admission Date: January 14, 2024 Subjective patient still with pain but improved from yesterday pain is still periumbilical in location no vomiting passing little flatus wants to try clear liquids Review of Systems Review of Systems: cv - no chest pain pulm - no cough or dyspnea GI - no reflux; no diarrhea - no LUTS Physical Exam Physical Exam: gen - lying in bed flat, NAD, looks better today eyes - no icterus mouth - MMM neck - no JVD heart - RRR, s1 s2, no murmur lungs - CTA b/l abd - periumbilical region with mild tenderness but less so than yesterday; BS+; no peritoneal signs; no HSM; soft ext - no edema, pulses 2+ b/l skin - areas of inflamed, erythematous skin on abdominal wall, legs, arms - no change psych - a/o x 3 Results & Data Results & Data Vital Signs (Past 12 Hours) Vital Signs Temp Pulse Resp BP Pulse Ox O2 Del Method 01/16/24 07:03 36.5 C 62 16 119/77 94 Room Air Laboratory Results Laboratory Results - last 24 hr 01/15/24 01/15/24 01/16/24 11:28 17:37 00:06 Sodium Potassium Chloride Carbon Dioxide Anion Gap BUN Creatinine Est Cr Clr Drug Dosing Est GFR ( Amer) Est GFR (Non-Af Amer) BUN/Creatinine Ratio Glucose POC Glucose 123 H 116 H 129 H Estimat Average Glucose Hemoglobin A1c Calcium Magnesium Total Bilirubin AST ALT Alkaline Phosphatase Total Protein Albumin Globulin Albumin/Globulin Ratio 01/16/24 01/16/24 06:00 07:08 Sodium 138 Potassium 4.2 Chloride 105 Carbon Dioxide 29 Anion Gap 4 BUN 6 Creatinine 0.80 Est Cr Clr Drug Dosing 84.3 Est GFR ( Amer) 105.6 Est GFR (Non-Af Amer) 91.1 BUN/Creatinine Ratio 7.5 L Glucose 125 H POC Glucose 128 H Estimat Average Glucose 117 Hemoglobin A1c 5.7 H Calcium 8.6 Magnesium 1.9 Total Bilirubin 2.2 H AST 77 H ALT 117 H Alkaline Phosphatase 294 H Total Protein 5.8 L Albumin 3.2 L Globulin 2.6 Albumin/Globulin Ratio 1.2 PG Care Time/CCT Total # of Minutes Spent Total Time Spent with Patient: Total time spent is greater than 50% in coordination of care (as documented) at patient's floor/unit and/or counseling patient: Coding Level of Care Code 66208 SUB INP/OBS CARE 2/35MIN Diagnoses Acute on chronic pancreatitis K85.90; K86.1 Atrial fibrillation I48.91 Enlarged prostate with lower urinary tract symptoms (LUTS) N40.1 Depression F32.9 Esophageal dysphagia R13.10 Hypothyroidism, postablative E89.0 HTN (hypertension) I10 Hyperlipidemia E78.5 Prediabetes R73.03 Irritable bowel syndrome K58.9 Laryngopharyngeal reflux K21.9
[2024-01-16] MEDS: PANCREAZE (LIPASE 10,500U) CAP PO SCH (11:24)
[2024-01-17 08:13] LABS: Albumin Globulin Ratio 1.3 (0.9-2); Albumin Level 3.2 gm/dl (3.4-5.0); BUN Creatinine Ratio 4.9 (10-20); Bilirubin,Total 1.6 mg/dl (0.2-1.0); Calcium 8.6 mg/dl (8.6-10.3); Creatinine Clr Calc Pharmacy 83.3 ml/min; Est GFR (African American) 105.1 ml/min; Est GFR (Non-African American) 90.7 ml/min; Globulin 2.5 gm/dl (2.5-4.0); Total Protein 5.7 gm/dl (6.0-8.3)
--- NOTE | 2024-01-17 14:44 | XRay Report ---
ABDOMEN 2 VIEWS HISTORY: pancreatitis; abd pain; ileus? Constipation? COMPARISON: Abdomen and pelvis CT 01/14/2024. FINDINGS: There is no pneumoperitoneum or pneumatosis. The bowel gas pattern is unremarkable. No evid ence for bowel obstruction. No renal or ureteral calculi. Prior cholecystectomy. Calcifications withi n the deep pelvis are consistent with phleboliths. No significant fecal retention is noted. IMPRESSION: Nonobstructive bowel gas pattern. No significant fecal retention. ACT 112: Negative or not required by law. Electronically signed by: Chalino Edmondson M.D. 01/17/2024 2:43 PM
--- NOTE | 2024-01-17 20:45 | Hospitalist Progress Note ---
Date of Service January 17, 2024 Assessment & Plan (1) Acute on chronic pancreatitis: Plan: presentation c/w acute on chronic pancreatitis imaging with acute pancreatitis of the head/body CT and MRCP confirm such lipase was 144 at presentation and then normalized abdominal pain had improved, clears started - but today having worsening pain obtain abd x-rays -- rule out ileus, fecal impaction, etc recheck LFTs/lipase am no advancement of diet cont IV fluids cont dilaudid q3h prn I corresponded with Dr Polanco from [facility] on day of admission who knows Mr Harris well transfer to tertiary care not advised Dr Polanco did state he would need repeat ERCP in about 1 month of note - the pt's Sotyktu for his psoriasis is not associated with pancreatitis (abnl LFTs, but not pancreatitis) recent triglycerides were <150 he consistently denies etoh use he does not have a gall bladder no recent viral infections with respect to Creon capsules - pt states that at his pharmacy he was to pay $600 for 30-day supply social work is looking into this to figure out cheaper alternative I also found that with [facility] we can get him a 30-day supply of Pancreaze for about $200 at [facility] locally gave him this information (2) Atrial fibrillation: Plan: paroxysmal cont Eliquis cont diltiazem examines in NSR today (3) Enlarged prostate with lower urinary tract symptoms (LUTS): Plan: not on meds for such (4) Depression: (5) Esophageal dysphagia: Plan: no recent issues w/ such (6) Hypothyroidism, postablative: Plan: TSH 1.2 in 08/2023 cont synthroid (7) HTN (hypertension): Plan: BPs controlled (8) Hyperlipidemia: Plan: recently initiated on crestor as outpatient on 12/29/23 acute rise in LFTs could have been due to such thus, cont to HOLD crestor and cont to trend LFTs (9) Prediabetes: Plan: a1c 6.1% in 08/2023 repeat a1c this admission 5.7% no Rx needed BSGs wnl (10) Irritable bowel syndrome: Plan: noted could be contributing to pain follow could consider bentyl if he has refractory pain (11) Laryngopharyngeal reflux: Plan: cont PPI twice daily Plan will request PT consult; he is ambulating but doing so minimally Admission and Anticipated Discharge Date Admission Date: January 14, 2024 Subjective patient continues with abdominal pain same location - central abdomen nausea at times no vomiting passing little flatus no stool since admission he is frustrated by not feeling better despite the above he continues to take the clear liquid tray he did state he was going to skip lunch because of how he felt Review of Systems Review of Systems: gen - no fevers cv - no chest pain pulm - no dyspnea Physical Exam Physical Exam: gen - lying in bed flat, despite his complaints he appears comfortable eyes - no icterus mouth - MMM neck - no JVD heart - RRR, s1 s2, no murmur lungs - CTA b/l abd - mild central tenderness to palpation but soft, no peritoneal signs, BS+, ND ext - no edema, pulses 2+ b/l skin - areas of inflamed, erythematous skin on abdominal wall, legs, arms - no change psych - a/o x 3 Results & Data Results & Data Vital Signs (Past 12 Hours) Vital Signs Temp Pulse Resp BP Pulse Ox O2 Del Method 01/17/24 20:21 36.7 C 65 16 146/73 H 98 Room Air 01/17/24 17:16 58 L 18 158/82 H 97 Room Air Laboratory Results Laboratory Results - last 24 hr 01/17/24 01/17/24 01/17/24 07:22 07:38 11:47 Sodium 138 Potassium 4.0 Chloride 105 Carbon Dioxide 29 Anion Gap 4 BUN 4 L Creatinine 0.81 Est Cr Clr Drug Dosing 83.3 Est GFR ( Amer) 105.1 Est GFR (Non-Af Amer) 90.7 BUN/Creatinine Ratio 4.9 L Glucose 115 H POC Glucose 113 H 108 H Calcium 8.6 Total Bilirubin 1.6 H AST 57 H ALT 101 H Alkaline Phosphatase 342 H Total Protein 5.7 L Albumin 3.2 L Globulin 2.5 Albumin/Globulin Ratio 1.3 01/17/24 01/17/24 17:08 20:27 Sodium Potassium Chloride Carbon Dioxide Anion Gap BUN Creatinine Est Cr Clr Drug Dosing Est GFR ( Amer) Est GFR (Non-Af Amer) BUN/Creatinine Ratio Glucose POC Glucose 113 H 112 H Calcium Total Bilirubin AST ALT Alkaline Phosphatase Total Protein Albumin Globulin Albumin/Globulin Ratio PG Care Time/CCT Total # of Minutes Spent Total Time Spent with Patient: Total time spent is greater than 50% in coordination of care (as documented) at patient's floor/unit and/or counseling patient: Coding Level of Care Code 83814 SUB INP/OBS CARE 2MIN Diagnoses Acute on chronic pancreatitis K85.90; K86.1 Atrial fibrillation I48.91 Enlarged prostate with lower urinary tract symptoms (LUTS) N40.1 Depression F32.9 Esophageal dysphagia R13.10 Hypothyroidism, postablative E89.0 HTN (hypertension) I10 Hyperlipidemia E78.5 Prediabetes R73.03 Irritable bowel syndrome K58.9 Laryngopharyngeal reflux K21.9
[2024-01-18 09:45] LABS: Hematocrit (blood only) 34.1 % (42.0-52.0); Hemoglobin 11.2 g/dl (14.0-18.0); Mean Corpuscular Hemoglobin 30.8 pg (25.0-34.0); Mean Corpuscular Hgb Conc 32.8 g/dL (32.0-36.0); Mean Corpuscular Volume 93.7 fL (80.0-100.0); Mean Platelet Volume 9.6 fL (9.4-12.4); Platelet Count 357 K/uL (130-400); RDW Coefficient of Variation 14.4 % (11.5-14.5); RDW Standard Deviation 50.3 fL (36.4-46.3); Red Blood Count 3.64 M/uL (4.70-6.10); White Blood Count 6.09 K/ul (4.8-10.8)
[2024-01-18 10:00] LABS: Albumin Globulin Ratio 1.2 (0.9-2); Albumin Level 3.6 gm/dl (3.4-5.0); BUN Creatinine Ratio 5.4 (10-20); Bilirubin,Total 1.4 mg/dl (0.2-1.0); Calcium 8.9 mg/dl (8.6-10.3); Creatinine Clr Calc Pharmacy 73.3 ml/min; Est GFR (Non-African American) 84.6 ml/min; Potassium 3.8 mmol/L (3.5-5.1); Total Protein 6.6 gm/dl (6.0-8.3)
--- NOTE | 2024-01-18 20:54 | Hospitalist Progress Note ---
Date of Service January 18, 2024 Assessment & Plan (1) Acute on chronic pancreatitis: Plan: presentation c/w acute on chronic pancreatitis imaging with acute pancreatitis of the head/body CT and MRCP confirm such lipase was 144 at presentation and then normalized; lipase again normal today still with abdominal pain and nausea along with poor appetite & no desire for liquids obtained abd x-rays -- no ileus, fecal impaction, etc LFTs cont to improve on LFTs today no advancement of diet today; try full liquids am -- his abdominal exam is benign today cont IV fluids at 50cc/hr cont dilaudid q3h prn I corresponded with Dr Polanco from [facility] on day of admission who knows Mr Harris well transfer to tertiary care not advised at that time Dr Polanco did state he would need repeat ERCP in about 1 month of note - the pt's Sotyktu for his psoriasis is not associated with pancreatitis (abnl LFTs, but not pancreatitis) recent triglycerides were <150 he consistently denies etoh use he does not have a gall bladder no recent viral infections with respect to Creon capsules - pt states that at his pharmacy he was to pay $600 for 30-day supply social work is looking into this to figure out cheaper alternative I also found that with goodRx we can get him a 30-day supply of Pancreaze for about $200 at [facility] locally gave him this information (2) Atrial fibrillation: Plan: paroxysmal cont Eliquis cont diltiazem examines in NSR today once again (3) Enlarged prostate with lower urinary tract symptoms (LUTS): Plan: not on meds for such (4) Depression: Plan: contributing to chronic abdominal pain? trial of remeron? (5) Esophageal dysphagia: Plan: no recent issues w/ such (6) Hypothyroidism, postablative: Plan: TSH 1.2 in 08/2023 cont synthroid (7) HTN (hypertension): Plan: BPs controlled (8) Hyperlipidemia: Plan: recently initiated on crestor as outpatient on 12/29/23 acute rise in LFTs could have been due to such thus, cont to HOLD crestor and cont to trend LFTs (9) Prediabetes: Plan: a1c 6.1% in 08/2023 repeat a1c this admission 5.7% no Rx needed BSGs wnl (10) Irritable bowel syndrome: Plan: noted could be contributing to pain follow could consider bentyl if he has refractory pain (11) Laryngopharyngeal reflux: Plan: cont PPI twice daily add carafate in the event the duodenitis seen on CT a/p is contributing to pain Plan requested PT consult; he is ambulating but doing so minimally updated at bedside today Admission and Anticipated Discharge Date Admission Date: January 14, 2024 Subjective continues with intermittent nausea continues with intermittent central abdominal pain passing limited flatus no vomiting not much interest in the clear liquids doesn't want diet advancement today; maybe tomorrow at bedside update given Review of Systems Review of Systems: cv - no chest pain or orthopnea pulm - no dyspnea GI - no vomiting Physical Exam Physical Exam: gen - lying in bed flat, comfortable; he looks frustrated eyes - no icterus mouth - MMM neck - no JVD heart - RRR, s1 s2, no murmur lungs - CTA b/l abd - soft, NT, ND, BS+, no peritoneal signs; no HSM; benign abdomen ext - no edema, pulses 2+ b/l psych - a/o x 3 Results & Data Results & Data Vital Signs (Past 12 Hours) Vital Signs Temp Pulse Resp BP Pulse Ox O2 Del Method 01/18/24 20:22 36.5 C 57 L 16 150/81 H 96 Room Air 01/18/24 14:50 36.6 C 82 16 150/85 H 98 Room Air Laboratory Results Laboratory Results - last 24 hr 01/18/24 01/18/24 01/18/24 07:45 09:18 11:41 WBC 6.09 RBC 3.64 L Hgb 11.2 L Hct 34.1 L MCV 93.7 MCH 30.8 MCHC 32.8 RDW Std Deviation 50.3 H RDW Coeff of Marline 14.4 Plt Count 357 MPV 9.6 Sodium 136 Potassium 3.8 Chloride 103 Carbon Dioxide 26 Anion Gap 7 BUN 5 L Creatinine 0.92 Est Cr Clr Drug Dosing 73.3 Est GFR ( Amer) 98.0 Est GFR (Non-Af Amer) 84.6 BUN/Creatinine Ratio 5.4 L Glucose 109 H POC Glucose 116 H 123 H Calcium 8.9 Total Bilirubin 1.4 H AST 39 ALT 90 H Alkaline Phosphatase 439 H Total Protein 6.6 Albumin 3.6 Globulin 3.0 Albumin/Globulin Ratio 1.2 Lipase 4 L 01/18/24 16:36 WBC RBC Hgb Hct MCV MCH MCHC RDW Std Deviation RDW Coeff of Marline Plt Count MPV Sodium Potassium Chloride Carbon Dioxide Anion Gap BUN Creatinine Est Cr Clr Drug Dosing Est GFR ( Amer) Est GFR (Non-Af Amer) BUN/Creatinine Ratio Glucose POC Glucose 101 H Calcium Total Bilirubin AST ALT Alkaline Phosphatase Total Protein Albumin Globulin Albumin/Globulin Ratio Lipase PG Care Time/CCT Total # of Minutes Spent Total Time Spent with Patient: Total time spent is greater than 50% in coordination of care (as documented) at patient's floor/unit and/or counseling patient: Coding Level of Care Code 20789 SUB INP/OBS CARE 2/35MIN Diagnoses Acute on chronic pancreatitis K85.90; K86.1 Atrial fibrillation I48.91 Enlarged prostate with lower urinary tract symptoms (LUTS) N40.1 Depression F32.9 Esophageal dysphagia R13.10 Hypothyroidism, postablative E89.0 HTN (hypertension) I10 Hyperlipidemia E78.5 Prediabetes R73.03 Irritable bowel syndrome K58.9 Laryngopharyngeal reflux K21.9
[2024-01-18] MEDS: SUCRALFATE 1 GM/10 ML UDC PO SCH (21:38)
[2024-01-19 07:16] LABS: Albumin Globulin Ratio 1.3 (0.9-2); Albumin Level 3.2 gm/dl (3.4-5.0); BUN Creatinine Ratio 7.5 (10-20); Calcium 8.5 mg/dl (8.6-10.3); Creatinine Clr Calc Pharmacy 84.3 ml/min; Est GFR (African American) 105.6 ml/min; Est GFR (Non-African American) 91.1 ml/min; Globulin 2.5 gm/dl (2.5-4.0); Total Protein 5.7 gm/dl (6.0-8.3)
--- NOTE | 2024-01-19 11:32 | Hospitalist Progress Note ---
Date of Service January 19, 2024 Assessment & Plan (1) Acute on chronic pancreatitis: Plan: slowly improving presentation c/w acute on chronic pancreatitis imaging with acute pancreatitis of the head/body CT and MRCP confirm such lipase was 144 at presentation and then normalized he reports ongoing abdominal pain and nausea along with poor appetite but his abdominal exam is benign/normal abd x-rays -- no ileus, fecal impaction, etc LFTs cont to improve cont full liquids cont IV fluids at 50cc/hr cont dilaudid q3h prn try bentyl for abdominal pains - perhaps there is an IBS component I corresponded with Dr Polanco from [facility] on day of admission who knows Mr Harris well transfer to tertiary care not advised at that time Dr Polanco did state he would need repeat ERCP in about 1 month of note - the pt's Sotyktu for his psoriasis is not associated with pancreatitis (abnl LFTs, but not pancreatitis) recent triglycerides were <150 he consistently denies etoh use he does not have a gall bladder no recent viral infections with respect to Creon capsules - pt states that at his pharmacy he was to pay $600 for 30-day supply social work is looking into this to figure out cheaper alternative I also found that with goodRx we can get him a 30-day supply of Pancreaze for about $226 at [facility] - I printed out the good Rx coupon for him (4200 unit lipase capsules, #180 -- 2 caps TID w/ meals) gave him this information there is also a patient assistance program from the [employer] that makes Creon I completed this form for the 19184 unit capsule, 2 caps TID w/ meals + 1 with snacks he and his will submit this to that [employer] (2) Atrial fibrillation: Plan: paroxysmal cont Eliquis cont diltiazem examines in NSR today once again (3) Enlarged prostate with lower urinary tract symptoms (LUTS): Plan: not on meds for such (4) Depression: Plan: contributing to chronic abdominal pain? trial of remeron? (5) Esophageal dysphagia: Plan: no recent issues w/ such (6) Hypothyroidism, postablative: Plan: TSH 1.2 in 08/2023 cont synthroid (7) HTN (hypertension): Plan: BPs controlled (8) Hyperlipidemia: Plan: recently initiated on crestor as outpatient on 12/29/23 acute rise in LFTs could have been due to such thus, cont to HOLD crestor and cont to trend LFTs (9) Prediabetes: Plan: a1c 6.1% in 08/2023 repeat a1c this admission 5.7% no Rx needed BSGs wnl (10) Irritable bowel syndrome: Plan: noted could be contributing to pain follow bentyl 10mg prn ordered - try this for his abdominal pain prn (11) Laryngopharyngeal reflux: Plan: cont PPI twice daily added carafate in the event the duodenitis seen on CT a/p is contributing to pain (12) Elevated LFTs: Plan: etiology - recent crestor initiation? pt denies etoh consumption no recent viral infections LFTs are improving he is s/p cholecystectomy state MRCP did NOT show biliary obstruction repeat LFTs am Plan requested PT consult updated at bedside yesterday of note - paperwork completion was ~20-25 min this, coupled with bedside visit & care coordination - total care activity today about 50 minutes Admission and Anticipated Discharge Date Admission Date: January 14, 2024 Subjective had full liquids this am for breakfast about 1 hour later had mild abd discomfort then later in the AM had nausea no vomiting finally had a BM denies any other new complaints Review of Systems Review of Systems: gen - no fevers, finally doing more ambulation CV - no chest pain pulm - no dyspnea Physical Exam Physical Exam: gen - lying in bed flat, comfortable, looks better eyes - no icterus mouth - MMM neck - no JVD heart - RRR, s1 s2, no murmur lungs - CTA b/l abd - very soft, NT, ND, BS+, no peritoneal signs; no HSM ext - no edema, pulses 2+ b/l psych - a/o x 3 skin - no jaundice Results & Data Results & Data Vital Signs (Past 12 Hours) Vital Signs Temp Pulse Resp BP Pulse Ox O2 Del Method 01/19/24 07:04 37 C 62 16 115/64 95 Room Air Laboratory Results Laboratory Results - last 24 hr 01/18/24 01/18/24 01/19/24 11:41 16:36 06:05 Sodium 138 Potassium 4.0 Chloride 105 Carbon Dioxide 27 Anion Gap 6 BUN 6 Creatinine 0.80 Est Cr Clr Drug Dosing 84.3 Est GFR ( Amer) 105.6 Est GFR (Non-Af Amer) 91.1 BUN/Creatinine Ratio 7.5 L Glucose 116 H POC Glucose 123 H 101 H Calcium 8.5 L Total Bilirubin 1.0 AST 23 ALT 58 H Alkaline Phosphatase 340 H Total Protein 5.7 L Albumin 3.2 L Globulin 2.5 Albumin/Globulin Ratio 1.3 PG Care Time/CCT Total # of Minutes Spent Total Time Spent with Patient: Total time spent is greater than 50% in coordination of care (as documented) at patient's floor/unit and/or counseling patient: Coding Level of Care Code 41508 SUB INP/OBS CARE 3/50MIN Diagnoses Acute on chronic pancreatitis K85.90; K86.1 Atrial fibrillation I48.91 Enlarged prostate with lower urinary tract symptoms (LUTS) N40.1 Depression F32.9 Esophageal dysphagia R13.10 Hypothyroidism, postablative E89.0 HTN (hypertension) I10 Hyperlipidemia E78.5 Prediabetes R73.03 Irritable bowel syndrome K58.9 Laryngopharyngeal reflux K21.9 Elevated LFTs R79.89
[2024-01-20 07:28] LABS: Albumin Globulin Ratio 1.3 (0.9-2); Albumin Level 3.4 gm/dl (3.4-5.0); BUN Creatinine Ratio 8.4 (10-20); Bilirubin,Total 0.7 mg/dl (0.2-1.0); Calcium 8.7 mg/dl (8.6-10.3); Creatinine Clr Calc Pharmacy 81.3 ml/min; Est GFR (African American) 104.1 ml/min; Est GFR (Non-African American) 89.8 ml/min; Globulin 2.6 gm/dl (2.5-4.0); Potassium 4.1 mmol/L (3.5-5.1)
[2024-01-20] MEDS: DICYCLOMINE HCL 10 MG CAP PO PRN (07:41)
--- NOTE | 2024-01-20 08:56 | Hospitalist Progress Note ---
Date of Service January 20, 2024 Assessment & Plan (1) Acute on chronic pancreatitis: Plan: slowly improving presentation c/w acute on chronic pancreatitis imaging with acute pancreatitis of the head/body CT and MRCP confirm such lipase was 144 at presentation and then normalized he reports ongoing abdominal pain and nausea along with poor appetite but his abdominal exam is benign/normal abd x-rays -- no ileus, fecal impaction, etc LFTs cont to improve cont full liquids cont IV fluids at 50cc/hr cont dilaudid q3h prn try bentyl for abdominal pains - perhaps there is an IBS component I corresponded with Dr Polanco from [facility] on day of admission who knows Mr Harris well transfer to tertiary care not advised at that time Dr Polanco did state he would need repeat ERCP in about 1 month of note - the pt's Sotyktu for his psoriasis is not associated with pancreatitis (abnl LFTs, but not pancreatitis) recent triglycerides were <150 he consistently denies etoh use he does not have a gall bladder no recent viral infections with respect to Creon capsules - pt states that at his pharmacy he was to pay $600 for 30-day supply social work is looking into this to figure out cheaper alternative I also found that with goodRx we can get him a 30-day supply of Pancreaze for about $226 at [facility] - I printed out the good Rx coupon for him (4200 unit lipase capsules, #180 -- 2 caps TID w/ meals) gave him this information there is also a patient assistance program from the [employer] that makes Creon I completed this form for the 67525 unit capsule, 2 caps TID w/ meals + 1 with snacks he and his will submit this to that [employer] 01/19 Had reported nausea after eating previously, appears improved since adding carafate QID and will continue. Tolerating full liquid diet, limited dilaudid IV use - discussed PO oxycodone in anticipation for dc. Can also consider prn zofran if needed. Suspect ongoing issues contributing to anxiety/worsened depression as well. Prior provider reached out to [facility] and will ensure navigator arranged at [place]. Patient w/ paperwork for [place] to have PCP assist and faxing outpatient in follow up. Was also given good Rx coupon for ~226$ in meantime Outpt ERCP in [address] Polanco planned Discontinuing further IVF, advancing diet to low fat Pain control/antiemetics as needed Bentyl added prn (only took one dose, THIS MORNING)- monitor/consider making scheduled Of note, did deny any alcohol use but did have elevations in ASt/ALT as well on admission have normalized on repeat labs). ALP 340-->301 and statin remains on hold Labs/exam in Am and monitoring advancement of diet and possible/hopeful discharge tomorrow (2) Atrial fibrillation: Plan: paroxysmal , in NSR on exam 01/19 Remains on eliquis, diltiazem (3) Enlarged prostate with lower urinary tract symptoms (LUTS): Plan: not on meds for such (4) Depression: Plan: contributing to chronic abdominal pain? trial of remeron may be effective? (5) Esophageal dysphagia: Plan: no recent issues w/ such since addition of carafate. remains on PPI BID (6) Hypothyroidism, postablative: Plan: TSH 1.2 in 08/2023 cont synthroid (7) HTN (hypertension): Plan: BPs controlled 136/80 (8) Hyperlipidemia: Plan: recently initiated on crestor as outpatient on 12/29/23 acute rise in LFTs could have been due to such thus, cont to HOLD crestor and cont to trend LFTs likely to remain on hold at dc until normalized and will need f/u pcp (9) Prediabetes: Plan: a1c 6.1% in 08/2023 --> repeat 5.7 no Rx needed BSGs wnl (10) Irritable bowel syndrome: Plan: noted could be contributing to pain follow bentyl 10mg prn ordered - try this for his abdominal pain prn Trialed ONE tablet this morning 01/19, monitor ?making TID scheduled to see if benefit (11) Laryngopharyngeal reflux: Plan: cont PPI twice daily added carafate in the event the duodenitis seen on CT a/p is contributing to pain -- would continue given ability to continue diet given this and reports of pain 2-3 hours after eating (12) Elevated LFTs: Plan: etiology - recent crestor initiation? pt denies etoh consumption no recent viral infections LFTs are improving he is s/p cholecystectomy state MRCP did NOT show biliary obstruction repeat LFTs am with improvement in ALP and statin remaining on hold Plan requested PT consult updated at bedside prior (she is currently traveling, ?in [facility]). Prior given paperwork/completion 20-25 minutes Updated by phone this morning 01/19, diet advanced If able to tolerate advancement of diet/pain controlled with oral agents can consider dc 01/20 with [facility] up (navigator to confirm appt and would have CD burnt for patient to take to this appointment) Admission and Anticipated Discharge Date Admission Date: January 14, 2024 Supervising Physician Co-Signing Physician Notes The patient was not seen by me. The chart was reviewed. Case discussed with AMELIA Frazier. Agree with assessment and plan Subjective Eval this morning, on phone with his . Medicated for pain this morning, had had some nausea following eating yesterday but none today. Discussed frustrations with ongoing pain/hospitalizations, but suspect benefit from carafate as added prior and would continue. He is comfortable upgrading diet to low fat today, will add PO oxycodone for pain control. Can send rx for antiemetics. Discussed advancing diet and if pain controlled with PO/consideration for dc tomorrow w/ outpatient GI follow up/imaging to disc. Inquiring about sending information for creon paperwork, CM assisted and he is to have his PCP assist outpatient w/ completion. Last BM yesterday, will add bowel regimen. Discussed oxycodone for pain control. No CP/SOB, fever/chills. Questions/concerns addressed at this time. Physical Exam Physical Exam: gen - 68 yo male sitting up in bed, on the phone upon entry, NAD eyes - no icterus mouth - MMM neck - no JVD heart - RRR, s1 s2, no murmur lungs - CTA b/l abd - very soft, NT, ND, BS+, no peritoneal signs; no HSM ext - no edema, pulses 2+ b/l psych - a/o x 3 skin - no jaundice Results & Data Results & Data Vital Signs (Past 12 Hours) Vital Signs Temp Pulse Resp BP Pulse Ox O2 Del Method 01/20/24 07:24 36.8 C 63 18 136/80 96 Room Air Laboratory Results 01/20/24 Range/Units 06:13 Sodium 138 (136-145) mmol/L Potassium 4.1 (3.5-5.1) mmol/L Chloride 104 (98-107) mmol/L Carbon Dioxide 29 (21-32) mmol/L Anion Gap 5 (3-11) BUN 7 (6-23) mg/dl Creatinine 0.83 (0.6-1.4) mg/dl Est Cr Clr Drug Dosing 81.3 ml/min Est GFR ( Amer) 104.1 ml/min Est GFR (Non-Af Amer) 89.8 ml/min BUN/Creatinine Ratio 8.4 L (10-20) Glucose 115 H (70-99(Fasting)) mg/dl Calcium 8.7 (8.6-10.3) mg/dl Total Bilirubin 0.7 (0.2-1.0) mg/dl AST 17 (13-39) U/L ALT 45 (7-52) U/L Alkaline Phosphatase 301 H (34-104) U/L Total Protein 6.0 (6.0-8.3) gm/dl Albumin 3.4 (3.4-5.0) gm/dl Globulin 2.6 (2.5-4.0) gm/dl Albumin/Globulin Ratio 1.3 (0.9-2) PG Care Time/CCT Total # of Minutes Spent Total Time Spent with Patient: Total time spent is greater than 50% in coordination of care (as documented) at patient's floor/unit and/or counseling patient: Coding Level of Care Code 72722 SUB INP/OBS CARE 3/50MIN Diagnoses Acute on chronic pancreatitis K85.90; K86.1 Atrial fibrillation I48.91 Enlarged prostate with lower urinary tract symptoms (LUTS) N40.1 Depression F32.9 Esophageal dysphagia R13.10 Hypothyroidism, postablative E89.0 HTN (hypertension) I10 Hyperlipidemia E78.5 Prediabetes R73.03 Irritable bowel syndrome K58.9 Laryngopharyngeal reflux K21.9 Elevated LFTs R79.89
[2024-01-20] MEDS: POLYETHYLENE (MIRALAX) 17 GM PACK PO SCH (10:41)
[2024-01-20] MEDS: DOCUSATE SODIUM 100 MG CAP PO SCH (10:41)
[2024-01-20] MEDS: bisacodyL 10 MG SUPP PR STA (16:00)
[2024-01-21 07:40] LABS: Basophils # (auto) 0.06 K/uL (0.00-0.20); Eosinophils # (auto) 0.22 K/uL (0.00-0.50); Eosinophils % (auto) 3.7 %; Hematocrit (blood only) 32.5 % (42.0-52.0); Hemoglobin 10.7 g/dl (14.0-18.0); Immature Granulocytes # (auto) 0.04 K/uL (0.01-0.20); Immature Granulocytes % (auto) 0.7 %; Lymphocytes # (auto) 1.09 K/uL (1.20-3.40); Lymphocytes % (auto) 18.2 %; Mean Corpuscular Hemoglobin 30.4 pg (25.0-34.0); Mean Corpuscular Hgb Conc 32.9 g/dL (32.0-36.0); Mean Corpuscular Volume 92.3 fL (80.0-100.0); Mean Platelet Volume 9.8 fL (9.4-12.4); Monocytes # (auto) 0.64 K/uL (0.11-0.59); Monocytes % (auto) 10.7 %; Neutrophils # (auto) 3.93 K/uL (1.40-6.50); Neutrophils % (auto) 65.7 %; Platelet Count 299 K/uL (130-400); RDW Coefficient of Variation 14.2 % (11.5-14.5); Red Blood Count 3.52 M/uL (4.70-6.10); White Blood Count 5.98 K/ul (4.8-10.8)
[2024-01-21 07:53] LABS: Albumin Globulin Ratio 1.3 (0.9-2); Albumin Level 3.5 gm/dl (3.4-5.0); BUN Creatinine Ratio 14.9 (10-20); Bilirubin,Total 0.5 mg/dl (0.2-1.0); Calcium 8.9 mg/dl (8.6-10.3); Creatinine Clr Calc Pharmacy 77.5 ml/min; Est GFR (African American) 102.1 ml/min; Est GFR (Non-African American) 88.1 ml/min; Globulin 2.7 gm/dl (2.5-4.0); Potassium 4.4 mmol/L (3.5-5.1); Total Protein 6.2 gm/dl (6.0-8.3)
--- NOTE | 2024-01-21 08:02 | Hospitalist Progress Note ---
Date of Service January 21, 2024 Assessment & Plan (1) Acute on chronic pancreatitis: Plan: slowly improving presentation c/w acute on chronic pancreatitis imaging with acute pancreatitis of the head/body CT and MRCP confirm such lipase was 144 at presentation and then normalized he reports ongoing abdominal pain and nausea along with poor appetite but his abdominal exam is benign/normal abd x-rays -- no ileus, fecal impaction, etc LFTs cont to improve cont full liquids cont IV fluids at 50cc/hr cont dilaudid q3h prn try bentyl for abdominal pains - perhaps there is an IBS component I corresponded with Dr Polanco from [facility] on day of admission who knows Mr Harris well transfer to tertiary care not advised at that time Dr Polanco did state he would need repeat ERCP in about 1 month of note - the pt's Sotyktu for his psoriasis is not associated with pancreatitis (abnl LFTs, but not pancreatitis) recent triglycerides were <150 he consistently denies etoh use he does not have a gall bladder no recent viral infections with respect to Creon capsules - pt states that at his pharmacy he was to pay $600 for 30-day supply social work is looking into this to figure out cheaper alternative I also found that with [facility] we can get him a 30-day supply of Pancreaze for about $226 at [facility] - I printed out the good Rx coupon for him (4200 unit lipase capsules, #180 -- 2 caps TID w/ meals) gave him this information there is also a patient assistance program from the [employer] that makes Creon I completed this form for the 63360 unit capsule, 2 caps TID w/ meals + 1 with snacks he and his will submit this to that [employer] 01/19 Had reported nausea after eating previously, appears improved since adding carafate QID and will continue. Tolerating full liquid diet, limited dilaudid IV use - discussed PO oxycodone in anticipation for dc. Can also consider prn zofran if needed. Suspect ongoing issues contributing to anxiety/worsened depression as well. Prior provider reached out to [facility] and will ensure navigator arranged at [place]. Patient w/ paperwork for [facility] to have PCP assist and faxing outpatient in follow up. Was also given good Rx coupon for ~226$ in meantime Outpt ERCP in [address] Polanco planned Discontinuing further IVF, advancing diet to low fat Pain control/antiemetics as needed Bentyl added prn (only took one dose, THIS MORNING)- monitor/consider making scheduled Of note, did deny any alcohol use but did have elevations in ASt/ALT as well on admission have normalized on repeat labs). ALP 340-->301 and statin remains on hold Labs/exam in Am and monitoring advancement of diet and possible/hopeful discharge tomorrow 01/20 - ADvancement of diet to low fat yesterday, was doing well in evening/tolerating well and pain w/ oral medication/no need for further IV since AM 01/19 with diet advancement. Utilized oxycodone x2 doses 5mg, 1 dose for today WBC wnl, hgb stable. Afebrile. LFTs wnl except ALP which is continuing to improve. Statin remaining on hold/to continue on hold at dc until normalized Potential dc today on PPI BID, carafate, bentyl prn w/ short course pain medication. Outpt GI f/u. Low fat diet. Avoidance of any alcohol. (2) Atrial fibrillation: Plan: paroxysmal , in NSR on exam 01/19 Remains on eliquis, diltiazem (3) Enlarged prostate with lower urinary tract symptoms (LUTS): Plan: not on meds for such (4) Depression: Plan: contributing to chronic abdominal pain? trial of remeron may be effective? (5) Esophageal dysphagia: Plan: no recent issues w/ such since addition of carafate. remains on PPI BID (6) Hypothyroidism, postablative: Plan: TSH 1.2 in 08/2023 cont synthroid (7) HTN (hypertension): Plan: BPs controlled 136/80 (8) Hyperlipidemia: Plan: recently initiated on crestor as outpatient on 12/29/23 acute rise in LFTs could have been due to such thus, cont to HOLD crestor and cont to trend LFTs likely to remain on hold at dc until normalized and will need f/u pcp (9) Prediabetes: Plan: a1c 6.1% in 08/2023 --> repeat 5.7 no Rx needed BSGs wnl (10) Irritable bowel syndrome: Plan: noted could be contributing to pain follow bentyl 10mg prn ordered - try this for his abdominal pain prn Trialed ONE tablet this morning 01/19, monitor ?making TID scheduled to see if benefit (11) Laryngopharyngeal reflux: Plan: cont PPI twice daily added carafate in the event the duodenitis seen on CT a/p is contributing to pain -- would continue given ability to continue diet given this and reports of pain 2-3 hours after eating (12) Elevated LFTs: Plan: etiology - recent crestor initiation? pt denies etoh consumption no recent viral infections LFTs are improving he is s/p cholecystectomy state MRCP did NOT show biliary obstruction repeat LFTs am with improvement in ALP and statin remaining on hold Plan requested PT consult updated at bedside prior (she is currently traveling, ?in [facility]). Prior given paperwork/completion 20-25 minutes Updated by phone this morning 01/19, diet advanced If able to tolerate advancement of diet/pain controlled with oral agents can consider dc 01/20 with [facility] follow up (navigator to confirm appt and would have CD burnt for patient to take to this appointment) Admission and Anticipated Discharge Date Admission Date: January 14, 2024 Results & Data Results & Data Vital Signs (Past 12 Hours) Vital Signs Temp Pulse Resp BP Pulse Ox O2 Del Method 01/21/24 07:26 36.5 C 59 L 18 129/80 95 Room Air 01/20/24 21:32 36.6 C 59 L 16 132/82 96 Room Air PG Care Time/CCT Total # of Minutes Spent Total Time Spent with Patient: Total time spent is greater than 50% in coordination of care (as documented) at patient's floor/unit and/or counseling patient: Coding Diagnoses Acute on chronic pancreatitis K85.90; K86.1 Atrial fibrillation I48.91 Enlarged prostate with lower urinary tract symptoms (LUTS) N40.1 Depression F32.9 Esophageal dysphagia R13.10 Hypothyroidism, postablative E89.0 HTN (hypertension) I10 Hyperlipidemia E78.5 Prediabetes R73.03 Irritable bowel syndrome K58.9 Laryngopharyngeal reflux K21.9 Elevated LFTs R79.89
--- NOTE | 2024-01-21 09:54 | Discharge Summary ---
Date of Service January 21, 2024 Admission HPI Per Admitting Provider Isaac is a 68M with PMH of chronic pancreatitis, reflux, esophageal dysphagia, IBS, prediabetes, HLD, HTN, hypothyroidism (postablative), depression, BPH w/ LUTS, ED, and A Fib who presents for acutely worsened abdominal pain. patient was recently admitted 12/28/23 for acute on chronic pancreatitis. This is patient's 4th admission in 2023 for pancreatitis. Patient notes that he has been having episodes of pancreatitis for the last 20 years, they used to occur every 5-6 years, but over the last few years have been becoming more frequent. Patient presented this evening due to worsening epigastric cramping which prevented him from sleeping. He endorses development of nausea while driving here, but denies emesis or additional bowel changes. Patient denies fevers or chills. He is not experiencing headaches, lightheadedness, or dizziness. Patient continues to urinate as normal. Patient expresses distress about the increasing frequency of his pancreas related hospital visits, notes that he recently retired and wants to enjoy his time. Patient endorses poor dietary habits and PO fluid intake (detailed below). He denies any alcohol, tobacco, or illicit substance use. Dietary History Breakfast: 2 eggs, bagel, tater tots Snack: None (occasional protein bar) Lunch: Perogies Snack: None Dinner: Perogies and spinach Diet Iced Tea (2-3), Water (8-16 ounces), Chocolate Milk/Ovaltine Snack: Soladoro cookies Patient notes he started statin therapy this week. Admission Exam Per Admitting Provider Gen: NAD, alert, interactive HEENT: Supple, no LAD, no thyromegaly, no JVD, dry mucous membranes Resp:Non-labored, no wheezing/rhonchi/rales, CTAB CV:RRR, normal S1/S2, no M/R/G Abd: Soft, non-distended, generalized TTP worse in epigastrium, normoactive bowels, no masses Extr: 2+ dp bilaterally, no edema Skin: No rashes lesions or erythema Principal Diagnosis Acute on Chronic Pancreatits Discharge Exam General: 68 yo male sitting up in bed, NAD, just finished breakfast, NAD HEENT; head atraumatic, normocephalic, mmm, trachea midline Resp: even/unlabored, no w/c/r, on room air CV: RRR, no significant m/r/g, no pitting edema/calf tenderness, pulses present GI: +BS throughout, soft, nontender : no dickey MSK/Neuro: nonfocal, no slurred speech/facial droop Skin: no jaundice appearance does have generalized psoriasis to extremities/abdomen w/ eczema Psych: AOx3, cooperative with exam Discharge Data Allergies Allergy/AdvReac Type Severity Reaction Status Date / Time No Known Allergies Allergy Verified 01/14/24 02:16 Consultations 01/14/24 03:22 ED Decision to Admit Stat 01/14/24 11:32 Consult Gastroenterology Routine Ordered Studies Abdomen/Pelvis CT 01/14/24 01:29 Exam(s): CT ABDOMEN + PELVIS With Contrast IV Amt: 85 ML OPTIRAY 320 EXAM: CT Abdomen and Pelvis With Intravenous Contrast CLINICAL HISTORY: mid abd pain, hx pancreatitis. TECHNIQUE: Axial computed tomography images of the abdomen and pelvis with intravenous contrast. CTDI is 22.17 mGy and DLP is 989.48 mGy-cm. Automated exposure control was utilized for the study. A dose lowering technique was utilized adhering to the principles of ALARA. CONTRAST: Patient received 85 ML OPTIRAY 320 of IV contrast COMPARISON: No relevant prior studies available. FINDINGS: Lung bases: Unremarkable. No mass. No consolidation. ABDOMEN: Liver: Unremarkable. No mass. Gallbladder and bile ducts: Cholecystectomy. Minimal central intrahepatic biliary ectasia. Ectasia of the common bile duct, measuring 11 mm. No definitive calcified choledocholithiasis. Pancreas: Prominent fat stranding noted about the pancreatic head and distal descending and transverse portion of the duodenum. Edema and fluid extends to the right anterior pararenal retroperitoneal fascia. Scattered subcentimeter calcifications noted in the uncinate process and posterior head of the pancreas. On coronal reformatted imaging, there is a branching fluid density tubular structure in the head of the pancreas which abuts a 4 mm calcification (series 300; images 76-78). Spleen: Unremarkable. No splenomegaly. Adrenals: Unremarkable. No mass. Kidneys and ureters: Unremarkable. No solid mass. No hydronephrosis. Stomach and bowel: Moderate distention of the stomach with retained fluid and gas. No gastric mucosal thickening or retrograde distention of the distal thoracic esophagus. No bowel obstruction. No asymmetric bowel mucosal abnormality. Mild to moderate stool burden. PELVIS: Appendix: The appendix demonstrates a variant funneling appearance proximally. The mid to distal appendix are unremarkable. Bladder: Unremarkable. No mass. Reproductive: Unremarkable as visualized. ABDOMEN and PELVIS: Intraperitoneal space: Unremarkable. No free air. No significant fluid collection. Bones/joints: No acute fracture. No dislocation. Soft tissues: Unremarkable. Vasculature: Unremarkable. No abdominal aortic aneurysm. Lymph nodes: Unremarkable. No enlarged lymph nodes. IMPRESSION: 1. Prominent fat stranding noted about the pancreatic head and distal descending and transverse portion of the duodenum. Edema and fluid extends to the right anterior pararenal retroperitoneal fascia. Statistically favor acute pancreatitis over duodenitis. Please correlate with laboratory findings. 2. Scattered subcentimeter calcifications noted in the uncinate process and posterior head of the pancreas. On coronal reformatted imaging, there is a branching fluid density tubular structure in the head of the pancreas which abuts a 4 mm calcification (series 300; images 76-78). This may represent an obstructive accessory pancreatic duct. No definitive calcifications in the main pancreatic duct. 3. Cholecystectomy. Minimal central intrahepatic biliary ectasia. Ectasia of the common bile duct, measuring 11 mm. No definitive calcified choledocholithiasis. Suspect atelectasis changes postcholecystectomy. However, if there is concern for biliary obstruction, recommend MRCP or endoscopic evaluation. Electronically signed by: Jorge Luis Lafleur MD 01/14/24 03:19 AM Chest X-Ray 01/14/24 01:34 XR chest 1V portable CLINICAL HISTORY: upper abd pain TECHNIQUE: Single frontal radiograph of the chest was obtained. Comparison: Comparison is made to chest radiograph 10/22/2023 FINDINGS: No lines and tubes are seen. Cardiomegaly is noted. Mild atelectasis is seen. No evidence of pleural effusion or pneumothorax. IMPRESSION: No acute chest disease. ACT 112: Negative or not required by law. Electronically signed by: Tone Murillo M.D. 01/14/2024 8:26 AM Cholangiopancreatography MRI 01/14/24 10:02 MR MRCP CLINICAL HISTORY: acute/chronic pancreatitis; elevated LFTs TECHNIQUE: Multiplanar multisequence MR images of the abdomen were obtained, as per MRCP protocol. . COMPARISON: Comparison is made to CT abdomen pelvis 01/14/2024 FINDINGS: Lower chest: No acute abnormality Liver: Unremarkable. No focal lesions are seen. Gallbladder and biliary tree: Patient is status post cholecystectomy. No intra- or extrahepatic biliary ductal dilation. Pancreas: Edema and fat stranding is seen about the pancreatic head and body. Hepatic duct is without filling defect on MRCP sequences. Spleen: Unremarkable. Adrenals: Unremarkable. Kidneys and ureters: Unremarkable. Bowel: Unremarkable. Lymph nodes Retroperitoneal: Unremarkable. Mesenteric: Unremarkable. Peritoneum: Fat stranding seen about the pancreatic head. No fluid collections are seen. Vessels: Unremarkable. Abdominal wall: Unremarkable. Bones: Unremarkable. IMPRESSION: Findings are compatible with acute pancreatitis without evidence of pancreatic duct dilation. ACT 112: Negative or not required by law. Electronically signed by: Tone Murillo M.D. 01/14/2024 1:45 PM Abdomen X-Ray 01/17/24 12:18 ABDOMEN 2 VIEWS HISTORY: pancreatitis; abd pain; ileus? Constipation? COMPARISON: Abdomen and pelvis CT 01/14/2024. FINDINGS: There is no pneumoperitoneum or pneumatosis. The bowel gas pattern is unremarkable. No evidence for bowel obstruction. No renal or ureteral calculi. Prior cholecystectomy. Calcifications within the deep pelvis are consistent with phleboliths. No significant fecal retention is noted. IMPRESSION: Nonobstructive bowel gas pattern. No significant fecal retention. ACT 112: Negative or not required by law. Electronically signed by: Chalino Edmondson M.D. 01/17/2024 2:43 PM Hospital Course (1) Acute on chronic pancreatitis: Presented with acutely worsened abdominal pain (recent admission 12/28/23 for pancreatitis) for the 4th time in 2023 for pancreatitis., (denied alcohol use however unclear given prior discussion w/ GI provider) Did recently start statin therapy the prior week with primary care Lipase 144 on admission. Also notable had not been getting his creon (provided good Rx coupon and form filled out to follow up with primary care to get cheaper fill moving forward as was told $600 previously to fill) No recent viral infections CTAP on admission w/ acute on chronic pancreatitis of the head/body of pancreas Imaging impression: 1. Prominent fat stranding noted about the pancreatic head and distal descending and transverse portion of the duodenum. Edema and fluid extends to the right anterior pararenal retroperitoneal fascia. Statistically favor acute pancreatitis over duodenitis. Please correlate with laboratory findings. 2. Scattered subcentimeter calcifications noted in the uncinate process and posterior head of the pancreas. On coronal reformatted imaging, there is a branching fluid density tubular structure in the head of the pancreas which abuts a 4 mm calcification (series 300; images 76-78). This may represent an obstructive accessory pancreatic duct. No definitive calcifications in the main pancreatic duct. 3. Cholecystectomy. Minimal central intrahepatic biliary ectasia. Ectasia of the common bile duct, measuring 11 mm. No definitive calcified choledocholithiasis. Suspect atelectasis changes postcholecystectomy. However, if there is concern for biliary obstruction, recommend MRCP or endoscopic evaluation. MRCP 01/14/24 w/ -findings are compatible with acute pancreatitis without evidence of pancreatic duct dilation. Provided supportive care however difficulty in advancing diet/pain control initially and eventually added carafate QID given duodenitis on CT imaging with improvement and was able to decrease IVF and advance diet with limiting IV Dilaudid and utilization of oxycodone (2 doses on 01/19, 1 dose today 01/20) and tolerating advancement of diet to low fat and recommended continuing such and avoidance of any alcohol. Of note, case discussed with [facility] while inpatient, who knows patient well, and reviewed case and reported imaging actually looked improved and no need for transfer to tertiary care and recs for repect ERCP in 1 month. Provided patient w/ CD imaging to bring and navigator to confirm GI appt at discharge with [facility] LFTs normalized w/ exception of ALP which continued to improve with holding his statin and was instructed to continue to hold this at discharge of note - the pt's Sotyktu for his psoriasis is not associated with pancreatitis (abnl LFTs, but not pancreatitis). can resume but instructed to discuss w/ PCP however acute elevation likely from statin/pancreatitis Prior provider: found that with [facility] we can get him a 30-day supply of Pancreaze for about $226 at [employer] locally - printed out the good Rx coupon for him (4200 unit lipase capsules, #180 -- 2 caps TID w/ meals) gave him this information .Also a patient assistance program from the [employer] that makes Creon and form completed for [id number] capsule, 2 caps TID w/ meals and +1 with snacks Patient w/ + BM 01/19, additional day of dc w/ suppository and instructed to continue bowel regimen while on pain medications as suspect constipation worsened pain. Notable KUB obtained without significant fecal retention or obstruction. Also sent w/ rx for Bentyl for IBS/spasm type pain to use as needed F/u GI 01/20 - ADvancement of diet to low fat yesterday, was doing well in evening/tolerating well and pain w/ oral medication/no need for further IV since AM 01/19 with diet advancement. Utilized oxycodone x2 doses 5mg, 1 dose for today WBC wnl, hgb stable. Afebrile. LFTs wnl except ALP which is continuing to improve. Statin remaining on hold/to continue on hold at dc until normalized Potential dc today on PPI BID, carafate, bentyl prn w/ short course pain medication. Outpt GI f/u. Low fat diet. Avoidance of any alcohol. (2) Atrial fibrillation: paroxysmal , in NSR Continued on eliquis, diltiazem (3) Enlarged prostate with lower urinary tract symptoms (LUTS): not on meds for such , f/u pcp (4) Depression: contributing to chronic abdominal pain? trial of remeron may be effective? and can be discussed outpatient. bentyl seems to have been effective when taken and given rx at dc f/u pcp (5) Esophageal dysphagia: no recent issues w/ such since addition of carafate. remained on PPI BID sent rx for carafate to continue at dc for duodenitis on imaging (6) Hypothyroidism, postablative: TSH 1.2 in 08/2023 cont synthroid (7) HTN (hypertension): (8) Hyperlipidemia: recently initiated on crestor as outpatient on 12/29/23 acute rise in LFTs could have been due to such thus, cont to HOLD crestor and cont to trend LFTs and to continue to hold at dc and f/u PCP on timing if/when to resume (9) Prediabetes: a1c 6.1% in 08/2023 --> repeat 5.7 no Rx needed BSGs wnl (10) Irritable bowel syndrome: noted could be contributing to pain bentyl 10mg prn ordered - try this for his abdominal pain prn -- trialed w/ effect and sent prn rx at dc outpt GI f/u (11) Laryngopharyngeal reflux: cont PPI twice daily added carafate in the event the duodenitis seen on CT a/p is contributing to pain - continued given improvement in ability to tolerate advancement of diet and prior reported pain 2-3hr following eating (12) Elevated LFTs: etiology - recent crestor initiation? Sotyktu also can cause abn LFTs however not pancreatitis as above pt denies etoh consumption no recent viral infections LFTs are improving, see above he is s/p cholecystectomy state MRCP did NOT show biliary obstruction repeat LFTs am with improvement in ALP and statin remaining on hold at time of discharge and to have pcp f/u avoidance of any/all alcohol encouraged (denied use) f/u derm about Sotyktu use Plan discharged home tolerating low fat diet without significant pain and no further n/v. CD w/ imaging provided to patient along with rx for carafate/bentyl and short course oxycodone and to have outpt GI f/u for ERCP in 1 month. Avoidance of alcohol and improvement in nutrition recommended Total Time Total Time Spent Total Time Spent (In Minutes): 45 Discharge Plan Discharge Items Patient Disposition: Home - Self-Care Reason For Visit: ACUTE ON CHRONIC PANCREATITIS Discharge Diagnosis: Pancreatitis Condition on Discharge: Good Goals: You have been hospitalized for an acute medical problem. During your stay at [facility], we have made an effort to correct the problem that brought you to the hospital while keeping you as comfortable as possible. Medications were used to bring your condition under control and your discharge instructions will include directions for any medications you should take after leaving the hospital. Please make sure you see your Primary Care Provider as part of your follow up plan. Activity: As commented below Non-emergency contact: Primary Care Provider and Chemical Waste Management Technician Call non-emergency contact if: you have any medication questions, your symptoms worsen, your pain is not controlled and you have a fever Follow-up/Referrals: Sue Gallegos DO [Primary Care Provider] - 02/06/24 8:20 am Lang Polanco MD [Physician] - Diet: Low Fat Diet Comment: NO ALCOHOL, LOW FAT Addtl Attending Provider Instructions: You have been hospitalized for abdominal pain and found to have evidence for pancreatitis but also possibly duodenitits (inflammation in part of belly) and was discussed with Dr Polanco and imaging appears improved but you will need ERCP in 1 month outpatient. We have burnt CD with imaging for you to take to this appointment and may benefit from a stent for ongoing issues. It is strongly recommended to continue to AVOID ALL ALCOHOL as this can bring this back acutely. At discharge, you should HOLD OFF taking your rosuvastatin (crestor) which is used for cholesterol as your one liver enzyme was elevated but improved off this. This should be on hold until discussed with primary care/normalized labs on repeat outpatient. Regarding medications at discharge: - Continue Creon three times daily with meals (coupon provided and should have primary care assist with completion of paperwork for ongoing fills) - Continue protonix 40mg by mouth twice daily (helps with reflux) - Carafate 1 tablet four times a day before meals (helps with duodenitis and lining of the stomach) - Dicyclomine (Bentyl) 10mg up to three times daily (this can help with abdominal spasms) and has been helpful Short course of oxycodone ONLY TO BE USED for breakthrough pain. Please continue bowel regimen while on pain medications to prevent constipation which can worsen abdominal pain as well. It is recommended to follow up with primary care in the next 7-10 days from discharge. You should take your prescriptions for review with primary care to ensure not taking anything you shouldn't be. Please return to the ER with any fever/chills, worsening pain, or for any other symptoms concerning for you. It has been a pleasure being a part of the medical team providing for you while you have been in the hospital. Take care! Pending Studies at Discharge: No Stand-Alone Forms: [facility], Smoking Cessation Medications and DC Order Prescriptions: New dicyclomine 10 mg Capsule 10 mg PO TID PRN (Reason: abdominal pain) Qty: 20 0RF Continued levothyroxine 175 mcg tablet 175 mcg PO QAM Qty: 90 2RF diltiazem HCl [Cardizem CD] 120 mg capsule,extended release 24hr 120 mg PO QAM Qty: 90 3RF cetirizine 10 mg tablet 10 mg PO BID Qty: 60 5RF pantoprazole [Protonix] 40 mg tablet,delayed release (DR/EC) 40 mg PO BID Qty: 180 3RF famotidine 40 mg tablet 40 mg PO BID Qty: 180 2RF Sotyktu 6 mg tablet 6 mg PO DAILY hydroxyzine HCl 25 mg tablet 25 mg PO Q8H PRN (Reason: itching) Qty: 90 1RF Eliquis 5 mg tablet 5 mg PO BID Qty: 180 1RF Hold Instructions: Resume on 01/07/24. zolpidem 10 mg tablet 10 mg PO HS Qty: 30 0RF triamcinolone acetonide 0.1 % cream 1 applic topical BID Qty: 454 0RF Rx Instructions: Rx by [facility]. Maury Hankins of [facility]. "apply BID to affected area M on through Friday, off weekends" sildenafil 100 mg tablet 100 mg PO DAILY PRN (Reason: Erectile Dysfunction) Rx Instructions: administer 30 minutes to 4 hours before activity pramipexole 0.125 mg tablet 0.125 mg PO DAILY polyethylene glycol 3350 [Miralax] 17 gram/dose powder 17 g PO DAILY PRN (Reason: constipation) Senna Plus 8.6-50 mg capsule 1 tab-cap PO BID PRN (Reason: Constipation) multivitamin Tablet 1 tab PO QAM oxycodone 5 mg tablet 5 mg PO Q4H PRN (Reason: Pain) Qty: 10 0RF Changed azvhhm-[id number]-[id number] 12,000-38,000 -60,000 unit capsule,delayed release(DR/EC) 2 cap PO DIRECTED Qty: 240 11RF Rx Instructions: 2 caps PO TID with meals PLUS 1 cap PO PRN snacks. Held rosuvastatin [Crestor] 10 mg tablet 10 mg PO DAILY Qty: 90 0RF Hold Instructions: Resume on 02/04/24. Discharge Orders: Discharge Order (Routine); Ordered 01/21/24 Ordered By: Petra Aquino Admission Data Admit Date/Time: 01/14/24 04:33 Attending Provider: London Lopez Admit Provider: Maynor Huynh Primary Care Provider: Sue Gallegos Other Providers: Syed Anderson; Tory Silver Other Interventions: Discharge Summary Assessment (RN) Last Done: 01/21/24 13:05 Supervising Physician Co-Signing Physician Notes The patient was not seen by me. The chart was reviewed. Case discussed with AMELIA Frazier. Agree with assessment and plan. The patient is medically stable for discharge today, January 20 Coding Level of Care Code 55340 INP/OBS DISCH >30 MIN Diagnoses Acute on chronic pancreatitis K85.90; K86.1 Atrial fibrillation I48.91 Enlarged prostate with lower urinary tract symptoms (LUTS) N40.1 Depression F32.9 Esophageal dysphagia R13.10 Hypothyroidism, postablative E89.0 HTN (hypertension) I10 Hyperlipidemia E78.5 Prediabetes R73.03 Irritable bowel syndrome K58.9 Laryngopharyngeal reflux K21.9 Elevated LFTs R79.89
[2024-01-21] MEDS: bisacodyL 10 MG SUPP PR ONE (11:23)
[2024-01-21] MEDS: bisacodyL 10 MG SUPP PR STA (11:30)
== END 2024-01-21 14:40 | disposition home or self-care (01) | DRG 440 ==
LOC: SUATTDRO → ED 00:42 → SUATTDRO 04:33 → EDINP 04:33 → 3N 13:26